=== PATIENT | female | born 1960 | race Caucasian/White ===

== ENCOUNTER 2018-11-02 05:32 | Outpatient (CLI) | payer MEDICAID ==
[~2018-11-02] VITALS: Ht 167.6 cm; Wt 92.5 kg
[~2018-11-02 05:32] MED LIST: ASPI81TA19 PO; CARV6.252 PO; GLIM2TAB PO; INSU100I29 SQ; LISI10TA2 PO; LOVA20TA2 PO; METF-380 PO; NITR0.4T SL; [UNRECOGNIZED DRUG - CODE] TP
[2018-11-02] MEDS ORDERED: NITR0.4T39 SL (14:50)
[2018-11-02] MEDS ORDERED: TOPI100T PO (14:50)
[2018-11-02] MEDS ORDERED: ISOS30TA3 PO (14:50)
[2018-11-02] MEDS ORDERED: ASPI-586 PO (14:50)
[2018-11-02] MEDS ORDERED: METF-399 PO (14:50)
[2018-11-02] MEDS ORDERED: ATOR40TA PO (14:50)
[2018-11-02] MEDS ORDERED: CALC-823 PO (14:50)
[2018-11-02] MEDS ORDERED: OMG1KC PO (14:50)
[2018-11-02] MEDS ORDERED: ACET325T38 PO (14:50)
[2018-11-02] MEDS ORDERED: CHOL100045 PO (14:50)
[2018-11-02] MEDS ORDERED: CARV3.12 PO (14:50)
[2018-11-02] MEDS ORDERED: CLOP75TA28 PO (14:50)
== END 2018-11-03 09:55 | disposition home or self-care (01) ==
LOC: PREOP 05:32
PROVIDERS: ATTEND Specialist
DX: Z01.818 Encounter for other preprocedural examination (principal)

== ENCOUNTER 2018-11-04 06:27 | Day surgery (SDC) | payer MEDICAID ==
[~2018-11-04] VITALS: Ht 167.6 cm; Wt 92.5 kg
[~2018-11-04 06:27] MED LIST changes: +ACET325T38 PO; +ASPI-586 PO; +ATOR40TA PO; +CALC-823 PO; +CARV3.12 PO; +CHOL100045 PO; +CLOP75TA28 PO; +ISOS30TA3 PO; +METF-399 PO; +NITR0.4T39 SL; +OMG1KC PO; +TOPI100T PO
[2018-11-04 07:10] VITALS: BP 138/81
[2018-11-04] MEDS ORDERED: MIDAZOLAM 2 MG/2 ML (VERSED) VIAL ONE (07:10)
[2018-11-04] MEDS ORDERED: MOXIFLOXACIN OPHTH SOLN 5 MG/ML 0.3 ML SYRINGE OP ONE (07:15)
[2018-11-04] MEDS ORDERED: TIMOLOL MALEATE 0.5% 5 ML (TIMOPTIC) BTL OU PRN (07:15)
[2018-11-04] MEDS ORDERED: LIDOCAINE PF 1% 2 ML AMP IR PRN (07:15)
[2018-11-04] MEDS ORDERED: POVIDONE (BETADINE) OPHTH SOLN 5% 30 ML OP ONE (07:15)
[2018-11-04] MEDS: TETRACAINE 0.5% OPHTH SOLN 4 ML BTL (SINGLE DOSE ONLY) OU PRN ×4 (07:23→07:52)
[2018-11-04] MEDS: PHENYLEPHRINE 10% OPHTH (NEO-SYN) 5 ML BTL OU SCH ×3 (07:39→07:52)
[2018-11-04] MEDS: CYCLOPENTOLATE 1% (CYCLOGYL) 2 ML DROPS OP SCH ×3 (07:39→07:52)
--- NOTE | 2018-11-04 08:12 | Ophthalmologist Pre-Op Note ---
Pre-Operative Progress Note H&P Reviewed The H&P was reviewed, patient examined and no changes noted. Date H&P Reviewed: November 04, 2018 Time H&P Reviewed: 08:12 Pre-Op Dx Cataract, Left Eye KATRINA DOBSON MD November 04, 2018 08:12
--- NOTE | 2018-11-04 08:39 | Ophthalmology Operative Report ---
Cataract removal/placement IOL PREOPERATIVE DIAGNOSIS: Cataract Left Eye POSTOPERATIVE DIAGNOSIS: Cataract Left Eye PROCEDURE: Cataract removal and placement of posterior chamber implant, left eye SURGEON: Gigi Dobson ANESTHESIA: Topical with sedation COMPLICATIONS: None ESTIMATED BLOOD LOSS: Minimal DESCRIPTION OF PROCEDURE: After proper informed consent was obtained, the patient, a 58 female, was taken to the Operating Room and the left eye was anesthetized with tetracaine. The left eye was then prepped and draped in the usual manner. A wire lid speculum was placed. A paracentesis was made at the left hand position. Preservative free lidocaine was injected into the anterior chamber followed by viscoelastic. A clear corneal incision was made in the temporal position. A capsulorrhexis was preformed and the central nuclear and cortical material were removed. The posterior capsule was polished and an Gio 25.5 AU00T0 was placed into the capsular bag. The residual viscoelastic was aspirated and balanced saline solution was injected into the anterior chamber. Moxifloxacin was injected into the anterior chamber. The wound was checked and found to be water tight. The patient tolerated the procedure well without complications. GIGI DOBSON MD November 04, 2018 08:39
[2018-11-04 08:45] VITALS: BP 138/74
[2018-11-04] MEDS ORDERED: acetaZOLAMIDE ER 500 MG CAP (DIAMOX SEQUELS) PO ONE (09:00)
--- NOTE | 2018-11-04 13:12 | Anesthesia-General Post-Op ---
MAC Patient Condition Mental Status/LOC: Same as Preop Cardiovascular: Satisfactory Nausea/Vomiting: Absent Respiratory: Satisfactory Pain: Controlled Complications: Absent Post Op Complications Complications None Follow Up Care/Instructions Patient Instructions None needed. Anesthesiology Discharge Order Discharge Order Patient was seen after the procedure and she was doing well, no complaints, stable vital signs, no apparent adverse anesthesia problems. JURGEN JACKSON DO November 04, 2018 13:12
== END 2018-11-04 08:45 | disposition home or self-care (01) ==
LOC: SDC 06:27
PROVIDERS: ATTEND Specialist
DX: H25.12 Age-related nuclear cataract, left eye (principal); E11.36 Type 2 diabetes mellitus with diabetic cataract; I25.10 Atherosclerotic heart disease of native coronary artery without angina pectoris; I10 Essential (primary) hypertension; E03.9 Hypothyroidism, unspecified; R56.9 Unspecified convulsions; F32.9 Major depressive disorder, single episode, unspecified; Z86.73 Personal history of transient ischemic attack (TIA), and cerebral infarction without residual deficits; Z79.82 Long term (current) use of aspirin; Z79.899 Other long term (current) drug therapy; Z79.84 Long term (current) use of oral hypoglycemic drugs

== ENCOUNTER → 2018-12-08 | Outpatient (CLI) | payer MEDICAID | END | disposition home or self-care (01) | LOC: PREOP 05:37 | PROVIDERS: ATTEND Specialist | DX: Z01.818 Encounter for other preprocedural examination (principal) ==

== ENCOUNTER 2019-04-20 09:12 | Outpatient (CLI) | payer MEDICAID ==
[~2019-04-20] VITALS: Ht 168 cm; Wt 74.5 kg
[2019-04-20] MEDS ORDERED: RANI300T4 PO (09:19)
== END 2019-04-20 09:24 | disposition home or self-care (01) ==
LOC: PREOP 09:12
PROVIDERS: ATTEND Specialist
DX: Z01.818 Encounter for other preprocedural examination (principal)

== ENCOUNTER 2019-05-24 05:52 | Outpatient (CLI) | payer MEDICAID ==
[~2019-05-24] VITALS: Ht 167 cm; Wt 74.5 kg
[~2019-05-24 05:52] MED LIST changes: +RANI300T4 PO
== END 2019-05-25 09:31 | disposition home or self-care (01) ==
LOC: PREOP 05:52
PROVIDERS: ATTEND Specialist
DX: Z01.818 Encounter for other preprocedural examination (principal)

== ENCOUNTER 2019-05-26 09:19 | Day surgery (SDC) | payer MEDICAID ==
[~2019-05-26] VITALS: Ht 167 cm; Wt 74.5 kg
[~2019-05-26 09:19] MED LIST changes: +acetaZOLAMIDE ER 500 MG CAP (DIAMOX SEQUELS) PO ONE
[2019-05-26] MEDS ORDERED: LIDOCAINE PF 1% 2 ML AMP IR PRN (09:30)
[2019-05-26] MEDS ORDERED: MOXIFLOXACIN OPHTH SOLN 5 MG/ML 0.3 ML SYRINGE OP ONE (09:30)
[2019-05-26] MEDS ORDERED: TIMOLOL MALEATE 0.5% 5 ML (TIMOPTIC) BTL OU PRN (09:30)
[2019-05-26] MEDS ORDERED: POVIDONE (BETADINE) OPHTH SOLN 5% 30 ML OP ONE (09:30)
[2019-05-26] MEDS: TETRACAINE 0.5% OPHTH SOLN 4 ML BTL (SINGLE DOSE ONLY) OU PRN ×4 (09:35→09:57)
[2019-05-26 09:41] VITALS: BP 135/84
[2019-05-26] MEDS: PHENYLEPHRINE 10% OPHTH (NEO-SYN) 5 ML BTL OU SCH ×3 (09:47→09:57)
[2019-05-26] MEDS: CYCLOPENTOLATE 1% (CYCLOGYL) 2 ML DROPS OP SCH ×3 (09:47→09:57)
--- NOTE | 2019-05-26 09:54 | Ophthalmologist Pre-Op Note ---
Pre-Operative Progress Note H&P Reviewed The H&P was reviewed, patient examined and no changes noted. Date H&P Reviewed: May 26, 2019 Time H&P Reviewed: 09:54 Pre-Op Dx Cataract, Right Eye KATRINA DOBSON MD May 26, 2019 09:54 POS
[2019-05-26] MEDS ORDERED: MIDAZOLAM 2 MG/2 ML (VERSED) VIAL ONE (10:18)
--- NOTE | 2019-05-26 10:36 | Ophthalmology Operative Report ---
Cataract removal/placement IOL PREOPERATIVE DIAGNOSIS: Cataract Right Eye POSTOPERATIVE DIAGNOSIS: Cataract Right Eye PROCEDURE: Cataract removal and placement of posterior chamber implant, right eye SURGEON: Gigi Dobson ANESTHESIA: Topical with sedation COMPLICATIONS: None ESTIMATED BLOOD LOSS: Minimal DESCRIPTION OF PROCEDURE: After proper informed consent was obtained, the patient, a 59 female, was taken to the Operating Room and the right eye was anesthetized with tetracaine. The right eye was then prepped and draped in the usual manner. A wire lid speculum was placed. A paracentesis was made at the left hand position. Preservative free lidocaine was injected into the anterior chamber followed by viscoelastic. A clear corneal incision was made in the temporal position. A capsulorrhexis was preformed and the central nuclear and cortical material were removed. The posterior capsule was polished and Gio 25.0 AU00T0 IOL was placed into the capsular bag. The residual viscoelastic was aspirated and balanced saline solution was injected into the anterior chamber. Moxifloxacin was injected into the anterior chamber. The wound was checked and found to be water tight. The patient tolerated the procedure well without complications. GIGI DOBSON MD May 26, 2019 10:36 POS
[2019-05-26 10:45] VITALS: BP 130/76
--- NOTE | 2019-05-26 11:58 | Anesthesia-General Post-Op ---
MAC Patient Condition Mental Status/LOC: Same as Preop Cardiovascular: Satisfactory Nausea/Vomiting: Absent Respiratory: Satisfactory Pain: Controlled Complications: Absent Post Op Complications Complications None Follow Up Care/Instructions Patient Instructions None needed. Anesthesiology Discharge Order Discharge Order Patient is doing well, no complaints, stable vital signs, no apparent adverse anesthesia problems. No complications reported per nursing. CRISTAL AL CRNA May 26, 2019 11:58 POS
--- OUTSIDE RECORDS SUMMARY | 2019-06-21 12:19 | XMS REPORT ---
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 Name Role Phone Migration, Doctor Unavailable Unavailable PROBLEMS Type Condition ICD9-CM Code KLR89-PV Code Onset Dates Condition S tatus SNOMED Code Problem Gallbladder polyp K82.4 Active 19 9397167 Problem Urge incontinence of urine N39.41 Act viji 55122162 Problem Mixed hyperlipidemia E78.2 Active 035728246 Problem Hypomagnesemia E83.42 Active 06084 5004 Problem Expressive aphasia R47.01 Active 2 23575362 Problem Type 2 diabetes mellitus without complications E11 .9 Active 44794193 Problem Encounter for Zostavax administration Z23 Active 384092454 Problem Anxiety F41.9 Active 35051261 Problem Seizure disorder G40.909 Active 128 312092 Problem Dental caries K02.9 Active 760680 01 Problem Cardiomyopathy I42.9 Active 39835 001 Problem Fatigue, unspecified type R53.83 Acti ve 00916146 Problem Thyroid mass E07.9 Active 5038863 03 Problem Acute bronchitis, unspecified organism J20.9 Active 76198346 Problem Encounter for gynecological examination without abnormal finding Z01.419 Active 671636551 Problem Other chronic pain G89.29 Active 8 2161387 Problem Cardiomegaly I51.7 Active 9647351 Problem Controlled type 2 diabetes m ellitus without complication, without long- term current use of insulin E11.9 Active 861318764 Problem Pain in left shoulder M25.512 Active 39380221 Problem Emotional lability R45.86 Active 1 8635104 Problem Dermatitis L30.9 Active 45352559 Problem Primary osteoarthritis of left shoulder M19.012 Active 34240088 Problem Gastric reflux K21.9 Active 20525 7003 Problem Visit for screening mammogram Z12.31 Active 553369421 Problem Age-related osteoporosis without current pathological fracture M81.0 Active 35221123 Problem Allergic rhinitis J30.9 Active 61 652570 Problem Early menopause E28.319 Active 1908 6009 Problem Colon cancer screening Z12.11 Active 025596245 Problem Breast cancer screening Z12.39 Active 970678692 Problem Hemorrhoids, external, thrombosed K64.5 Active 01310522 Problem Constipation K59.00 Active 5775824 8 Problem Type 2 diabetes mellitus wit h diabetic neuropathy, unspecified whether penitentiary insulin use E11.40 Active 451347 242792931 Problem Other hammer toe(s) (acquired), left foot M20.42 Active 60157787 Problem Other hammer toe(s) (acquired), right foot M20.41 Active 232937203 ALLERGIES No Information ENCOUNTERS Encounter Location Date Diagnosis [facility] [address] [id number][place] [id number] Mar, [facility] [address] [id number], [place] [id number] Nov, Controlled type 2 diabetes mellitus with out complication, without long-term current use of insulin E11.9 and Colon cancer screening Z12.11 [facility] [id number], [place] [id number] Nov, Type 2 diabetes mellitus without complic ations E11.9 and Gastric reflux K21.9 [facility] [address] [place] [address] AVE [id number], [place] [id number] Nov, Dental caries K02.9 [facility] [address] [facility] [id number] 100KS [place] [address] October, Other hammer toe(s) (acquire d), left foot M20.42 ; Other hammer toe(s) (acquired), right foot M20.41 and Type 2 diabetes mellitus with diabetic neuropathy, unspecified whether penitentiary insulin use E11.40 [facility] [address] [id number], [place] [id number] Sep, Allergic rhinitis J30.9 [facility] [address] [id number], [place] [id number] Sep, [facility] [address] [id number], [place] [address] Sep, Allergic rhinitis, unspecified seasonali ty, unspecified trigger J30.9 and Viral upper respiratory tract infection J06.9 [facility] [address] [id number], [place] [id number] Aug, [facility] [address] [facility] [id number] 100KS [place] [address] Jul, [facility] [address] [id number], [place] [id number] Jul, Type 2 diabetes mellitus without complic ations E11.9 and Left foot pain M79.672 [facility] A[address] [id number], [place] [id number] May, Gastric reflux K21.9 and Pruritic dermat itis L29.9 [facility]ERSERosi [address] [id number], [place] [address] Apr, [facility] [address] [id number], [place] [id number] Mar, Type 2 diabetes mellitus without complic ations E11.9 ; Bronchitis, acute J20.9 and Constipation K59.00 [facility] [address] [id number], [place] [id number] Mar, [facility] [address] [id number], [place] [id number] Mar, [facility] [address] [id number], [place] [id number] Mar, [facility] [address] [id number], [place] [id number] Mar, [facility] [address] [id number], [place] [id number] Mar, [facility] [address] [id number], [place] [id number] Feb, Encounter for immunization Z23 [facility] [address] [id number], [place] [id number] Feb, Gastric reflux K21.9 ; Visit for screeni ng mammogram Z12.31 and Age- related osteoporosis without current pathological fracture M81.0 [facility] [address] [id number] [place] [id number] Feb, [facility] [address] [id number] [place] [address] Feb, [facility] [address] [id number], [place] [id number] Aug, [facility] [address] [id number], [place] [id number] Jul, Contact dermatitis, unspecified contact dermatitis type, unspecified trigger L25.9 [facility] [address] [id number], [place] [id number] Mar, Type 2 diabetes mellitus without complic ations E11.9 ; Mammogram declined Z53.20 ; Cardiomegaly I51.7 and Encounter for immunization Z23 [facility] [address] [id number], [place] [address]3689[address] Mar, [facility] [address] [id number], [place] [id number] Jan, High risk medication use Z79.899 and Anx iety F41.9 [facility] [address] [id number], [place] [id number] Jan, [facility] [address] [id number], [place] [address]297780[address] Jan, Dental caries K02.9 [facility] [address] [id number], [place] [address] Jan, [facility] [address] [id number], [place] [address]659000[address] Nov, Dental caries K02.9 [facility] [address] [id number], [place] [id number] October, Dental caries K02.9 [facility] [address] [id number], [place] [address]366[address] Sep, [facility] [address] [id number] [place] [id number] Sep, Type 2 diabetes mellitus without complic ations E11.9 and Dental caries K02.[address] [facility] [address] [id number] [place] [id number] Aug, [facility] [address] [id number] [place] [id number] Jul, [facility] [address] [id number] [place] [address] Jul, [facility] [address] [id number] BE[facility]IOR[facility] [address] Jun, Dental examination Z01.[address] [facility] [address] [id number], [place] [id number] Jun, Emotional lability R45.[address] [facility] [address] [id number], [place] 096845[address] Jun, [facility] [address] [id number] BEHAVIORAL [facility] [id number] Jun, Controlled type 2 diabetes mellitus with out complication, without long-term current use of insulin E11.[address] [facility] [address] [id number], [place] [address]741617[address] May, [facility] [address] [id number] [place] [id number] May, Cardiomyopathy I42.9 ; Emotional labilit y R45.86 and Dental caries K02.[address] [facility] [address] [id number] [place] [address]54[address] Apr, [facility] [address] [id number] [place] [address]30[address] Mar, [facility] [address] [id number] [place] [id number] Feb, Type 2 diabetes mellitus without complic ations E11.9 [facility] [place] [address] [id number] [place] [id number] Jan, [facility] [address] [id number] [place] 07[address] Dec, Gallbladder polyp K82.[address] [facility] [address] [id number], [place] 199216775 Nov, [facility] [address] [id number], [place] 082955495 Nov, Primary osteoarthritis of left shoulder M19.012 [facility] [address] [id number] [place] [address] Nov, [facility] [address] [id number], [place] [id number] Nov, Controlled type 2 diabetes mellitus with out complication, without long-term current use of insulin E11.9 and Pain in left shoulder M25.[address] [facility] [address] [id number], [place] 535531651 Nov, Gallbladder polyp K82.4 [facility] [address] [id number], [place] 121776472 October, Pain in left shoulder M25.512 and Other chronic pain G89.29 [facility] [address] [id number], [place] [id number] October, [facility] [address] [id number], [place] [id number] October, [facility] [address] [id number], [place] [id number] October, [facility] [address] [id number], [place] [id number] Sep, [facility] [address] [id number] 100KS [place] [address] Sep, [facility] [address] [id number], [place] 736184982 Sep, Encounter for gynecological examination without abnormal finding Z01.419 ; Breast cancer screening Z12.39 ; Hemorrhoids, external, thrombosed K64.5 and Early menopause E28.[id number] [place] [address] [id number] Sep, Acute bronchitis, unspecified organism J 20.9 and Cardiomegaly I51.[address] [id number] [place] [address] [id number] Aug, Thyroid mass E07.[address] [id number] [place] [address] [id number] 15 Aug, 2015 Type 2 diabetes mellitus without complic ations E11.9 ; Thyroid mass E07.9 and Encounter for Zostavax administration Z23 [address] [id number] [place] [address] [id number] Aug, Seizure disorder G40.909 ; Hypomagnesemi a E83.42 and Expressive aphasia R47.01 [facility] [address] [facility] [id number] [address] [place] [address] 06 Jul, 2015 Urge incontinence of urine N 39.[address] [id number] [place] [address] [id number] 02 Jul, [address] [id number] [place] [address] [id number] Jul, Pharyngitis J02.9 ; Urge incontinence of urine N39.41 and Acute cystitis with hematuria N30.01 [facility] [address] [facility] [id number] [address] [place] [address] May, Mixed hyperlipidemia E78.[address] AV[address] [facility]'S [id number] [place] [address] [id number] May, Seizure disorder G40.909 ; Mixed hyperli pidemia E78.2 and Gallbladder polyp K82.[address] [id number] [place] [address] [id number] May, [facility] [address] [id number], [place] [id number] May, [facility] [address] [id number], [place] [id number] May, Diabetes type 2, controlled E11.9 and Fa tigue, unspecified type R53.83 [facility] [address] [id number], [place] [id number] Apr, Cardiomyopathy I42.9 ; Thyroid mass E07. 9 ; Seizure disorder G40.909 and Dermatitis L30.9 [facility] [address] [id number], [place] [id number] Mar, [facility] [id number], [place] [id number] Feb, [facility]ENTERSEZervantUS [address] [place] [address] AVE [id number], [place] [id number] Feb, [facility]ENTERSEZervantUS [address] [place] [address] AVE [id number], [place] [id number] Jan, [facility] [address] [place] [address] AVE [id number], [place] [id number] Jan, CAD (coronary artery disease) 414.00 ; H yperlipidemia associated with type 2 diabetes mellitus 250.80 and Diabetes type 2, controlled 250.00 [facility] [address] [facility] [address] [id number], [place] [address]3275302 Nov, CVA (cerebral infarction) 434.91 ; Expre ssive aphasia 784.3 ; Solitary nodule of right lobe of thyroid 241.0 ; CAD (coronary artery disease) 414.00 ; Diabetes type 2, controlled 250.00 and Hemorrhoids, external 455.3 [facility] [address] [id number], [place] [id number] October, Chest pain, atypical 786.59 ; Hemorrhoid s 455.6 ; Diabetes type 2, controlled 250.00 and Hyperlipidemia associated with type 2 diabetes mellitus 250.80 [facility] [address] [id number], [place] [id number] October, [facility] [address] [id number], [place] 947054472 October, Chest pain 786.50 ; Abnormal EKG 794.31 and Diabetes type 2, controlled 250.[address] [facility] [address] [id number], [place] 800365412 October, Chest pain varies with breathing 786.50 [facility] [address] [id number] [address] [place] [address] Sep, [facility] [address] [id number] [address] [place] [address] Sep, [facility] [address] [id number] [address] [place] [address] Aug, [facility] [address] [id number] [address] [place] [address] Aug, [facility] [address] [id number] [address] [place] [address] Aug, [facility] [address] [id number] [address] [place] [address] Aug, [facility] [address] [id number] [address] [place] [address] Aug, [facility] [address] [id number] [address] [place] [address] Aug, [facility] [address] [id number] [address] [place] [address] Aug, [facility] [address] [id number] [address] [place] [address] Aug, [facility] [address] [id number] [address] [place] [address] Jul, [facility] [address] [id number] [address] [place] [address] Jul, [facility] [address] [id number] [address] [place] [address], [place] [address] Jun, [facility] [address] [id number] [address] [place] [address], [place] [address] Jun, [facility] [address] [id number] [address] [place] [address], [place] [address] Jun, [facility] [address] [id number] [address] [place] [address], [place] [address] Jun, [facility] [address] [id number] [address] [place] [address], [place] [address] Jun, [facility] [address] [id number] [address] [place] [address], [place] [address] Jun, [facility] [address] [id number] [address] [place] [address], [place] [address] Jun, [facility] [address] [id number] [address] [place] [address], [place] [address] Jun, [facility] [address] [id number] [address] [place] [address], [place] [address] Jun, [facility] [place] [address] [id number] [place] [id number] Jun, [facility] [address] [id number] [address] [place] [address], [place] [address] Jun, [facility] [address] [id number] [address] [place] [address], [place] [address] May, [facility] [address] [id number] [address] [place] [address], [place] [address] May, [facility] [address] [id number] [address] [place] [address], [place] [address] May, [facility] [address] [id number] [address] [place] [address], [place] [address] May, [facility] [address] [id number] [address] [place] [address], [place] [address] Apr, [facility] [address] [id number] [address] [place] [address], [place] [address] Apr, 2013 [facility] [address] [id number] [address] [place] [address], [place] [address] Mar, 2013 [facility] [address] [id number] [address] [place] [address], [place] [address] Mar, 2013 [facility] [address] [id number] [address] [place] [address], [place] [address] Mar, 2013 [facility] [address] [id number] [address] [place] [address], [place] [address] Mar, 2013 [facility] [address] [id number] [address] [place] [address], [place] [address] Mar, 2013 [facility] [address] [id number] [address] [place] [address], [place] [address] Mar, 2013 [facility] [address] [id number] [address] [place] [address], [place] [address] Mar, 2013 [facility] [address] [id number] [address] [place] [address], [place] [address] Mar, [facility] [address] [id number] [address] [place] [address], [place] [address] 30 Feb, 2013 [facility] [address] [id number] [address] [place] [address], [place] [address] 30 Sep, 2013 [facility] [address] [id number] [address] [place] [address], [place] [address] 19 Sep, 2013 [facility] [address] [id number] [address] [place] [address], [place] [address] 08 Sep, 2013 [facility] [address] [id number] [address] [place] [address], [place] [address] 08 Sep, 2013 [facility] [address] [id number] [address] [place] [address], [place] [address] 08 Sep, 2013 [facility] [address] [id number] [address] [place] [address], [place] [address] Feb, [facility] [address] [id number] [address] [place] [address] Feb, [facility] [address] [id number] [address] [place] [address] Feb, [facility] [address] [id number] [address] [place] [address] Feb, [facility] [address] [id number] [address] [place] [address] Feb, [facility] [address] [id number] [address] [place] [address] Jan, [facility] [address] [id number] [address] [place] [address] Jan, [facility] [address] [facility] [id number] [address] [place] [address] October, [facility] [address] [id number] [address] [place] [address] October, IMMUNIZATIONS No Known Immunizations SOCIAL HISTORY Never Assessed REASON FOR VISIT PLAN OF CARE VITAL SIGNS MEDICATIONS Unknown Medications RESULTS No Results PROCEDURES No Known procedures INSTRUCTIONS MEDICATIONS ADMINISTERED No Known Medications MEDICAL (GENERAL) HISTORY Type Description Date Medical History Diabetes mellitus without me ntion of complication, type II or unspecified type, not stated as uncontrolled Medical History hyperlipidemia Medical History chronic constipation Medical History atrophic vaginitis Medical History left frontal cva 11-02-14 Medical History CAD Medical History right thyroid mass Medical History expressive aphasia Medical History ischemic cardiomyopathy with 3 vessel di sease and 30% EF Medical History EEG-positive results Medical History Fatty liver and an 8mm gallbladder polyp CT Medical History seizure disorder post CVA Medical History 04/09/15 PPV 23 Medical History DEXA osteoporosis Medical History 08-17-18 cataracts-surg recommended Medical History 10/21/18 DM podiatry visit Surgical History tubal ligation Surgical History exploratory laparoscopy Surgical History appendectomy Surgical History breast biopsy Surgical History incision and drainage abscess Surgical History tonsillectomy and adenoidectomy Surgical History heart cath 10/2014 Surgical History triple bypass 12/31/14 Hospitalization History past surgeries Hospitalization History left frontal CVA 10/2014 Hospitalization History heart surgery 12/31/14 Hospitalization History syncopal episode, repiratory failure, pneumonia, anemia, pulmonoary edema 04/07/15 Hospitalization History AMS, Seizure 06/04/2015 Hospitalization History chest pain-noncardiac 03/29/18 Hospitalization History [facility] Was given cousmallpox hospital medicine and was sent home. 09/24/2018
--- OUTSIDE RECORDS SUMMARY | 2019-06-21 12:19 | XMS REPORT ---
Author Author Cat CAVANAUGH [facility] Address [address] [place] [address] Care Team Providers Care Truck Dispatcher Name Role Phone INGE CAVANAUGH Unavailable PROBLEMS Type Condition ICD9-CM Code XIS80-LX Code Onset Dates Condition S tatus SNOMED Code Problem Gallbladder polyp K82.4 Active 19 8273088 Problem Urge incontinence of urine N39.41 Act viji 90753502 Problem Mixed hyperlipidemia E78.2 Active 365625750 Problem Hypomagnesemia E83.42 Active 18780 5004 Problem Expressive aphasia R47.01 Active 2 23719833 Problem Type 2 diabetes mellitus without complications E11 .9 Active 66234529 Problem Encounter for Zostavax administration Z23 Active 691710254 Problem Anxiety F41.9 Active 52908829 Problem Seizure disorder G40.909 Active 128 973914 Problem Dental caries K02.9 Active 189415 01 Problem Cardiomyopathy I42.9 Active 41625 001 Problem Fatigue, unspecified type R53.83 Acti ve 42994804 Problem Thyroid mass E07.9 Active 0325420 03 Problem Acute bronchitis, unspecified organism J20.9 Active 21106565 Problem Encounter for gynecological examination without abnormal finding Z01.419 Active 943014420 Problem Other chronic pain G89.29 Active 8 4752185 Problem Cardiomegaly I51.7 Active 0320519 Problem Controlled type 2 diabetes m ellitus without complication, without long- term current use of insulin E11.9 Active 339310435 Problem Pain in left shoulder M25.512 Active 60411445 Problem Emotional lability R45.86 Active 1 9320025 Problem Dermatitis L30.9 Active 50302934 Problem Primary osteoarthritis of left shoulder M19.012 Active 49216731 Problem Gastric reflux K21.9 Active 04054 7003 Problem Visit for screening mammogram Z12.31 Active 609276869 Problem Age-related osteoporosis without current pathological fracture M81.0 Active 35112755 Problem Allergic rhinitis J30.9 Active 61 671830 Problem Early menopause E28.319 Active 6584 6009 Problem Colon cancer screening Z12.11 Active 538709037 Problem Breast cancer screening Z12.39 Active 839870038 Problem Hemorrhoids, external, thrombosed K64.5 Active 39944382 Problem Constipation K59.00 Active 0328462 8 Problem Type 2 diabetes mellitus wit h diabetic neuropathy, unspecified whether halfway insulin use E11.40 Active 645277 980560485 Problem Other hammer toe(s) (acquired), left foot M20.42 Active 08262356 Problem Other hammer toe(s) (acquired), right foot M20.41 Active 746013420 ALLERGIES No Information ENCOUNTERS Encounter Location Date Diagnosis [email or web address] [id number] [id number] Mar, [employer] [address] [id number][place] [id number] Nov, Controlled type 2 diabetes mellitus with out complication, without long-term current use of insulin E11.9 and Colon cancer screening Z12.11 [facility] [address] [id number], [place] 900[address]013 Nov, Type 2 diabetes mellitus without complic ations E11.9 and Gastric reflux K21.9 [address] [id number], [place] [id number] Nov, Dental caries K02.9 [facility] [address] [facility] [id number] [place] [address] October, Other hammer toe(s) (acquire d), left foot M20.42 ; Other hammer toe(s) (acquired), right foot M20.41 and Type 2 diabetes mellitus with diabetic neuropathy, unspecified whether halfway insulin use E11.[address] [id number][place] [id number] Sep, Allergic rhinitis J30.9 [facility] [address] [id number], [place] [address] Sep, [facility] [id number], [place] [address] Sep, Allergic rhinitis, unspecified seasonali ty, unspecified trigger J30.9 and Viral upper respiratory tract infection J06.9 [facility] [address] [id number] [place] [address] Aug, [facility] [address] [facility] [id number] 100[place] [address] Jul, [facility] [address] [id number], [place] [address] Jul, Type 2 diabetes mellitus without complic ations E11.9 and Left foot pain M79.672 [facility] [address] [id number][place] [address] May, Gastric reflux K21.9 and Pruritic dermat itis L29.9 [facility] [address] [id number][place] [address] Apr, [facility] [address] [id number], [place] [address] Mar, Type 2 diabetes mellitus without complic ations E11.9 ; Bronchitis, acute J20.9 and Constipation K59.00 [facility] [address] [id number], [place] [address] Mar, [facility] [address] [id number][place] [id number] Mar, [facility] [address] [id number][place] [id number] Mar, [facility] [address] [id number], [place] [id number] Mar, [facility] [address] [id number], [place] [address] Mar, [facility] [address] [id number], [place] [address]61[address] Feb, Encounter for immunization Z23 [facility] [address] [id number], [place] [id number] Feb, Gastric reflux K21.9 ; Visit for screeni ng mammogram Z12.31 and Age- related osteoporosis without current pathological fracture M81.0 [facility] [address] [id number], [place] [address] Feb, [facility] [address] [id number], [place] 611[address]987 Feb, [facility] [address] [id number], [place] [id number] Aug, [facility] [address] [id number], [place] [id number] Jul, Contact dermatitis, unspecified contact dermatitis type, unspecified trigger L25.9 [place] [address] [place] [address] AVE [id number], [place] [id number] Mar, Type 2 diabetes mellitus without complic ations E11.9 ; Mammogram declined Z53.20 ; Cardiomegaly I51.7 and Encounter for immunization Z23 [facility] [address] [id number], [place] [id number] Mar, [place] [address] [place] [address] AVE [id number], [place] [address]1683[address] Jan, High risk medication use Z79.899 and Anx iety F41.9 [facility] [address] [id number], [place] [address]43[address] Jan, [facility] [address] [id number], [place] [address]88[address] Jan, Dental caries K02.9 [facility] [address] [id number], [place] [address] Jan, [facility] [address] [id number], [place] [address] Nov, Dental caries K02.9 [facility] [address] [id number], [place] 9601[address]185 October, Dental caries K02.[address] [facility] [address] [id number] [place] [address] Sep, [facility] [address] [id number] [place] [address] Sep, Type 2 diabetes mellitus without complic ations E11.9 and Dental caries K02.[address] [facility] [address] [id number] [place] [id number] Aug, [facility] [address] [id number] [place] [address] Jul, [facility] [address] [id number] [place] [address] Jul, [facility] [address] [id number] [place] [address] Jun, Dental examination Z01.[address] [facility] [address] [id number] [place] [address] Jun, Emotional lability R45.[address] [facility] [address] [id number], [place] 40945[address] Jun, [facility] [address] [id number] [facility]INGS [facility] [address] Jun, Controlled type 2 diabetes mellitus with out complication, without long-term current use of insulin E11.[address] [facility] [address] [id number] [place] [address] May, [facility] [address] [id number] [place] [address] May, Cardiomyopathy I42.9 ; Emotional labilit y R45.86 and Dental caries K02.[address] [facility] [address] [id number] [place] [id number] Apr, [facility] [address] [id number] [place] [address] Mar, [facility] [address] [id number] [place] [address] Feb, Type 2 diabetes mellitus without complic ations E11.9 [facility] [address] [id number] Rosi LOBO S [id number] Jan, [facility] [address] [id number] [place] [address] Dec, Gallbladder polyp K82.[address] [facility] [address] [id number] [place] [address]34[address] Nov, [facility] [address] [id number] [place] [address] Nov, Primary osteoarthritis of left shoulder M19.[address] [facility] [address] [id number] [place] [address] Nov, [facility] [address] [id number], [place] 834874412 Nov, Controlled type 2 diabetes mellitus with out complication, without long-term current use of insulin E11.9 and Pain in left shoulder M25.[address] [facility] [address] [id number] [place] [address]40[address] Nov, Gallbladder polyp K82.[address] [facility] [address] [id number], [place] [id number] October, Pain in left shoulder M25.512 and Other chronic pain G89.[address] [facility] [address] [id number] [place] [address]40[address] October, [facility] [address] [id number], [place] [id number] October, [facility] [address] [id number] [place] [address] October, [facility] [address] [id number], [place] 807664917 Sep, [facility] [address] [id number] 100[place] [address] Sep, [facility] [address] [id number], [place] 421217970 Sep, Encounter for gynecological examination without abnormal finding Z01.419 ; Breast cancer screening Z12.39 ; Hemorrhoids, external, thrombosed K64.5 and Early menopause E28.[address] [id number], [place] 194075164 Sep, Acute bronchitis, unspecified organism J 20.9 and Cardiomegaly I51.[address] [id number], [place] 796909365 Aug, Thyroid mass E07.[address] [id number] [place] [id number] Aug, Type 2 diabetes mellitus without complic ations E11.9 ; Thyroid mass E07.9 and Encounter for Zostavax administration Z23 [address] [id number] [place] [id number] Aug, Seizure disorder G40.909 ; Hypomagnesemi a E83.42 and Expressive aphasia R47.01 [facility] [address] [facility] [id number] [address] [place] [address] 06 Jul, 2015 Urge incontinence of urine N 39.[address] [id number], [place] 895955263 Jul, [address] [id number] [place] [id number] Jul, Pharyngitis J02.9 ; Urge incontinence of urine N39.41 and Acute cystitis with hematuria N30.01 [facility] [address] [facility] [id number] [address] [place] [address] May, Mixed hyperlipidemia E78.[address] [id number], [place] 356508479 May, Seizure disorder G40.909 ; Mixed hyperli pidemia E78.2 and Gallbladder polyp K82.[address] [id number], [place] [id number] May, [facility] [address] [id number], [place] 648050416 May, [facility] [address] [id number], [place] 486461716 May, Diabetes type 2, controlled E11.9 and Fa tigue, unspecified type R53.83 [facility] [address] [id number], [place] 498298066 Apr, Cardiomyopathy I42.9 ; Thyroid mass E07. 9 ; Seizure disorder G40.909 and Dermatitis L30.9 [facility] [address] [id number], [place] 888208722 Mar, [facility] [place] [address] [place] [address] AVE [id number], [place] [id number] Feb, [facility] [place] [address] AVE [id number], [place] 788011843 Feb, [facility] [address] [place] [address] AVE [id number], [place] 660533016 Jan, [facility] [place] [address] AVE [id number], [place] [id number] Jan, CAD (coronary artery disease) 414.00 ; H yperlipidemia associated with type 2 diabetes mellitus 250.80 and Diabetes type 2, controlled 250.00 [facility] [address] [id number], [place] 993105109 Nov, CVA (cerebral infarction) 434.91 ; Expre ssive aphasia 784.3 ; Solitary nodule of right lobe of thyroid 241.0 ; CAD (coronary artery disease) 414.00 ; Diabetes type 2, controlled 250.00 and Hemorrhoids, external 455.3 [facility] [address] [id number], [place] 8277679[address] October, Chest pain, atypical 786.59 ; Hemorrhoid s 455.6 ; Diabetes type 2, controlled 250.00 and Hyperlipidemia associated with type 2 diabetes mellitus 250.[address] [facility] [address] [id number], [place] [id number] October, [facility] [address] [id number], [place] 016041022 October, Chest pain 786.50 ; Abnormal EKG 794.31 and Diabetes type 2, controlled 250.[address] [facility] [address] [id number], [place] 547105468 October, Chest pain varies with breathing 786.50 [facility] [address] [id number] [address] [place] [address] Sep, [facility] [address] [id number] [address] [place] [address] Sep, [facility] [address] [id number] [address] [place] [address] Aug, [facility] [address] [id number] [address] [place] [address] Aug, [facility] [address] [id number] [address] [place] [address] Aug, [facility] [address] [id number] [address] [place] [address] Aug, [facility] [address] [id number] [address] [place] [address] Aug, [facility] [address] [id number] [address] [place] [address] Aug, [facility] [address] [id number] [address] [place] [address] Aug, [facility] [address] [id number] [address] [place] [address] Aug, [facility] [address] [id number] [address] [place] [address] Jul, [facility] [address] [id number] [address] [place] [address] Jul, [facility] [address] [id number] [address] [place] [address], [place] [address] Jun, [facility] [address] [id number] [address] [place] [address], [place] [address] Jun, [facility] [address] [id number] [address] [place] [address], [place] [address] Jun, [facility] [address] [id number] [address] [place] [address], [place] [address] Jun, [facility] [address] [id number] [address] [place] [address], [place] [address] Jun, [facility] [address] [id number] [address] [place] [address], [place] [address] Jun, [facility] [address] [id number] [address] [place] [address], [place] [address] Jun, [facility] [address] [id number] [address] [place] [address], [place] [address] Jun, [facility] [address] [id number] [address] [place] [address], [place] [address] Jun, [facility] [place] [address] [id number] [place] [id number] Jun, [facility] [address] [id number] [address] [place] [address], [place] [address] Jun, [facility] [address] [id number] [address] [place] [address], [place] [address] May, [facility] [address] [id number] [address] [place] [address], [place] [address] May, [facility] [address] [id number] [address] [place] [address], [place] [address] May, [facility] [address] [id number] [address] [place] [address], [place] [address] May, [facility] [address] [id number] [address] [place] [address], [place] [address] Apr, [facility] [address] [id number] [address] [place] [address], [place] [address] Apr, [facility] [address] [id number] [address] [place] [address], [place] [address] Mar, [facility] [address] [id number] [address] [place] [address], [place] [address] Mar, [facility] [address] [id number] [address] [place] [address], [place] [address] Mar, [facility] [address] [id number] [address] [place] [address], [place] [address] Mar, [facility] [address] [id number] [address] [place] [address], [place] [address] Mar, [facility] [address] [id number] [address] [place] [address], [place] [address] Mar, 2013 [facility] [address] [id number] [address] [place] [address], [place] [address] Mar, [facility] [address] [id number] [address] [place] [address], [place] [address] Mar, [facility] [address] [id number] [address] [place] [address], [place] [address] 30 Feb, 2013 [facility] [address] [id number] [address] [place] [address], [place] [address] 30 Sep, 2013 [facility] [address] [id number] [address] [place] [address], [place] [address] 19 Sep, 2013 [facility] [address] [id number] [address] [place] [address], [place] [address] 08 Sep, 2013 [facility] [address] [id number] [address] [place] [address], [place] [address] 08 Sep, 2013 [facility] [address] [id number] [address] [place] [address], [place] [address] Feb, [facility] [address] [id number] [address] [place] [address] Feb, [facility] [address] [id number] [address] [place] [address] Feb, [facility] [address] [id number] [address] [place] [address] Feb, [facility] [address] [id number] [address] [place] [address] Feb, [facility] [address] [id number] [address] [place] [address] Feb, [facility] [address] [id number] [address] [place] [address] Jan, [facility] [address] [id number] [address] [place] [address] Jan, [facility] [address] [id number] [address] [place] [address] October, [facility] [address] [id number] [address] [place] [address] October, IMMUNIZATIONS No Known Immunizations SOCIAL HISTORY [...] Hospitalization History chest pain-noncardiac 03/29/[address] [facility] Was given [facility] medicine and was sent home. 09/24/2018
--- OUTSIDE RECORDS SUMMARY | 2019-06-21 12:19 | XMS REPORT ---
Author Author Cat CAVANAUGH [facility] Address [address] [place] [address] Care Team Providers Care Research Instructor Name Role Phone INGE CAVANAUGH Unavailable PROBLEMS Type Condition ICD9-CM Code JQZ13-EE Code Onset Dates Condition S tatus SNOMED Code Problem Gallbladder polyp K82.4 Active 19 9509928 Problem Urge incontinence of urine N39.41 Act viji 16820619 Problem Mixed hyperlipidemia E78.2 Active 568625437 Problem Hypomagnesemia E83.42 Active 96729 5004 Problem Expressive aphasia R47.01 Active 2 65234183 Problem Type 2 diabetes mellitus without complications E11 .9 Active 59127811 Problem Encounter for Zostavax administration Z23 Active 442034962 Problem Anxiety F41.9 Active 06884745 Problem Seizure disorder G40.909 Active 128 920831 Problem Dental caries K02.9 Active 832230 01 Problem Cardiomyopathy I42.9 Active 17545 001 Problem Fatigue, unspecified type R53.83 Acti ve 28695424 Problem Thyroid mass E07.9 Active 7460400 03 Problem Acute bronchitis, unspecified organism J20.9 Active 03656396 Problem Encounter for gynecological examination without abnormal finding Z01.419 Active 533930980 Problem Other chronic pain G89.29 Active 8 3798236 Problem Cardiomegaly I51.7 Active 7828466 Problem Controlled type 2 diabetes m ellitus without complication, without long- term current use of insulin E11.9 Active 062225755 Problem Pain in left shoulder M25.512 Active 04651769 Problem Emotional lability R45.86 Active 1 3339584 Problem Dermatitis L30.9 Active 24258868 Problem Primary osteoarthritis of left shoulder M19.012 Active 20588339 Problem Gastric reflux K21.9 Active 84544 7003 Problem Visit for screening mammogram Z12.31 Active 111096438 Problem Age-related osteoporosis without current pathological fracture M81.0 Active 40621516 Problem Allergic rhinitis J30.9 Active 61 530338 Problem Early menopause E28.319 Active 6584 6009 Problem Colon cancer screening Z12.11 Active 058931251 Problem Breast cancer screening Z12.39 Active 308137576 Problem Hemorrhoids, external, thrombosed K64.5 Active 64806576 Problem Constipation K59.00 Active 4440985 8 Problem Type 2 diabetes mellitus wit h diabetic neuropathy, unspecified whether senior care insulin use E11.40 Active 170540 912499692 Problem Other hammer toe(s) (acquired), left foot M20.42 Active 60364182 Problem Other hammer toe(s) (acquired), right foot M20.41 Active 670362601 ALLERGIES No Information ENCOUNTERS Encounter Location Date Diagnosis [employer] [id number] [id number] Mar, [address] [id number][place] [address] Nov, Controlled type 2 diabetes mellitus with out complication, without long-term current use of insulin E11.9 and Colon cancer screening Z12.11 [facility] [address] [id number] [address] Nov, Type 2 diabetes mellitus without complic ations E11.9 and Gastric reflux K21.9 [address] [id number][place] [id number] Nov, Dental caries K02.9 [facility] [address] [facility] [id number] [place], [place] [address] October, Other hammer toe(s) (acquire d), left foot M20.42 ; Other hammer toe(s) (acquired), right foot M20.41 and Type 2 diabetes mellitus with diabetic neuropathy, unspecified whether senior care insulin use E11.[address] [id number], [place] [address] Sep, Allergic rhinitis J30.9 [facility] [address] [id number], [place] [address] Sep, [facility] [address] [id number][place] [address] Sep, Allergic rhinitis, unspecified seasonali ty, unspecified trigger J30.9 and Viral upper respiratory tract infection J06.9 [facility] [address] [id number] [place] [id number] Aug, [facility] [address] [facility] [id number] [place], [place] [address] Jul, [facility] [address] [id number][place] [address] Jul, Type 2 diabetes mellitus without complic ations E11.9 and Left foot pain M79.672 [facility] [address] [id number], [place] [id number] May, Gastric reflux K21.9 and Pruritic dermat itis L29.9 [facility] [address] [id number], [place] [address] Apr, [facility] [address] [id number], [place] [address] Mar, Type 2 diabetes mellitus without complic ations E11.9 ; Bronchitis, acute J20.9 and Constipation K59.00 [facility] [address] [id number][place] [address] Mar, [facility] [address] [id number][place] [address] Mar, [facility] [address] [id number], [place] [address] Mar, [facility] [address] [id number], [place] [id number] Mar, [facility] [address] [id number][place] [address] Mar, [facility] [address] [id number], [place] [address] Feb, Encounter for immunization Z23 [facility] [address] [id number], [place] [address]209[address] Feb, Gastric reflux K21.9 ; Visit for screeni ng mammogram Z12.31 and Age- related osteoporosis without current pathological fracture M81.0 [facility] [address] [id number], [place] [address] Feb, [facility] [address] [id number], [place] [address] Feb, [facility] [address] [id number], [place] 516[address] Aug, [facility] [address] [facility] [address] [id number], [place] [address] Jul, Contact dermatitis, unspecified contact dermatitis type, unspecified trigger L25.9 [place] [address] [place] [address] AVE [id number], [place] [address]206[address] Mar, Type 2 diabetes mellitus without complic ations E11.9 ; Mammogram declined Z53.20 ; Cardiomegaly I51.7 and Encounter for immunization Z23 [facility] [address] [facility] [address] [id number], [place] [address] Mar, [place] [address] [place] [address] AVE [id number], [place] [address]88[address]58[address] Jan, High risk medication use Z79.899 and Anx iety F41.9 [facility] [address] [facility] [address] [id number], [place] [address] Jan, [facility] [address] [id number], [place] [address] Jan, Dental caries K02.9 [facility] [address] [id number], [place] [address] Jan, [facility] [address] [id number], [place] 893435585 Nov, Dental caries K02.9 [facility] [address] [id number], [place] [address] October, Dental caries K02.[address] [facility] [address] [id number] [place] [address] Sep, [facility] [address] [id number] [place] [address] Sep, Type 2 diabetes mellitus without complic ations E11.9 and Dental caries K02.[address] [facility] [address] [id number] [place] [address] Aug, [facility] [address] [id number] [place] [address] Jul, [facility] [address] [id number] [place] [address] Jul, [facility] [address] [id number] [place] [address] Jun, Dental examination Z01.[address] [facility] [address] [id number] [place] [address] Jun, Emotional lability R45.[address] [facility] [address] [id number], [place] [address] Jun, [facility] [address] [id number] [facility] [place] [id number] Jun, Controlled type 2 diabetes mellitus with out complication, without long-term current use of insulin E11.[address] [facility] [address] [id number] [place] [address] May, [facility] [address] [id number] [place] [address] May, Cardiomyopathy I42.9 ; Emotional labilit y R45.86 and Dental caries K02.[address] [facility] [address] [id number] [place] [address] Apr, [facility] [address] [id number] [place] [address] Mar, [facility] [address] [id number] [place] [address] Feb, Type 2 diabetes mellitus without complic ations E11.9 [facility] [address] [id number] Rosi LOBO S [id number] Jan, [facility] [address] [id number] [place] [address] Dec, Gallbladder polyp K82.[address] [facility] [address] [id number] [place] [address] Nov, [facility] [address] [id number] [place] [address] Nov, Primary osteoarthritis of left shoulder M19.[address] [facility] [address] [id number] [place] [address] Nov, [facility] [address] [id number], [place] [address]90333929 Nov, Controlled type 2 diabetes mellitus with out complication, without long-term current use of insulin E11.9 and Pain in left shoulder M25.[address] [facility] [address] [id number] [place] [address] Nov, Gallbladder polyp K82.[address] [facility] [address] [id number], [place] 556913475 October, Pain in left shoulder M25.512 and Other chronic pain G89.[address] [facility] [address] [id number] [place] [address] October, [facility] [address] [id number], [place] 48554[address]40 October, [facility] [address] [id number] [place] [address] October, [facility] [address] [id number], [place] [id number] Sep, [facility] [address] [id number] 100[place] [address] Sep, [facility] [address] [id number], [place] 524[address] Sep, Encounter for gynecological examination without abnormal finding Z01.419 ; Breast cancer screening Z12.39 ; Hemorrhoids, external, thrombosed K64.5 and Early menopause E28.[address] [id number], [place] 299[address]07 Sep, Acute bronchitis, unspecified organism J 20.9 and Cardiomegaly I51.[address] [id number], [place] 591905474 Aug, Thyroid mass E07.[address] [id number] [place] [id number] Aug, Type 2 diabetes mellitus without complic ations E11.9 ; Thyroid mass E07.9 and Encounter for Zostavax administration Z23 [address] [id number] [place] [id number] Aug, Seizure disorder G40.909 ; Hypomagnesemi a E83.42 and Expressive aphasia R47.01 [facility] [address] [facility] [id number] [address] [place] [address] 06 Jul, 2015 Urge incontinence of urine N 39.[address] [id number], [place] [address] Jul, [address] [id number] [place] [id number] Jul, Pharyngitis J02.9 ; Urge incontinence of urine N39.41 and Acute cystitis with hematuria N30.01 [facility] [address] [facility] [id number] [address] [place] [address] May, Mixed hyperlipidemia E78.[address] [id number], [place] 116934698 May, Seizure disorder G40.909 ; Mixed hyperli pidemia E78.2 and Gallbladder polyp K82.[address] [id number], [place] 314560742 May, [facility] [address] [id number], [place] 774549220 May, [facility] [address] [id number], [place] 790876223 May, Diabetes type 2, controlled E11.9 and Fa tigue, unspecified type R53.83 [facility] [address] [id number], [place] 415[address] Apr, Cardiomyopathy I42.9 ; Thyroid mass E07. 9 ; Seizure disorder G40.909 and Dermatitis L30.9 [facility] [address] [id number], [place] 627652522 Mar, [facility] [address] [place] [address] AVE [id number], [place] [id number] Feb, [facility] [address] [place] [address] AVE [id number], [place] 027085524 Feb, [facility] [address] [place] [address] AVE [id number], [place] [id number] Jan, [facility] [address] [place] [address] AVE [id number], [place] 873785444 Jan, CAD (coronary artery disease) 414.00 ; H yperlipidemia associated with type 2 diabetes mellitus 250.80 and Diabetes type 2, controlled 250.00 [facility] [address] [id number], [place] 306018132 Nov, CVA (cerebral infarction) 434.91 ; Expre ssive aphasia 784.3 ; Solitary nodule of right lobe of thyroid 241.0 ; CAD (coronary artery disease) 414.00 ; Diabetes type 2, controlled 250.00 and Hemorrhoids, external 455.3 [facility] [address] [id number], [place] 998195467 October, Chest pain, atypical 786.59 ; Hemorrhoid s 455.6 ; Diabetes type 2, controlled 250.00 and Hyperlipidemia associated with type 2 diabetes mellitus 250.[address] [facility] [address] [id number], [place] 467988997 October, [facility] [address] [id number], [place] 553344947 October, Chest pain 786.50 ; Abnormal EKG 794.31 and Diabetes type 2, controlled 250.[address] [facility] [address] [id number], [place] 473336335 October, Chest pain varies with breathing 786.50 [facility] [address] [id number] [address] [place] [address] Sep, [facility] [address] [id number] [address] [place] [address] Sep, [facility] [address] [id number] [address] [place] [address] Aug, [facility] [address] [id number] [address] [place] [address] Aug, [facility] [address] [id number] [address] [place] [address] Aug, [facility] [address] [id number] [address] [place] [address] Aug, [facility] [address] [id number] [address] [place] [address] Aug, [facility] [address] [id number] [address] [place] [address] Aug, [facility] [address] [id number] [address] [place] [address] Aug, [facility] [address] [id number] [address] [place] [address] Aug, [facility] [address] [id number] [address] [place] [address] Jul, [facility] [address] [id number] [address] [place] [address] Jul, [facility] [address] [id number] [address] [place] [address], [place] [address] Jun, [facility] [address] [id number] [address] [place] [address], [place] [address] Jun, [facility] [address] [id number] [address] [place] [address], [place] [address] Jun, [facility] [address] [id number] [address] [place] [address], [place] [address] Jun, [facility] [address] [id number] [address] [place] [address], [place] [address] Jun, [facility] [address] [id number] [address] [place] [address], [place] [address] Jun, [facility] [address] [id number] [address] [place] [address], [place] [address] Jun, [facility] [address] [id number] [address] [place] [address], [place] [address] Jun, [facility] [address] [id number] [address] [place] [address], [place] [address] Jun, [facility] [address] [id number] [place] [id number] Jun, [facility] [address] [id number] [address] [place] [address], [place] [address] Jun, [facility] [address] [id number] [address] [place] [address], [place] [address] May, [facility] [address] [id number] [address] [place] [address], [place] [address] May, [facility] [address] [id number] [address] [place] [address], [place] [address] May, [facility] [address] [id number] [address] [place] [address], [place] [address] May, [facility] [address] [id number] [address] [place] [address], [place] [address] Apr, [facility] [address] [id number] [address] [place] [address], [place] [address] Apr, [facility] [address] [id number] [address] [place] [address], [place] [address] Mar, [facility] [address] [id number] [address] [place] [address], [place] [address] Mar, [facility] [address] [id number] [address] [place] [address], [place] [address] Mar, [facility] [address] [id number] [address] [place] [address], [place] [address] Mar, [facility] [address] [id number] [address] [place] [address], [place] [address] Mar, [facility] [address] [id number] [address] [place] [address], [place] [address] Mar, 2013 [facility] [address] [id number] [address] [place] [address], [place] [address] Mar, [facility] [address] [id number] [address] [place] [address], [place] [address] Mar, [facility] [address] [id number] [address] [place] [address], [place] [address] 30 Feb, 2013 [facility] [address] [id number] [address] [place] [address], [place] [address] 30 Sep, 2013 [facility] [address] [id number] [address] [place] [address], [place] [address] 19 Sep, 2013 [facility] [address] [id number] [address] [place] [address], [place] [address] 08 Sep, 2013 [facility] [address] [id number] [address] [place] [address], [place] [address] 08 Sep, 2013 [facility] [address] [id number] [address] [place] [address], [place] [address] Feb, [facility] [address] [id number] [address] [place] [address] Feb, [facility] [address] [id number] [address] [place] [address] Feb, [facility] [address] [id number] [address] [place] [address] Feb, [facility] [address] [id number] [address] [place] [address] Feb, [facility] [address] [id number] [address] [place] [address] Feb, [facility] [address] [id number] [address] [place] [address] Jan, [facility] [address] [id number] [address] [place] [address] Jan, [facility] [address] [id number] [address] [place] [address] October, [facility] [address] [id number] [address] [place] [address] October, IMMUNIZATIONS No Known Immunizations SOCIAL HISTORY [...] Hospitalization History chest pain-noncardiac 03/29/18 Hospitalization History [facility] Was given [facility] medicine and was sent home. 09/24/2018
--- OUTSIDE RECORDS SUMMARY | 2019-06-21 12:19 | XMS REPORT ---
Author Author Cat Lambert Organization [facility] Address [address] [place] [address] Care Team Providers Care Cord Splicer Name Role Phone CRISTINA Lambert Unavailable PROBLEMS Type Condition ICD9-CM Code TOS75-SS Code Onset Dates Condition S tatus SNOMED Code Problem Gallbladder polyp K82.4 Active 19 2023863 Problem Urge incontinence of urine N39.41 Act viji 61460837 Problem Mixed hyperlipidemia E78.2 Active 844084969 Problem Hypomagnesemia E83.42 Active 55010 5004 Problem Expressive aphasia R47.01 Active 2 01962970 Problem Type 2 diabetes mellitus without complications E11 .9 Active 72880142 Problem Encounter for Zostavax administration Z23 Active 685001688 Problem Anxiety F41.9 Active 13606820 Problem Seizure disorder G40.909 Active 128 941651 Problem Dental caries K02.9 Active 170919 01 Problem Cardiomyopathy I42.9 Active 58380 001 Problem Fatigue, unspecified type R53.83 Acti ve 15196992 Problem Thyroid mass E07.9 Active 2516595 03 Problem Acute bronchitis, unspecified organism J20.9 Active 15876850 Problem Encounter for gynecological examination without abnormal finding Z01.419 Active 197459571 Problem Other chronic pain G89.29 Active 8 4460049 Problem Cardiomegaly I51.7 Active 1572552 Problem Controlled type 2 diabetes m ellitus without complication, without long- term current use of insulin E11.9 Active 718146750 Problem Pain in left shoulder M25.512 Active 61997515 Problem Emotional lability R45.86 Active 1 9154670 Problem Dermatitis L30.9 Active 35136254 Problem Primary osteoarthritis of left shoulder M19.012 Active 35052932 Problem Gastric reflux K21.9 Active 43229 9223 Problem Visit for screening mammogram Z12.31 Active 166258893 Problem Age-related osteoporosis without current pathological fracture M81.0 Active 63233276 Problem Allergic rhinitis J30.9 Active 61 849802 Problem Early menopause E28.319 Active 6584 6009 Problem Colon cancer screening Z12.11 Active 827849932 Problem Breast cancer screening Z12.39 Active 022701095 Problem Hemorrhoids, external, thrombosed K64.5 Active 51161971 Problem Constipation K59.00 Active 2302455 8 Problem Type 2 diabetes mellitus wit h diabetic neuropathy, 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 E11.40 Active 029053 350131495 Problem Other hammer toe(s) (acquired), left foot M20.42 Active 34211785 Problem Other hammer toe(s) (acquired), right foot M20.41 Active 042614422 ALLERGIES No Information ENCOUNTERS Encounter Location Date Diagnosis [address] [id number][place] [id number] Mar, [address] [id number][place] [id number] Feb, Type 2 diabetes mellitus without complic ations E11.9 ; Impetigo L01.00 and Dental caries K02.[address] [id number], [place] [id number] Nov, Controlled type 2 diabetes mellitus with out complication, without long-term current use of insulin E11.9 and Colon cancer screening Z12.[address] [id number], [place] [id number] Nov, Type 2 diabetes mellitus without complic ations E11.9 and Gastric reflux K21.[address] [id number], [place] [id number] Nov, Dental caries K02.9 [facility] [address] [facility] [id number] [address] [place] [address] October, Other hammer toe(s) (acquire d), left foot M20.42 ; Other hammer toe(s) (acquired), right foot M20.41 and Type 2 diabetes mellitus with diabetic neuropathy, unspecified whether nursing home insulin use E11.[address] [id number], [place] [id number] Sep, Allergic rhinitis J30.[address] [id number][place] [id number] Sep, [facility] [address] [id number], [place] [id number] Sep, Allergic rhinitis, unspecified seasonali ty, unspecified trigger J30.9 and Viral upper respiratory tract infection J06.[address] [id number][place] [id number] Aug, [facility] [address] [facility] [id number] [address] [place] [address] Jul, [facility] [address] [id number], [place] [id number] Jul, Type 2 diabetes mellitus without complic ations E11.9 and Left foot pain M79.[address] [id number], [place] [id number] May, Gastric reflux K21.9 and Pruritic dermat itis L29.[address] [facility] [address] [id number][place] [id number] Apr, [facility] [address] [id number], [place] [id number] Mar, Type 2 diabetes mellitus without complic ations E11.9 ; Bronchitis, acute J20.9 and Constipation K59.[address] [facility] [address] [id number], [place] [id number] Mar, [facility] [address] [id number], [place] [id number] Mar, [facility] [address] [id number], [place] [id number] Mar, [facility] [address] [id number], [place] [id number] Mar, [facility] [address] [id number], [place] [id number] Mar, [facility] [address] [id number], [place] [id number] Feb, Gastric reflux K21.9 ; Visit for screeni ng mammogram Z12.31 and Age- related osteoporosis without current pathological fracture M81.[address] [facility] [address] [id number], [place] [id number] Feb, Encounter for immunization Z23 [facility] [address] [id number], [place] [address] Feb, [facility] [address] [id number], [place] [id number] Feb, [facility] [address] [id number], [place] [id number] Aug, [facility] [address] [id number], [place] [id number] Jul, Contact dermatitis, unspecified contact dermatitis type, unspecified trigger L25.[address] [facility] [address] [id number], [place] [id number] Mar, Type 2 diabetes mellitus without complic ations E11.9 ; Mammogram declined Z53.20 ; Cardiomegaly I51.7 and Encounter for immunization Z23 [facility] [address] [id number], [place] [id number] Mar, [facility] [address] [id number], [place] [address] Jan, High risk medication use Z79.899 and Anx iety F41.[address] [facility] [facility] [address] [id number], [place] [id number] Jan, [facility] [address] [id number], [place] [address] Jan, Dental caries K02.[address] [facility] [address] [id number], [place] [id number] Jan, [facility] [address] [id number] [place] [id number] Nov, Dental caries K02.[address] [facility] [address] [id number] [place] [address] October, Dental caries K02.[address] [facility] [address] [id number] [place] [address]45[address] Sep, [facility] [address] [id number], [place] [id number] Sep, Type 2 diabetes mellitus without complic ations E11.9 and Dental caries K02.[address] [facility] [address] [id number], [place] [id number] Aug, [facility] [address] [id number], [place] [id number] Jul, [facility] [address] [id number], [place] [id number] Jul, [facility] [address] [id number], [place] [id number] Jun, Dental examination Z01.[address] [facility] [address] [id number], [place] [address]687[address] Jun, Emotional lability R45.[address] [address] [id number], [place] [id number] Jun, [facility] [address] [id number], [place] [id number] Jun, Controlled type 2 diabetes mellitus with out complication, without long-term current use of insulin E11.[address] [facility] [address] [id number] [place] [id number] May, [facility] [address] [id number], [place] 628[address] May, Cardiomyopathy I42.9 ; Emotional labilit y R45.86 and Dental caries K02.[address] [facility] [address] [id number] [place] [id number] Apr, [facility] [address] [id number] [place] [id number] Mar, [facility] [address] [id number] [place] [id number] Feb, Type 2 diabetes mellitus without complic ations E11.9 [facility] [address] [id number] [place] [id number] Jan, [facility] [address] [id number] [place] [id number] Dec, Gallbladder polyp K82.[address] [facility] [address] [id number], [place] [id number] Nov, [facility] [address] [id number], [place] [id number] Nov, Primary osteoarthritis of left shoulder M19.012 [facility] [place] [address] [id number] [place] [address] Nov, [facility] [address] [id number], [place] 176292611 Nov, Controlled type 2 diabetes mellitus with out complication, without long-term current use of insulin E11.9 and Pain in left shoulder M25.[address] [facility] [address] [id number], [place] 694524394 Nov, Gallbladder polyp K82.[address] [facility] [address] [id number], [place] 807[address]01[address] October, Pain in left shoulder M25.512 and Other chronic pain G89.[address] [facility] [address] [id number] [place] [id number] October, [facility] [address] [id number], [place] [id number] October, [facility] [address] [id number], [place] 534208276 October, [facility] [address] [id number], [place] [id number] Sep, [facility] [address] [place] [address] Sep, [id number] [place] [address] [id number] Sep, Encounter for gynecological examination without abnormal finding Z01.419 ; Breast cancer screening Z12.39 ; Hemorrhoids, external, thrombosed K64.5 and Early menopause E28.[address] [id number] [place] [address] [id number] Sep, Acute bronchitis, unspecified organism J 20.9 and Cardiomegaly I51.[id number] [place] [address] [id number] Aug, Thyroid mass E07.[address] [id number] [place] [address] [id number] Aug, Type 2 diabetes mellitus without complic ations E11.9 ; Thyroid mass E07.9 and Encounter for Zostavax administration Z23 [address] [id number] [place] [id number] Aug, Seizure disorder G40.909 ; Hypomagnesemi a E83.42 and Expressive aphasia R47.01 [facility] [address] [facility] [id number] [address] [place] [address] Jul, Urge incontinence of urine N 39.[id number] [place] [id number] Jul, [address] [id number] [place] [address] [id number] Jul, Pharyngitis J02.9 ; Urge incontinence of urine N39.41 and Acute cystitis with hematuria N30.01 [facility] [address] [facility] [id number] [address] [place] [address] May, Mixed hyperlipidemia E78.[address] [facility] [address] [id number], [place] [id number] May, Seizure disorder G40.909 ; Mixed hyperli pidemia E78.2 and Gallbladder polyp K82.[address] [address] [id number], [place] [id number] May, [facility] [address] [id number], [place] [id number] May, [facility] [address] [id number], [place] [id number] May, Diabetes type 2, controlled E11.9 and Fa tigue, unspecified type R53.83 [place] [address] [place] [address] AVE [id number], [place] 665473896 Apr, Cardiomyopathy I42.9 ; Thyroid mass E07. 9 ; Seizure disorder G40.909 and Dermatitis L30.9 [facility] [address] [place] [address] AVE [id number], [place] [id number] Mar, [facility] [address] [place] [address] AVE [id number], [place] [id number] Feb, [facility] [address] [place] [address] AVE [id number], [place] [id number] Feb, [facility] [address] [place] [address] AVE [id number], [place] [id number] Jan, [place] [address] [place] [address] AVE [id number], [place] [id number] Jan, CAD (coronary artery disease) 414.00 ; H yperlipidemia associated with type 2 diabetes mellitus 250.80 and Diabetes type 2, controlled 250.[address] [facility] [id number] [place] [address] [id number] Nov, CVA (cerebral infarction) 434.91 ; Expre ssive aphasia 784.3 ; Solitary nodule of right lobe of thyroid 241.0 ; CAD (coronary artery disease) 414.00 ; Diabetes type 2, controlled 250.00 and Hemorrhoids, external 455.[address] [facility] [facility] [address] [id number], [place] [id number] October, Chest pain, atypical 786.59 ; Hemorrhoid s 455.6 ; Diabetes type 2, controlled 250.00 and Hyperlipidemia associated with type 2 diabetes mellitus 250.[address] [facility] [address] [id number], [place] [id number] October, [facility] [address] [id number], [place] [id number] October, Chest pain 786.50 ; Abnormal EKG 794.31 and Diabetes type 2, controlled 250.[address] [address] [id number], [place] [id number] October, Chest pain varies with breathing 786.50 [facility] [address] [id number] [address] [place] [address] Sep, [facility] [address] [id number] [address] [place] [address] Sep, [facility] [address] [id number] [address] [place] [address] Aug, [facility] [address] [id number] [address] [place] [address] Aug, [facility] [address] [id number] [address] [place] [address] Aug, [facility] [address] [id number] [address] [place] [address] Aug, [facility] [address] [id number] [address] [place] [phone] Aug, [facility] [address] [id number] [address] [place] [address] Aug, [facility] [address] [id number] [address] [place] [address] Aug, [facility] [address] [id number] [address] [place] [address] Aug, [facility] [address] [id number] [address] [place] [address], [place] [address] Jul, [facility] [address] [id number] [address] [place] [address], [place] [address] Jul, [facility] [address] [id number] [address] [place] [address], [place] [address] Jun, [facility] [address] [id number] [address] [place] [address], [place] [address] Jun, [facility] [address] [id number] [address] [place] [address], [place] [address] Jun, [facility] [address] [id number] [address] [place] [address], [place] [address] Jun, [facility] [address] [id number] [address] [place] [address], [place] [address] Jun, [facility] [address] [id number] [address] [place] [address], [place] [address] Jun, [facility] [address] [id number] [address] [place] [address], [place] [address] Jun, [facility] [address] [id number] [address] [place] [address], [place] [address] Jun, [facility] [address] [id number] [address] [place] [address] Jun, [facility] [address] [id number] [place] [address] S [id number] Jun, [facility] [address] [id number] [address] [place] [address], [place] [address] Jun, [facility] [address] [id number] [address] [place] [address], [place] [address] May, [facility] [address] [id number] [address] [place] [address], [place] [address] May, [facility] [address] [id number] [address] [place] [address], [place] [address] May, [facility] [address] [id number] [address] [place] [address], [place] [address] May, [facility] [address] [id number] [address] [place] [address], [place] [address] Apr, [facility] [address] [id number] [address] [place] [address], [place] [address] Apr, [facility] [address] [id number] [address] [place] [address], [place] [address] Mar, [facility] [address] [id number] [address] [place] [address], [place] [address] Mar, [facility] [address] [id number] [address] [place] [address], [place] [address] Mar, [facility] [address] [id number] [address] [place] [address], [place] [address] Mar, [facility] [address] [id number] [address] [place] [address], [place] [address] Mar, [facility] [address] [id number] [address] [place] [address], [place] [address] Mar, [facility] [address] [id number] [address] [place] [address], [place] [address] Mar, [facility] [address] [id number] [address] [place] [address], [place] [address] Mar, [facility] [address] [id number] [address] [place] [address] 30 Feb, 2013 [facility] [address] [id number] [address] [place] [address], [place] [address] 30 Feb, 2013 [facility] [address] [id number] [address] [place] [address], [place] [address] 19 Feb, 2013 [facility] [address] [id number] [address] [place] [address], [place] [address] 08 Feb, 2014 [facility] [address] [id number] [address] [place] [address] Feb, [facility] [address] [id number] [address] [place] [address] Feb, [facility] [address] [id number] [address] [place] [address] Feb, [facility] [address] [id number] [address] [place] [address] Feb, [facility] [address] [id number] [address] [place] [address] Feb, [facility] [address] [id number] [address] [place] [address] Feb, [facility] [address] [id number] [address] [place] [address] Feb, [facility] [address] [id number] [address] [place] [phone] Jan, [facility] [address] [id number] [address] [place] [address] Jan, [facility] [address] [id number] [address] [place] [address] October, [facility] [address] [id number] [address] [place] [address] October, IMMUNIZATIONS No Known Immunizations SOCIAL HISTORY Never Assessed REASON FOR VISIT PLAN OF CARE VITAL SIGNS Height 66.5 in 2014-07-11 Weight 193.44 lbs 2014-07-11 Temperature 97.9 degrees Fahrenheit 2014-07-11 Heart Rate 80 bpm 2014-07-11 Respiratory Rate 18 2014-07-11 Blood pressure systolic 122 mmHg 2014-07-11 Blood pressure diastolic 60 mmHg 2014-07-11 MEDICATIONS Unknown Medications RESULTS No Results PROCEDURES Procedure Date Ordered Result Body Site MAMMOGRAM, SCREENING Jul 11, 2014 SCR PAP SMER;NEW PT OBTAIN PREP&CONVY-LAB Jul 11, 2014 CYTOPATH C/V AUTO FLUID REDO Jul 11, 2014 TEST FOR BLOOD, FECES Jul 11, 2014 INSTRUCTIONS MEDICATIONS ADMINISTERED No Known Medications MEDICAL [...] cath 10/2014 Surgical History triple bypass 12/31/14 Surgical History cataract removal left eye Hospitalization History past surgeries Hospitalization History left frontal CVA 10/2014 Hospitalization History heart surgery 12/31/14 Hospitalization History syncopal episode, repiratory failure, pneumonia, anemia, pulmonoary edema 04/07/15 Hospitalization History AMS, Seizure 06/04/2015 Hospitalization History chest pain-noncardiac 03/29/18 Hospitalization History [facility] Was given coug h medicine and was sent home. 09/24/2018
--- OUTSIDE RECORDS SUMMARY | 2019-06-21 12:19 | XMS REPORT ---
Author Author Cat KELLOGG Organization [facility] Address [address] [place] [address] Care Team Providers Care Specimen Collector Name Role Phone DARIELA GREYKEVYN Unavailable PROBLEMS Type Condition ICD9-CM Code WKI56-SR Code Onset Dates Condition S tatus SNOMED Code Problem Gallbladder polyp K82.4 Active 19 4322447 Problem Urge incontinence of urine N39.41 Act viji 59355888 Problem Mixed hyperlipidemia E78.2 Active 750282431 Problem Hypomagnesemia E83.42 Active 53209 5004 Problem Expressive aphasia R47.01 Active 2 02215459 Problem Type 2 diabetes mellitus without complications E11 .9 Active 99392552 Problem Encounter for Zostavax administration Z23 Active 507056269 Problem Anxiety F41.9 Active 90470738 Problem Seizure disorder G40.909 Active 128 309168 Problem Dental caries K02.9 Active 824720 01 Problem Cardiomyopathy I42.9 Active 82152 001 Problem Fatigue, unspecified type R53.83 Acti ve 65686415 Problem Thyroid mass E07.9 Active 0214583 03 Problem Acute bronchitis, unspecified organism J20.9 Active 64858505 Problem Encounter for gynecological examination without abnormal finding Z01.419 Active 928461292 Problem Other chronic pain G89.29 Active 8 8701041 Problem Cardiomegaly I51.7 Active 7415717 Problem Controlled type 2 diabetes m ellitus without complication, without long- term current use of insulin E11.9 Active 345723550 Problem Pain in left shoulder M25.512 Active 77206027 Problem Emotional lability R45.86 Active 1 5227783 Problem Dermatitis L30.9 Active 67200495 Problem Primary osteoarthritis of left shoulder M19.012 Active 01841311 Problem Gastric reflux K21.9 Active 07265 6043 Problem Visit for screening mammogram Z12.31 Active 125820132 Problem Age-related osteoporosis without current pathological fracture M81.0 Active 07182210 Problem Allergic rhinitis J30.9 Active 61 257179 Problem Early menopause E28.319 Active 9054 6009 Problem Colon cancer screening Z12.11 Active 196878935 Problem Breast cancer screening Z12.39 Active 651245930 Problem Hemorrhoids, external, thrombosed K64.5 Active 65404831 Problem Constipation K59.00 Active 8791686 8 Problem Type 2 diabetes mellitus wit h diabetic neuropathy, unspecified whether continuous churn buttermaker insulin use E11.40 Active 147358 465561544 Problem Other hammer toe(s) (acquired), left foot M20.42 Active 96689254 Problem Other hammer toe(s) (acquired), right foot M20.41 Active 383710633 ALLERGIES No Information ENCOUNTERS Encounter Location Date Diagnosis [address] [id number], [place] [id number] Mar, [facility] [id number], [place] [id number] Nov, Controlled type 2 diabetes mellitus with out complication, without long-term current use of insulin E11.9 and Colon cancer screening Z12.11 [facility] [address] [id number], [place] [id number] Nov, Type 2 diabetes mellitus without complic ations E11.9 and Gastric reflux K21.9 [facility] [address] [id number], [place] [id number] Nov, Dental caries K02.9 [facility] [address] [facility] [id number] [address] [place] [address] October, Other hammer toe(s) (acquire d), left foot M20.42 ; Other hammer toe(s) (acquired), right foot M20.41 and Type 2 diabetes mellitus with diabetic neuropathy, unspecified whether prison insulin use E11.[address] [id number], [place] [id number] Sep, Allergic rhinitis J30.[address] [facility] [address] [id number], [place] [address] Sep, [facility] [id number], [place] [id number] Sep, Allergic rhinitis, unspecified seasonali ty, unspecified trigger J30.9 and Viral upper respiratory tract infection J06.9 [facility] [address] [id number], [place] [id number] Aug, [facility] [address] [facility] [id number] [place] [address] Jul, [facility] [address] [id number], [place] [address] Jul, Type 2 diabetes mellitus without complic ations E11.9 and Left foot pain M79.672 [facility] [address] [id number], [place] [address] May, Gastric reflux K21.9 and Pruritic dermat itis L29.9 [facility] [address] [id number], [place] [id number] Apr, [facility] [address] [id number], [place] [id number] Mar, Type 2 diabetes mellitus without complic ations E11.9 ; Bronchitis, acute J20.9 and Constipation K59.00 [facility] [address] [id number], [place] [id number] Mar, [facility] [address] [id number], [place] [address] Mar, [facility] [address] [id number], [place] [id number] Mar, [facility] [address] [id number], [place] [id number] Mar, [facility] [address] [id number], [place] [id number] Mar, [facility] A[address] [id number], [place] [address] Feb, Encounter for immunization Z23 [facility] [address] [id number] [place] [id number] 29 Feb, 2018 Gastric reflux K21.9 ; Visit for screeni ng mammogram Z12.31 and Age- related osteoporosis without current pathological fracture M81.[address] [facility] [address] [id number] [place] [id number] Feb, [facility] [address] [id number], [place] [id number] Feb, [facility] [address] [id number] [place] [address] Aug, [facility] [address] [id number], [place] [address] Jul, Contact dermatitis, unspecified contact dermatitis type, unspecified trigger L25.9 [facility] [address] [id number], [place] [address] Mar, Type 2 diabetes mellitus without complic ations E11.9 ; Mammogram declined Z53.20 ; Cardiomegaly I51.7 and Encounter for immunization Z23 [facility] [address] [id number], [place] [address] Mar, [facility] [address] [id number], [place] [address] Jan, High risk medication use Z79.899 and Anx iety F41.9 [facility] [address] [id number], [place] [id number] Jan, [facility] [address] [id number], [place] [address] Jan, Dental caries K02.9 [facility] [address] [id number], [place] [address] Jan, [facility] [address] [id number], [place] [address] Nov, Dental caries K02.9 [facility] [address] [id number], [place] [address] October, Dental caries K02.[address] [facility] [address] [id number] [place] [id number] Sep, [facility] [address] [id number], [place] [address]777[address] Sep, Type 2 diabetes mellitus without complic ations E11.9 and Dental caries K02.[address] [facility] [address] [id number], [place] [address]794539[address] Aug, [facility] [address] [id number], [place] [address] Jul, [facility] [address] [id number], [place] [id number] Jul, [facility] [address] [id number], [place] [address] Jun, Dental examination Z01.[address] [facility] [address] [id number], [place] [address] Jun, Emotional lability R45.86 [facility] [address] [id number], [place] [address] Jun, [facility] [address] [id number], [place] [address] Jun, Controlled type 2 diabetes mellitus with out complication, without long-term current use of insulin E11.[address] [facility] [address] [id number], [place] [address] May, [facility] [address] [id number], [place] [address] May, Cardiomyopathy I42.9 ; Emotional labilit y R45.86 and Dental caries K02.[address] [facility] [address] [id number], [place] [address] Apr, [facility] [address] [id number], [place] 6[address] Mar, [facility] [address] [id number] [place] [address] Feb, Type 2 diabetes mellitus without complic ations E11.9 [facility] [place] [address] [id number] Rosi LOBO S [id number] Jan, [facility] [address] [id number] [place] [address] Dec, Gallbladder polyp K82.[address] [facility] [address] [id number] [place] [address] Nov, [facility] [address] [id number], [place] 447[address] Nov, Primary osteoarthritis of left shoulder M19.012 [facility] [address] [id number] [place] [address] Nov, [facility] [address] [id number], [place] [address]779[address] Nov, Controlled type 2 diabetes mellitus with out complication, without long-term current use of insulin E11.9 and Pain in left shoulder M25.[address] [facility] [address] [id number], [place] 46[address]16265 Nov, Gallbladder polyp K82.[address] [facility] [address] [id number], [place] 566765842 October, Pain in left shoulder M25.512 and Other chronic pain G89.[address] [facility] [address] [id number] [place] [address] October, [facility] [address] [id number], [place] [address]87872978 October, [facility] [address] [id number], [place] 703160347 October, [facility] [address] [id number], [place] [address]58150[address] Sep, [facility] [address] [id number] [place], [place] [address] Sep, [address] [id number], [place] [address] Sep, Encounter for gynecological examination without abnormal finding Z01.419 ; Breast cancer screening Z12.39 ; Hemorrhoids, external, thrombosed K64.5 and Early menopause E28.[address] [id number], [place] 39[address] Sep, Acute bronchitis, unspecified organism J 20.9 and Cardiomegaly I51.[address] [id number], [place] 481363744 Aug, Thyroid mass E07.[address] [id number] [place] [id number] Aug, Type 2 diabetes mellitus without complic ations E11.9 ; Thyroid mass E07.9 and Encounter for Zostavax administration Z23 [id number] [place] [id number] Aug, Seizure disorder G40.909 ; Hypomagnesemi a E83.42 and Expressive aphasia R47.01 [place] [id number] [place] [address] Jul, Urge incontinence of urine N 39.[address] [id number], [place] 57[address] Jul, [address] [id number] [place] [id number] Jul, Pharyngitis J02.9 ; Urge incontinence of urine N39.41 and Acute cystitis with hematuria N30.01 [facility] [address] [place] [id number] [address] [place] [address] May, Mixed hyperlipidemia E78.[address] [id number] [place] [address] [id number] May, Seizure disorder G40.909 ; Mixed hyperli pidemia E78.2 [address].4 [facility] [address] [place] [address] AVE [id number], [place] [id number] May, [facility] [place] [address] [place] [address] AVE [id number], [place] [id number] May, [facility] US [address] [place] [address] AVE [id number], [place] [id number] May, Diabetes type 2, controlled E11.9 and Fa tigue, unspecified type R53.83 [facility] US [address] [place] [address] AVE [id number], [place] 267958635 Apr, Cardiomyopathy I42.9 ; Thyroid mass E07. 9 ; Seizure disorder G40.909 and Dermatitis L30.9 [facility] [address] [id number], [place] [id number] Mar, [facility] [address] [place] [address] AVE [id number], [place] [id number] Feb, [facility] [address] [place] [address] AVE [id number], [place] [id number] Feb, [facility] US [address] [place] [address] AVE [id number], [place] [id number] Jan, [facility] [address] [id number], [place] [id number] Jan, CAD (coronary artery disease) 414.00 ; H yperlipidemia associated with type 2 diabetes mellitus 250.80 and Diabetes type 2, controlled 250.00 [facility] [address] [place] [address] AVE [id number], [place] [id number] Nov, CVA (cerebral infarction) 434.91 ; Expre ssive aphasia 784.3 ; Solitary nodule of right lobe of thyroid 241.0 ; CAD (coronary artery disease) 414.00 ; Diabetes type 2, controlled 250.00 and Hemorrhoids, external 455.3 [facility] [address] [place] [address] AVE [id number], [place] [id number] October, Chest pain, atypical 786.59 ; Hemorrhoid s 455.6 ; Diabetes type 2, controlled 250.00 and Hyperlipidemia associated with type 2 diabetes mellitus 250.[address] [facility] [address] [id number], [place] 846885326 October, [facility] [address] [id number], [place] [id number] October, Chest pain 786.50 ; Abnormal EKG 794.31 and Diabetes type 2, controlled 250.[address] [facility] [address] [id number], [place] 288635317 October, Chest pain varies with breathing 786.50 [facility] [address] [id number] [address] [place] [address] Sep, [facility] [address] [id number] [address] [place] [address] Sep, [facility] [address] [id number] [address] [place] [phone] Aug, [facility] [address] [id number] [address] [place] [phone] Aug, [facility] [address] [id number] [address] [place] [phone] Aug, [facility] [address] [id number] [address] [place] [address] Aug, [facility] [address] [id number] [address] [place] [address] Aug, [facility] [address] [id number] [address] [place] [phone] Aug, [facility] [address] [id number] [address] [place] [phone] Aug, [facility] [address] [id number] [address] [place] [address] Aug, [facility] [address] [id number] [address] [place] [id number] Jul, [facility] [address] [id number] [address] [place] [address], [place] [address] Jul, [facility] [address] [id number] [address] [place] [address], [place] [address] Jun, [facility] [address] [id number] [address] [place] [address], [place] [address] Jun, [facility] [address] [id number] [address] [place] [address], [place] [address] Jun, [facility] [address] [id number] [address] [place] [address], [place] [address] Jun, [facility] [address] [id number] [address] [place] [address], [place] [address] Jun, [facility] [address] [id number] [address] [place] [address], [place] [address] Jun, [facility] [address] [id number] [address] [place] [address], [place] [address] Jun, [facility] [address] [id number] [address] [place] [address], [place] [address] Jun, [facility] [address] [id number] [address] [place] [address], [place] [address] Jun, [facility] [address] [id number] [place] [id number] Jun, [facility] [address] [id number] [address] [place] [address], [place] [address] Jun, [facility] [address] [id number] [address] [place] [address], [place] [address] May, [facility] [address] [id number] [address] [place] [address], [place] [address] May, [facility] [address] [id number] [address] [place] [address], [place] [address] May, [facility] [address] [id number] [address] [place] [address], [place] [address] May, [facility] [address] [id number] [address] [place] [address], [place] [address] Apr, [facility] [address] [id number] [address] [place] [address], [place] [address] Apr, [facility] [address] [id number] [address] [place] [address], [place] [address] Mar, [facility] [address] [id number] [address] [place] [address], [place] [address] Mar, [facility] [address] [id number] [address] [place] [address], [place] [address] Mar, [facility] [address] [id number] [address] [place] [address], [place] [address] Mar, [facility] [address] [id number] [address] [place] [address], [place] [address] Mar, [facility] [address] [id number] [address] [place] [address], [place] [address] Mar, [facility] [address] [id number] [address] [place] [address], [place] [address] Mar, [facility] [address] [id number] [address] [place] [address], [place] [address] Mar, [facility] [address] [id number] [address] [place] [address], [place] [address] 30 Feb, 2013 [facility] [address] [id number] [address] [place] [address], [place] [address] 30 Feb, 2013 [facility] [address] [id number] [address] [place] [address], [place] [address] 19 Feb, 2013 [facility] [address] [id number] [address] [place] [address], [place] [address] 08 Feb, 2013 [facility] [address] [id number] [address] [place] [address], [place] [address] 08 Feb, 2013 [facility] [address] [id number] [address] [place] [address] Feb, [facility] [address] [id number] [address] [place] [phone] Feb, [facility] [address] [id number] [address] [place] [address] Feb, [facility] [address] [id number] [address] [place] [address] Feb, [facility] [address] [id number] [address] [place] [address] Feb, [facility] [address] [id number] [address] [place] [address] Feb, [facility] [address] [id number] [address] [place] [phone] Jan, [facility] [address] [id number] [address] [place] [address] Jan, [facility] [address] [id number] [address] [place] [address] October, [facility] [address] [id number] [address] [place] [address] October, IMMUNIZATIONS No Known Immunizations SOCIAL HISTORY Never Assessed REASON FOR VISIT PLAN OF CARE VITAL SIGNS Height 66.5 in 2014-01-29 Weight 176.9 lbs 2014-01-29 Temperature 98 degrees Fahrenheit 2014-01-29 Heart Rate 75 bpm 2014-01-29 Respiratory Rate 18 2014-01-29 Blood pressure systolic 115 mmHg 2014-01-29 Blood pressure diastolic 70 mmHg 2014-01-29 MEDICATIONS Unknown Medications RESULTS No Results PROCEDURES [...] Hospitalization History chest pain-noncardiac 03/29/18 Hospitalization History [facility] Was given coug h medicine and was sent home. 09/24/2018
--- OUTSIDE RECORDS SUMMARY | 2019-06-21 12:20 | XMS REPORT ---
Author Author Cat Hernandez Doctor Organization [facility] Address Unknown Phone Unavailable Care Team Providers Care Pack Press Operator Name Role Phone Migration, Doctor Unavailable Unavailable PROBLEMS Type Condition ICD9-CM Code HQU28-IT Code Onset Dates Condition S tatus SNOMED Code Problem Gallbladder polyp K82.4 Active 19 2502055 Problem Urge incontinence of urine N39.41 Act viji 80412785 Problem Mixed hyperlipidemia E78.2 Active 642513688 Problem Hypomagnesemia E83.42 Active 99550 5004 Problem Expressive aphasia R47.01 Active 2 54781331 Problem Type 2 diabetes mellitus without complications E11 .9 Active 04966389 Problem Encounter for Zostavax administration Z23 Active 506939739 Problem Anxiety F41.9 Active 67386585 Problem Seizure disorder G40.909 Active 128 199413 Problem Dental caries K02.9 Active 393221 01 Problem Cardiomyopathy I42.9 Active 85281 001 Problem Fatigue, unspecified type R53.83 Acti ve 87027846 Problem Thyroid mass E07.9 Active 7507792 03 Problem Acute bronchitis, unspecified organism J20.9 Active 27636392 Problem Encounter for gynecological examination without abnormal finding Z01.419 Active 683516370 Problem Other chronic pain G89.29 Active 8 4243566 Problem Cardiomegaly I51.7 Active 2508643 Problem Controlled type 2 diabetes m ellitus without complication, without long- term current use of insulin E11.9 Active 628061517 Problem Pain in left shoulder M25.512 Active 32475369 Problem Emotional lability R45.86 Active 1 9962929 Problem Dermatitis L30.9 Active 66135816 Problem Primary osteoarthritis of left shoulder M19.012 Active 54873460 Problem Gastric reflux K21.9 Active 79648 7003 Problem Visit for screening mammogram Z12.31 Active 194707935 Problem Age-related osteoporosis without current pathological fracture M81.0 Active 16162946 Problem Allergic rhinitis J30.9 Active 61 333047 Problem Early menopause E28.319 Active 6664 6009 Problem Colon cancer screening Z12.11 Active 988319556 Problem Breast cancer screening Z12.39 Active 106983841 Problem Hemorrhoids, external, thrombosed K64.5 Active 03494404 Problem Constipation K59.00 Active 7109098 8 Problem Type 2 diabetes mellitus wit h diabetic neuropathy, unspecified whether jail insulin use E11.40 Active 413555 411097744 Problem Other hammer toe(s) (acquired), left foot M20.42 Active 10594791 Problem Other hammer toe(s) (acquired), right foot M20.41 Active 062245175 ALLERGIES No Information ENCOUNTERS Encounter Location Date [facility] [id number] [place] [id number] Nov, 2019 Controlled type 2 diabetes mellitus with out complication, without long-term current use of insulin E11.9 and Colon cancer screening Z12.[address] [address] [id number] [place] [id number] Nov, Type 2 diabetes mellitus without complic ations E11.9 and Gastric reflux K21.9 [facility] [address] [id number] [place] [address] Nov, Dental caries K02.9 [facility] [address] [facility] [id number] [place] [address] October, Other hammer toe(s) (acquire d), left foot M20.42 ; Other hammer toe(s) (acquired), right foot M20.41 and Type 2 diabetes mellitus with diabetic neuropathy, unspecified whether jail insulin use E11.[address] [id number] [place] [id number] Sep, Allergic rhinitis J30.[address] [id number] [place] [address] Sep, [facility] [id number] [place] [address] Sep, Allergic rhinitis, unspecified seasonali ty, unspecified trigger J30.9 and Viral upper respiratory tract infection J06.[address] [id number] [place] [address] Aug, [facility] [address] [facility] [id number] 100[place] [address] Jul, [facility] [address] [id number] [place] [id number] Jul, Type 2 diabetes mellitus without complic ations E11.9 and Left foot pain M79.[address] [facility] [address] [id number] [place] [address] May, Gastric reflux K21.9 and Pruritic dermat itis L29.[address] [facility] [address] [id number] [place] [address] Apr, [facility] [address] [id number] [place] [address] Mar, Type 2 diabetes mellitus without complic ations E11.9 ; Bronchitis, acute J20.9 and Constipation K59.[address] [facility] [address] [id number] [place] [address] Mar, [facility] [address] [id number] [place] [address] Mar, [facility] [address] [id number] [place] [address] Mar, [facility] [address] [id number] [place] [address] Mar, [facility] [address] [id number] [place] [id number] Mar, [facility] [address] [id number] [place] [address] Feb, Encounter for immunization Z23 [facility] [address] [id number] [place] [id number] Feb, Gastric reflux K21.9 ; Visit for screeni ng mammogram Z12.31 and Age- related osteoporosis without current pathological fracture M81.[address] [facility] [address] [id number] [place] [address] Feb, [facility] [address] [id number] [place] [address] Feb, [facility] [address] [id number] [place] [address] Aug, [facility] [address] [id number] [place] [address] Jul, Contact dermatitis, unspecified contact dermatitis type, unspecified trigger L25.[address] [facility] [address] [id number] [place] [address] Mar, Type 2 diabetes mellitus without complic ations E11.9 ; Mammogram declined Z53.20 ; Cardiomegaly I51.7 and Encounter for immunization Z23 [facility] [address] [id number] [place] [address] Mar, [facility] [address] [id number] [place] [address] Jan, High risk medication use Z79.899 and Anx iety F41.[address] [facility] [address] [id number] [place] [address] Jan, [facility] [address] [id number] [place] [address] Jan, Dental caries K02.[address] [facility] [address] [id number] [place] [address] Jan, [facility] [address] [id number] [place] [address] Nov, Dental caries K02.[address] [facility] [address] [id number] [place] [address] October, Dental caries K02.[address] [facility] [address] [id number] [place] [address] Sep, [facility] [address] [id number] [place] [address] Sep, Type 2 diabetes mellitus without complic ations E11.9 and Dental caries K02.[address] [facility] [address] [id number] [place] 160[address] Aug, [facility] [address] [id number] [place] [address] Jul, [facility] [address] [id number] [place] [address] Jul, [facility] [address] [id number] [address] Jun, Dental examination Z01.[address] [facility] [address] [id number] [place] [address] Jun, Emotional lability R45.86 [facility] [address] [id number] [place] [address] Jun, [facility] [address] [id number] [place] [address] Jun, Controlled type 2 diabetes mellitus with out complication, without long-term current use of insulin E11.[address] [facility] [address] [id number] [place] [address] May, [facility] [address] [id number] [place] [address] May, Cardiomyopathy I42.9 ; Emotional labilit y R45.86 and Dental caries K02.[address] [facility] [address] [id number] [place] [address] Apr, [facility] [address] [id number] [place] [address] Mar, [facility] [address] [id number] [place] [address] Feb, Type 2 diabetes mellitus without complic ations E11.9 [facility] [place] [address] [id number] [place] [address] Jan, [facility] [address] [id number] [place] 10438[address] Dec, Gallbladder polyp K82.4 [facility] [address] [id number] [place] [address] Nov, [facility] [address] [id number] [place] [address] Nov, Primary osteoarthritis of left shoulder M19.012 [facility] [address] [id number] [place] [address] Nov, [facility] [address] [id number] [place] [address] Nov, Controlled type 2 diabetes mellitus with out complication, without long-term current use of insulin E11.9 and Pain in left shoulder M25.512 [facility] [address] [id number] [place] [address] Nov, Gallbladder polyp K82.4 [facility] [address] [id number] [place] [address] October, Pain in left shoulder M25.512 and Other chronic pain G89.29 [facility] [address] [id number] [place] [address] October, [facility] [address] [id number] [address] October, [facility] [address] [id number] [place] [address] October, [facility] [address] [id number] [place] [address] Sep, [facility] [address] [facility] [id number] [place] [address] Sep, [facility] [address] [id number] [place] [address] Sep, Encounter for gynecological examination without abnormal finding Z01.419 ; Breast cancer screening Z12.39 ; Hemorrhoids, external, thrombosed K64.5 and Early menopause E28.[address] [facility] [address] [id number] [place] 85[address] Sep, Acute bronchitis, unspecified organism J 20.9 and Cardiomegaly I51.7 [facility] [address] [id number] [place] [address] Aug, Thyroid mass E07.[address] [id number] [place] [id number] Aug, Type 2 diabetes mellitus without complic ations E11.9 ; Thyroid mass E07.9 and Encounter for Zostavax administration Z23 [address] [facility] [id number] [place] [id number] Aug, Seizure disorder G40.909 ; Hypomagnesemi a E83.42 and Expressive aphasia R47.01 [place] [address] [place] [address] Jul, Urge incontinence of urine N 39.[address] [id number] [place] [id number] Jul, [facility] [address] [id number] [place] [id number] Jul, Pharyngitis J02.9 ; Urge incontinence of urine N39.41 and Acute cystitis with hematuria N30.01 [facility] [address] [place] [address] May, Mixed hyperlipidemia E78.[id number] [place] [address] [id number] May, Seizure disorder G40.909 ; Mixed hyperli pidemia E78.2 and Gallbladder polyp K82.4 [facility] [address] [facility] [address] [id number] [place] [id number] May, [facility] [address] [id number] [place] [id number] May, [facility] [address] [id number] [place] 9[address] May, Diabetes type 2, controlled E11.9 and Fa tigue, unspecified type R53.83 [facility] [address] [id number] [place] 429[address] Apr, Cardiomyopathy I42.9 ; Thyroid mass E07. 9 ; Seizure disorder G40.909 and Dermatitis L30.9 [facility] [address] [id number] [place] 35[address] Mar, [facility] [address] [id number] [place] 129[address]27[address] Feb, [facility] [address] [id number] [place] [id number] Feb, [facility] [address] [place] [address] AVE [id number] [place] 612906182 Jan, [facility] [address] [id number] [place] 902326[address] Jan, CAD (coronary artery disease) 414.00 ; H yperlipidemia associated with type 2 diabetes mellitus 250.80 and Diabetes type 2, controlled 250.00 [facility] [address] [place] [address] AVE [id number] [place] [id number] Nov, CVA (cerebral infarction) 434.91 ; Expre ssive aphasia 784.3 ; Solitary nodule of right lobe of thyroid 241.0 ; CAD (coronary artery disease) 414.00 ; Diabetes type 2, controlled 250.00 and Hemorrhoids, external 455.3 [facility] [address] [id number] [place] 162[address]496 October, Chest pain, atypical 786.59 ; Hemorrhoid s 455.6 ; Diabetes type 2, controlled 250.00 and Hyperlipidemia associated with type 2 diabetes mellitus 250.80 [facility] [address] [id number] [place] 435[address]79 October, [facility] [address] [id number] [place] 017631706 October, Chest pain 786.50 ; Abnormal EKG 794.31 and Diabetes type 2, controlled 250.00 [facility] Robert[address] [place] [address] AVE [id number] [place] [address] [id number] October, Chest pain varies with breathing 786.50 [facility] [address] [id number] [address] [place] [address] Sep, [facility] [address] [id number] [address] [place] [address] Sep, [facility] [address] [id number] [address] [place] [address] Aug, [facility] [address] [id number] [address] [place] [address] Aug, [facility] [address] [id number] [address] [place] [address] Aug, [facility] [address] [id number] [address] [place] [address] Aug, [facility] [address] [id number] [address] [place] [address] Aug, [facility] [address] [id number] [address] [place] [address] Aug, [facility] [address] [id number] [address] [place] [address] Aug, [facility] [address] [id number] [address] [place] [address] Aug, [facility] [address] [id number] [address] [place] [address] Jul, [facility] [address] [id number] [address] [place] [address] Jul, [facility] [address] [id number] [address] [place] [address] Jun, [facility] [address] [id number] [address] [place] [address], [place] [address] Jun, [facility] [address] [id number] [address] [place] [address], [place] [address] Jun, [facility] [address] [id number] [address] [place] [address], [place] [address] Jun, [facility] [address] [id number] [address] [place] [address], [place] [address] Jun, [facility] [address] [id number] [address] [place] [address], [place] [address] Jun, [facility] [address] [id number] [address] [place] [address], [place] [address] Jun, [facility] [address] [id number] [address] [place] [address], [place] [address] Jun, [facility] [address] [id number] [address] [place] [address], [place] [address] Jun, [facility] [address] [id number] [place] [id number] Jun, [facility] [address] [id number] [address] [place] [address], [place] [address] Jun, [facility] [address] [id number] [address] [place] [address], [place] [address] May, [facility] [address] [id number] [address] [place] [address], [place] [address] May, [facility] [address] [id number] [address] [place] [address], [place] [address] May, [facility] [address] [id number] [address] [place] [address], [place] [address] May, [facility] [address] [id number] [address] [place] [address], [place] [address] Apr, [facility] [address] [id number] [address] [place] [address], [place] [address] Apr, [facility] [address] [id number] [address] [place] [address], [place] [address] Mar, 2013 [facility] [address] [id number] [address] [place] [address], [place] [address] Mar, 2013 [facility] [address] [id number] [address] [place] [address], [place] [address] Mar, 2013 [facility] [address] [id number] [address] [place] [address], [place] [address] Mar, 2013 [facility] [address] [id number] [address] [place] [address], [place] [address] Mar, 2013 [facility] [address] [id number] [address] [place] [address], [place] [address] Mar, 2013 [facility] [address] [id number] [address] [place] [address], [place] [address] Mar, 2013 [facility] [address] [id number] [address] [place] [address], [place] [address] Mar, 2013 [facility] [address] [id number] [address] [place] [address], [place] [address] 30 Sep, 2013 [facility] [address] [id number] [address] [place] [address], [place] [address] 30 Sep, 2013 [facility] [address] [id number] [address] [place] [address], [place] [address] 19 Sep, 2013 [facility] [address] [id number] [address] [place] [address], [place] [address] 08 Sep, 2013 [facility] [address] [id number] [address] [place] [address], [place] [address] 08 Sep, 2013 [facility] [address] [id number] [address] [place] [address], [place] [address] 08 Sep, 2013 [facility] [address] [id number] [address] [place] [address], [place] [address] 08 Sep, 2013 [facility] [address] [id number] [address] [place] [address] [address] Feb, [facility] [address] [id number] [address] [place] [address] Feb, [facility] [address] [id number] [address] [place] [address] Feb, [facility] [address] [id number] [address] [place] [address] Feb, [facility] [address] [id number] [address] [place] [address] Jan, [facility] [address] [id number] [address] [place] [address] Jan, [facility] [address] [facility] [id number] [address] [place] [address] October, [facility] [address] [facility] [id number] [address] [place] [address] October, IMMUNIZATIONS No Known Immunizations SOCIAL HISTORY Never Assessed REASON FOR VISIT PLAN OF CARE VITAL SIGNS MEDICATIONS No Known Medications RESULTS No Results PROCEDURES No Known [...] Hospitalization History chest pain-noncardiac 03/29/18 Hospitalization History [facility] Was given [facility] medicine and was sent home. 09/24/2018
--- OUTSIDE RECORDS SUMMARY | 2019-06-21 12:20 | XMS REPORT ---
Author Author Cat CAVANAUGH Organization [facility] Address [address] [place] [address] Care Team Providers Care Regulatory Technician Name Role Phone INGE CAVANAUGH Unavailable PROBLEMS Type Condition ICD9-CM Code ZXT80-WE Code Onset Dates Condition S tatus SNOMED Code Problem Gallbladder polyp K82.4 Active 19 0648636 Problem Urge incontinence of urine N39.41 Act viji 17914854 Problem Mixed hyperlipidemia E78.2 Active 228884066 Problem Hypomagnesemia E83.42 Active 76433 5004 Problem Expressive aphasia R47.01 Active 2 30361795 Problem Type 2 diabetes mellitus without complications E11 .9 Active 27045555 Problem Encounter for Zostavax administration Z23 Active 071176105 Problem Anxiety F41.9 Active 85529099 Problem Seizure disorder G40.909 Active 128 072532 Problem Dental caries K02.9 Active 784928 01 Problem Cardiomyopathy I42.9 Active 10616 001 Problem Fatigue, unspecified type R53.83 Acti ve 06361219 Problem Thyroid mass E07.9 Active 4558548 03 Problem Acute bronchitis, unspecified organism J20.9 Active 46215848 Problem Encounter for gynecological examination without abnormal finding Z01.419 Active 886307501 Problem Other chronic pain G89.29 Active 8 5776954 Problem Cardiomegaly I51.7 Active 1387595 Problem Controlled type 2 diabetes m ellitus without complication, without long- term current use of insulin E11.9 Active 868770745 Problem Pain in left shoulder M25.512 Active 07625001 Problem Emotional lability R45.86 Active 1 2026504 Problem Dermatitis L30.9 Active 18172815 Problem Primary osteoarthritis of left shoulder M19.012 Active 96632211 Problem Gastric reflux K21.9 Active 36710 7003 Problem Visit for screening mammogram Z12.31 Active 351253967 Problem Age-related osteoporosis without current pathological fracture M81.0 Active 10678998 Problem Allergic rhinitis J30.9 Active 61 754158 Problem Early menopause E28.319 Active 6584 6009 Problem Colon cancer screening Z12.11 Active 205455381 Problem Breast cancer screening Z12.39 Active 099806597 Problem Hemorrhoids, external, thrombosed K64.5 Active 08491063 Problem Constipation K59.00 Active 2712493 8 Problem Type 2 diabetes mellitus wit h diabetic neuropathy, unspecified whether prison insulin use E11.40 Active 187235 042759735 Problem Other hammer toe(s) (acquired), left foot M20.42 Active 37679780 Problem Other hammer toe(s) (acquired), right foot M20.41 Active 303770461 ALLERGIES No Information ENCOUNTERS Encounter Location Date Diagnosis [facility] [id number] [id number] Nov, Controlled type 2 diabetes mellitus with out complication, without long-term current use of insulin E11.9 and Colon cancer screening Z12.[address] [id number] [place] [id number] Nov, Type 2 diabetes mellitus without complic ations E11.9 and Gastric reflux K21.9 [facility] [address] [id number] [place] [id number] Nov, Dental caries K02.9 [facility] [address] [facility] [id number] [address] [place] [address] October, Other hammer toe(s) (acquire d), left foot M20.42 ; Other hammer toe(s) (acquired), right foot M20.41 and Type 2 diabetes mellitus with diabetic neuropathy, unspecified whether emt intermediate insulin use E11.[address] [facility] [facility] [address] [id number] [place] [id number] Sep, Allergic rhinitis J30.[address] [id number] [place] [address] Sep, [facility] [id number] [place] [id number] Sep, Allergic rhinitis, unspecified seasonali ty, unspecified trigger J30.9 and Viral upper respiratory tract infection J06.9 [facility] [address] [id number] [place] [id number] Aug, [facility] [address] [facility] [id number] [address] [place] [address] Jul, [facility] [address] [id number] [place] [id number] Jul, Type 2 diabetes mellitus without complic ations E11.9 and Left foot pain M79.672 [facility] [address] [id number] [place] [address] May, Gastric reflux K21.9 and Pruritic dermat itis L29.9 [facility] [address] [id number] [place] [id number] Apr, [facility] [address] [place] [address] AVE [id number] [place] [id number] Mar, Type 2 diabetes mellitus without complic ations E11.9 ; Bronchitis, acute J20.9 and Constipation K59.00 [facility] [address] [id number] [place] [id number] Mar, [facility] [address] [id number] [place] [id number] Mar, [facility] [address] [place] [address] AVE [id number] [place] [id number] Mar, [facility] [id number] [place] [id number] Mar, [facility] [id number] [place] [id number] Mar, [facility] [id number] [place] [id number] Feb, Encounter for immunization Z23 [facility] [address] [id number] [place] [id number] Feb, Gastric reflux K21.9 ; Visit for screeni ng mammogram Z12.31 and Age- related osteoporosis without current pathological fracture M81.0 [facility] [address] [id number] [place] [id number] Feb, [facility] [address] [id number] [place] [id number] Feb, [facility] [address] [id number] [place] [address] Aug, [facility] [address] [id number] [place] [id number] Jul, Contact dermatitis, unspecified contact dermatitis type, unspecified trigger L25.9 [facility] [address] [id number] [place] [id number] Mar, Type 2 diabetes mellitus without complic ations E11.9 ; Mammogram declined Z53.20 ; Cardiomegaly I51.7 and Encounter for immunization Z23 [facility] [address] [id number] [place] [address] Mar, [facility] [address] [id number] [place] [id number] Jan, High risk medication use Z79.899 and Anx iety F41.9 [facility] [address] [id number] [place] [address] Jan, [facility] [address] [id number] [place] [id number] Jan, Dental caries K02.9 [facility] [address] [id number] [place] [id number] Jan, [facility] [address] [id number] [place] [id number] Nov, Dental caries K02.[address] [facility] [address] [id number] [place] [address] October, Dental caries K02.9 [facility] [address] [id number] [place] [id number] Sep, [facility] [address] [id number] [place] [id number] Sep, Type 2 diabetes mellitus without complic ations E11.9 and Dental caries K02.[address] [facility] [address] [id number] [place] [id number] Aug, [facility] [address] [id number] [place] [address] Jul, [facility] [address] [id number] [place] [address] Jul, [facility] [address] [id number] [place] [id number] Jun, Dental examination Z01.[address] [facility] [address] [id number] [place] [address] Jun, Emotional lability R45.[address] [facility] [address] [id number] [place] [id number] Jun, [facility] [address] [id number] [place] [address] Jun, Controlled type 2 diabetes mellitus with out complication, without long-term current use of insulin E11.[address] [facility] [address] [id number] [place] [address] May, [facility] [address] [id number] [place] [address] May, Cardiomyopathy I42.9 ; Emotional labilit y R45.86 and Dental caries K02.[address] [facility] [address] [id number] [place] [address] Apr, [facility] [address] [id number] [place] [address] Mar, [facility] [address] [id number] [place] [id number] Feb, Type 2 diabetes mellitus without complic ations E11.9 [facility] [place] [address] [id number] [place] [id number] Jan, [facility] [address] [id number] [place] [address] Dec, Gallbladder polyp K82.[address] [facility] [address] [id number] [place], [place] [address] Nov, [facility] [address] [id number] [place] 313[address] Nov, Primary osteoarthritis of left shoulder M19.012 [facility] [address] [id number] [place] [address] Nov, [facility] [address] [id number] [place] [address]88 Nov, Controlled type 2 diabetes mellitus with out complication, without long-term current use of insulin E11.9 and Pain in left shoulder M25.[address] [facility] [address] [id number] [place] 172204579 Nov, Gallbladder polyp K82.4 [facility] [address] [id number] [place] 4[address]60469 October, Pain in left shoulder M25.512 and Other chronic pain G89.[address] [facility] [address] [id number] [place] 11364217[address] October, [facility] [address] [id number] [place] [id number] October, [facility] [address] [id number] [place] [address]26956121 October, [facility] [address] [id number] [place] [id number] Sep, [facility] [address] [id number] [address] [place] [address] Sep, [facility] [address] [id number] [place] [id number] 19 Apr, 2016 Encounter for gynecological examination without abnormal finding Z01.419 ; Breast cancer screening Z12.39 ; Hemorrhoids, external, thrombosed K64.5 and Early menopause E28.[id number] [place] [address] [id number] 06 Sep, 2015 Acute bronchitis, unspecified organism J 20.9 and Cardiomegaly I51.[address] [id number] [place] [address] [id number] 16 Aug, 2015 Thyroid mass E07.[address] [id number] [place] [address] [id number] 15 Aug, 2015 Type 2 diabetes mellitus without complic ations E11.9 ; Thyroid mass E07.9 and Encounter for Zostavax administration Z23 [address] [id number] [place] [address] [id number] Aug, Seizure disorder G40.909 ; Hypomagnesemi a E83.42 and Expressive aphasia R47.01 [facility] [address] [place] [address] Jul, Urge incontinence of urine N 39.[address] [id number] [place] [id number] Jul, [address] [id number] [place] [id number] Jul, Pharyngitis J02.9 ; Urge incontinence of urine N39.41 and Acute cystitis with hematuria N30.01 [facility] [address] [facility] [id number] [address] [place] [address] May, Mixed hyperlipidemia E78.[address] [id number] [place] [address] [id number] May, Seizure disorder G40.909 ; Mixed hyperli pidemia E78.2 and Gallbladder polyp K82.[address] [id number] [place] [address] [id number] May, [facility] [address] [id number] [place] 555[address]36 May, [facility] [address] [id number] [place] [address]881770[address] May, Diabetes type 2, controlled E11.9 and Fa tigue, unspecified type R53.83 [facility] [address] [id number] [place] [id number] Apr, Cardiomyopathy I42.9 ; Thyroid mass E07. 9 ; Seizure disorder G40.909 and Dermatitis L30.9 [facility] [employer] [address] [id number] [place] [id number] Mar, [facility] [address] [employer] [id number] [place] [id number] Feb, [facility] [employer] [place] [address] AVE [id number] [place], [place] [id number] Feb, [facility] [employer] [place] [address] AVE [id number] [place] [id number] Jan, [facility] [employer] [place] [address] AVE [id number] [place], [place] 445498640 Jan, CAD (coronary artery disease) 414.00 ; H yperlipidemia associated with type 2 diabetes mellitus 250.80 and Diabetes type 2, controlled 250.00 [facility] [employer] [facility] [address] [id number] [place] [address]78[address] Nov, CVA (cerebral infarction) 434.91 ; Expre ssive aphasia 784.3 ; Solitary nodule of right lobe of thyroid 241.0 ; CAD (coronary artery disease) 414.00 ; Diabetes type 2, controlled 250.00 and Hemorrhoids, external 455.3 [facility] [address] [employer] [address] [id number] [place] [id number] October, Chest pain, atypical 786.59 ; Hemorrhoid s 455.6 ; Diabetes type 2, controlled 250.00 and Hyperlipidemia associated with type 2 diabetes mellitus 250.80 [facility] [address] [employer] [address] [id number] [place] [id number] October, [facility] [address] [id number] [place] 432738996 October, Chest pain 786.50 ; Abnormal EKG 794.31 and Diabetes type 2, controlled 250.[address] [facility] [address] [id number] [place] [id number] October, Chest pain varies with breathing 786.50 [facility] [address] [id number] [address] [place] [address] Sep, [facility] [address] [id number] [address] [place] [address] Sep, [facility] [address] [id number] [address] [place] [address] Aug, [facility] [address] [id number] [address] [place] [address] Aug, [facility] [address] [id number] [address] [place] [address] Aug, [facility] [address] [id number] [address] [place] [address] Aug, [facility] [address] [id number] [address] [place] [address] Aug, [facility] [address] [id number] [address] [place] [address] Aug, [facility] [address] [id number] [address] [place] [address] Aug, [facility] [address] [id number] [address] [place] [address] Aug, [facility] [address] [id number] [address] [place] [address] Jul, [facility] [address] [id number] [address] [place] [address] Jul, [facility] [address] [id number] [address] [place] [address] Jun, [facility] [address] [id number] [address] [place] [address], [place] [address] Jun, [facility] [address] [id number] [address] [place] [address], [place] [address] Jun, [facility] [address] [id number] [address] [place] [address], [place] [address] Jun, [facility] [address] [id number] [address] [place] [address], [place] [address] Jun, [facility] [address] [id number] [address] [place] [address], [place] [address] Jun, [facility] [address] [id number] [address] [place] [address], [place] [address] Jun, [facility] [address] [id number] [address] [place] [address], [place] [address] Jun, [facility] [address] [id number] [address] [place] [address], [place] [address] Jun, [facility] [address] [id number] [place] [id number] Jun, [facility] [address] [id number] [address] [place] [address], [place] [address] Jun, [facility] [address] [id number] [address] [place] [address], [place] [address] May, [facility] [address] [id number] [address] [place] [address], [place] [address] May, [facility] [address] [id number] [address] [place] [address], [place] [address] May, [facility] [address] [id number] [address] [place] [address], [place] [address] May, [facility] [address] [id number] [address] [place] [address], [place] [address] Apr, [facility] [address] [id number] [address] [place] [address], [place] [address] Apr, 2013 [facility] [address] [id number] [address] [place] [address], [place] [address] Mar, 2013 [facility] [place] [facility] [address] [id number] [address] [place] [address], [place] [address] Mar, 2013 [facility] [address] [id number] [address] [place] [address], [place] [address] Mar, 2013 [facility] [place] [facility] [address] [id number] [address] [place] [address], [place] [address] Mar, 2013 [facility] [address] [id number] [address] [place] [address], [place] [address] Mar, 2013 [facility] [address] [id number] [address] [place] [address], [place] [address] Mar, 2013 [facility] [address] [id number] [address] [place] [address], [place] [address] Mar, 2013 [facility] [address] [id number] [address] [place] [address], [place] [address] Mar, [facility] [place] [facility] [address] [id number] [address] [place] [address], [place] [address] 30 Feb, 2013 [facility] [address] [id number] [address] [place] [address], [place] [address] 30 Sep, 2013 [facility] [place] [facility] [address] [id number] [address] [place] [address], [place] [address] 19 Sep, 2013 [facility] [address] [id number] [address] [place] [address], [place] [address] 08 Sep, 2013 [facility] [place] [facility] [address] [id number] [address] [place] [address], [place] [address] 08 Sep, 2013 [facility] [place] [facility] [address] [id number] [address] [place] [address], [place] [address] 08 Sep, 2013 [facility] [place] [facility] [address] [id number] [address] [place] [address], [place] [address] Feb, [facility] [address] [id number] [address] [place] [address] Feb, [facility] [address] [id number] [address] [place] [address] Feb, [facility] [address] [id number] [address] [place] [address] Feb, [facility] [address] [id number] [address] [place] [address] Feb, [facility] [address] [id number] [address] [place] [address] Jan, [facility] [address] [id number] [address] [place] [address] Jan, [facility] [address] [id number] [address] [place] [address] October, [facility] [address] [id number] [address] [place] [address] October, IMMUNIZATIONS No Known Immunizations SOCIAL HISTORY Never Assessed REASON FOR VISIT PLAN OF CARE VITAL SIGNS Height 66.5 in 2014-02-22 Weight 176 lbs 2014-02-22 Temperature 97.7 degrees Fahrenheit 2014-02-22 Heart Rate 78 bpm 2014-02-22 Respiratory Rate 18 2014-02-22 Blood pressure systolic 120 mmHg 2014-02-22 Blood pressure diastolic 70 mmHg 2014-02-22 MEDICATIONS No Known Medications RESULTS No Results PROCEDURES Procedure Date Ordered Result Body Site GLYCATED HEMOGLOBIN TEST Feb 22, 2014 MICROALBUMIN, SEMIQUANT Feb 22, 2014 LIPID PANEL Feb 22, 2014 COMPREHEN METABOLIC PANEL Feb 22, 2014 VENIPUNCT, ROUTINE* Feb 22, 2014 INSTRUCTIONS MEDICATIONS ADMINISTERED No Known Medications [...] Hospitalization History chest pain-noncardiac 03/29/18 Hospitalization History [facility] Was given coug h medicine and was sent home. 09/24/2018
--- OUTSIDE RECORDS SUMMARY | 2019-06-21 12:20 | XMS REPORT ---
Author Author Cat CAVANAUGH [facility] Address [address] [place] [address] Care Team Providers Care Firer Retort Name Role Phone INGE CAVANAUGH Unavailable PROBLEMS Type Condition ICD9-CM Code [id number] Code Onset Dates Condition S tatus SNOMED Code Problem Gallbladder polyp K82.4 Active 19 7774892 Problem Urge incontinence of urine N39.41 Act viji 83360781 Problem Mixed hyperlipidemia E78.2 Active 556827757 Problem Hypomagnesemia E83.42 Active 37960 5004 Problem Expressive aphasia R47.01 Active 2 90960408 Problem Type 2 diabetes mellitus without complications E11 .9 Active 36503850 Problem Encounter for Zostavax administration Z23 Active 424643250 Problem Anxiety F41.9 Active 06720564 Problem Seizure disorder G40.909 Active 128 519630 Problem Dental caries K02.9 Active 387612 01 Problem Cardiomyopathy I42.9 Active 46635 001 Problem Fatigue, unspecified type R53.83 Acti ve 17376559 Problem Thyroid mass E07.9 Active 3825777 03 Problem Acute bronchitis, unspecified organism J20.9 Active 55392902 Problem Encounter for gynecological examination without abnormal finding Z01.419 Active 767128910 Problem Other chronic pain G89.29 Active 8 8915840 Problem Cardiomegaly I51.7 Active 0556148 Problem Controlled type 2 diabetes m ellitus without complication, without long- term current use of insulin E11.9 Active 069222383 Problem Pain in left shoulder M25.512 Active 00467238 Problem Emotional lability R45.86 Active 1 6208444 Problem Dermatitis L30.9 Active 63372610 Problem Primary osteoarthritis of left shoulder M19.012 Active 18612026 Problem Gastric reflux K21.9 Active 93992 7003 Problem Visit for screening mammogram Z12.31 Active 993683092 Problem Age-related osteoporosis without current pathological fracture M81.0 Active 79135621 Problem Allergic rhinitis J30.9 Active 61 913488 Problem Early menopause E28.319 Active 6584 6009 Problem Colon cancer screening Z12.11 Active 491418072 Problem Breast cancer screening Z12.39 Active 621060549 Problem Hemorrhoids, external, thrombosed K64.5 Active 32683367 Problem Constipation K59.00 Active 4494576 8 Problem Type 2 diabetes mellitus wit h diabetic neuropathy, unspecified whether longterm insulin use E11.40 Active 927252 257958849 Problem Other hammer toe(s) (acquired), left foot M20.42 Active 41173138 Problem Other hammer toe(s) (acquired), right foot M20.41 Active 149182338 ALLERGIES No Information ENCOUNTERS Encounter Location Date Diagnosis [facility] [id number][place] [id number] Nov, Controlled type 2 diabetes mellitus with out complication, without long-term current use of insulin E11.9 and Colon cancer screening Z12.11 [facility] [id number], [place] [id number] Nov, Type 2 diabetes mellitus without complic ations E11.9 and Gastric reflux K21.9 [facility] [address] [id number], [place] [id number] Nov, Dental caries K02.9 [facility] [address] [facility] [id number] [address] [place] [address] October, Other hammer toe(s) (acquire d), left foot M20.42 ; Other hammer toe(s) (acquired), right foot M20.41 and Type 2 diabetes mellitus with diabetic neuropathy, unspecified whether long term care social worker insulin use E11.[address] [id number], [place] [address] Sep, Allergic rhinitis J30.9 [facility] [id number], [place] [id number] Sep, [facility] [id number], [place] [id number] Sep, Allergic rhinitis, unspecified seasonali ty, unspecified trigger J30.9 and Viral upper respiratory tract infection J06.9 [facility] [address] [id number], [place] [address] Aug, [facility] [address] [facility] [id number] [address] [place] [address] Jul, [facility] [address] [id number], [place] [id number] Jul, Type 2 diabetes mellitus without complic ations E11.9 and Left foot pain M79.672 [facility] [address] [id number], [place] [id number] May, Gastric reflux K21.9 and Pruritic dermat itis L29.9 [facility] [address] [id number], [place] [id number] Apr, [facility] US [address] [place] [address] AVE [id number], [place] [id number] Mar, Type 2 diabetes mellitus without complic ations E11.9 ; Bronchitis, acute J20.9 and Constipation K59.00 [facility] [address] [id number], [place] [id number] Mar, [facility] [address] [id number], [place] [id number] Mar, [facility] [address] [place] [address] AVE [id number], [place] [id number] Mar, [facility] A[address] [id number], [place] [id number] Mar, [facility] [address] [id number], [place] [id number] Mar, [facility] [address] [id number], [place] [id number] Feb, Encounter for immunization Z23 [facility] [address] [id number], [place] [id number] Feb, Gastric reflux K21.9 ; Visit for screeni ng mammogram Z12.31 and Age- related osteoporosis without current pathological fracture M81.0 [facility] [address] [id number] [place] [id number] Feb, [facility] [address] [id number], [place] [id number] Feb, [facility] [address] [id number], [place] [address] Aug, [facility] [address] [id number], [place] [address] Jul, Contact dermatitis, unspecified contact dermatitis type, unspecified trigger L25.9 [facility] [address] [id number], [place] [address]35[address] Mar, Type 2 diabetes mellitus without complic ations E11.9 ; Mammogram declined Z53.20 ; Cardiomegaly I51.7 and Encounter for immunization Z23 [facility] [address] [id number], [place] [id number] Mar, [facility] [address] [id number], [place] [id number] Jan, High risk medication use Z79.899 and Anx iety F41.9 [facility] [address] [id number], [place] [address] Jan, [facility] [address] [id number], [place] [id number] Jan, Dental caries K02.9 [facility] [address] [id number], [place] [id number] Jan, [facility] [address] [id number], [place] 182749362 Nov, Dental caries K02.[address] [facility] [address] [id number], [place] 505[address]82 October, Dental caries K02.9 [facility] [address] [id number], [place] [id number] Sep, [facility] [address] [id number] [place] [address] Sep, Type 2 diabetes mellitus without complic ations E11.9 and Dental caries K02.[address] [facility] [address] [id number] [place] [id number] Aug, [facility] [address] [id number] [place] [id number] Jul, [facility] [address] [id number] [place] [address] Jul, [facility] [address] [id number] [place] [address] Jun, Dental examination Z01.[address] [facility] [address] [id number], [place] [address]6047243 Jun, Emotional lability R45.[address] [facility] [address] [id number], [place] [id number] Jun, [facility] [address] [id number] [place] [id number] Jun, Controlled type 2 diabetes mellitus with out complication, without long-term current use of insulin E11.[address] [facility] [address] [id number], [place] [address]84[address] May, [facility] [address] [id number] [place] [address] May, Cardiomyopathy I42.9 ; Emotional labilit y R45.86 and Dental caries K02.[address] [facility] [address] [id number] [place] [id number] Apr, [facility] [address] [id number] [place] [id number] Mar, [facility] [address] [id number] [place] [id number] Feb, Type 2 diabetes mellitus without complic ations E11.9 [facility] [place] [address] [id number] Rosi LOBO S [id number] Jan, [facility] [address] [id number], [place] [address]12[address] Dec, Gallbladder polyp K82.[address] [facility] [address] [id number], [place] [address] Nov, [facility] [address] [id number], [place] 877161097 Nov, Primary osteoarthritis of left shoulder M19.012 [facility] [place] [address] [id number] [place] [address] Nov, [facility] [address] [id number], [place] [address]24637 Nov, Controlled type 2 diabetes mellitus with out complication, without long-term current use of insulin E11.9 and Pain in left shoulder M25.[address] [facility] [address] [id number], [place] 448264348 Nov, Gallbladder polyp K82.4 [facility] [address] [id number], [place] 732197599 October, Pain in left shoulder M25.512 and Other chronic pain G89.[address] [facility] [address] [id number], [place] 790422835 October, [facility] [address] [id number], [place] 924861682 October, [facility] [address] [id number], [place] [id number] October, [facility] [address] [id number], [place] 308459721 Sep, [facility] [address] [id number] [address] [place] [address] Sep, [facility] [address] [id number], [place] [id number] 19 Apr, 2016 Encounter for gynecological examination without abnormal finding Z01.419 ; Breast cancer screening Z12.39 ; Hemorrhoids, external, thrombosed K64.5 and Early menopause E28.[address] [id number] [place] [address] [id number] 06 Sep, 2015 Acute bronchitis, unspecified organism J 20.9 and Cardiomegaly I51.[address] [id number] [place] [address] [id number] 16 Aug, 2015 Thyroid mass E07.[address] [id number] [place] [address] [id number] 15 Aug, 2015 Type 2 diabetes mellitus without complic ations E11.9 ; Thyroid mass E07.9 and Encounter for Zostavax administration Z23 [address] [id number] [place] [address] [id number] Aug, Seizure disorder G40.909 ; Hypomagnesemi a E83.42 and Expressive aphasia R47.01 [facility] [address] [place] [address] Jul, Urge incontinence of urine N 39.[address] [id number] [place] [id number] Jul, [address] [id number] [place] [address] [id number] Jul, Pharyngitis J02.9 ; Urge incontinence of urine N39.41 and Acute cystitis with hematuria N30.01 [facility] [address] [facility] [id number] [address] [place] [address] May, Mixed hyperlipidemia E78.[address] [id number] [place] [address] [id number] May, Seizure disorder G40.909 ; Mixed hyperli pidemia E78.2 and Gallbladder polyp K82.[address] [id number] [place] [address] [id number] May, [facility] [address] [id number], [place] 8448170[address] May, [facility] [address] [id number], [place] [id number] May, Diabetes type 2, controlled E11.9 and Fa tigue, unspecified type R53.83 [facility] [address] [employer] [id number], [place] [address]2776 Apr, Cardiomyopathy I42.9 ; Thyroid mass E07. 9 ; Seizure disorder G40.909 and Dermatitis L30.9 [facility] [address] [id number], [place] [id number] Mar, [facility] [address] [id number], [place] [id number] Feb, [facility] [address] [place] [address] AVE [id number], [place] [id number] Feb, [facility] [address] [place] [address] AVE [id number], [place] [id number] Jan, [facility] [address] [place] [address] AVE [id number], [place] 578104334 Jan, CAD (coronary artery disease) 414.00 ; H yperlipidemia associated with type 2 diabetes mellitus 250.80 and Diabetes type 2, controlled 250.00 [facility] [address] [facility] [address] [id number], [place] 669692387 Nov, CVA (cerebral infarction) 434.91 ; Expre ssive aphasia 784.3 ; Solitary nodule of right lobe of thyroid 241.0 ; CAD (coronary artery disease) 414.00 ; Diabetes type 2, controlled 250.00 and Hemorrhoids, external 455.3 [facility] [address] [id number], [place] 453352306 October, Chest pain, atypical 786.59 ; Hemorrhoid s 455.6 ; Diabetes type 2, controlled 250.00 and Hyperlipidemia associated with type 2 diabetes mellitus 250.80 [facility] [address] [id number], [place] 405727359 October, [facility] [address] [id number], [place] 097375016 October, Chest pain 786.50 ; Abnormal EKG 794.31 and Diabetes type 2, controlled 250.[address] [facility] [address] [id number], [place] [id number] October, Chest pain varies with breathing 786.50 [facility] [address] [id number] [address] [place] [address] Sep, [facility] [address] [id number] [address] [place] [phone] Sep, [facility] [address] [id number] [address] [place] [address] Aug, [facility] [address] [id number] [address] [place] [phone] Aug, [facility] [address] [id number] [address] [place] [address] Aug, [facility] [address] [id number] [address] [place] [address] Aug, [facility] [address] [id number] [address] [place] [address] Aug, [facility] [address] [id number] [address] [place] [phone] Aug, [facility] [address] [id number] [address] [place] [address] Aug, [facility] [address] [id number] [address] [place] [address] Aug, [facility] [address] [id number] [address] [place] [phone] Jul, [facility] [address] [id number] [address] [place] [phone] Jul, [facility] [address] [id number] [address] [place] [phone] Jun, [facility] [address] [id number] [address] [place] [address], [place] [address] Jun, [facility] [address] [id number] [address] [place] [address], [place] [address] Jun, [facility] [address] [id number] [address] [place] [address], [place] [address] Jun, [facility] [address] [id number] [address] [place] [address], [place] [address] Jun, [facility] [address] [id number] [address] [place] [address], [place] [address] Jun, [facility] [address] [id number] [address] [place] [address], [place] [address] Jun, [facility] [address] [id number] [address] [place] [address], [place] [address] Jun, [facility] [address] [id number] [address] [place] [address], [place] [address] Jun, [facility] [place] [address] [id number] [place] [id number] Jun, [facility] [address] [id number] [address] [place] [address], [place] [address] Jun, [facility] [address] [id number] [address] [place] [address], [place] [address] May, [facility] [address] [id number] [address] [place] [address], [place] [address] May, [facility] [address] [id number] [address] [place] [address], [place] [address] May, [facility] [address] [id number] [address] [place] [address], [place] [address] May, [facility] [address] [id number] [address] [place] [address], [place] [address] Apr, [facility] [address] [id number] [address] [place] [address], [place] [address] Apr, 2013 [facility] [address] [id number] [address] [place] [address], [place] [address] Mar, 2013 [facility] [address] [id number] [address] [place] [address], [place] [address] Mar, 2013 [facility] [address] [id number] [address] [place] [address], [place] [address] Mar, 2013 [facility] [address] [id number] [address] [place] [address], [place] [address] Mar, 2013 [facility] [address] [id number] [address] [place] [address], [place] [address] Mar, 2013 [facility] [address] [id number] [address] [place] [address], [place] [address] Mar, 2013 [facility] [address] [id number] [address] [place] [address], [place] [address] Mar, 2013 [facility] [address] [id number] [address] [place] [address], [place] [address] Mar, [facility] [address] [id number] [address] [place] [address], [place] [address] 30 Feb, 2013 [facility] [address] [id number] [address] [place] [address], [place] [address] 30 Sep, 2013 [facility] [address] [id number] [address] [place] [address], [place] [address] 19 Sep, 2013 [facility] [address] [id number] [address] [place] [address], [place] [address] 08 Sep, 2013 [facility] [address] [id number] [address] [place] [address], [place] [address] 08 Sep, 2013 [facility] [address] [id number] [address] [place] [address], [place] [address] 08 Sep, 2013 [facility] [address] [id number] [address] [place] [address], [place] [address] Feb, [facility] [address] [id number] [address] [place] [address] Feb, [facility] [address] [id number] [address] [place] [phone] Feb, [facility] [address] [id number] [address] [place] [address] Feb, [facility] [address] [id number] [address] [place] [address] Feb, [facility] [address] [id number] [address] [place] [address] Jan, [facility] [address] [id number] [address] [place] [address] Jan, [facility] [address] [facility] [id number] [address] [place] [phone] October, [facility] [address] [id number] [address] [place] [address] October, IMMUNIZATIONS No Known Immunizations SOCIAL HISTORY [...] Hospitalization History chest pain-noncardiac 03/29/18 Hospitalization History [facility] Was given cousmallpox hospital medicine and was sent home. 09/24/2018
--- OUTSIDE RECORDS SUMMARY | 2019-06-21 12:20 | XMS REPORT ---
Author Author Cat Hernandez Doctor Organization [facility] Address Unknown Phone Unavailable Care Team Providers Care Nitroglycerin Supervisor Name Role Phone Migration, Doctor Unavailable Unavailable PROBLEMS Type Condition ICD9-CM Code SPO25-HM Code Onset Dates Condition S tatus SNOMED Code Problem Gallbladder polyp K82.4 Active 19 7686361 Problem Urge incontinence of urine N39.41 Act viji 63156723 Problem Mixed hyperlipidemia E78.2 Active 264185940 Problem Hypomagnesemia E83.42 Active 02293 5004 Problem Expressive aphasia R47.01 Active 2 56874718 Problem Type 2 diabetes mellitus without complications E11 .9 Active 05577318 Problem Encounter for Zostavax administration Z23 Active 512395454 Problem Anxiety F41.9 Active 19878988 Problem Seizure disorder G40.909 Active 128 036638 Problem Dental caries K02.9 Active 969810 01 Problem Cardiomyopathy I42.9 Active 22127 001 Problem Fatigue, unspecified type R53.83 Acti ve 32607115 Problem Thyroid mass E07.9 Active 6087504 03 Problem Acute bronchitis, unspecified organism J20.9 Active 23463610 Problem Encounter for gynecological examination without abnormal finding Z01.419 Active 020362769 Problem Other chronic pain G89.29 Active 8 9983096 Problem Cardiomegaly I51.7 Active 9814246 Problem Controlled type 2 diabetes m ellitus without complication, without long- term current use of insulin E11.9 Active 884505155 Problem Pain in left shoulder M25.512 Active 08676686 Problem Emotional lability R45.86 Active 1 7612625 Problem Dermatitis L30.9 Active 48375061 Problem Primary osteoarthritis of left shoulder M19.012 Active 62399673 Problem Gastric reflux K21.9 Active 18140 7003 Problem Visit for screening mammogram Z12.31 Active 738620998 Problem Age-related osteoporosis without current pathological fracture M81.0 Active 97431697 Problem Allergic rhinitis J30.9 Active 61 199195 Problem Early menopause E28.319 Active 3958 6009 Problem Colon cancer screening Z12.11 Active 498502762 Problem Breast cancer screening Z12.39 Active 768695574 Problem Hemorrhoids, external, thrombosed K64.5 Active 19021010 Problem Constipation K59.00 Active 5135477 8 Problem Type 2 diabetes mellitus wit h diabetic neuropathy, unspecified whether nursing home insulin use E11.40 Active 536292 112151234 Problem Other hammer toe(s) (acquired), left foot M20.42 Active 85145724 Problem Other hammer toe(s) (acquired), right foot M20.41 Active 806011467 ALLERGIES No Information ENCOUNTERS Encounter Location Date Diagnosis [facility] [id number], [place] [id number] Nov, 2019 Controlled type 2 diabetes mellitus with out complication, without long-term current use of insulin E11.9 and Colon cancer screening Z12.11 [facility] [id number], [place] [id number] Nov, Type 2 diabetes mellitus without complic ations E11.9 and Gastric reflux K21.9 [facility] [address] [id number], [place] [id number] Nov, Dental caries K02.9 [facility] [address] [facility] [id number] [place] [address] October, Other hammer toe(s) (acquire d), left foot M20.42 ; Other hammer toe(s) (acquired), right foot M20.41 and Type 2 diabetes mellitus with diabetic neuropathy, unspecified whether nursing home insulin use E11.40 [facility] [id number], [place] [id number] Sep, Allergic rhinitis J30.9 [facility] [id number], [place] [address]59638483 Sep, [facility] [id number], [place] [address]81123457 Sep, Allergic rhinitis, unspecified seasonali ty, unspecified trigger J30.9 and Viral upper respiratory tract infection J06.9 [facility] [id number], [place] [address] Aug, [facility] [place] [address] [facility] [id number] 100[place] [address] Jul, [facility] [address] [id number], [place] [address]24044[address] Jul, Type 2 diabetes mellitus without complic ations E11.9 and Left foot pain M79.[address] [facility] [address] [id number], [place] 737454698 May, Gastric reflux K21.9 and Pruritic dermat itis L29.[address] [facility] [address] [id number], [place] [address] Apr, [facility] [address] [id number], [place] [id number] Mar, Type 2 diabetes mellitus without complic ations E11.9 ; Bronchitis, acute J20.9 and Constipation K59.[address] [facility] [address] [id number], [place] [address]657575[address] Mar, [facility] [address] [id number], [place] [id number] Mar, [facility] [address] [id number], [place] 630801081 Mar, [facility] [address] [id number], [place] 306680[address] Mar, [facility] [address] [id number], [place] [id number] Mar, [facility] [address] [id number], [place] 230956224 Feb, Encounter for immunization Z23 [facility] [address] [id number], [place] [id number] Feb, Gastric reflux K21.9 ; Visit for screeni ng mammogram Z12.31 and Age- related osteoporosis without current pathological fracture M81.[address] [facility] [address] [id number] [place] [id number] Feb, [facility] [address] [id number] [place] [id number] Feb, [facility] [address] [id number] [place] [address]37345703 Aug, [facility] [address] [id number] [place] 8[address] Jul, Contact dermatitis, unspecified contact dermatitis type, unspecified trigger L25.[address] [facility] [address] [id number] [place] [id number] Mar, Type 2 diabetes mellitus without complic ations E11.9 ; Mammogram declined Z53.20 ; Cardiomegaly I51.7 and Encounter for immunization Z23 [facility] [address] [id number], [place] 807631587 Mar, [facility] [address] [id number], [place] 215935625 Jan, High risk medication use Z79.899 and Anx iety F41.[address] [facility] [address] [id number], [place] 512003140 Jan, [facility] [address] [id number], [place] 429063036 Jan, Dental caries K02.[address] [facility] [address] [id number], [place] [id number] Jan, [facility] [address] [id number], [place] 938714840 Nov, Dental caries K02.[address] [facility] [address] [id number], [place] 180757902 October, Dental caries K02.[address] [facility] [address] [id number], [place] 731717054 Sep, [facility] [address] [id number], [place] 139873327 Sep, Type 2 diabetes mellitus without complic ations E11.9 and Dental caries K02.[address] [facility] [address] [id number], [place] 445465556 Aug, [facility] [address] [id number], [place] 575228373 Jul, [facility] [address] [id number], [place] 223086657 Jul, [facility] [address] [id number], [place] 339290606 Jun, Dental examination Z01.[address] [facility] [address] [id number], [place] 756253066 Jun, Emotional lability R45.86 [facility] [address] [id number], [place] 182041401 Jun, [facility] [address] [id number], [place] 610147367 Jun, Controlled type 2 diabetes mellitus with out complication, without long-term current use of insulin E11.[address] [facility] [address] [id number], [place] [id number] May, [facility] [address] [id number], [place] 639572295 May, Cardiomyopathy I42.9 ; Emotional labilit y R45.86 and Dental caries K02.[address] [facility] [address] [id number], [place] 604743206 Apr, [facility] [address] [id number], [place] [id number] Mar, [facility] [address] [id number], [place] 730516588 Feb, Type 2 diabetes mellitus without complic ations E11.9 [facility] [place] [address] [id number] [place] [address] Jan, [facility] [address] [id number], [place] 156377477 Dec, Gallbladder polyp K82.4 [facility] [address] [id number], [place] 232581885 Nov, [facility] [address] [id number], [place] 299876877 Nov, Primary osteoarthritis of left shoulder M19.012 [facility] [address] [id number] [place] [address] Nov, [facility] [address] [id number], [place] 797587392 Nov, Controlled type 2 diabetes mellitus with out complication, without long-term current use of insulin E11.9 and Pain in left shoulder M25.512 [facility] [address] [id number], [place] 184418769 Nov, Gallbladder polyp K82.4 [facility] [address] [id number], [place] 285168967 October, Pain in left shoulder M25.512 and Other chronic pain G89.29 [facility] [address] [id number], [place] 637092832 October, [facility] [address] [id number], [place] 629764673 October, [facility] [address] [id number], [place] 715631399 October, [facility] [address] [id number], [place] 176834462 Sep, [facility] [place] [address] [facility] [id number] 100[place], [place] [address] Sep, [facility] [address] [id number], [place] [id number] Sep, Encounter for gynecological examination without abnormal finding Z01.419 ; Breast cancer screening Z12.39 ; Hemorrhoids, external, thrombosed K64.5 and Early menopause E28.319 [facility] [address] [id number], [place] 281477169 Sep, Acute bronchitis, unspecified organism J 20.9 and Cardiomegaly I51.7 [facility] [address] [id number], [place] 774182676 Aug, Thyroid mass E07.[id number] [place] [address] [id number] Aug, Type 2 diabetes mellitus without complic ations E11.9 ; Thyroid mass E07.9 and Encounter for Zostavax administration Z23 [address] [id number] [place] [address] [id number] Aug, Seizure disorder G40.909 ; Hypomagnesemi a E83.42 and Expressive aphasia R47.01 [place] [id number] [place] [address] Jul, Urge incontinence of urine N 39.[address] [id number] [place] [address] [id number] Jul, [facility] [address] [id number] [place] [address] [id number] Jul, Pharyngitis J02.9 ; Urge incontinence of urine N39.41 and Acute cystitis with hematuria N30.01 [facility] [address] [place] [address] May, Mixed hyperlipidemia E78.[id number] [place] [address] [id number] May, Seizure disorder G40.909 ; Mixed hyperli pidemia E78.2 and Gallbladder polyp K82.4 [facility] [address] [facility] [id number] [place] [address] [id number] May, [facility] [address] [id number] [place] [address] [id number] May, [facility] [address] [id number], [place] [id number] May, Diabetes type 2, controlled E11.9 and Fa tigue, unspecified type R53.83 [facility] [address] [id number], [place] 760484774 Apr, Cardiomyopathy I42.9 ; Thyroid mass E07. 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[employer] [place] [address] AVE [id number], [place] 435307437 Jan, [facility] [address] [id number], [place] 190918050 Jan, CAD (coronary artery disease) 414.00 ; H yperlipidemia associated with type 2 diabetes mellitus 250.80 and Diabetes type 2, controlled 250.00 [facility] [employer] [place] [address] AVE [id number], [place] [id number] Nov, CVA (cerebral infarction) 434.91 ; Expre ssive aphasia 784.3 ; Solitary nodule of right lobe of thyroid 241.0 ; CAD (coronary artery disease) 414.00 ; Diabetes type 2, controlled 250.00 and Hemorrhoids, external 455.3 [facility] [address] [id number], [place] [id number] October, Chest pain, atypical 786.59 ; Hemorrhoid s 455.6 ; Diabetes type 2, controlled 250.00 and Hyperlipidemia associated with type 2 diabetes mellitus 250.80 [facility] [address] [address] [id number], [place] 899756261 October, [facility] [address] [id number], [place] 417020248 October, Chest pain 786.50 ; Abnormal EKG 794.31 and Diabetes type 2, controlled 250.00 [facility] Robert[address] [place] [address] A[id number] [place] [address] [id number] October, Chest pain varies with breathing 786.50 [facility] [address] [id number] [address] [place] [id number] Sep, [facility] [address] [id number] [address] [place] [address] Sep, [facility] [address] [id number] [address] [place] [address] Aug, [facility] [address] [id number] [address] [place] [address] Aug, [facility] [address] [id number] [address] [place] [id number] Aug, [facility] [address] [id number] [address] [place] [address] Aug, [facility] [address] [id number] [address] [place] [id number] Aug, [facility] [address] [id number] [address] [phone] Aug, [facility] [address] [id number] [address] [place] [address] Aug, [facility] [address] [id number] [address] [address] Aug, [facility] [address] [id number] [address] [place] [phone] Jul, [facility] [address] [id number] [address] [place] [phone] Jul, [facility] [address] [id number] [address] [place] [phone] Jun, [facility] [address] [id number] [address] [place] [address], [place] [address] Jun, [facility] [address] [id number] [address] [place] [address], [place] [address] Jun, [facility] [address] [id number] [address] [place] [address], [place] [address] Jun, [facility] [address] [id number] [address] [place] [address], [place] [address] Jun, [facility] [address] [id number] [address] [place] [address], [place] [address] Jun, [facility] [address] [id number] [address] [place] [address], [place] [address] Jun, [facility] [address] [id number] [address] [place] [address], [place] [address] Jun, [facility] [address] [id number] [address] [place] [address], [place] [address] Jun, [facility] [address] [id number] [place] [id number] Jun, [facility] [address] [id number] [address] [place] [address], [place] [address] Jun, [facility] [address] [id number] [address] [place] [address], [place] [address] May, [facility] [address] [id number] [address] [place] [address], [place] [address] May, [facility] [address] [id number] [address] [place] [address], [place] [address] May, [facility] [address] [id number] [address] [place] [address], [place] [address] May, [facility] [address] [id number] [address] [place] [address], [place] [address] Apr, [facility] [address] [id number] [address] [place] [address], [place] [address] Apr, [facility] [address] [id number] [address] [place] [address], [place] [address] Mar, 2013 [facility] [address] [id number] [address] [place] [address], [place] [address] Mar, 2013 [facility] [address] [id number] [address] [place] [address], [place] [address] Mar, 2013 [facility] [address] [id number] [address] [place] [address], [place] [address] Mar, 2013 [facility] [address] [id number] [address] [place] [address], [place] [address] Mar, 2013 [facility] [address] [id number] [address] [place] [address], [place] [address] Mar, 2013 [facility] [address] [id number] [address] [place] [address], [place] [address] Mar, 2013 [facility] [address] [id number] [address] [place] [address], [place] [address] Mar, 2013 [facility] [address] [id number] [address] [place] [address], [place] [address] 30 Sep, 2013 [facility] [address] [id number] [address] [place] [address], [place] [address] 30 Sep, 2013 [facility] [address] [id number] [address] [place] [address], [place] [address] 19 Sep, 2013 [facility] [address] [id number] [address] [place] [address], [place] [address] 08 Sep, 2013 [facility] [address] [id number] [address] [place] [address], [place] [address] 08 Sep, 2013 [facility] [address] [id number] [address] [place] [address], [place] [address] 08 Sep, 2013 [facility] [address] [id number] [address] [place] [address], [place] [address] 08 Sep, 2013 [facility] [address] [id number] [address] [place] [address] [address] Feb, [facility] [address] [id number] [address] [place] [phone] Feb, [facility] [address] [id number] [address] [place] [id number] Feb, [facility] [address] [id number] [address] [phone] Feb, [facility] [address] [id number] [address] [place] [phone] Jan, [facility] [address] [id number] [address] [place] [phone] Jan, [facility] [address] [facility] [id number] [address] [place] [address] October, [facility] [address] [facility] [id number] [address] [place] [id number] October, IMMUNIZATIONS No Known Immunizations SOCIAL HISTORY [...] Hospitalization History chest pain-noncardiac 03/29/18 Hospitalization History [facility] Was given [facility] and was sent home. 09/24/2018
--- OUTSIDE RECORDS SUMMARY | 2019-06-21 12:20 | XMS REPORT ---
Author Author Cat Hernandez Doctor Organization [facility] Address Unknown Phone Unavailable Care Team Providers Care Insurance Commissioner Name Role Phone Migration, Doctor Unavailable Unavailable PROBLEMS Type Condition ICD9-CM Code USV69-AO Code Onset Dates Condition S tatus SNOMED Code Problem Gallbladder polyp K82.4 Active 19 9334776 Problem Urge incontinence of urine N39.41 Act viji 22867875 Problem Mixed hyperlipidemia E78.2 Active 308132316 Problem Hypomagnesemia E83.42 Active 71761 5004 Problem Expressive aphasia R47.01 Active 2 36204683 Problem Type 2 diabetes mellitus without complications E11 .9 Active 07272520 Problem Encounter for Zostavax administration Z23 Active 018845961 Problem Anxiety F41.9 Active 07072983 Problem Seizure disorder G40.909 Active 128 645590 Problem Dental caries K02.9 Active 713254 01 Problem Cardiomyopathy I42.9 Active 66484 001 Problem Fatigue, unspecified type R53.83 Acti ve 61878140 Problem Thyroid mass E07.9 Active 8703800 03 Problem Acute bronchitis, unspecified organism J20.9 Active 91849085 Problem Encounter for gynecological examination without abnormal finding Z01.419 Active 742217056 Problem Other chronic pain G89.29 Active 8 8665237 Problem Cardiomegaly I51.7 Active 4901292 Problem Controlled type 2 diabetes m ellitus without complication, without long- term current use of insulin E11.9 Active 510328755 Problem Pain in left shoulder M25.512 Active 58574365 Problem Emotional lability R45.86 Active 1 7066980 Problem Dermatitis L30.9 Active 04140907 Problem Primary osteoarthritis of left shoulder M19.012 Active 76025110 Problem Gastric reflux K21.9 Active 27540 7003 Problem Visit for screening mammogram Z12.31 Active 238854930 Problem Age-related osteoporosis without current pathological fracture M81.0 Active 74893280 Problem Allergic rhinitis J30.9 Active 61 167050 Problem Early menopause E28.319 Active 8767 6009 Problem Colon cancer screening Z12.11 Active 016893889 Problem Breast cancer screening Z12.39 Active 821137453 Problem Hemorrhoids, external, thrombosed K64.5 Active 56044125 Problem Constipation K59.00 Active 8814803 8 Problem Type 2 diabetes mellitus wit h diabetic neuropathy, unspecified whether custodial insulin use E11.40 Active 548093 525852938 Problem Other hammer toe(s) (acquired), left foot M20.42 Active 58951852 Problem Other hammer toe(s) (acquired), right foot M20.41 Active 295486644 ALLERGIES No Information ENCOUNTERS Encounter Location Date [facility] [id number], [place] [id number] Nov, 2019 Controlled type 2 diabetes mellitus with out complication, without long-term current use of insulin E11.9 and Colon cancer screening Z12.11 [facility] [id number], [place] [address] Nov, Type 2 diabetes mellitus without complic ations E11.9 and Gastric reflux K21.9 [email or web address] [id number], [place] [id number] Nov, Dental caries K02.9 [facility] [address] [facility] [id number] [address] [address] October, Other hammer toe(s) (acquire d), left foot M20.42 ; Other hammer toe(s) (acquired), right foot M20.41 and Type 2 diabetes mellitus with diabetic neuropathy, unspecified whether custodial insulin use E11.40 [facility] [id number], [place] 118745266 Sep, Allergic rhinitis J30.9 [facility] [id number], [place] 372983010 Sep, [facility] [id number], [place] [address]6550575 Sep, Allergic rhinitis, unspecified seasonali ty, unspecified trigger J30.9 and Viral upper respiratory tract infection J06.9 [facility] [id number], [place] [address]59360667 Aug, [facility] [address] [facility] [id number] 100[place] [address] Jul, [facility] [address] [id number], [place] [address]07869478 Jul, Type 2 diabetes mellitus without complic ations E11.9 and Left foot pain M79.[address] [facility] [address] [id number], [place] 145619149 May, Gastric reflux K21.9 and Pruritic dermat itis L29.[address] [facility] [address] [id number], [place] [address]8627[address] Apr, [facility] [address] [id number], [place] [id number] Mar, Type 2 diabetes mellitus without complic ations E11.9 ; Bronchitis, acute J20.9 and Constipation K59.[address] [facility] [address] [id number], [place] [id number] Mar, [facility] [address] [id number], [place] [id number] Mar, [facility] [address] [id number], [place] 660637365 Mar, [facility] [address] [id number], [place] [address]79158444 Mar, [facility] [address] [id number], [place] 545709197 Mar, [facility] [address] [id number], [place] 839950000 Feb, Encounter for immunization Z23 [facility] [address] [id number], [place] 544115325 Feb, Gastric reflux K21.9 ; Visit for screeni ng mammogram Z12.31 and Age- related osteoporosis without current pathological fracture M81.[address] [facility] [address] [id number] [place] [address] Feb, [facility] [address] [id number] [place] 5643233[address] Feb, [facility] [address] [id number] [place] [address]180[address] Aug, [facility] [address] [id number] [place] 954324[address] Jul, Contact dermatitis, unspecified contact dermatitis type, unspecified trigger L25.[address] [facility] [address] [id number] [place] [address]78[address]50[address] Mar, Type 2 diabetes mellitus without complic ations E11.9 ; Mammogram declined Z53.20 ; Cardiomegaly I51.7 and Encounter for immunization Z23 [facility] [address] [id number], [place] 295118217 Mar, [facility] [address] [id number], [place] 286629082 Jan, High risk medication use Z79.899 and Anx iety F41.[address] [facility] [address] [id number], [place] 278882827 Jan, [facility] [address] [id number], [place] 977143097 Jan, Dental caries K02.[address] [facility] [address] [id number], [place] 959457101 Jan, [facility] [address] [id number], [place] 085691953 Nov, Dental caries K02.[address] [facility] [address] [id number], [place] 074493405 October, Dental caries K02.[address] [facility] [address] [id number], [place] 362242587 Sep, [facility] [address] [id number], [place] 253455130 Sep, Type 2 diabetes mellitus without complic ations E11.9 and Dental caries K02.[address] [facility] [address] [id number], [place] 343164954 Aug, [facility] [address] [id number], [place] 220605756 Jul, [facility] [address] [id number], [place] 397430885 Jul, [facility] [address] [id number], [place] 257275756 Jun, Dental examination Z01.[address] [facility] [address] [id number], [place] 596609521 Jun, Emotional lability R45.86 [facility] [address] [id number], [place] 498046000 Jun, [facility] [address] [id number], [place] 692948997 Jun, Controlled type 2 diabetes mellitus with out complication, without long-term current use of insulin E11.[address] [facility] [address] [id number], [place] 457505787 May, [facility] [address] [id number], [place] 358666238 May, Cardiomyopathy I42.9 ; Emotional labilit y R45.86 and Dental caries K02.[address] [facility] [address] [id number], [place] 235453857 Apr, [facility] [address] [id number], [place] 075416193 Mar, [facility] [address] [id number], [place] 396184879 Feb, Type 2 diabetes mellitus without complic ations E11.9 [facility] [place] [address] [id number] [place] [address] Jan, [facility] [address] [id number], [place] [id number] Dec, Gallbladder polyp K82.4 [facility] [address] [id number], [place] 770522372 Nov, [facility] [address] [id number], [place] 468049344 Nov, Primary osteoarthritis of left shoulder M19.012 [facility] [address] [id number] [place] [address] Nov, [facility] [address] [id number], [place] 872644705 Nov, Controlled type 2 diabetes mellitus with out complication, without long-term current use of insulin E11.9 and Pain in left shoulder M25.512 [facility] [address] [id number], [place] 205287625 Nov, Gallbladder polyp K82.4 [facility] [address] [id number], [place] 360411190 October, Pain in left shoulder M25.512 and Other chronic pain G89.29 [facility] [address] [id number], [place] 020658619 October, [facility] [address] [id number], [place] 098764009 October, [facility] [address] [id number], [place] 145311350 October, [facility] [address] [id number], [place] 919619172 Sep, [facility] [address] [facility] [id number] [address] [address] Sep, [facility] [address] [id number], [place] 728429527 Sep, Encounter for gynecological examination without abnormal finding Z01.419 ; Breast cancer screening Z12.39 ; Hemorrhoids, external, thrombosed K64.5 and Early menopause E28.319 [facility] [address] [id number], [place] 302347001 Sep, Acute bronchitis, unspecified organism J 20.9 and Cardiomegaly I51.7 [facility]] [address] [id number], [place] 439119717 Aug, Thyroid mass E07.[id number] [place] [address] [id number] Aug, Type 2 diabetes mellitus without complic ations E11.9 ; Thyroid mass E07.9 and Encounter for Zostavax administration Z23 [address] [id number] [place] [address] [id number] Aug, Seizure disorder G40.909 ; Hypomagnesemi a E83.42 and Expressive aphasia R47.01 [place] [address] [place] [address] Jul, Urge incontinence of urine N 39.[address] [id number] [place] [address] [id number] Jul, [facility] [address] [id number] [place] [address] [id number] Jul, Pharyngitis J02.9 ; Urge incontinence of urine N39.41 and Acute cystitis with hematuria N30.01 [facility] [address] [place] [address] May, Mixed hyperlipidemia E78.[address] [id number] [place] [address] [id number] May, Seizure disorder G40.909 ; Mixed hyperli pidemia E78.2 and Gallbladder polyp K82.4 [facility][1] [address] [facility] [id number] [place] [address] [id number] May, [facility] [address] [id number] [place] [address] [id number] May, [facility] [address] [id number], [place] [id number] May, Diabetes type 2, controlled E11.9 and Fa tigue, unspecified type R53.83 [email or web address] [address] [id number], [place] [id number] Apr, Cardiomyopathy I42.9 ; Thyroid mass E07. 9 ; Seizure disorder G40.909 and Dermatitis L30.9 [facility] [address] [id number], [place] [id number] Mar, [email or web address] [id number], [place] [id number] Feb, [email or web address] [address] [id number], [place] [id number] Feb, [facility] [address] [place] [address] AVE [id number], [place] [id number] Jan, [facility] [address] [id number], [place] 889654682 Jan, CAD (coronary artery disease) 414.00 ; H yperlipidemia associated with type 2 diabetes mellitus 250.80 and Diabetes type 2, controlled 250.00 [email or web address] [address] [place] [address] AVE [id number], [place] 826593290 Nov, CVA (cerebral infarction) 434.91 ; Expre ssive aphasia 784.3 ; Solitary nodule of right lobe of thyroid 241.0 ; CAD (coronary artery disease) 414.00 ; Diabetes type 2, controlled 250.00 and Hemorrhoids, external 455.3 [facility] [address] [id number], [place] 155301732 October, Chest pain, atypical 786.59 ; Hemorrhoid s 455.6 ; Diabetes type 2, controlled 250.00 and Hyperlipidemia associated with type 2 diabetes mellitus 250.80 [email or web address] [address] [id number], [place] [id number] October, [email or web address] [address] [id number], [place] [id number] October, Chest pain 786.50 ; Abnormal EKG 794.31 and Diabetes type 2, controlled 250.00 [facility]ITAL[facility] [address] [place] [address] AVE [id number] [place] [address] [id number] October, Chest pain varies with breathing 786.50 [facility] [address] [id number] [address] [place] [address] Sep, [facility] [address] [id number] [address] [place] [address] Sep, [facility] [address] [id number] [address] [place] [address] Aug, [facility] [address] [id number] [address] [place] [address] Aug, [facility] [address] [id number] [address] [place] [address] Aug, [facility] [address] [id number] [address] [place] [address] Aug, [facility] [address] [id number] [address] [place] [address] Aug, [facility] [address] [id number] [address] [place] [address] Aug, [facility] [address] [id number] [address] [place] [address] Aug, [facility] [address] [id number] [address] [place] [address] Aug, [facility] [address] [id number] [address] [place] [address] Jul, [facility] [address] [id number] [address] [place] [address] Jul, [facility] [address] [id number] [address] [place] [address] Jun, [facility] [address] [id number] [address] [place] [address], [place] [address] Jun, [facility] [address] [id number] [address] [place] [address], [place] [address] Jun, [facility] [address] [id number] [address] [place] [address], [place] [address] Jun, [facility] [address] [id number] [address] [place] [address], [place] [address] Jun, [facility] [address] [id number] [address] [place] [address], [place] [address] Jun, [facility] [address] [id number] [address] [place] [address], [place] [address] Jun, [facility] [address] [id number] [address] [place] [address], [place] [address] Jun, [facility] [address] [id number] [address] [place] [address], [place] [address] Jun, [facility] [address] [id number] [place] [id number] Jun, [facility] [address] [id number] [address] [place] [address], [place] [address] Jun, [facility] [address] [id number] [address] [place] [address], [place] [address] May, [facility] [address] [id number] [address] [place] [address], [place] [address] May, [facility] [address] [id number] [address] [place] [address], [place] [address] May, [facility] [address] [id number] [address] [place] [address], [place] [address] May, [facility] [address] [id number] [address] [place] [address], [place] [address] Apr, [facility] [address] [id number] [address] [place] [address], [place] [address] Apr, [facility] [address] [id number] [address] [place] [address], [place] [address] Mar, 2013 [facility] [address] [id number] [address] [place] [address], [place] [address] Mar, 2013 [facility] [address] [id number] [address] [place] [address], [place] [address] Mar, 2013 [facility] [address] [id number] [address] [place] [address], [place] [address] Mar, 2013 [facility] [address] [id number] [address] [place] [address], [place] [address] Mar, 2013 [facility] [address] [id number] [address] [place] [address], [place] [address] Mar, 2013 [facility] [address] [id number] [address] [place] [address], [place] [address] Mar, 2013 [facility] [address] [id number] [address] [place] [address], [place] [address] Mar, 2013 [facility] [address] [id number] [address] [place] [address], [place] [address] 30 Sep, 2013 [facility] [address] [id number] [address] [place] [address], [place] [address] 30 Sep, 2013 [facility] [address] [id number] [address] [place] [address], [place] [address] 19 Sep, 2013 [facility] [address] [id number] [address] [place] [address], [place] [address] 08 Sep, 2013 [facility] [address] [id number] [address] [place] [address], [place] [address] 08 Sep, 2013 [facility] [address] [id number] [address] [place] [address], [place] [address] 08 Sep, 2013 [facility] [address] [id number] [address] [place] [address], [place] [address] 08 Sep, 2013 [facility] [address] [id number] [address] [place] [address] [address] Feb, [facility] [address] [id number] [address] [place] [address] Feb, [facility] [address] [id number] [address] [place] [address] Feb, [facility] [address] [id number] [address] [place] [address] Feb, [facility] [address] [id number] [address] [place] [address] Jan, [facility] [address] [id number] [address] [place] [address] Jan, [facility] [address] [facility] [id number] [address] [place] [address] October, [facility] [address] [facility] [id number] [address] [place] [address] October, IMMUNIZATIONS No Known Immunizations SOCIAL HISTORY [...] Hospitalization History chest pain-noncardiac 03/29/18 Hospitalization History [facility] Was given [facility] medicine and was sent home. 09/24/2018
--- OUTSIDE RECORDS SUMMARY | 2019-06-21 12:20 | XMS REPORT ---
Author Author Cat CAVANAUGH [facility] Address [address] [place] [address] Care Team Providers Care Mammal Control Agent Name Role Phone INGE CAVANAUGH Unavailable PROBLEMS Type Condition ICD9-CM Code WWD30-CJ Code Onset Dates Condition S tatus SNOMED Code Problem Gallbladder polyp K82.4 Active 19 4256109 Problem Urge incontinence of urine N39.41 Act viji 74051756 Problem Mixed hyperlipidemia E78.2 Active 910520726 Problem Hypomagnesemia E83.42 Active 10093 5004 Problem Expressive aphasia R47.01 Active 2 31185752 Problem Type 2 diabetes mellitus without complications E11 .9 Active 10155488 Problem Encounter for Zostavax administration Z23 Active 811497667 Problem Anxiety F41.9 Active 29748400 Problem Seizure disorder G40.909 Active 128 134854 Problem Dental caries K02.9 Active 415987 01 Problem Cardiomyopathy I42.9 Active 71575 001 Problem Fatigue, unspecified type R53.83 Acti ve 28491231 Problem Thyroid mass E07.9 Active 9406542 03 Problem Acute bronchitis, unspecified organism J20.9 Active 23128563 Problem Encounter for gynecological examination without abnormal finding Z01.419 Active 864055581 Problem Other chronic pain G89.29 Active 8 6120847 Problem Cardiomegaly I51.7 Active 9846017 Problem Controlled type 2 diabetes m ellitus without complication, without long- term current use of insulin E11.9 Active 528203209 Problem Pain in left shoulder M25.512 Active 50608108 Problem Emotional lability R45.86 Active 1 9112404 Problem Dermatitis L30.9 Active 56770776 Problem Primary osteoarthritis of left shoulder M19.012 Active 37618498 Problem Gastric reflux K21.9 Active 77965 7003 Problem Visit for screening mammogram Z12.31 Active 268433568 Problem Age-related osteoporosis without current pathological fracture M81.0 Active 60980960 Problem Allergic rhinitis J30.9 Active 61 157121 Problem Early menopause E28.319 Active 6584 6009 Problem Colon cancer screening Z12.11 Active 085038935 Problem Breast cancer screening Z12.39 Active 993475999 Problem Hemorrhoids, external, thrombosed K64.5 Active 63338577 Problem Constipation K59.00 Active 5371308 8 Problem Type 2 diabetes mellitus wit h diabetic neuropathy, unspecified whether intermediate insulin use E11.40 Active 481548 595998706 Problem Other hammer toe(s) (acquired), left foot M20.42 Active 75225699 Problem Other hammer toe(s) (acquired), right foot M20.41 Active 113816765 ALLERGIES No Information ENCOUNTERS Encounter Location Date Diagnosis [facility] [id number][place] [id number] Nov, Controlled type 2 diabetes mellitus with out complication, without long-term current use of insulin E11.9 and Colon cancer screening Z12.11 [facility] [id number], [place] [id number] Nov, Type 2 diabetes mellitus without complic ations E11.9 and Gastric reflux K21.9 [facility] [address] [id number], [place] [id number] Nov, Dental caries K02.9 [facility] [address] [facility] [id number] 100KS [place] [address] October, Other hammer toe(s) (acquire d), left foot M20.42 ; Other hammer toe(s) (acquired), right foot M20.41 and Type 2 diabetes mellitus with diabetic neuropathy, 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.40 [facility] [address] [id number], [place] [address] Sep, Allergic rhinitis J30.9 [facility] [id number], [place] [id number] Sep, [facility] [id number], [place] [id number] Sep, Allergic rhinitis, unspecified seasonali ty, unspecified trigger J30.9 and Viral upper respiratory tract infection J06.9 [facility] [address] [id number], [place] [address] Aug, [facility] [address] [facility] [id number] 100[address] [place] [address] Jul, [facility] [address] [id number], [place] [id number] Jul, Type 2 diabetes mellitus without complic ations E11.9 and Left foot pain M79.672 [facility] [address] [id number], [place] [id number] May, Gastric reflux K21.9 and Pruritic dermat itis L29.9 [facility] [address] [id number], [place] [id number] Apr, [facility] US [address] [place] [address] AVE [id number], [place] [id number] Mar, Type 2 diabetes mellitus without complic ations E11.9 ; Bronchitis, acute J20.9 and Constipation K59.00 [facility] SM[facility] [address] [id number], [place] [id number] Mar, [facility] SM[facility] [facility] [address] [id number], [place] [id number] Mar, [facility] SMY[facility] [place] [address] AVE [id number], [place] [id number] Mar, [facility] SM[facility]TER [facility] AVE [id number], [place] [id number] Mar, [facility] [facility] A[address] [id number], [place] [id number] Mar, [facility] A[address] [id number], [place] [id number] Feb, Encounter for immunization Z23 [facility] [address] [id number], [place] [id number] Feb, Gastric reflux K21.9 ; Visit for screeni ng mammogram Z12.31 and Age- related osteoporosis without current pathological fracture M81.0 [facility] [address] [id number] [place] [id number] Feb, [facility] [address] [id number], [place] [id number] Feb, [facility] [address] [id number], [place] [id number] Aug, [facility] [address] [id number], [place] [address] Jul, Contact dermatitis, unspecified contact dermatitis type, unspecified trigger L25.9 [facility] [address] [id number], [place] [id number] Mar, Type 2 diabetes mellitus without complic ations E11.9 ; Mammogram declined Z53.20 ; Cardiomegaly I51.7 and Encounter for immunization Z23 [facility] [address] [id number], [place] [id number] Mar, [facility] [address] [id number], [place] [address] Jan, High risk medication use Z79.899 and Anx iety F41.9 [facility] [address] [id number], [place] [id number] Jan, [facility] [address] [id number], [place] 6942232[address] Jan, Dental caries K02.9 [facility] [address] [id number], [place] [address] Jan, [facility] [address] [id number], [place] [address] Nov, Dental caries K02.[address] [facility] [address] [id number], [place] 809507695 October, Dental caries K02.9 [facility] [address] [id number], [place] [address]1986[address] Sep, [facility] [address] [id number] [place] [address] Sep, Type 2 diabetes mellitus without complic ations E11.9 and Dental caries K02.[address] [facility] [address] [id number] [place] [id number] Aug, [facility] [address] [id number] [place] [id number] Jul, [facility] [address] [id number] [place] [id number] Jul, [facility] [address] [id number] [place] [address] Jun, Dental examination Z01.[address] [facility] [address] [id number], [place] [address] Jun, Emotional lability R45.[address] [facility] [address] [id number], [place] [id number] Jun, [facility] [address] [id number] [place] [address] Jun, Controlled type 2 diabetes mellitus with out complication, without long-term current use of insulin E11.[address] [facility] [address] [id number], [place] [address]63[address] May, [facility] [address] [id number] [place] [id number] May, Cardiomyopathy I42.9 ; Emotional labilit y R45.86 and Dental caries K02.[address] [facility] [address] [id number] [place] [address] Apr, [facility] [address] [id number] [place] [id number] Mar, [facility] [address] [id number] [place] [id number] Feb, Type 2 diabetes mellitus without complic ations E11.9 [facility] [place] [address] [id number] Rosi LOBO S [id number] Jan, [facility] [address] [id number], [place] [address] Dec, Gallbladder polyp K82.[address] [facility] [address] [id number], [place] [id number] Nov, [facility] [address] [id number], [place] 488808669 Nov, Primary osteoarthritis of left shoulder M19.012 [facility] [address] [id number] [place] [address] Nov, [facility] [address] [id number], [place] 493450233 Nov, Controlled type 2 diabetes mellitus with out complication, without long-term current use of insulin E11.9 and Pain in left shoulder M25.[address] [facility] [address] [id number], [place] 624[address]3450 Nov, Gallbladder polyp K82.4 [facility] [address] [id number], [place] [address]3682221 October, Pain in left shoulder M25.512 and Other chronic pain G89.[address] [facility] [address] [id number], [place] [address]791470[address] October, [facility] [address] [id number], [place] 849891605 October, [facility] [address] [id number], [place] [id number] October, [facility] [address] [id number], [place] [address]84209593 Sep, [facility] [address] [id number] 100KS [place] [address] Sep, [facility] [address] [id number], [place] [id number] 19 Apr, 2016 Encounter for gynecological examination without abnormal finding Z01.419 ; Breast cancer screening Z12.39 ; Hemorrhoids, external, thrombosed K64.5 and Early menopause E28.[id number] [place] [address] [id number] 06 Sep, 2015 Acute bronchitis, unspecified organism J 20.9 and Cardiomegaly I51.[id number] [place] [address] [id number] 16 Aug, 2015 Thyroid mass E07.[id number] [place] [address] [id number] 15 Aug, 2015 Type 2 diabetes mellitus without complic ations E11.9 ; Thyroid mass E07.9 and Encounter for Zostavax administration Z23 [id number] [place] [address] [id number] Aug, Seizure disorder G40.909 ; Hypomagnesemi a E83.42 and Expressive aphasia R47.01 [facility] [id number] [place] [address] Jul, Urge incontinence of urine N 39.[address] [id number] [place] [id number] Jul, [address] [id number] [place] [address] [id number] Jul, Pharyngitis J02.9 ; Urge incontinence of urine N39.41 and Acute cystitis with hematuria N30.01 [facility] [address] [facility] [id number] [address] [place] [address] May, Mixed hyperlipidemia E78.[address] [id number] [place] [address] [id number] May, Seizure disorder G40.909 ; Mixed hyperli pidemia E78.2 and Gallbladder polyp K82.[id number] [place] [address] [id number] May, [facility] [address] [id number], [place] [id number] May, [facility] [address] [id number], [place] 102905102 May, Diabetes type 2, controlled E11.9 and Fa tigue, unspecified type R53.83 [facility] [address] [id number], [place] 701656772 Apr, Cardiomyopathy I42.9 ; Thyroid mass E07. 9 ; Seizure disorder G40.909 and Dermatitis L30.9 [facility] [address] [id number], [place] [id number] Mar, [facility] [address] [id number], [place] [id number] Feb, [facility] [address] [place] [address] AVE [id number], [place] 733821453 Feb, [facility] [address] [place] [address] AVE [id number], [place] [id number] Jan, [facility] [address] [place] [address] AVE [id number], [place] [id number] Jan, CAD (coronary artery disease) 414.00 ; H yperlipidemia associated with type 2 diabetes mellitus 250.80 and Diabetes type 2, controlled 250.00 [facility] [address] [facility] [address] [id number], [place] [id number] Nov, CVA (cerebral infarction) 434.91 ; Expre ssive aphasia 784.3 ; Solitary nodule of right lobe of thyroid 241.0 ; CAD (coronary artery disease) 414.00 ; Diabetes type 2, controlled 250.00 and Hemorrhoids, external 455.3 [facility] [address] [id number], [place] [id number] October, Chest pain, atypical 786.59 ; Hemorrhoid s 455.6 ; Diabetes type 2, controlled 250.00 and Hyperlipidemia associated with type 2 diabetes mellitus 250.80 [facility] [address] [id number], [place] [id number] October, [facility] [address] [id number], [place] [id number] October, Chest pain 786.50 ; Abnormal EKG 794.31 and Diabetes type 2, controlled 250.[address] [facility] [address] [id number], [place] [id number] October, Chest pain varies with breathing 786.50 [facility] [address] [id number] [address] [place] [address] Sep, [facility] [address] [id number] [address] [place] [address] Sep, [facility] [address] [id number] [address] [place] [address] Aug, [facility] [address] [id number] [address] [place] [address] Aug, [facility] [address] [id number] [address] [place] [address] Aug, [facility] [address] [id number] [address] [place] [address] Aug, [facility] [address] [id number] [address] [place] [address] Aug, [facility] [address] [id number] [address] [place] [address] Aug, [facility] [address] [id number] [address] [place] [address] Aug, [facility] [address] [id number] [address] [place] [address] Aug, [facility] [address] [id number] [address] [place] [address] Jul, [facility] [address] [id number] [address] [place] [address] Jul, [facility] [address] [id number] [address] [place] [phone] Jun, [facility] [address] [id number] [address] [place] [address], [place] [address] Jun, [facility] [address] [id number] [address] [place] [address], [place] [address] Jun, [facility] [address] [id number] [address] [place] [address], [place] [address] Jun, [facility] [address] [id number] [address] [place] [address], [place] [address] Jun, [facility] [address] [id number] [address] [place] [address], [place] [address] Jun, [facility] [address] [id number] [address] [place] [address], [place] [address] Jun, [facility] [address] [id number] [address] [place] [address], [place] [address] Jun, [facility] [address] [id number] [address] [place] [address], [place] [address] Jun, [facility] [place] [address] [id number] [place] [id number] Jun, [facility] [address] [id number] [address] [place] [address], [place] [address] Jun, [facility] [address] [id number] [address] [place] [address], [place] [address] May, [facility] [address] [id number] [address] [place] [address], [place] [address] May, [facility] [address] [id number] [address] [place] [address], [place] [address] May, [facility] [address] [id number] [address] [place] [address], [place] [address] May, [facility] [address] [id number] [address] [place] [address], [place] [address] Apr, [facility] [address] [id number] [address] [place] [address], [place] [address] Apr, 2013 [facility] [address] [id number] [address] [place] [address], [place] [address] Mar, 2013 [facility] [address] [id number] [address] [place] [address], [place] [address] Mar, 2013 [facility] [address] [id number] [address] [place] [address], [place] [address] Mar, 2013 [facility] [address] [id number] [address] [place] [address], [place] [address] Mar, 2013 [facility] [address] [id number] [address] [place] [address], [place] [address] Mar, 2013 [facility] [address] [id number] [address] [place] [address], [place] [address] Mar, 2013 [facility] [address] [id number] [address] [place] [address], [place] [address] Mar, 2013 [facility] [address] [id number] [address] [place] [address], [place] [address] Mar, [facility] [address] [id number] [address] [place] [address], [place] [address] 30 Feb, 2013 [facility] [address] [id number] [address] [place] [address], [place] [address] 30 Sep, 2013 [facility] [address] [id number] [address] [place] [address], [place] [address] 19 Sep, 2013 [facility] [address] [id number] [address] [place] [address], [place] [address] 08 Sep, 2013 [facility] [address] [id number] [address] [place] [address], [place] [address] 08 Sep, 2013 [facility] [address] [id number] [address] [place] [address], [place] [address] 08 Sep, 2013 [facility] [address] [id number] [address] [place] [address], [place] [address] Feb, [facility] [address] [id number] [address] [place] [address] Feb, [facility] [address] [id number] [address] [place] [address] Feb, [facility] [address] [id number] [address] [place] [address] Feb, [facility] [address] [id number] [address] [place] [address] Feb, [facility] [address] [id number] [address] [place] [address] Jan, [facility] [address] [id number] [address] [place] [address] Jan, [facility] [address] [id number] [address] [place] [address] October, [facility] [address] [id number] [address] [place] [address] October, IMMUNIZATIONS No Known Immunizations SOCIAL HISTORY Never Assessed REASON FOR VISIT PLAN OF CARE VITAL SIGNS Height 66.5 in 2014-03-20 Weight 179.3 lbs 2014-03-20 Temperature 98 degrees Fahrenheit 2014-03-20 Heart Rate 75 bpm 2014-03-20 Respiratory Rate 18 2014-03-20 Blood pressure systolic 130 mmHg 2014-03-20 Blood pressure diastolic 80 mmHg 2014-03-20 MEDICATIONS No Known Medications RESULTS No Results [...] Hospitalization History chest pain-noncardiac 03/29/18 Hospitalization History [facility] ER Was given coug h medicine and was sent home. 09/24/2018
--- OUTSIDE RECORDS SUMMARY | 2019-06-21 12:21 | XMS REPORT ---
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 Name Role Phone CRISTINA Lambert Unavailable PROBLEMS Type Condition ICD9-CM Code TPU41-HV Code Onset Dates Condition S tatus SNOMED Code Problem Gallbladder polyp K82.4 Active 19 2473333 Problem Urge incontinence of urine N39.41 Act viji 32281545 Problem Mixed hyperlipidemia E78.2 Active 506663680 Problem Hypomagnesemia E83.42 Active 18781 5004 Problem Expressive aphasia R47.01 Active 2 91997730 Problem Type 2 diabetes mellitus without complications E11 .9 Active 08668251 Problem Encounter for Zostavax administration Z23 Active 646661063 Problem Anxiety F41.9 Active 24413157 Problem Seizure disorder G40.909 Active 128 094993 Problem Dental caries K02.9 Active 054315 01 Problem Cardiomyopathy I42.9 Active 41330 001 Problem Fatigue, unspecified type R53.83 Acti ve 59870965 Problem Thyroid mass E07.9 Active 3100973 03 Problem Acute bronchitis, unspecified organism J20.9 Active 64462856 Problem Encounter for gynecological examination without abnormal finding Z01.419 Active 277379687 Problem Other chronic pain G89.29 Active 8 3212528 Problem Cardiomegaly I51.7 Active 7732314 Problem Controlled type 2 diabetes m ellitus without complication, without long- term current use of insulin E11.9 Active 255371885 Problem Pain in left shoulder M25.512 Active 89422563 Problem Emotional lability R45.86 Active 1 8864633 Problem Dermatitis L30.9 Active 56200664 Problem Primary osteoarthritis of left shoulder M19.012 Active 64143349 Problem Gastric reflux K21.9 Active 78801 3063 Problem Visit for screening mammogram Z12.31 Active 515604371 Problem Age-related osteoporosis without current pathological fracture M81.0 Active 72132892 Problem Allergic rhinitis J30.9 Active 61 178686 Problem Early menopause E28.319 Active 6584 6009 Problem Colon cancer screening Z12.11 Active 956211346 Problem Breast cancer screening Z12.39 Active 402718465 Problem Hemorrhoids, external, thrombosed K64.5 Active 27229799 Problem Constipation K59.00 Active 4447019 8 Problem Type 2 diabetes mellitus wit h diabetic neuropathy, unspecified whether supervisor intermediates insulin use E11.40 Active 899429 204937728 Problem Other hammer toe(s) (acquired), left foot M20.42 Active 63611378 Problem Other hammer toe(s) (acquired), right foot M20.41 Active 419384131 ALLERGIES No Information ENCOUNTERS Encounter Location Date Diagnosis [facility] [address] [id number] [id number] Nov, Controlled type 2 diabetes mellitus with out complication, without long-term current use of insulin E11.9 and Colon cancer screening Z12.11 [facility] [address] [id number][place] [id number] Nov, Type 2 diabetes mellitus without complic ations E11.9 and Gastric reflux K21.9 [facility] [email or web address] [id number], [place] [id number] Nov, Dental caries K02.9 [facility] [address] [facility] [id number] 100[place] [address] October, Other hammer toe(s) (acquire d), left foot M20.42 ; Other hammer toe(s) (acquired), right foot M20.41 and Type 2 diabetes mellitus with diabetic neuropathy, unspecified whether usp insulin use E11.40 [facility] [address] [id number], [place] [id number] Sep, Allergic rhinitis J30.9 [facility] [address] [id number], [place] [id number] Sep, [facility] [address] [id number], [place] [address] Sep, Allergic rhinitis, unspecified seasonali ty, unspecified trigger J30.9 and Viral upper respiratory tract infection J06.9 [facility] [address] [id number], [place] [id number] Aug, [facility] [place] [address] [facility] [id number] 100[place] [address] Jul, [facility] [place] [address] [id number], [place] [id number] Jul, Type 2 diabetes mellitus without complic ations E11.9 and Left foot pain M79.672 [facility] [address] [id number], [place] [address] May, Gastric reflux K21.9 and Pruritic dermat itis L29.9 [facility] [address] [id number], [place] [id number] Apr, [facility] [address] [id number], [place] [id number] Mar, Type 2 diabetes mellitus without complic ations E11.9 ; Bronchitis, acute J20.9 and Constipation K59.00 [facility] [address] [id number], [place] [id number] Mar, [facility] [address] [id number], [place] [id number] Mar, [facility] [address] [id number], [place] [id number] Mar, [facility] [id number], [place] [id number] Mar, [facility] [address] [id number], [place] [id number] Mar, [facility] [address] [id number], [place] [id number] Feb, Encounter for immunization Z23 [facility] [address] [id number], [place] [id number] Feb, Gastric reflux K21.9 ; Visit for screeni ng mammogram Z12.31 and Age- related osteoporosis without current pathological fracture M81.0 [facility] [address] [id number] [place] [id number] Feb, [facility] [address] [id number] [place] [address] Feb, [facility] [address] [id number], [place] [id number] Aug, [facility] [address] [id number] [place] [id number] Jul, Contact dermatitis, unspecified contact dermatitis type, unspecified trigger L25.9 [facility] [address] [id number], [place] [id number] Mar, Type 2 diabetes mellitus without complic ations E11.9 ; Mammogram declined Z53.20 ; Cardiomegaly I51.7 and Encounter for immunization Z23 [facility] [address] [id number], [place] [id number] Mar, [facility] [address] [id number], [place] [id number] Jan, High risk medication use Z79.899 and Anx iety F41.9 [facility] [address] [id number], [place] [address]16688[address] Jan, [facility] [address] [id number], [place] 240900499 Jan, Dental caries K02.9 [facility] [address] [id number], [place] [id number] Jan, [facility] [address] [id number], [place] [id number] Nov, Dental caries K02.[address] [facility] [address] [id number], [place] 697177[address] October, Dental caries K02.9 [facility] [address] [id number], [place] [id number] Sep, [facility] [address] [id number] [place] [id number] Sep, Type 2 diabetes mellitus without complic ations E11.9 and Dental caries K02.[address] [facility] [address] [id number] [place] [id number] Aug, [facility] [address] [id number] [place] [id number] Jul, [facility] [address] [id number] [place] [id number] Jul, [facility] [address] [id number] [facility] [place] [place] [id number] Jun, Dental examination Z01.[address] [facility] [address] [id number] [place] [id number] Jun, Emotional lability R45.[address] [facility] [address] [id number], [place] [id number] Jun, [facility] [address] [id number] [facility] [place] [id number] Jun, Controlled type 2 diabetes mellitus with out complication, without long-term current use of insulin E11.[address] [facility] [address] [id number] [place] [id number] May, [facility] [address] [id number] [place] [address] May, Cardiomyopathy I42.9 ; Emotional labilit y R45.86 and Dental caries K02.[address] [facility] [address] [id number] [place] [id number] Apr, [facility] [address] [id number] [place] [id number] Mar, [facility] [address] [id number] [place] [id number] Feb, Type 2 diabetes mellitus without complic ations E11.9 [facility] [place] [address] [id number] [place] [id number] Jan, [facility] [address] [id number] [place] [address] Dec, Gallbladder polyp K82.[address] [facility] [address] [id number], [place] [id number] Nov, [facility] [address] [id number], [place] [address]48121086 Nov, Primary osteoarthritis of left shoulder M19.012 [facility] [place] [address] [id number] [place] [address] Nov, [facility] [address] [id number], [place] [id number] Nov, Controlled type 2 diabetes mellitus with out complication, without long-term current use of insulin E11.9 and Pain in left shoulder M25.[address] [facility] [address] [id number], [place] [id number] Nov, Gallbladder polyp K82.4 [facility] [address] [id number], [place] [id number] October, Pain in left shoulder M25.512 and Other chronic pain G89.29 [facility] [address] [id number], [place] [id number] October, [facility] [address] [id number], [place] [id number] October, [facility] [address] [id number], [place] [id number] October, [facility] [address] [id number], [place] [id number] Sep, [facility] [place] [address] [id number] 100[place] [address] Sep, [facility] [address] [id number], [place] [id number] Sep, Encounter for gynecological examination without abnormal finding Z01.419 ; Breast cancer screening Z12.39 ; Hemorrhoids, external, thrombosed K64.5 and Early menopause E28.[id number] [place] [address] [id number] 06 Sep, 2015 Acute bronchitis, unspecified organism J 20.9 and Cardiomegaly I51.[address] [id number] [place] [address] [id number] 16 Aug, 2015 Thyroid mass E07.[address] [id number] [place] [address] [id number] 15 Aug, 2015 Type 2 diabetes mellitus without complic ations E11.9 ; Thyroid mass E07.9 and Encounter for Zostavax administration Z23 [address] [id number] [place] [id number] Aug, Seizure disorder G40.909 ; Hypomagnesemi a E83.42 and Expressive aphasia R47.01 [facility] [address] [facility] [id number] [address] [place] [address] 06 Jul, 2015 Urge incontinence of urine N 39.[address] [id number] [place] [address] [id number] 02 Jul, [address] [id number] [place] [address] [id number] Jul, Pharyngitis J02.9 ; Urge incontinence of urine N39.41 and Acute cystitis with hematuria N30.01 [facility] [address] [facility] [id number] [address] [place] [address] May, Mixed hyperlipidemia E78.[address] [id number] [place] [address] [id number] May, Seizure disorder G40.909 ; Mixed hyperli pidemia E78.2 and Gallbladder polyp K82.[address] [id number] [place] [id number] May, [address] [id number], [place] [id number] May, [facility] [address] [id number], [place] [id number] May, Diabetes type 2, controlled E11.9 and Fa tigue, unspecified type R53.83 [facility] [address] [id number], [place] [id number] Apr, Cardiomyopathy I42.9 ; Thyroid mass E07. 9 ; Seizure disorder G40.909 and Dermatitis L30.9 [facility] [address] [id number], [place] 995494563 Mar, [facility] [place] [address] [id number], [place] [id number] Feb, [facility] [place] [employer] [place] [address] AVE [id number], [place] [id number] Feb, [facility] [place] [employer] [place] [address] AVE [id number], [place] [id number] Jan, [facility] US [address] [place] [address] AVE [id number], [place] [id number] Jan, CAD (coronary artery disease) 414.00 ; H yperlipidemia associated with type 2 diabetes mellitus 250.80 and Diabetes type 2, controlled 250.00 [facility] [employer] [facility] [address] [id number], [place] 779381910 Nov, CVA (cerebral infarction) 434.91 ; Expre ssive aphasia 784.3 ; Solitary nodule of right lobe of thyroid 241.0 ; CAD (coronary artery disease) 414.00 ; Diabetes type 2, controlled 250.00 and Hemorrhoids, external 455.3 [facility] [email or web address] [id number], [place] [id number] October, Chest pain, atypical 786.59 ; Hemorrhoid s 455.6 ; Diabetes type 2, controlled 250.00 and Hyperlipidemia associated with type 2 diabetes mellitus 250.80 [facility] [address] [id number], [place] [id number] October, [facility] [address] [id number], [place] [id number] October, Chest pain 786.50 ; Abnormal EKG 794.31 and Diabetes type 2, controlled 250.[address] [facility] [address] [id number], [place] [id number] October, Chest pain varies with breathing 786.50 [facility] [address] [id number] [address] [place] [address] Sep, [facility] [address] [id number] [address] [place] [address] Sep, [facility] [address] [id number] [address] [place] [address] Aug, [facility] [address] [id number] [address] [place] [address] Aug, [facility] [address] [id number] [address] [place] [address] Aug, [facility] [address] [id number] [address] [place] [address] Aug, [facility] [address] [id number] [address] [place] [address] Aug, [facility] [address] [id number] [address] [place] [address] Aug, [facility] [address] [id number] [address] [place] [address] Aug, [facility] [address] [id number] [address] [place] [address] Aug, [facility] [address] [id number] [address] [place] [address] Jul, [facility] [address] [id number] [address] [place] [address] Jul, [facility] [address] [id number] [address] [place] [address], [place] [address] Jun, [facility] [address] [id number] [address] [place] [address], [place] [address] Jun, [facility] [address] [id number] [address] [place] [address], [place] [address] Jun, [facility] [address] [id number] [address] [place] [address], [place] [address] Jun, [facility] [address] [id number] [address] [place] [address], [place] [address] Jun, [facility] [address] [id number] [address] [place] [address], [place] [address] Jun, [facility] [address] [id number] [address] [place] [address], [place] [address] Jun, [facility] [address] [id number] [address] [place] [address], [place] [address] Jun, [facility] [address] [id number] [address] [place] [address], [place] [address] Jun, [facility] [place] [address] [id number] [place] [id number] Jun, [facility] [address] [id number] [address] [place] [address], [place] [address] Jun, [facility] [address] [id number] [address] [place] [address], [place] [address] May, [facility] [address] [id number] [address] [place] [address], [place] [address] May, [facility] [address] [id number] [address] [place] [address], [place] [address] May, [facility] [address] [id number] [address] [place] [address], [place] [address] May, [facility] [address] [id number] [address] [place] [address], [place] [address] Apr, [facility] [address] [id number] [address] [place] [address], [place] [address] Apr, [facility] [address] [id number] [address] [place] [address], [place] [address] Mar, 2013 [facility] [address] [id number] [address] [place] [address], [place] [address] Mar, 2013 [facility] [address] [id number] [address] [place] [address], [place] [address] Mar, 2013 [facility] [address] [id number] [address] [place] [address], [place] [address] Mar, 2013 [facility] [address] [id number] [address] [place] [address], [place] [address] Mar, 2013 [facility] [address] [id number] [address] [place] [address], [place] [address] Mar, 2013 [facility] [address] [id number] [address] [place] [address], [place] [address] Mar, 2013 [facility] [address] [id number] [address] [place] [address], [place] [address] Mar, [facility] [address] [id number] [address] [place] [address], [place] [address] 30 Feb, 2013 [facility] [address] [id number] [address] [place] [address], [place] [address] 30 Sep, 2013 [facility] [address] [id number] [address] [place] [address], [place] [address] 19 Sep, 2013 [facility] [address] [id number] [address] [place] [address], [place] [address] 08 Sep, 2013 [facility] [address] [id number] [address] [place] [address], [place] [address] 08 Sep, 2013 [facility] [address] [id number] [address] [place] [address], [place] [address] 08 Sep, 2013 [facility] [address] [id number] [address] [place] [address], [place] [address] Feb, [facility] [address] [id number] [address] [place] [address] Feb, [facility] [address] [id number] [address] [place] [address] Feb, [facility] [address] [id number] [address] [place] [address] Feb, [facility] [address] [id number] [address] [place] [address] Feb, [facility] [address] [id number] [address] [place] [address] Jan, [facility] [address] [id number] [address] [place] [address] Jan, [facility] [address] [facility] [id number] [address] [place] [address] October, [facility] [address] [facility] [id number] [address] [place] [phone] October, IMMUNIZATIONS No Known Immunizations SOCIAL HISTORY [...] Hospitalization History chest pain-noncardiac 03/29/18 Hospitalization History [facility] sent [facility]. 09/24/2018
--- OUTSIDE RECORDS SUMMARY | 2019-06-21 12:21 | XMS REPORT ---
Author Author Cat CAVANAUGH [facility] [place] Address [address] [place] [address] Care Team Providers Care Tube Fitter Name Role Phone INGE CAVANAUGH Unavailable PROBLEMS Type Condition ICD9-CM Code WGG26-FQ Code Onset Dates Condition S tatus SNOMED Code Problem Gallbladder polyp K82.4 Active 19 9239081 Problem Urge incontinence of urine N39.41 Act viji 81277229 Problem Mixed hyperlipidemia E78.2 Active 248760527 Problem Hypomagnesemia E83.42 Active 44646 5004 Problem Expressive aphasia R47.01 Active 2 30040009 Problem Type 2 diabetes mellitus without complications E11 .9 Active 29606465 Problem Encounter for Zostavax administration Z23 Active 239939851 Problem Anxiety F41.9 Active 64423010 Problem Seizure disorder G40.909 Active 128 236744 Problem Dental caries K02.9 Active 795751 01 Problem Cardiomyopathy I42.9 Active 20631 001 Problem Fatigue, unspecified type R53.83 Acti ve 73926511 Problem Thyroid mass E07.9 Active 9800952 03 Problem Acute bronchitis, unspecified organism J20.9 Active 67084801 Problem Encounter for gynecological examination without abnormal finding Z01.419 Active 512851338 Problem Other chronic pain G89.29 Active 8 6589374 Problem Cardiomegaly I51.7 Active 6322879 Problem Controlled type 2 diabetes m ellitus without complication, without long- term current use of insulin E11.9 Active 928422271 Problem Pain in left shoulder M25.512 Active 98388189 Problem Emotional lability R45.86 Active 1 7363389 Problem Dermatitis L30.9 Active 87948478 Problem Primary osteoarthritis of left shoulder M19.012 Active 01997263 Problem Gastric reflux K21.9 Active 39673 7003 Problem Visit for screening mammogram Z12.31 Active 755783459 Problem Age-related osteoporosis without current pathological fracture M81.0 Active 25143765 Problem Allergic rhinitis J30.9 Active 61 224645 Problem Early menopause E28.319 Active 6584 6009 Problem Colon cancer screening Z12.11 Active 893154396 Problem Breast cancer screening Z12.39 Active 888249202 Problem Hemorrhoids, external, thrombosed K64.5 Active 87410700 Problem Constipation K59.00 Active 8531829 8 Problem Type 2 diabetes mellitus wit h diabetic neuropathy, unspecified whether jail insulin use E11.40 Active 588499 058778506 Problem Other hammer toe(s) (acquired), left foot M20.42 Active 52316212 Problem Other hammer toe(s) (acquired), right foot M20.41 Active 441604267 ALLERGIES No Information ENCOUNTERS Encounter Location Date Diagnosis [facility] [id number] [id number] Nov, Controlled type 2 diabetes mellitus with out complication, without long-term current use of insulin E11.9 and Colon cancer screening Z12.11 [facility] [address] [id number], [place] [id number] Nov, Type 2 diabetes mellitus without complic ations E11.9 and Gastric reflux K21.9 [facility] [address] [id number], [place] [id number] Nov, Dental caries K02.9 [facility] [address] [facility] [id number] [address] [place] [address] October, Other hammer toe(s) (acquire d), left foot M20.42 ; Other hammer toe(s) (acquired), right foot M20.41 and Type 2 diabetes mellitus with diabetic neuropathy, unspecified whether meterman insulin use E11.[address] [id number], [place] [id number] Sep, Allergic rhinitis J30.9 [facility] [address] [id number], [place] [id number] Sep, [facility] [address] [id number], [place] [address] Sep, Allergic rhinitis, unspecified seasonali ty, unspecified trigger J30.9 and Viral upper respiratory tract infection J06.9 [facility] [address] [id number], [place] [id number] Aug, [facility] [address] [facility] [id number] [address] [place] [address] Jul, [facility] [address] [id number], [place] [id number] Jul, Type 2 diabetes mellitus without complic ations E11.9 and Left foot pain M79.672 [facility] [id number], [place] [address] May, Gastric reflux K21.9 and Pruritic dermat itis L29.9 [facility] [address] [id number], [place] [id number] Apr, [facility] [address] [place] [address] AVE [id number], [place] [id number] Mar, Type 2 diabetes mellitus without complic ations E11.9 ; Bronchitis, acute J20.9 and Constipation K59.00 [facility] [address] [id number], [place] [id number] Mar, [facility] A[address] [id number], [place] [id number] Mar, [facility] [address] [place] [address] AVE [id number], [place] [id number] Mar, [facility] [address] [id number], [place] [id number] Mar, [facility] [address] [id number], [place] [id number] Mar, [facility] [address] [id number], [place] [id number] Feb, Encounter for immunization Z23 [facility] [address] [id number], [place] [id number] Feb, Gastric reflux K21.9 ; Visit for screeni ng mammogram Z12.31 and Age- related osteoporosis without current pathological fracture M81.0 [facility] [address] [id number] [place] [id number] Feb, [facility] [address] [id number], [place] [address]48[address]25[address] Feb, [facility] [address] [id number], [place] [id number] Aug, [facility] [address] [id number], [place] [id number] Jul, Contact dermatitis, unspecified contact dermatitis type, unspecified trigger L25.9 [facility] [address] [id number], [place] [address] Mar, Type 2 diabetes mellitus without complic ations E11.9 ; Mammogram declined Z53.20 ; Cardiomegaly I51.7 and Encounter for immunization Z23 [facility] [address] [id number], [place] [id number] Mar, [facility] [address] [id number], [place] [address] Jan, High risk medication use Z79.899 and Anx iety F41.9 [facility] [address] [id number], [place] [address]255[address] Jan, [facility] [address] [id number], [place] 596245457 Jan, Dental caries K02.9 [facility] [address] [id number], [place] [address] Jan, [facility] [address] [id number], [place] 846185542 Nov, Dental caries K02.[address] [facility] [address] [id number], [place] 847608815 October, Dental caries K02.9 [facility] [address] [id number], [place] [address]252 Sep, [facility] [address] [id number] [place] [address] Sep, Type 2 diabetes mellitus without complic ations E11.9 and Dental caries K02.[address] [facility] [address] [id number] [place] [id number] Aug, [facility] [address] [id number] [place] [address]2957[address] Jul, [facility] [address] [id number] [place] [id number] Jul, [facility] [address] [id number] [place] [id number] Jun, Dental examination Z01.[address] [facility] [address] [id number], [place] [address]874[address]384 Jun, Emotional lability R45.[address] [facility] [address] [id number], [place] [address]493440[address] Jun, [facility] [address] [id number] [place] [address] Jun, Controlled type 2 diabetes mellitus with out complication, without long-term current use of insulin E11.[address] [facility] [address] [id number], [place] [address]404[address]76 May, [facility] [address] [id number] [place] [id number] May, Cardiomyopathy I42.9 ; Emotional labilit y R45.86 and Dental caries K02.[address] [facility] [address] [id number] [place] [id number] Apr, [facility] [address] [id number] [place] [address] Mar, [facility] [address] [id number] [place] [address]94[address] Feb, Type 2 diabetes mellitus without complic ations E11.9 [facility] [place] [address] [id number] Rosi LOBO S [id number] Jan, [facility] [address] [id number], [place] [address] Dec, Gallbladder polyp K82.[address] [facility] [address] [id number], [place] [id number] Nov, [facility] [address] [id number], [place] 60558[address]10 Nov, Primary osteoarthritis of left shoulder M19.012 [facility] [address] [id number] [place] [address] Nov, [facility] [address] [id number], [place] 094976672 Nov, Controlled type 2 diabetes mellitus with out complication, without long-term current use of insulin E11.9 and Pain in left shoulder M25.[address] [facility] [address] [id number], [place] 452550452 Nov, Gallbladder polyp K82.4 [facility] [address] [id number], [place] 472531328 October, Pain in left shoulder M25.512 and Other chronic pain G89.[address] [facility] [address] [id number], [place] [address]4611[address] October, [facility] [address] [id number], [place] 3474[address]486 October, [facility] [address] [id number], [place] [id number] October, [facility] [address] [id number], [place] [id number] Sep, [facility] [address] [id number] [address] [place] [address] Sep, [facility] [address] [id number], [place] [id number] 19 Apr, 2016 Encounter for gynecological examination without abnormal finding Z01.419 ; Breast cancer screening Z12.39 ; Hemorrhoids, external, thrombosed K64.5 and Early menopause E28.[id number] [place] [id number] 06 Sep, 2015 Acute bronchitis, unspecified organism J 20.9 and Cardiomegaly I51.[address] [id number] [place] [address] [id number] 16 Aug, 2015 Thyroid mass E07.[id number] [place] [address] [id number] 15 Aug, 2015 Type 2 diabetes mellitus without complic ations E11.9 ; Thyroid mass E07.9 and Encounter for Zostavax administration Z23 [address] [id number] [place] [id number] Aug, Seizure disorder G40.909 ; Hypomagnesemi a E83.42 and Expressive aphasia R47.01 [facility] [address] [place] [address] Jul, Urge incontinence of urine N 39.[address] [id number] [place] [id number] Jul, [address] [id number] [place] [address] [id number] Jul, Pharyngitis J02.9 ; Urge incontinence of urine N39.41 and Acute cystitis with hematuria N30.01 [facility] [address] [facility] [id number] [address] [place] [address] May, Mixed hyperlipidemia E78.[address] [id number] [place] [address] [id number] May, Seizure disorder G40.909 ; Mixed hyperli pidemia E78.2 and Gallbladder polyp K82.[address] [id number] [place] [address] [id number] May, [facility] [address] [id number], [place] [id number] May, [facility] [address] [id number], [place] [id number] May, Diabetes type 2, controlled E11.9 and Fa tigue, unspecified type R53.83 [facility] [address] [id number], [place] 9085[address]84 Apr, Cardiomyopathy I42.9 ; Thyroid mass E07. 9 ; Seizure disorder G40.909 and Dermatitis L30.9 [facility] [address] [id number], [place] [address]64861294 Mar, [facility] [address] [employer] [id number], [place] [id number] Feb, [facility] [address] [employer] [place] [address] AVE [id number], [place] [id number] Feb, [facility] [address] [employer] [place] [address] AVE [id number], [place] [id number] Jan, [facility] [address] [employer] [place] [address] AVE [id number], [place] [id number] Jan, CAD (coronary artery disease) 414.00 ; H yperlipidemia associated with type 2 diabetes mellitus 250.80 and Diabetes type 2, controlled 250.00 [facility] [address] [facility] [address] [id number], [place] [id number] Nov, CVA (cerebral infarction) 434.91 ; Expre ssive aphasia 784.3 ; Solitary nodule of right lobe of thyroid 241.0 ; CAD (coronary artery disease) 414.00 ; Diabetes type 2, controlled 250.00 and Hemorrhoids, external 455.3 [facility] [address] [id number], [place] 174505394 October, Chest pain, atypical 786.59 ; Hemorrhoid s 455.6 ; Diabetes type 2, controlled 250.00 and Hyperlipidemia associated with type 2 diabetes mellitus 250.80 [facility] [address] [id number], [place] 730925505 October, [facility] [address] [id number], [place] 824885579 October, Chest pain 786.50 ; Abnormal EKG 794.31 and Diabetes type 2, controlled 250.[address] [facility] [address] [id number], [place] [id number] October, Chest pain varies with breathing 786.50 [facility] [address] [id number] [address] [place] [address] Sep, [facility] [address] [id number] [address] [place] [address] Sep, [facility] [address] [id number] [address] [place] [address] Aug, [facility] [address] [id number] [address] [place] [address] Aug, [facility] [address] [id number] [address] [place] [address] Aug, [facility] [address] [id number] [address] [place] [address] Aug, [facility] [address] [id number] [address] [place] [address] Aug, [facility] [address] [id number] [address] [place] [address] Aug, [facility] [address] [id number] [address] [place] [address] Aug, [facility] [address] [id number] [address] [place] [address] Aug, [facility] [address] [id number] [address] [place] [address] Jul, [facility] [address] [id number] [address] [place] [address] Jul, [facility] [address] [id number] [address] [place] [address] Jun, [facility] [address] [id number] [address] [place] [address], [place] [address] Jun, [facility] [address] [id number] [address] [place] [address], [place] [address] Jun, [facility] [address] [id number] [address] [place] [address], [place] [address] Jun, [facility] [address] [id number] [address] [place] [address], [place] [address] Jun, [facility] [address] [id number] [address] [place] [address], [place] [address] Jun, [facility] [address] [id number] [address] [place] [address], [place] [address] Jun, [facility] [address] [id number] [address] [place] [address], [place] [address] Jun, [facility] [address] [id number] [address] [place] [address], [place] [address] Jun, [facility] [place] [address] [id number] [place] [id number] Jun, [facility] [address] [id number] [address] [place] [address], [place] [address] Jun, [facility] [address] [id number] [address] [place] [address], [place] [address] May, [facility] [address] [id number] [address] [place] [address], [place] [address] May, [facility] [address] [id number] [address] [place] [address], [place] [address] May, [facility] [address] [id number] [address] [place] [address], [place] [address] May, [facility] [address] [id number] [address] [place] [address], [place] [address] Apr, [facility] [address] [id number] [address] [place] [address], [place] [address] Apr, 2013 [facility] [address] [id number] [address] [place] [address], [place] [address] Mar, 2013 [facility] [address] [id number] [address] [place] [address], [place] [address] Mar, 2013 [facility] [address] [id number] [address] [place] [address], [place] [address] Mar, 2013 [facility] [address] [id number] [address] [place] [address], [place] [address] Mar, 2013 [facility] [address] [id number] [address] [place] [address], [place] [address] Mar, 2013 [facility] [address] [id number] [address] [place] [address], [place] [address] Mar, 2013 [facility] [address] [id number] [address] [place] [address], [place] [address] Mar, 2013 [facility] [address] [id number] [address] [place] [address], [place] [address] Mar, [facility] [address] [id number] [address] [place] [address], [place] [address] 30 Feb, 2013 [facility] [address] [id number] [address] [place] [address], [place] [address] 30 Sep, 2013 [facility] [address] [id number] [address] [place] [address], [place] [address] 19 Sep, 2013 [facility] [address] [id number] [address] [place] [address], [place] [address] 08 Sep, 2013 [facility] [address] [id number] [address] [place] [address], [place] [address] 08 Sep, 2013 [facility] [address] [id number] [address] [place] [address], [place] [address] 08 Sep, 2013 [facility] [address] [id number] [address] [place] [address], [place] [address] Feb, [facility] [address] [id number] [address] [place] [address] Feb, [facility] [address] [id number] [address] [place] [address] Feb, [facility] [address] [id number] [address] [place] [address] Feb, [facility] [address] [id number] [address] [place] [address] Feb, [facility] [address] [id number] [address] [place] [address] Jan, [facility] [address] [id number] [address] [place] [address] Jan, [facility] [address] [facility] [id number] [address] [place] [address] October, [facility] [address] [id number] [address] [place] [address] October, IMMUNIZATIONS No Known Immunizations SOCIAL HISTORY [...] Hospitalization History chest pain-noncardiac 03/29/18 Hospitalization History [facility]. 09/24/2018
--- OUTSIDE RECORDS SUMMARY | 2019-06-21 12:21 | XMS REPORT ---
Author Author Cat CAVANAUGH [facility] Address [address] [place] [address] Care Team Providers Care Adjuster Arbitrator Name Role Phone INGE CAVANAUGH Unavailable PROBLEMS Type Condition ICD9-CM Code [id number] Code Onset Dates Condition S tatus SNOMED Code Problem Gallbladder polyp K82.4 Active 19 8597947 Problem Urge incontinence of urine N39.41 Act viji 97544661 Problem Mixed hyperlipidemia E78.2 Active 286635337 Problem Hypomagnesemia E83.42 Active 97288 5004 Problem Expressive aphasia R47.01 Active 2 96013527 Problem Type 2 diabetes mellitus without complications E11 .9 Active 97717234 Problem Encounter for Zostavax administration Z23 Active 179036179 Problem Anxiety F41.9 Active 17095820 Problem Seizure disorder G40.909 Active 128 254790 Problem Dental caries K02.9 Active 170281 01 Problem Cardiomyopathy I42.9 Active 60038 001 Problem Fatigue, unspecified type R53.83 Acti ve 06047680 Problem Thyroid mass E07.9 Active 5637185 03 Problem Acute bronchitis, unspecified organism J20.9 Active 90939458 Problem Encounter for gynecological examination without abnormal finding Z01.419 Active 527335515 Problem Other chronic pain G89.29 Active 8 6867486 Problem Cardiomegaly I51.7 Active 0409960 Problem Controlled type 2 diabetes m ellitus without complication, without long- term current use of insulin E11.9 Active 057106849 Problem Pain in left shoulder M25.512 Active 97229127 Problem Emotional lability R45.86 Active 1 4918328 Problem Dermatitis L30.9 Active 23850507 Problem Primary osteoarthritis of left shoulder M19.012 Active 05282291 Problem Gastric reflux K21.9 Active 83858 7003 Problem Visit for screening mammogram Z12.31 Active 637554378 Problem Age-related osteoporosis without current pathological fracture M81.0 Active 40078427 Problem Allergic rhinitis J30.9 Active 61 451842 Problem Early menopause E28.319 Active 6584 6009 Problem Colon cancer screening Z12.11 Active 029101893 Problem Breast cancer screening Z12.39 Active 927171844 Problem Hemorrhoids, external, thrombosed K64.5 Active 89461332 Problem Constipation K59.00 Active 5616582 8 Problem Type 2 diabetes mellitus wit h diabetic neuropathy, unspecified whether detention insulin use E11.40 Active 771140 482812524 Problem Other hammer toe(s) (acquired), left foot M20.42 Active 15560229 Problem Other hammer toe(s) (acquired), right foot M20.41 Active 554522908 ALLERGIES No Information ENCOUNTERS Encounter Location Date [facility] [id number] [id number] Nov, Controlled type 2 diabetes mellitus with out complication, without long-term current use of insulin E11.9 and Colon cancer screening Z12.[address] 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 [id number], [place] [id number] Sep, [facility] [id number][place] [id number] Sep, Allergic rhinitis, unspecified seasonali ty, unspecified trigger J30.9 and Viral upper respiratory tract infection J06.9 [facility] [address] [id number], [place] [id number] Aug, [facility] [place] [address] [facility] [id number] [address] [place] [address] Jul, [facility] [address] [id number], [place] [id number] Jul, Type 2 diabetes mellitus without complic ations E11.9 and Left foot pain M79.672 [facility] [address] [id number], [place] [id number] May, Gastric reflux K21.9 and Pruritic dermat itis L29.9 [facility] [address] [id number], [place] [id number] Apr, [facility] [id number], [place] [id number] Mar, Type 2 diabetes mellitus without complic ations E11.9 ; Bronchitis, acute J20.9 and Constipation K59.00 [facility] [address] [id number], [place] [id number] Mar, [facility] [address] [id number], [place] [id number] Mar, [facility] [address] [id number], [place] [id number] Mar, [facility] [address] [id number], [place] [id number] Mar, [facility] [address] [facility] [id number], [place] [id number] Mar, [facility] [address] [id number], [place] [id number] Feb, Gastric reflux K21.9 ; Visit for screeni ng mammogram Z12.31 and Age- related osteoporosis without current pathological fracture M81.0 [facility] [address] [id number], [place] [id number] Feb, Encounter for immunization Z23 [facility] [address] [id number] [place] [id number] Feb, [facility] [address] [id number], [place] [id number] Feb, [facility] [address] [id number], [place] [address] Aug, [facility] [address] [id number], [place] [id number] Jul, Contact dermatitis, unspecified contact dermatitis type, unspecified trigger L25.[address] [facility] [address] [id number], [place] [id number] Mar, Type 2 diabetes mellitus without complic ations E11.9 ; Mammogram declined Z53.20 ; Cardiomegaly I51.7 and Encounter for immunization Z23 [facility] [address] [id number], [place] [address] Mar, [facility] [address] [id number], [place] [id number] Jan, High risk medication use Z79.899 and Anx iety F41.[address] [facility] [address] [id number], [place] [id number] Jan, [facility] [address] [id number], [place] [address] Jan, Dental caries K02.[address] [facility] [address] [id number], [place] [id number] Jan, [facility] [address] [id number], [place] [address] Nov, Dental caries K02.[address] [facility] [address] [id number], [place] [id number] October, Dental caries K02.[address] [facility] [address] [id number], [place] [id number] Sep, [facility] [address] [id number] [place] [id number] Sep, Type 2 diabetes mellitus without complic ations E11.9 and Dental caries K02.[address] [facility] [address] [id number] [place] [id number] Aug, [facility] [address] [id number] [place] [address] Jul, [facility] [address] [id number] [place] [id number] Jul, [facility] [address] [id number] [place] [id number] Jun, Dental examination Z01.[address] [facility] [address] [id number], [place] [id number] Jun, Emotional lability R45.[address] [facility] [address] [id number], [place] [address] Jun, [facility] [address] [id number] [place] [address] Jun, Controlled type 2 diabetes mellitus with out complication, without long-term current use of insulin E11.[address] [facility] [address] [id number], [place] [id number] May, [facility] [address] [id number] [place] [id number] May, Cardiomyopathy I42.9 ; Emotional labilit y R45.86 and Dental caries K02.[address] [facility] [address] [id number] [place] [id number] Apr, [facility] [address] [id number] [place] [id number] Mar, [facility] [address] [id number] [place] [address] Feb, Type 2 diabetes mellitus without complic ations E11.9 [facility] [place] [address] [id number] Rsoi LOBO S [id number] Jan, [facility] [address] [id number], [place] [id number] Dec, Gallbladder polyp K82.[address] [facility] [address] [id number], [place] 509841243 Nov, [facility] [address] [id number], [place] [id number] Nov, Primary osteoarthritis of left shoulder M19.012 [facility] [address] [id number] [place] [address] Nov, [facility] [address] [id number], [place] [id number] Nov, Controlled type 2 diabetes mellitus with out complication, without long-term current use of insulin E11.9 and Pain in left shoulder M25.[address] [facility] [address] [id number], [place] [id number] Nov, Gallbladder polyp K82.4 [facility] [address] [id number], [place] [address]57 October, Pain in left shoulder M25.512 and Other chronic pain G89.29 [facility] [address] [id number], [place] [id number] October, [facility] [address] [id number], [place] [id number] October, [facility] [address] [id number], [place] [id number] October, [facility] [address] [id number], [place] [id number] Sep, [facility] [place] [address] [id number] [address] [place] [address] Sep, [facility] [address] [id number], [place] [id number] 19 Apr, 2016 Encounter for gynecological examination without abnormal finding Z01.419 ; Breast cancer screening Z12.39 ; Hemorrhoids, external, thrombosed K64.5 and Early menopause E28.[id number] [place] [address] [id number] 06 Sep, 2015 Acute bronchitis, unspecified organism J 20.9 and Cardiomegaly I51.[address] [id number] [place] [address] [id number] 16 Aug, 2015 Thyroid mass E07.[address] [id number] [place] [address] [id number] 15 Aug, 2015 Type 2 diabetes mellitus without complic ations E11.9 ; Thyroid mass E07.9 and Encounter for Zostavax administration Z23 [address] [id number] [place] [address] [id number] Aug, Seizure disorder G40.909 ; Hypomagnesemi a E83.42 and Expressive aphasia R47.01 [facility] [id number] [place] [address] Jul, Urge incontinence of urine N 39.[address] [id number] [place] [id number] Jul, [address] [id number] [place] [address] [id number] Jul, Pharyngitis J02.9 ; Urge incontinence of urine N39.41 and Acute cystitis with hematuria N30.01 [facility] [address] [facility] [id number] [address] [place] [address] May, Mixed hyperlipidemia E78.[address] [id number] [place] [id number] May, Seizure disorder G40.909 ; Mixed hyperli pidemia E78.2 and Gallbladder polyp K82.[address] [id number] [place] [address] [id number] May, [facility] [address] [id number], [place] [id number] May, [facility] [address] [id number], [place] [id number] May, Diabetes type 2, controlled E11.9 and Fa tigue, unspecified type R53.83 [facility] [address] [id number], [place] [id number] Apr, Cardiomyopathy I42.9 ; Thyroid mass E07. 9 ; Seizure disorder G40.909 and Dermatitis L30.9 [facility] [address] [id number], [place] [id number] Mar, [facility] [address] [id number], [place] [id number] Feb, [facility] [address] [employer] [address] [place] [address] AVE [id number], [place] [id number] Feb, [facility] [address] [employer] [place] [address] AVE [id number], [place] [id number] Jan, [facility] [address] [employer] [place] [address] AVE [id number], [place] [id number] Jan, CAD (coronary artery disease) 414.00 ; H yperlipidemia associated with type 2 diabetes mellitus 250.80 and Diabetes type 2, controlled 250.00 [facility] [address] [employer] [address] [facility] [address] [id number], [place] 194547371 Nov, CVA (cerebral infarction) 434.91 ; Expre ssive aphasia 784.3 ; Solitary nodule of right lobe of thyroid 241.0 ; CAD (coronary artery disease) 414.00 ; Diabetes type 2, controlled 250.00 and Hemorrhoids, external 455.3 [facility] [address] [id number], [place] [id number] October, Chest pain, atypical 786.59 ; Hemorrhoid s 455.6 ; Diabetes type 2, controlled 250.00 and Hyperlipidemia associated with type 2 diabetes mellitus 250.80 [facility] [address] [id number], [place] [id number] October, [facility] [address] [id number], [place] [id number] October, Chest pain 786.50 ; Abnormal EKG 794.31 and Diabetes type 2, controlled 250.[address] [facility] [address] [id number], [place] [id number] October, Chest pain varies with breathing 786.50 [facility] [address] [id number] [address] [place] [address] Sep, [facility] [address] [id number] [address] [place] [address] Sep, [facility] [address] [id number] [address] [place] [address] Aug, [facility] [address] [id number] [address] [place] [address] Aug, [facility] [address] [id number] [address] [place] [address] Aug, [facility] [address] [id number] [address] [place] [address] Aug, [facility] [address] [id number] [address] [place] [id number] Aug, [facility] [address] [id number] [address] [place] [address] Aug, [facility] [address] [id number] [address] [place] [id number] Aug, [facility] [address] [id number] [address] [place] [address] Aug, [facility] [address] [id number] [address] [place] [id number] Jul, [facility] [address] [id number] [address] [place] [address] Jul, [facility] [address] [id number] [address] [place] [address] Jun, [facility] [address] [id number] [address] [place] [address], [place] [address] Jun, [facility] [address] [id number] [address] [place] [address], [place] [address] Jun, [facility] [address] [id number] [address] [place] [address], [place] [address] Jun, [facility] [address] [id number] [address] [place] [address], [place] [address] Jun, [facility] [address] [id number] [address] [place] [address], [place] [address] Jun, [facility] [address] [id number] [address] [place] [address], [place] [address] Jun, [facility] [address] [id number] [address] [place] [address], [place] [address] Jun, [facility] [address] [id number] [address] [place] [address], [place] [address] Jun, [facility] [address] [id number] [place] [id number] Jun, [facility] [address] [id number] [address] [place] [address], [place] [address] Jun, [facility] [address] [id number] [address] [place] [address], [place] [address] May, [facility] [address] [id number] [address] [place] [address], [place] [address] May, [facility] [address] [id number] [address] [place] [address], [place] [address] May, [facility] [address] [id number] [address] [place] [address], [place] [address] May, [facility] [address] [id number] [address] [place] [address], [place] [address] Apr, [facility] [address] [id number] [address] [place] [address], [place] [address] Apr, 2013 [facility] [address] [id number] [address] [place] [address], [place] [address] Mar, 2013 [facility] [address] [id number] [address] [place] [address], [place] [address] Mar, 2013 [facility] [address] [id number] [address] [place] [address], [place] [address] Mar, 2013 [facility] [address] [id number] [address] [place] [address], [place] [address] Mar, 2013 [facility] [address] [id number] [address] [place] [address], [place] [address] Mar, 2013 [facility] [address] [id number] [address] [place] [address], [place] [address] Mar, 2013 [facility] [address] [id number] [address] [place] [address], [place] [address] Mar, 2013 [facility] [address] [id number] [address] [place] [address], [place] [address] Mar, [facility] [address] [id number] [address] [place] [address], [place] [address] 30 Feb, 2013 [facility] [address] [id number] [address] [place] [address], [place] [address] 30 Sep, 2013 [facility] [address] [id number] [address] [place] [address], [place] [address] 19 Sep, 2013 [facility] [address] [id number] [address] [place] [address], [place] [address] 08 Sep, 2013 [facility] [address] [id number] [address] [place] [address], [place] [address] 08 Sep, 2013 [facility] [address] [id number] [address] [place] [address], [place] [address] 08 Sep, 2013 [facility] [address] [id number] [address] [place] [address], [place] [address] Feb, [facility] [address] [id number] [address] [place] [address] Feb, [facility] [address] [id number] [address] [place] [address] Feb, [facility] [address] [id number] [address] [place] [address] Feb, [facility] [address] [id number] [address] [place] [address] Feb, [facility] [address] [id number] [address] [place] [address] Jan, [facility] [address] [id number] [address] [place] [address] Jan, [facility] [address] [id number] [address] [place] [address] October, [facility] [address] [id number] [address] [place] [address] October, IMMUNIZATIONS No Known Immunizations SOCIAL HISTORY Never Assessed REASON FOR VISIT PLAN OF CARE VITAL SIGNS Height 66.5 in 2014-08-02 Weight 198 lbs 2014-08-02 Temperature 99 degrees Fahrenheit 2014-08-02 Heart Rate 82 bpm 2014-08-02 Respiratory Rate 18 2014-08-02 Blood pressure systolic 122 mmHg 2014-08-02 Blood pressure diastolic 70 mmHg 2014-08-02 MEDICATIONS No Known Medications RESULTS No Results [...]
--- OUTSIDE RECORDS SUMMARY | 2019-06-21 12:21 | XMS REPORT ---
Author Author Cat CAVANAUGH [facility] Address [address] [place] [address] Care Team Providers Care Straw Boss Name Role Phone INGE CAVANAUGH Unavailable PROBLEMS Type Condition ICD9-CM Code IHJ03-IS Code Onset Dates Condition S tatus SNOMED Code Problem Gallbladder polyp K82.4 Active 19 0550648 Problem Urge incontinence of urine N39.41 Act viji 46590298 Problem Mixed hyperlipidemia E78.2 Active 159589258 Problem Hypomagnesemia E83.42 Active 31312 5004 Problem Expressive aphasia R47.01 Active 2 20129459 Problem Type 2 diabetes mellitus without complications E11 .9 Active 03581671 Problem Encounter for Zostavax administration Z23 Active 474229216 Problem Anxiety F41.9 Active 73230047 Problem Seizure disorder G40.909 Active 128 782103 Problem Dental caries K02.9 Active 180831 01 Problem Cardiomyopathy I42.9 Active 11241 001 Problem Fatigue, unspecified type R53.83 Acti ve 72952151 Problem Thyroid mass E07.9 Active 3699711 03 Problem Acute bronchitis, unspecified organism J20.9 Active 47253160 Problem Encounter for gynecological examination without abnormal finding Z01.419 Active 584772180 Problem Other chronic pain G89.29 Active 8 8050467 Problem Cardiomegaly I51.7 Active 4229279 Problem Controlled type 2 diabetes m ellitus without complication, without long- term current use of insulin E11.9 Active 845164251 Problem Pain in left shoulder M25.512 Active 73602181 Problem Emotional lability R45.86 Active 1 5227651 Problem Dermatitis L30.9 Active 63719465 Problem Primary osteoarthritis of left shoulder M19.012 Active 51371710 Problem Gastric reflux K21.9 Active 77847 7003 Problem Visit for screening mammogram Z12.31 Active 839800379 Problem Age-related osteoporosis without current pathological fracture M81.0 Active 09905764 Problem Allergic rhinitis J30.9 Active 61 776668 Problem Early menopause E28.319 Active 6584 6009 Problem Colon cancer screening Z12.11 Active 826806057 Problem Breast cancer screening Z12.39 Active 892765321 Problem Hemorrhoids, external, thrombosed K64.5 Active 42961380 Problem Constipation K59.00 Active 7379939 8 Problem Type 2 diabetes mellitus wit h diabetic neuropathy, unspecified whether senior living insulin use E11.40 Active 655320 062775381 Problem Other hammer toe(s) (acquired), left foot M20.42 Active 67436412 Problem Other hammer toe(s) (acquired), right foot M20.41 Active 917552385 ALLERGIES No Information ENCOUNTERS Encounter Location Date Diagnosis [email or web address] [id number] [id number] Nov, Controlled type 2 diabetes mellitus with out complication, without long-term current use of insulin E11.9 and Colon cancer screening Z12.[address] [email or web address] [id number], [place] [id number] Nov, Type 2 diabetes mellitus without complic ations E11.9 [address] K21.9 [facility] [address] [id number], [place] [address] Nov, Dental caries K02.9 [facility] [address] [facility] [id number] [address] [place] [address] October, Other hammer toe(s) (acquire d), left foot M20.42 ; Other hammer toe(s) (acquired), right foot M20.41 and Type 2 diabetes mellitus with diabetic neuropathy, unspecified whether superintendent container terminal insulin use E11.40 [facility] [id number], [place] [id number] Sep, Allergic rhinitis J30.9 [email or web address] [id number], [place] [id number] Sep, [email or web address] [id number], [place] [id number] Sep, Allergic rhinitis, unspecified seasonali ty, unspecified trigger J30.9 and Viral upper respiratory tract infection J06.9 [facility] [address] [id number], [place] [id number] Aug, [facility] [address] [facility] [id number] [address] [place] [address] Jul, [facility] [address] [id number], [place] [id number] Jul, Type 2 diabetes mellitus without complic ations E11.9 and Left foot pain M79.672 [facility] [address] [id number], [place] [address] May, Gastric reflux K21.9 and Pruritic dermat itis L29.9 [facility] [address] [id number], [place] [id number] Apr, [facility] US [address] [place] [address] AVE [id number], [place] [id number] Mar, Type 2 diabetes mellitus without complic ations E11.9 ; Bronchitis, acute J20.9 and Constipation K59.00 [facility] A[address] [id number], [place] [id number] Mar, [facility] [address] [id number], [place] [id number] Mar, [facility] [address] [place] [address] AVE [id number], [place] [id number] Mar, [facility] A[address] [id number], [place] [id number] Mar, [facility] A[address] [id number], [place] [id number] Mar, [facility] [address] [id number], [place] [address]147855[address] Feb, Encounter for immunization Z23 [facility] [address] [id number], [place] [address]69[address] Feb, Gastric reflux K21.9 ; Visit for screeni ng mammogram Z12.31 and Age- related osteoporosis without current pathological fracture M81.0 [facility] [address] [id number] [place] [address] Feb, [facility] [address] [id number], [place] [id number] Feb, [facility] [address] [id number], [place] [address]48[address] Aug, [facility] [address] [id number], [place] [address]96 Jul, Contact dermatitis, unspecified contact dermatitis type, unspecified trigger L25.9 [facility] [address] [id number], [place] [id number] Mar, Type 2 diabetes mellitus without complic ations E11.9 ; Mammogram declined Z53.20 ; Cardiomegaly I51.7 and Encounter for immunization Z23 [facility] [address] [id number], [place] [id number] Mar, [facility] [address] [id number], [place] [address]98[address] Jan, High risk medication use Z79.899 and Anx iety F41.9 [facility] [address] [id number], [place] [address]36[address] Jan, [facility] [address] [id number], [place] [address]78367065 Jan, Dental caries K02.9 [facility] [address] [id number], [place] [address]7790[address] Jan, [facility] [address] [id number], [place] [id number] Nov, Dental caries K02.[address] [facility] [address] [id number], [place] 415[address]4542 October, Dental caries K02.9 [facility] [address] [id number], [place] 9680[address] Sep, [facility] [address] [id number] [place] [id number] Sep, Type 2 diabetes mellitus without complic ations E11.9 and Dental caries K02.[address] [facility] [address] [id number] [place] [id number] Aug, [facility] [address] [id number] [place] [id number] Jul, [facility] [address] [id number] [place] [id number] Jul, [facility] [address] [id number] [place] [id number] Jun, Dental examination Z01.[address] [facility] [address] [id number], [place] 763812596 Jun, Emotional lability R45.[address] [facility] [address] [id number], [place] 129739[address] Jun, [facility] [address] [id number] [place] [address] Jun, Controlled type 2 diabetes mellitus with out complication, without long-term current use of insulin E11.[address] [facility] [address] [id number], [place] 4639[address]122 May, [facility] [address] [id number] [place] [id number] May, Cardiomyopathy I42.9 ; Emotional labilit y R45.86 and Dental caries K02.[address] [facility] [address] [id number] [place] 14325[address] Apr, [facility] [address] [id number] [place] 1699[address] Mar, [facility] [address] [id number] [place] [id number] Feb, Type 2 diabetes mellitus without complic ations E11.9 [facility] [address] [id number] Rosi [place]OB[place] S [id number] Jan, [facility] [address] [id number], [place] 975897211 Dec, Gallbladder polyp K82.[address] [facility] [address] [id number], [place] [id number] Nov, [facility] [address] [id number], [place] 269140494 Nov, Primary osteoarthritis of left shoulder M19.012 [facility] [address] [id number] [place] [address] Nov, [facility] [address] [id number], [place] [id number] Nov, Controlled type 2 diabetes mellitus with out complication, without long-term current use of insulin E11.9 and Pain in left shoulder M25.[address] [facility] [address] [id number], [place] [id number] Nov, Gallbladder polyp K82.4 [facility] [address] [id number], [place] [id number] October, Pain in left shoulder M25.512 and Other chronic pain G89.[address] [facility] [address] [id number], [place] 236084293 October, [facility] [address] [id number], [place] [id number] October, [facility] [address] [id number], [place] 995473040 October, [facility] [address] [id number], [place] [id number] Sep, [facility] [address] [id number] [address] [place] [address] Sep, [facility] [address] [id number], [place] [id number] 19 Apr, 2016 Encounter for gynecological examination without abnormal finding Z01.419 ; Breast cancer screening Z12.39 ; Hemorrhoids, external, thrombosed K64.5 and Early menopause E28.[address] [id number] [place] [address] [id number] 06 Sep, 2015 Acute bronchitis, unspecified organism J 20.9 and Cardiomegaly I51.[address] [id number] [address] [place] [address] [id number] 16 Aug, 2015 Thyroid mass E07.[address] [id number] [place] [address] [id number] 15 Aug, 2015 Type 2 diabetes mellitus without complic ations E11.9 ; Thyroid mass E07.9 and Encounter for Zostavax administration Z23 [address] [id number] [address] [place] [id number] Aug, Seizure disorder G40.909 ; Hypomagnesemi a E83.42 and Expressive aphasia R47.01 [facility] [address] [place] [address] Jul, Urge incontinence of urine N 39.[address] [id number] [address] [place] [address] [id number] Jul, [address] [id number] [address] [place] [address] [id number] Jul, Pharyngitis J02.9 ; Urge incontinence of urine N39.41 and Acute cystitis with hematuria N30.01 [facility] [address] [facility] [id number] [address] [place] [address] May, Mixed hyperlipidemia E78.[address] [id number] [address] [place] [address] [id number] May, Seizure disorder G40.909 ; Mixed hyperli pidemia E78.2 and Gallbladder polyp K82.[address] [id number] [address] [place] [address] [id number] May, [facility] [address] [id number], [place] [id number] May, [facility] [address] [id number], [place] 569797526 May, Diabetes type 2, controlled E11.9 and Fa tigue, unspecified type R53.83 [facility] [address] [id number], [place] 709322002 Apr, Cardiomyopathy I42.9 ; Thyroid mass E07. 9 ; Seizure disorder G40.909 and Dermatitis L30.9 [facility] [address] [id number], [place] [id number] Mar, [facility] [address] [id number], [place] [id number] Feb, [facility] [address] [place] [address] AVE [id number], [place] [id number] Feb, [facility] [address] [place] [address] AVE [id number], [place] [id number] Jan, [facility] [address] [place] [address] AVE [id number], [place] [id number] Jan, CAD (coronary artery disease) 414.00 ; H yperlipidemia associated with type 2 diabetes mellitus 250.80 and Diabetes type 2, controlled 250.00 [facility] [address] [facility] [address] [id number], [place] 438337634 Nov, CVA (cerebral infarction) 434.91 ; Expre ssive aphasia 784.3 ; Solitary nodule of right lobe of thyroid 241.0 ; CAD (coronary artery disease) 414.00 ; Diabetes type 2, controlled 250.00 and Hemorrhoids, external 455.3 [facility] [address] [id number], [place] [id number] October, Chest pain, atypical 786.59 ; Hemorrhoid s 455.6 ; Diabetes type 2, controlled 250.00 and Hyperlipidemia associated with type 2 diabetes mellitus 250.80 [facility] [address] [id number], [place] 718924238 October, [facility] [address] [id number], [place] [id number] October, Chest pain 786.50 ; Abnormal EKG 794.31 and Diabetes type 2, controlled 250.[address] [facility] [address] [id number], [place] [id number] October, Chest pain varies with breathing 786.50 [facility] [address] [id number] [address] [place] [phone] Sep, [facility] [address] [id number] [address] [place] [id number] Sep, [facility] [address] [id number] [address] [place] [id number] Aug, [facility] [address] [id number] [address] [place] [id number] Aug, [facility] [address] [id number] [address] [place] [id number] Aug, [facility] [address] [id number] [address] [place] [phone] Aug, [facility] [address] [id number] [address] [place] [phone] Aug, [facility] [address] [id number] [address] [place] [phone] Aug, [facility] [address] [id number] [address] [place] [phone] Aug, [facility] [address] [id number] [address] [place] [id number] Aug, [facility] [address] [id number] [address] [place] [phone] Jul, [facility] [address] [id number] [address] [place] [address] Jul, [facility] [address] [id number] [address] [place] [phone] Jun, [facility] [address] [id number] [address] [place] [address], [place] [id number] Jun, [facility] [address] [id number] [address] [place] [address], [place] [id number] Jun, [facility] [address] [id number] [address] [place] [address], [place] [id number] Jun, [facility] [address] [id number] [address] [place] [address], [place] [id number] Jun, [facility] [address] [id number] [address] [place] [address], [place] [id number] Jun, [facility] [address] [id number] [address] [place] [address], [place] [id number] Jun, [facility] [address] [id number] [address] [place] [address], [place] [id number] Jun, [facility] [address] [id number] [address] [place] [address], [place] [id number] Jun, [facility] [address] [id number] [place] [id number] Jun, [facility] [address] [id number] [address] [place] [address], [place] [id number] Jun, [facility] [address] [id number] [address] [place] [address], [place] [id number] May, [facility] [address] [id number] [address] [place] [address], [place] [id number] May, [facility] [address] [id number] [address] [place] [address], [place] [id number] May, [facility] [address] [id number] [address] [place] [address], [place] [id number] May, [facility] [address] [id number] [address] [place] [address], [place] [id number] Apr, [facility] [address] [id number] [address] [place] [address], [place] [id number] Apr, 2013 [facility] [address] [id number] [address] [place] [address], [place] [id number] Mar, 2013 [facility] [address] [id number] [address] [place] [address], [place] [id number] Mar, 2013 [facility] [address] [id number] [address] [place] [address], [place] [id number] Mar, 2013 [facility] [address] [id number] [address] [place] [address], [place] [id number] Mar, 2013 [facility] [address] [id number] [address] [place] [address], [place] [id number] Mar, 2013 [facility] [address] [id number] [address] [place] [address], [place] [id number] Mar, 2013 [facility] [address] [id number] [address] [place] [address], [place] [id number] Mar, 2013 [facility] [address] [id number] [address] [place] [address], [place] [id number] Mar, [facility] [address] [id number] [address] [place] [address], [place] [id number] 30 Feb, 2013 [facility] [address] [id number] [address] [place] [address], [place] [id number] 30 Sep, 2013 [facility] [address] [id number] [address] [place] [address], [place] [id number] 19 Sep, 2013 [facility] [address] [id number] [address] [place] [address], [place] [id number] 08 Sep, 2013 [facility] [address] [id number] [address] [place] [address], [place] [id number] 08 Sep, 2013 [facility] [address] [id number] [address] [place] [address], [place] [id number] 08 Sep, 2013 [facility] [address] [id number] [address] [place] [address], [place] [id number] Feb, [facility] [address] [id number] [address] [place] [id number] Feb, [facility] [address] [id number] [address] [place] [id number] Feb, [facility] [address] [id number] [address] [place] [phone] Feb, [facility] [address] [id number] [address] [place] [phone] Feb, [facility] [address] [id number] [address] [place] [id number] Jan, [facility] [address] [id number] [address] [place] [id number] Jan, [facility] [address] [id number] [address] [place] [id number] October, [facility] [address] [id number] [address] [place] [phone] October, IMMUNIZATIONS No Known Immunizations SOCIAL HISTORY Never Assessed REASON FOR VISIT PLAN OF CARE VITAL SIGNS Height 66.5 in 2014-09-06 Weight 199.2 lbs 2014-09-06 Temperature 98.7 degrees Fahrenheit 2014-09-06 Heart Rate 80 bpm 2014-09-06 Respiratory Rate 16 2014-09-06 Blood pressure systolic 126 mmHg 2014-09-06 Blood pressure diastolic 68 mmHg 2014-09-06 MEDICATIONS No Known Medications RESULTS No Results PROCEDURES Procedure Date Ordered Result Body Site GLYCATED HEMOGLOBIN TEST September 06, 2014 MICROALBUMIN, SEMIQUANT September 06, 2014 LIPID PANEL September 06, 2014 COMPREHEN METABOLIC PANEL September 06, 2014 VENIPUNCT, ROUTINE* September 06, 2014 INSTRUCTIONS MEDICATIONS ADMINISTERED No Known Medications [...] Hospitalization History chest pain-noncardiac 03/29/18 Hospitalization History [facility] Was given coug h medicine and was sent home. 09/24/2018
--- OUTSIDE RECORDS SUMMARY | 2019-06-21 12:21 | XMS REPORT ---
Author Author Cat CAVANAUGH Organization [facility] Address [address] [place] [address] Care Team Providers Care Tile Burner Name Role Phone INGE CAVANAUGH Unavailable PROBLEMS Type Condition ICD9-CM Code PWD68-FP Code Onset Dates Condition S tatus SNOMED Code Problem Gallbladder polyp K82.4 Active 19 2453013 Problem Urge incontinence of urine N39.41 Act viji 61232931 Problem Mixed hyperlipidemia E78.2 Active 967087751 Problem Hypomagnesemia E83.42 Active 69997 5004 Problem Expressive aphasia R47.01 Active 2 72473926 Problem Type 2 diabetes mellitus without complications E11 .9 Active 94237574 Problem Encounter for Zostavax administration Z23 Active 979572254 Problem Anxiety F41.9 Active 34289845 Problem Seizure disorder G40.909 Active 128 449772 Problem Dental caries K02.9 Active 409190 01 Problem Cardiomyopathy I42.9 Active 25765 001 Problem Fatigue, unspecified type R53.83 Acti ve 38864823 Problem Thyroid mass E07.9 Active 8583056 03 Problem Acute bronchitis, unspecified organism J20.9 Active 01557602 Problem Encounter for gynecological examination without abnormal finding Z01.419 Active 703302135 Problem Other chronic pain G89.29 Active 8 8838531 Problem Cardiomegaly I51.7 Active 4689396 Problem Controlled type 2 diabetes m ellitus without complication, without long- term current use of insulin E11.9 Active 148868493 Problem Pain in left shoulder M25.512 Active 84950660 Problem Emotional lability R45.86 Active 1 3602932 Problem Dermatitis L30.9 Active 43974762 Problem Primary osteoarthritis of left shoulder M19.012 Active 97054618 Problem Gastric reflux K21.9 Active 09716 7003 Problem Visit for screening mammogram Z12.31 Active 170505080 Problem Age-related osteoporosis without current pathological fracture M81.0 Active 24998857 Problem Allergic rhinitis J30.9 Active 61 683560 Problem Early menopause E28.319 Active 6584 6009 Problem Colon cancer screening Z12.11 Active 667846830 Problem Breast cancer screening Z12.39 Active 104432843 Problem Hemorrhoids, external, thrombosed K64.5 Active 32418675 Problem Constipation K59.00 Active 5996116 8 Problem Type 2 diabetes mellitus wit h diabetic neuropathy, unspecified whether retirement insulin use E11.40 Active 645531 722538634 Problem Other hammer toe(s) (acquired), left foot M20.42 Active 97609381 Problem Other hammer toe(s) (acquired), right foot M20.41 Active 205158147 ALLERGIES No Information ENCOUNTERS Encounter Location Date Diagnosis [facility] [id number][place] [id number] Nov, Controlled type 2 diabetes mellitus with out complication, without long-term current use of insulin E11.9 and Colon cancer screening Z12.11 [facility] [address] [id number], [place] [id number] Nov, Type 2 diabetes mellitus without complic ations E11.9 and Gastric reflux K21.9 [facility] [address] [id number], [place] [address] Nov, Dental caries K02.9 [facility] [address] [facility] [id number] [address] [place] [address] October, Other hammer toe(s) (acquire d), left foot M20.42 ; Other hammer toe(s) (acquired), right foot M20.41 and Type 2 diabetes mellitus with diabetic neuropathy, 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 E11.40 [facility] [address] [id number], [place] [id number] Sep, Allergic rhinitis J30.9 [facility] [id number], [place] [id number] Sep, [facility] [id number][place] [id number] Sep, Allergic rhinitis, unspecified seasonali ty, unspecified trigger J30.9 and Viral upper respiratory tract infection J06.9 [facility] [address] [id number][place] [id number] Aug, [facility] [address] [facility] [id number] [address] [place] [address] Jul, [facility] [address] [id number], [place] [address] Jul, Type 2 diabetes mellitus without complic ations E11.9 and Left foot pain M79.672 [facility] [address] [id number], [place] [id number] May, Gastric reflux K21.9 and Pruritic dermat itis L29.9 [facility] [address] [id number], [place] [address] Apr, [facility] [address] [id number], [place] [id number] Mar, Type 2 diabetes mellitus without complic ations E11.9 ; Bronchitis, acute J20.9 and Constipation K59.00 [facility] [address] [id number], [place] [id number] Mar, [facility] [address] [id number], [place] [id number] Mar, [facility] [address] [id number], [place] [id number] Mar, [facility] [address] [id number], [place] [id number] Mar, [facility] [address] [id number], [place] [id number] Mar, [facility] [address] [id number], [place] [id number] Feb, Gastric reflux K21.9 ; Visit for screeni ng mammogram Z12.31 and Age- related osteoporosis without current pathological fracture M81.0 [facility] [address] [id number], [place] [id number] Feb, Encounter for immunization Z23 [facility] [address] [id number] [place] [address] Feb, [facility] [address] [id number], [place] [id number] Feb, [facility] [address] [id number], [place] [id number] Aug, [facility] [address] [id number], [place] [id number] Jul, Contact dermatitis, unspecified contact dermatitis type, unspecified trigger L25.[address] [facility] [address] [id number], [place] [address] Mar, Type 2 diabetes mellitus without complic ations E11.9 ; Mammogram declined Z53.20 ; Cardiomegaly I51.7 and Encounter for immunization Z23 [facility] [address] [id number], [place] [id number] Mar, [facility] [address] [id number], [place] [address] Jan, High risk medication use Z79.899 and Anx iety F41.[address] [facility] [address] [id number], [place] [address] Jan, [facility] [address] [id number], [place] [address] Jan, Dental caries K02.[address] [facility] [address] [id number], [place] [id number] Jan, [facility] [address] [id number], [place] [id number] Nov, Dental caries K02.[address] [facility] [address] [id number], [place] 829425557 October, Dental caries K02.[address] [facility] [address] [id number], [place] [address]48[address] Sep, [facility] [address] [id number] [place] [address] Sep, Type 2 diabetes mellitus without complic ations E11.9 and Dental caries K02.[address] [facility] [address] [id number] [place] [id number] Aug, [facility] [address] [id number] [place] [id number] Jul, [facility] [address] [id number] [place] [id number] Jul, [facility] [address] [id number] [place] [address] Jun, Dental examination Z01.[address] [facility] [address] [id number], [place] [address] Jun, Emotional lability R45.[address] [facility] [address] [id number], [place] [id number] Jun, [facility] [address] [id number] [place] [address] Jun, Controlled type 2 diabetes mellitus with out complication, without long-term current use of insulin E11.[address] [facility] [address] [id number], [place] [id number] May, [facility] [address] [id number] [place] [id number] May, Cardiomyopathy I42.9 ; Emotional labilit y R45.86 and Dental caries K02.[address] [facility] [address] [id number] [place] [address] Apr, [facility] [address] [id number] [place] [id number] Mar, [facility] [address] [id number] [place] [id number] Feb, Type 2 diabetes mellitus without complic ations E11.9 [facility] [place] [address] [id number] [place]i [place] S [id number] Jan, [facility] [address] [id number], [place] [address] Dec, Gallbladder polyp K82.[address] [facility] [address] [id number], [place] [address]85 Nov, [facility] [address] [id number], [place] 167459282 Nov, Primary osteoarthritis of left shoulder M19.012 [facility] [place] [address] [id number] [place] [address] Nov, [facility] [address] [id number], [place] [address]39175546 Nov, Controlled type 2 diabetes mellitus with out complication, without long-term current use of insulin E11.9 and Pain in left shoulder M25.[address] [facility] [address] [id number], [place] 1202816[address] Nov, Gallbladder polyp K82.4 [facility] [address] [id number], [place] [id number] October, Pain in left shoulder M25.512 and Other chronic pain G89.[address] [facility] [address] [id number], [place] [address]96129553 October, [facility] [address] [id number], [place] 99[address] October, [facility] [address] [id number], [place] [address]87429155 October, [facility] [address] [id number], [place] 95[address]236[address] Sep, [facility] [address] [id number] [address] [place] [address] Sep, [facility] [address] [id number], [place] [id number] 19 Apr, 2016 Encounter for gynecological examination without abnormal finding Z01.419 ; Breast cancer screening Z12.39 ; Hemorrhoids, external, thrombosed K64.5 and Early menopause E28.[id number] [place] [address] [id number] 06 Sep, 2015 Acute bronchitis, unspecified organism J 20.9 and Cardiomegaly I51.[address] [id number] [place] [address] [id number] 16 Aug, 2015 Thyroid mass E07.[id number] [place] [address] [id number] 15 Aug, 2015 Type 2 diabetes mellitus without complic ations E11.9 ; Thyroid mass E07.9 and Encounter for Zostavax administration Z23 [address] [id number] [place] [address] [id number] Aug, Seizure disorder G40.909 ; Hypomagnesemi a E83.42 and Expressive aphasia R47.01 [facility] [id number] [place] [address] Jul, Urge incontinence of urine N 39.[address] [id number] [place] [address] [id number] Jul, [address] [id number] [place] [address] [id number] Jul, Pharyngitis J02.9 ; Urge incontinence of urine N39.41 and Acute cystitis with hematuria N30.01 [facility] [address] [facility] [id number] [address] [place] [address] May, Mixed hyperlipidemia E78.[id number] [place] [address] [id number] May, Seizure disorder G40.909 ; Mixed hyperli pidemia E78.2 and Gallbladder polyp K82.[address] [id number] [place] [address] [id number] May, [facility] [address] [id number], [place] [id number] May, [facility] [address] [id number], [place] 150[address]38 May, Diabetes type 2, controlled E11.9 and Fa tigue, unspecified type R53.83 [facility] [address] [id number], [place] 729275677 Apr, Cardiomyopathy I42.9 ; Thyroid mass E07. 9 ; Seizure disorder G40.909 and Dermatitis L30.9 [facility] [address] [id number], [place] [id number] Mar, [facility] [address] [id number], [place] [id number] Feb, [facility] [address] [place] [address] AVE [id number], [place] [id number] Feb, [facility] [address] [place] [address] AVE [id number], [place] [id number] Jan, [facility] [address] [place] [address] AVE [id number], [place] 734555950 Jan, CAD (coronary artery disease) 414.00 ; H yperlipidemia associated with type 2 diabetes mellitus 250.80 and Diabetes type 2, controlled 250.00 [facility] [employer] [address] [facility] [id number], [place] [id number] Nov, CVA (cerebral infarction) 434.91 ; Expre ssive aphasia 784.3 ; Solitary nodule of right lobe of thyroid 241.0 ; CAD (coronary artery disease) 414.00 ; Diabetes type 2, controlled 250.00 and Hemorrhoids, external 455.3 [facility] [address] [id number], [place] [id number] October, Chest pain, atypical 786.59 ; Hemorrhoid s 455.6 ; Diabetes type 2, controlled 250.00 and Hyperlipidemia associated with type 2 diabetes mellitus 250.80 [facility] [address] [id number], [place] [id number] October, [facility] [address] [id number], [place] [id number] October, Chest pain 786.50 ; Abnormal EKG 794.31 and Diabetes type 2, controlled 250.[address] [facility] [address] [id number], [place] [id number] October, Chest pain varies with breathing 786.50 [facility] [address] [id number] [address] [place] [address] Sep, [facility] [address] [id number] [address] [place] [address] Sep, [facility] [address] [id number] [address] [place] [address] Aug, [facility] [address] [id number] [address] [place] [address] Aug, [facility] [address] [id number] [address] [place] [address] Aug, [facility] [address] [id number] [address] [place] [address] Aug, [facility] [address] [id number] [address] [place] [address] Aug, [facility] [address] [id number] [address] [place] [address] Aug, [facility] [address] [id number] [address] [place] [address] Aug, [facility] [address] [id number] [address] [place] [address] Aug, [facility] [address] [id number] [address] [place] [address] Jul, [facility] [address] [id number] [address] [place] [address] Jul, [facility] [address] [id number] [address] [place] [address] Jun, [facility] [address] [id number] [address] [place] [address], [place] [address] Jun, [facility] [address] [id number] [address] [place] [address], [place] [address] Jun, [facility] [address] [id number] [address] [place] [address], [place] [address] Jun, [facility] [address] [id number] [address] [place] [address], [place] [address] Jun, [facility] [address] [id number] [address] [place] [address], [place] [address] Jun, [facility] [address] [id number] [address] [place] [address], [place] [address] Jun, [facility] [address] [id number] [address] [place] [address], [place] [address] Jun, [facility] [address] [id number] [address] [place] [address], [place] [address] Jun, [facility] [address] [id number] [place] [id number] Jun, [facility] [address] [id number] [address] [place] [address], [place] [address] Jun, [facility] [address] [id number] [address] [place] [address], [place] [address] May, [facility] [address] [id number] [address] [place] [address], [place] [address] May, [facility] [address] [id number] [address] [place] [address], [place] [address] May, [facility] [address] [id number] [address] [place] [address], [place] [address] May, [facility] [address] [id number] [address] [place] [address], [place] [address] Apr, [facility] [address] [id number] [address] [place] [address], [place] [address] Apr, 2013 [facility] [address] [id number] [address] [place] [address], [place] [address] Mar, 2013 [facility] [address] [id number] [address] [place] [address], [place] [address] Mar, 2013 [facility] [address] [id number] [address] [place] [address], [place] [address] Mar, 2013 [facility] [address] [id number] [address] [place] [address], [place] [address] Mar, 2013 [facility] [address] [id number] [address] [place] [address], [place] [address] Mar, 2013 [facility] [address] [id number] [address] [place] [address], [place] [address] Mar, 2013 [facility] [address] [id number] [address] [place] [address], [place] [address] Mar, 2013 [facility] [address] [id number] [address] [place] [address], [place] [address] Mar, [facility] [address] [id number] [address] [place] [address], [place] [address] 30 Feb, 2013 [facility] [address] [id number] [address] [place] [address], [place] [address] 30 Sep, 2013 [facility] [address] [id number] [address] [place] [address], [place] [address] 19 Sep, 2013 [facility] [address] [id number] [address] [place] [address], [place] [address] 08 Sep, 2013 [facility] [address] [id number] [address] [place] [address], [place] [address] 08 Sep, 2013 [facility] [address] [id number] [address] [place] [address], [place] [address] 08 Sep, 2013 [facility] [address] [id number] [address] [place] [address], [place] [address] Feb, [facility] [address] [id number] [address] [place] [address] Feb, [facility] [address] [id number] [address] [place] [address] Feb, [facility] [address] [id number] [address] [place] [address] Feb, [facility] [address] [id number] [address] [place] [address] Feb, [facility] [address] [id number] [address] [place] [address] Jan, [facility] [address] [id number] [address] [place] [address] Jan, [facility] [address] [facility] [id number] [address] [place] [address] October, [facility] [address] [id number] [address] [place] [address] October, IMMUNIZATIONS No Known Immunizations SOCIAL HISTORY [...] Hospitalization History chest pain-noncardiac 03/29/18 Hospitalization History [facility] Was given [facility] medicine and was sent home. 09/24/2018
--- OUTSIDE RECORDS SUMMARY | 2019-06-21 12:21 | XMS REPORT ---
Author Author Cat CAVANAUGH [facility] [place] Address [address] [place] [address] Care Team Providers Care Chief Lifestyle Officer Name Role Phone INGE CAVANAUGH Unavailable PROBLEMS Type Condition ICD9-CM Code CMV27-FQ Code Onset Dates Condition S tatus SNOMED Code Problem Gallbladder polyp K82.4 Active 19 2071708 Problem Urge incontinence of urine N39.41 Act viji 04780179 Problem Mixed hyperlipidemia E78.2 Active 416367327 Problem Hypomagnesemia E83.42 Active 42985 5004 Problem Expressive aphasia R47.01 Active 2 62613161 Problem Type 2 diabetes mellitus without complications E11 .9 Active 75953739 Problem Encounter for Zostavax administration Z23 Active 958340108 Problem Anxiety F41.9 Active 36120096 Problem Seizure disorder G40.909 Active 128 843788 Problem Dental caries K02.9 Active 586653 01 Problem Cardiomyopathy I42.9 Active 23446 001 Problem Fatigue, unspecified type R53.83 Acti ve 67874650 Problem Thyroid mass E07.9 Active 4681867 03 Problem Acute bronchitis, unspecified organism J20.9 Active 46544274 Problem Encounter for gynecological examination without abnormal finding Z01.419 Active 816864069 Problem Other chronic pain G89.29 Active 8 3953661 Problem Cardiomegaly I51.7 Active 3113582 Problem Controlled type 2 diabetes m ellitus without complication, without long- term current use of insulin E11.9 Active 204811487 Problem Pain in left shoulder M25.512 Active 26932311 Problem Emotional lability R45.86 Active 1 3445525 Problem Dermatitis L30.9 Active 67929048 Problem Primary osteoarthritis of left shoulder M19.012 Active 95986403 Problem Gastric reflux K21.9 Active 27186 7003 Problem Visit for screening mammogram Z12.31 Active 744188336 Problem Age-related osteoporosis without current pathological fracture M81.0 Active 81931786 Problem Allergic rhinitis J30.9 Active 61 682245 Problem Early menopause E28.319 Active 6584 6009 Problem Colon cancer screening Z12.11 Active 871130172 Problem Breast cancer screening Z12.39 Active 150353091 Problem Hemorrhoids, external, thrombosed K64.5 Active 16227409 Problem Constipation K59.00 Active 3900230 8 Problem Type 2 diabetes mellitus wit h diabetic neuropathy, unspecified whether group home insulin use E11.40 Active 548857 780218160 Problem Other hammer toe(s) (acquired), left foot M20.42 Active 39198125 Problem Other hammer toe(s) (acquired), right foot M20.41 Active 985827542 ALLERGIES No Information ENCOUNTERS Encounter Location Date [facility] [address] [id number], [place] [id number] Nov, Controlled type 2 diabetes mellitus with out complication, without long-term current use of insulin E11.9 and Colon cancer screening Z12.11 [facility] [address] [id number], [place] [id number] Nov, Type 2 diabetes mellitus without complic ations E11.9 and Gastric reflux K21.9 [facility] [address] [id number], [place] [id number] Nov, Dental caries K02.9 [facility] [place] [address] [facility] [id number] 100[address] [place] [address] October, Other hammer toe(s) (acquire d), left foot M20.42 ; Other hammer toe(s) (acquired), right foot M20.41 and Type 2 diabetes mellitus with diabetic neuropathy, unspecified whether scheduling analyst insulin use E11.40 [facility] [address] [id number], [place] [address] Sep, Allergic rhinitis J30.9 [facility] [address] [id number], [place] [id number] Sep, [facility] [address] [id number], [place] [id number] Sep, Allergic rhinitis, unspecified seasonali ty, unspecified trigger J30.9 and Viral upper respiratory tract infection J06.9 [facility] [address] [id number], [place] [address]37[address] Aug, [facility] [address] [facility] [id number] 100[address] [place] [address] Jul, [facility] [address] [id number], [place] [id number] Jul, Type 2 diabetes mellitus without complic ations E11.9 and Left foot pain M79.672 [facility] [id number], [place] [address] May, Gastric reflux K21.9 and Pruritic dermat itis L29.9 [facility] [address] [id number], [place] [id number] Apr, [facility] US [address] [place] [address] AVE [id number], [place] [id number] Mar, Type 2 diabetes mellitus without complic ations E11.9 ; Bronchitis, acute J20.9 and Constipation K59.00 [facility] [facility] [address] [id number], [place] [id number] Mar, [facility] [address] [facility] [id number], [place] [id number] Mar, [facility] SM[facility]TER [address] [place] [address] AVE [id number], [place] [id number] Mar, [facility]note [facility] A[address] [id number], [place] [id number] Mar, [facility] A[address] [id number], [place] [id number] Mar, [facility] [address] [id number], [place] [id number] Feb, Encounter for immunization Z23 [facility] [address] [id number], [place] 179876847 Feb, Gastric reflux K21.9 ; Visit for screeni ng mammogram Z12.31 and Age- related osteoporosis without current pathological fracture M81.0 [facility] [address] [id number] [place] [id number] Feb, [facility] [address] [id number], [place] [address]979577[address] Feb, [facility] [address] [id number], [place] [id number] Aug, [facility] [address] [id number], [place] [id number] Jul, Contact dermatitis, unspecified contact dermatitis type, unspecified trigger L25.9 [facility] [address] [id number], [place] [id number] Mar, Type 2 diabetes mellitus without complic ations E11.9 ; Mammogram declined Z53.20 ; Cardiomegaly I51.7 and Encounter for immunization Z23 [facility] [address] [id number], [place] [id number] Mar, [facility] [address] [id number], [place] 934566750 Jan, High risk medication use Z79.899 and Anx iety F41.9 [facility] [address] [id number], [place] 600174982 Jan, [facility] [address] [id number], [place] 431563913 Jan, Dental caries K02.9 [facility] [address] [id number], [place] 704321410 Jan, [facility] [address] [id number], [place] 633493959 Nov, Dental caries K02.[address] [facility] [address] [id number], [place] 700504322 October, Dental caries K02.9 [facility] [address] [id number], [place] 326349185 Sep, [facility] [address] [id number] [place] [id number] Sep, Type 2 diabetes mellitus without complic ations E11.9 and Dental caries K02.[address] [facility] [address] [id number] [place] [address] Aug, [facility] [address] [id number] [place] [address] Jul, [facility] [address] [id number] [place] [address] Jul, [facility] [address] [id number] [place] [address] Jun, Dental examination Z01.[address] [facility] [address] [id number], [place] 568129955 Jun, Emotional lability R45.[address] [facility] [address] [id number], [place] 083937351 Jun, [facility] [address] [id number] [place] [address]67[address] Jun, Controlled type 2 diabetes mellitus with out complication, without long-term current use of insulin E11.[address] [facility] [address] [id number], [place] 276654643 May, [facility] [address] [id number] [place] 417[address]190 May, Cardiomyopathy I42.9 ; Emotional labilit y R45.86 and Dental caries K02.[address] [facility] [address] [id number] [place] 377126635 Apr, [facility] [address] [id number] [place] 511[address]687 Mar, [facility] [address] [id number] [place] [id number] Feb, Type 2 diabetes mellitus without complic ations E11.9 [facility] [place] [address] [id number] Rosi LOBO S [id number] Jan, [facility] [address] [id number], [place] 647833827 Dec, Gallbladder polyp K82.[address] [facility] [address] [id number], [place] 222654763 Nov, [facility] [address] [id number], [place] 975388410 Nov, Primary osteoarthritis of left shoulder M19.012 [facility] [place] [address] [id number] [place] [address] Nov, [facility] [address] [id number], [place] 193307201 Nov, Controlled type 2 diabetes mellitus with out complication, without long-term current use of insulin E11.9 and Pain in left shoulder M25.[address] [facility] [address] [id number], [place] 356668927 Nov, Gallbladder polyp K82.4 [facility] [address] [id number], [place] 212921650 October, Pain in left shoulder M25.512 and Other chronic pain G89.[address] [facility] [address] [id number], [place] 752581780 October, [facility] [address] [id number], [place] 677787027 October, [facility] [address] [id number], [place] 674704331 October, [facility] [address] [id number], [place] [id number] Sep, [facility] [address] [id number] 100[address] [place] [address] Sep, [facility] [address] [id number], [place] [id number] 19 Apr, 2016 Encounter for gynecological examination without abnormal finding Z01.419 ; Breast cancer screening Z12.39 ; Hemorrhoids, external, thrombosed K64.5 and Early menopause E28.[id number] [place] [address] [id number] 06 Sep, 2015 Acute bronchitis, unspecified organism J 20.9 and Cardiomegaly I51.[address] [id number] [place] [address] [id number] 16 Aug, 2015 Thyroid mass E07.[address] [id number] [place] [address] [id number] 15 Aug, 2015 Type 2 diabetes mellitus without complic ations E11.9 ; Thyroid mass E07.9 and Encounter for Zostavax administration Z23 [address] [id number] [place] [address] [id number] Aug, Seizure disorder G40.909 ; Hypomagnesemi a E83.42 and Expressive aphasia R47.01 [facility] [place] [address] [place] [address] Jul, Urge incontinence of urine N 39.[address] [id number] [place] [id number] Jul, [id number] [place] [address] [id number] Jul, Pharyngitis J02.9 ; Urge incontinence of urine N39.41 and Acute cystitis with hematuria N30.01 [facility] [place] [address] [facility] [id number] [address] [place] [address] May, Mixed hyperlipidemia E78.[address] [id number] [place] [address] [id number] May, Seizure disorder G40.909 ; Mixed hyperli pidemia E78.2 and Gallbladder polyp K82.[address] [id number] [place] [address] [id number] May, [facility] [address] [id number], [place] 230724231 May, [facility] [address] [id number], [place] 709616343 May, Diabetes type 2, controlled E11.9 and Fa tigue, unspecified type R53.83 [facility] [address] [id number], [place] 386063702 Apr, Cardiomyopathy I42.9 ; Thyroid mass E07. 9 ; Seizure disorder G40.909 and Dermatitis L30.9 [facility] [address] [id number], [place] [id number] Mar, [facility] [address] [id number], [place] [id number] Feb, [facility] [address] [place] [address] AVE [id number], [place] [id number] Feb, [facility] [address] [place] [address] AVE [id number], [place] [id number] Jan, [facility] [address] [place] [address] AVE [id number], [place] [id number] Jan, CAD (coronary artery disease) 414.00 ; H yperlipidemia associated with type 2 diabetes mellitus 250.80 and Diabetes type 2, controlled 250.00 [facility] US [employer] [facility] [address] [id number], [place] [id number] Nov, CVA (cerebral infarction) 434.91 ; Expre ssive aphasia 784.3 ; Solitary nodule of right lobe of thyroid 241.0 ; CAD (coronary artery disease) 414.00 ; Diabetes type 2, controlled 250.00 and Hemorrhoids, external 455.3 [facility] [address] [id number], [place] 734878142 October, Chest pain, atypical 786.59 ; Hemorrhoid s 455.6 ; Diabetes type 2, controlled 250.00 and Hyperlipidemia associated with type 2 diabetes mellitus 250.80 [facility] [address] [id number], [place] [id number] October, [facility] [address] [id number], [place] 806104764 October, Chest pain 786.50 ; Abnormal EKG 794.31 and Diabetes type 2, controlled 250.[address] [facility] [address] [id number], [place] 200739223 October, Chest pain varies with breathing 786.50 [facility] [address] [id number] [address] [place] [address] Sep, [facility] [address] [id number] [address] [place] [address] Sep, [facility] [address] [id number] [address] [place] [address] Aug, [facility] [address] [id number] [address] [place] [address] Aug, [facility] [address] [id number] [address] [place] [address] Aug, [facility] [address] [id number] [address] [place] [address] Aug, [facility] [address] [id number] [address] [place] [address] Aug, [facility] [address] [id number] [address] [place] [address] Aug, [facility] [address] [id number] [address] [place] [address] Aug, [facility] [address] [id number] [address] [place] [address] Aug, [facility] [address] [id number] [address] [place] [address] Jul, [facility] [address] [id number] [address] [place] [address] Jul, [facility] [address] [id number] [address] [place] [address] Jun, [facility] [address] [id number] [address] [place] [address], [place] [address] Jun, [facility] [address] [id number] [address] [place] [address], [place] [address] Jun, [facility] [address] [id number] [address] [place] [address], [place] [address] Jun, [facility] [address] [id number] [address] [place] [address], [place] [address] Jun, [facility] [address] [id number] [address] [place] [address], [place] [address] Jun, [facility] [address] [id number] [address] [place] [address], [place] [address] Jun, [facility] [address] [id number] [address] [place] [address], [place] [address] Jun, [facility] [address] [id number] [address] [place] [address], [place] [address] Jun, [facility] [address] [id number] [place] [id number] Jun, [facility] [address] [id number] [address] [place] [address], [place] [address] Jun, [facility] [address] [id number] [address] [place] [address], [place] [address] May, [facility] [address] [id number] [address] [place] [address], [place] [address] May, [facility] [address] [id number] [address] [place] [address], [place] [address] May, [facility] [address] [id number] [address] [place] [address], [place] [address] May, [facility] [address] [id number] [address] [place] [address], [place] [address] Apr, [facility] [address] [id number] [address] [place] [address], [place] [address] Apr, 2013 [facility] [address] [id number] [address] [place] [address], [place] [address] Mar, 2013 [facility] [address] [id number] [address] [place] [address], [place] [address] Mar, 2013 [facility] [address] [id number] [address] [place] [address], [place] [address] Mar, 2013 [facility] [address] [id number] [address] [place] [address], [place] [address] Mar, 2013 [facility] [address] [id number] [address] [place] [address], [place] [address] Mar, 2013 [facility] [address] [id number] [address] [place] [address], [place] [address] Mar, 2013 [facility] [address] [id number] [address] [place] [address], [place] [address] Mar, 2013 [facility] [address] [id number] [address] [place] [address], [place] [address] Mar, [facility] [address] [id number] [address] [place] [address], [place] [address] 30 Feb, 2013 [facility] [address] [id number] [address] [place] [address], [place] [address] 30 Sep, 2013 [facility] [address] [id number] [address] [place] [address], [place] [address] 19 Sep, 2013 [facility] [address] [id number] [address] [place] [address], [place] [address] 08 Sep, 2013 [facility] [address] [id number] [address] [place] [address], [place] [address] 08 Sep, 2013 [facility] [address] [id number] [address] [place] [address], [place] [address] 08 Sep, 2013 [facility] [address] [id number] [address] [place] [address], [place] [address] Feb, [facility] [place] [address] [id number] [address] [place] [address] Feb, [facility] [place] [address] [id number] [address] [place] [address] Feb, [facility] [place] [address] [id number] [address] [place] [address] Feb, [facility] [place] [address] [id number] [address] [place] [address] Feb, [facility] [place] [address] [id number] [address] [place] [address] Jan, [facility] [place] [address] [id number] [address] [place] [address] Jan, [facility] [place] [address] [facility] [id number] [address] [place] [address] October, [facility] [place] [address] [id number] [address] [place] [address] October, IMMUNIZATIONS No Known Immunizations SOCIAL HISTORY [...] Hospitalization History chest pain-noncardiac 03/29/18 Hospitalization History [facility] sent home. 09/24/2018
--- OUTSIDE RECORDS SUMMARY | 2019-06-21 12:22 | XMS REPORT ---
Author Author Cat Hernandez Doctor Organization [facility] Address Unknown Phone Unavailable Care Team Providers Care Wrapper Off Name Role Phone Migration, Doctor Unavailable Unavailable PROBLEMS Type Condition ICD9-CM Code GUF59-GT Code Onset Dates Condition S tatus SNOMED Code Problem Fatigue, unspecified type R53.83 Acti ve 79520718 Problem Mixed hyperlipidemia E78.2 Active 527185243 Problem Gallbladder polyp K82.4 Active 19 3244936 Problem Hypomagnesemia E83.42 Active 27877 5004 Problem Urge incontinence of urine N39.41 Act viji 05502103 Problem Type 2 diabetes mellitus without complications E11 .9 Active 76383168 Problem Expressive aphasia R47.01 Active 2 79945915 Problem Dental caries K02.9 Active 041327 01 Problem Dermatitis L30.9 Active 13516144 Problem Emotional lability R45.86 Active 1 4743186 Problem Thyroid mass E07.9 Active 8864482 03 Problem Seizure disorder G40.909 Active 128 096112 Problem Cardiomyopathy I42.9 Active 16692 001 Problem Encounter for gynecological examination without abnormal finding Z01.419 Active 482366078 Problem Hemorrhoids, external, thrombosed K64.5 Active 82647304 Problem Cardiomegaly I51.7 Active 2750267 Problem Acute bronchitis, unspecified organism J20.9 Active 00959010 Problem Pain in left shoulder M25.512 Active 06895935 Problem Other chronic pain G89.29 Active 8 5226339 Problem Primary osteoarthritis of left shoulder M19.012 Active 14561667 Problem Controlled type 2 diabetes m ellitus without complication, without long- term current use of insulin E11.9 Active 858952981 Problem Anxiety F41.9 Active 19309593 Problem Gastric reflux K21.9 Active 98940 7003 Problem Visit for screening mammogram Z12.31 Active 971800818 Problem Other hammer toe(s) (acquired), right foot M20.41 Active 508775148 Problem Breast cancer screening Z12.39 Active 866419162 Problem Allergic rhinitis J30.9 Active 61 696910 Problem Encounter for Zostavax administration Z23 Active 567210349 Problem Early menopause E28.319 Active 2546 6009 Problem Age-related osteoporosis without current pathological fracture M81.0 Active 22373176 Problem Constipation K59.00 Active 3853861 8 Problem Type 2 diabetes mellitus wit h diabetic neuropathy, unspecified whether mcc insulin use E11.40 Active 794494 618675701 Problem Other hammer toe(s) (acquired), left foot M20.42 Active 59586172 ALLERGIES No Information ENCOUNTERS Encounter Location Date Diagnosis [facility] [address] [id number][place] [id number] Nov, [facility] [address] [facility] [id number] [address] [place] [address] October, Other hammer toe(s) (acquire d), left foot M20.42 ; Other hammer toe(s) (acquired), right foot M20.41 and Type 2 diabetes mellitus with diabetic neuropathy, unspecified whether mcc insulin use E11.[address] [id number], [place] [id number] Sep, Allergic rhinitis J30.9 [facility] [address] [id number], [place] [id number] Sep, [facility] [id number], [place] [id number] Sep, Allergic rhinitis, unspecified seasonali ty, unspecified trigger J30.9 and Viral upper respiratory tract infection J06.9 [facility] EndoscopyUS [address] [id number], [place] [id number] Aug, [facility] [address] [facility] [id number] [address] [place] [address] Jul, [facility] [address] [id number], [place] [id number] Jul, Type 2 diabetes mellitus without complic ations E11.9 and Left foot pain M79.672 [facility] [id number] [place] [id number] May, Gastric reflux K21.9 and Pruritic dermat itis L29.[address] [facility] [address] [id number], [place] [id number] Apr, [facility] [address] [id number], [place] [id number] Mar, Type 2 diabetes mellitus without complic ations E11.9 ; Bronchitis, acute J20.9 and Constipation K59.[address] [facility] [address] [id number], [place] [id number] Mar, [facility] [address] [id number], [place] [id number] Mar, [facility] [address] [id number], [place] [id number] Mar, [facility] [address] [id number], [place] [id number] Mar, [facility] [address] [id number], [place] [id number] Mar, [facility] [address] [id number], [place] [id number] Feb, Encounter for immunization Z23 [facility] [address] [id number], [place] [id number] Feb, Gastric reflux K21.9 ; Visit for screeni ng mammogram Z12.31 and Age- related osteoporosis without current pathological fracture M81.[address] [facility] [address] [id number], [place] [id number] Feb, [facility] [address] [id number], [place] [id number] Feb, [facility] [address] [id number], [place] [id number] Aug, [facility] [address] [id number], [place] [id number] Jul, Contact dermatitis, unspecified contact dermatitis type, unspecified trigger L25.[address] [facility] [address] [id number] [place] [id number] Mar, Type 2 diabetes mellitus without complic ations E11.9 ; Mammogram declined Z53.20 ; Cardiomegaly I51.7 and Encounter for immunization Z23 [facility] [address] [id number] [place] [id number] Mar, [facility] [address] [id number] [place] [id number] Jan, High risk medication use Z79.899 and Anx iety F41.[address] [facility] [address] [id number] [place] [id number] Jan, [facility] [address] [id number], [place] [id number] Jan, Dental caries K02.[address] [facility] [address] [id number], [place] [id number] Jan, [facility] [address] [id number] [place] [id number] Nov, Dental caries K02.[address] [facility] [address] [id number], [place] [id number] October, Dental caries K02.[address] [facility] [address] [id number], [place] [id number] Sep, [facility] [address] [id number], [place] [id number] Sep, Type 2 diabetes mellitus without complic ations E11.9 and Dental caries K02.[address] [facility] [address] [id number] [place] [id number] Aug, [facility] [address] [id number] [place] [id number] Jul, [facility] [address] [id number] [place] [id number] Jul, [facility] [address] [id number], [place] [id number] Jun, Dental examination Z01.[address] [facility] [address] [id number] [place] [id number] Jun, Emotional lability R45.[address] [facility] [address] [id number], [place] [id number] Jun, [facility] [address] [id number], [place] [id number] Jun, Controlled type 2 diabetes mellitus with out complication, without long-term current use of insulin E11.[address] [facility] [address] [id number], [place] [id number] May, [facility] [address] [id number], [place] [id number] May, Cardiomyopathy I42.9 ; Emotional labilit y R45.86 and Dental caries K02.[address] [facility] [address] [id number], [place] [id number] Apr, [facility] [address] [id number], [place] [address] Mar, [facility] [address] [id number], [place] [id number] Feb, Type 2 diabetes mellitus without complic ations E11.9 [facility] [place] [address] [id number] [place] [id number] Jan, [facility] [address] [id number], [place] [id number] Dec, Gallbladder polyp K82.[address] [facility] [address] [id number], [place] [id number] Nov, [facility] [address] [id number], [place] 6684637[address] Nov, Primary osteoarthritis of left shoulder M19.[address] [facility] [address] [id number] [place] [address] Nov, [facility] [address] [id number], [place] [id number] Nov, Controlled type 2 diabetes mellitus with out complication, without long-term current use of insulin E11.9 and Pain in left shoulder M25.512 [facility] [address] [id number], [place] 160230979 Nov, Gallbladder polyp K82.4 [facility] [address] [id number], [place] [id number] October, Pain in left shoulder M25.512 and Other chronic pain G89.29 [facility] [address] [id number], [place] [id number] October, [facility] [address] [id number], [place] [id number] October, [facility] [address] [id number], [place] [id number] October, [facility] [address] [id number], [place] [id number] Sep, [facility] [address] [facility] [id number] 100[place] [address] Sep, [facility] [address] [id number], [place] [id number] Sep, Encounter for gynecological examination without abnormal finding Z01.419 ; Breast cancer screening Z12.39 ; Hemorrhoids, external, thrombosed K64.5 and Early menopause E28.319 [facility] [address] [id number], [place] [id number] Sep, Acute bronchitis, unspecified organism J 20.9 and Cardiomegaly I51.7 [facility] [address] [id number], [place] [id number] Aug, Thyroid mass E07.9 [facility] [address] [id number], [place] [id number] Aug, Type 2 diabetes mellitus without complic ations E11.9 ; Thyroid mass E07.9 and Encounter for Zostavax administration Z23 [facility] [id number] [place] [id number] Aug, Seizure disorder G40.909 ; Hypomagnesemi a E83.42 and Expressive aphasia R47.01 [facility] [address] [facility] [id number] [address] [place] [address] Jul, Urge incontinence of urine N 39.41 [facility] [id number] [place] [id number] Jul, [facility] [id number] [place] [id number] Jul, Pharyngitis J02.9 ; Urge incontinence of urine N39.41 and Acute cystitis with hematuria N30.01 [facility] [address] [facility] [id number] [address] [place] [address] May, Mixed hyperlipidemia E78.2 [facility] [address] [id number] [place] [id number] May, Seizure disorder G40.909 ; Mixed hyperli pidemia E78.2 and Gallbladder polyp K82.4 [facility] [address] [id number], [place] [id number] May, [facility] [address] [id number], [place] [id number] May, [facility] [address] [id number], [place] [id number] May, Diabetes type 2, controlled E11.9 and Fa tigue, unspecified type R53.83 [facility] [address] [id number], [place] [id number] Apr, Cardiomyopathy I42.9 ; Thyroid mass E07. 9 ; Seizure disorder G40.909 and Dermatitis L30.9 [facility] [id number] [place] [address] [id number] Mar, [facility] [address] [id number], [place] [id number] Feb, [facility] [address] [id number], [place] [id number] Feb, [facility] [address] [id number], [place] [id number] Jan, [facility] [address] [id number], [place] [id number] Jan, CAD (coronary artery disease) 414.00 ; H yperlipidemia associated with type 2 diabetes mellitus 250.80 and Diabetes type 2, controlled 250.00 [facility] [address] [id number], [place] [id number] Nov, CVA (cerebral infarction) 434.91 ; Expre ssive aphasia 784.3 ; Solitary nodule of right lobe of thyroid 241.0 ; CAD (coronary artery disease) 414.00 ; Diabetes type 2, controlled 250.00 and Hemorrhoids, external 455.3 [facility] [address] [id number], [place] [id number] October, Chest pain, atypical 786.59 ; Hemorrhoid s 455.6 ; Diabetes type 2, controlled 250.00 and Hyperlipidemia associated with type 2 diabetes mellitus 250.80 [facility] [address] [id number], [place] [id number] October, [facility] [address] [id number], [place] [id number] October, Chest pain 786.50 ; Abnormal EKG 794.31 and Diabetes type 2, controlled 250.00 [facility] [address] [id number], [place] [id number] October, Chest pain varies with breathing 786.50 [facility] [address] [facility] [id number] [address] [place] [address] Sep, [facility] [address] [facility] [id number] [address] [place] [address] Sep, [facility] [address] [id number] 100[facility] [place] [address] Aug, [facility] [address] [id number] [address] [place] [address], [place] [address] Aug, [facility] [address] [id number] [address] [place] [address], [place] [address] Aug, [facility] [address] [id number] [address] [place] [address], [place] [address] Aug, [facility] [address] [id number] [address] [place] [address], [place] [address] Aug, [facility] [address] [id number] [address] [place] [address], [place] [address] Aug, [facility] [address] [id number] [address] [place] [address], [place] [address] Aug, [facility] [address] [id number] [address] [place] [address], [place] [address] Aug, [facility] [address] [id number] [address] [place] [address], [place] [address] Jul, [facility] [address] [id number] [address] [place] [address], [place] [address] Jul, [facility] [address] [id number] [address] [place] [address], [place] [address] Jun, [facility] [address] [id number] [address] [place] [address], [place] [address] Jun, [facility] [address] [id number] [address] [place] [address], [place] [address] Jun, [facility] [address] [id number] [address] [place] [address], [place] [address] Jun, [facility] [address] [id number] [address] [place] [address], [place] [address] Jun, [facility] [address] [id number] [address] [place] [address] Jun, [facility] [address] [id number] [address] [place] [address], [place] [address] Jun, [facility] [address] [id number] [address] [place] [address], [place] [address] Jun, [facility] [address] [id number] [address] [place] [address] Jun, [facility] [place] [address] [address] [id number] [place] [id number] Jun, [facility] [address] [id number] [address] [place] [address], [place] [address] Jun, [facility] [address] [id number] [address] [place] [address], [place] [address] May, [facility] [address] [id number] [address] [place] [address] May, [facility] [address] [id number] [address] [place] [address], [place] [address] May, [facility] [address] [id number] [address] [place] [address], [place] [address] May, [facility] [address] [id number] [address] [place] [address], [place] [address] Apr, [facility] [address] [id number] [address] [place] [address], [place] [address] Apr, [facility] [address] [id number] [address] [place] [address] Mar, [facility] [address] [id number] [address] [place] [address] Mar, [facility] [address] [id number] [address] [place] [address] Mar, [facility] [address] [id number] [address] [place] [address] Mar, [facility] [address] [id number] [address] [place] [address], [place] [address] 07 Mar, 2013 [facility] [address] [id number] [address] [place] [address], [place] [address] 07 Mar, 2013 [facility] [address] [id number] [address] [place] [address], [place] [address] Mar, 2013 [facility] [address] [id number] [address] [place] [address], [place] [address] Mar, 2013 [facility] [address] [id number] [address] [place] [address], [place] [address] 30 Sep, 2013 [facility] [address] [id number] [address] [place] [address], [place] [address] 30 Sep, 2013 [facility] [address] [id number] [address] [place] [address], [place] [address] 19 Sep, 2013 [facility] [address] [id number] [address] [place] [address], [place] [address] 08 Sep, 2013 [facility] [address] [id number] [address] [place] [address], [place] [address] 08 Sep, 2013 [facility] [address] [id number] [address] [place] [address], [place] [address] 08 Sep, 2013 [facility] [address] [id number] [address] [place] [address], [place] [address] 08 Sep, 2013 [facility] [address] [id number] [address] [place] [address], [place] [address] 04 Sep, 2013 [facility] [address] [id number] [address] [place] [address], [place] [address] 04 Sep, 2013 [facility] [address] [id number] [address] [place] [address], [place] [address] 04 Sep, 2013 [facility] [address] [id number] [address] [place] [address], [place] [address] 04 Sep, 2013 [facility] [address] [id number] [address] [place], [place] [address] [address] Jan, [facility] [address] [facility] [id number] [address] [place] [address] Jan, [facility] [address] [facility] [id number] [address] [place] [address] October, [facility] [address] [facility] [id number] [address] [place] [address] October, IMMUNIZATIONS No Known Immunizations SOCIAL HISTORY Never Assessed REASON FOR VISIT [place] [place] VITAL SIGNS MEDICATIONS Unknown [...] DEXA osteoporosis Medical History 08-17-18 cataracts-surg recommended Surgical History tubal ligation Surgical History exploratory [...] Hospitalization History chest pain-noncardiac 03/29/18 Hospitalization History [facility] Was given coug h medicine and was sent home. 09/24/2018
--- OUTSIDE RECORDS SUMMARY | 2019-06-21 12:22 | XMS REPORT ---
Author Author Cat CAVANAUGH [facility] Address [address] [place] [address] Care Team Providers Care Lead Mason Tender Name Role Phone INGE CAVANAUGH Unavailable PROBLEMS Type Condition ICD9-CM Code BFC64-TG Code Onset Dates Condition S tatus SNOMED Code Problem Thyroid mass E07.9 Active 8560495 03 Problem Dermatitis L30.9 Active 87222464 Problem Cardiomyopathy I42.9 Active 45346 001 Problem Seizure disorder G40.909 Active 128 835693 Problem Fatigue, unspecified type R53.83 Acti ve 05796139 Problem Other chronic pain G89.29 Active 8 6462163 Problem Gallbladder polyp K82.4 Active 19 8817953 Problem Pain in left shoulder M25.512 Active 78444117 Problem Mixed hyperlipidemia E78.2 Active 516572936 Problem Controlled type 2 diabetes m ellitus without complication, without long- term current use of insulin E11.9 Active 279360471 Problem Emotional lability R45.86 Active 1 3782836 Problem Primary osteoarthritis of left shoulder M19.012 Active 23370116 Problem Constipation K59.00 Active 9870985 8 Problem Age-related osteoporosis without current pathological fracture M81.0 Active 44799143 Problem Hypomagnesemia E83.42 Active 58376 5004 Problem Expressive aphasia R47.01 Active 2 58586791 Problem Urge incontinence of urine N39.41 Act viji 01118790 Problem Anxiety F41.9 Active 74019732 Problem Dental caries K02.9 Active 733335 01 Problem Gastric reflux K21.9 Active 01683 5413 Problem Visit for screening mammogram Z12.31 Active 765593749 Problem Breast cancer screening Z12.39 Active 318387134 Problem Early menopause E28.319 Active 4717 6009 Problem Type 2 diabetes mellitus without complications E11 .9 Active 60757697 Problem Encounter for Zostavax administration Z23 Active 840251789 Problem Acute bronchitis, unspecified organism J20.9 Active 84750022 Problem Cardiomegaly I51.7 Active 1505811 Problem Hemorrhoids, external, thrombosed K64.5 Active 64253872 Problem Encounter for gynecological examination without abnormal finding Z01.419 Active 983785067 ALLERGIES No Information ENCOUNTERS Encounter Location Date Diagnosis [facility] [address] [id number] [place] [id number] May, [facility] [address] [id number][place] [id number] Apr, [facility] [address] [id number] [place] [id number] Mar, Type 2 diabetes mellitus without complic ations E11.9 ; Bronchitis, acute J20.9 and Constipation K59.[address] [facility] [address] [id number][place] [id number] Mar, [facility] [address] [id number][place] [id number] Mar, [facility] [address] [id number], [place] [id number] Mar, [facility] [address] [id number], [place] [id number] Mar, [facility] [address] [id number][place] [address] Mar, [facility] [address] [id number][place] [id number] Feb, Gastric reflux K21.9 ; Visit for screeni ng mammogram Z12.31 and Age- related osteoporosis without current pathological fracture M81.0 [facility] [address] [id number], [place] [id number] Feb, Encounter for immunization Z23 [facility] [address] [id number][place] [id number] 24 Feb, 2018 [facility] [address] [id number], [place] [id number] Feb, [facility] [address] [id number] [place] [id number] Aug, [facility] [address] [id number] [place] [id number] Jul, Contact dermatitis, unspecified contact dermatitis type, unspecified trigger L25.[address] [facility] [address] [id number] [place] [id number] Mar, Type 2 diabetes mellitus without complic ations E11.9 ; Mammogram declined Z53.20 ; Cardiomegaly I51.7 and Encounter for immunization Z23 [facility] [address] [id number] [place] [id number] Mar, [facility] [address] [id number][place] [id number] Jan, High risk medication use Z79.899 and Anx iety F41.[address] [facility] [address] [id number][place] [address] Jan, [facility] [address] [id number], [place] [id number] Jan, Dental caries K02.[address] [facility] [address] [id number][place] [id number] Jan, [facility] [address] [id number], [place] [id number] Nov, Dental caries K02.[address] [facility] [address] [id number], [place] [id number] October, Dental caries K02.[address] [facility] [address] [id number] [place] [id number] Sep, [facility] [address] [id number], [place] [id number] Sep, Type 2 diabetes mellitus without complic ations E11.9 and Dental caries K02.[address] [facility] [address] [id number], [place] [address] Aug, [facility] [address] [id number] [place] [address] Jul, [facility] [address] [id number] [place] [id number] Jul, [facility] [address] [id number] [place] [id number] Jun, Dental examination Z01.[address] [facility] [address] [id number] [place] [id number] Jun, Emotional lability R45.[address] [facility] [address] [id number] [place] [id number] Jun, [facility] [address] [id number], [place] [id number] Jun, Controlled type 2 diabetes mellitus with out complication, without long-term current use of insulin E11.[address] [facility] [address] [id number], [place] [id number] May, [facility] [address] [id number], [place] [id number] May, Cardiomyopathy I42.9 ; Emotional labilit y R45.86 and Dental caries K02.[address] [facility] [address] [id number], [place] [id number] Apr, [facility] [address] [id number] [place] [id number] Mar, [facility] [address] [id number] [place] [id number] Feb, Type 2 diabetes mellitus without complic ations E11.9 [facility] [place] [address] [id number] [place] [id number] Jan, [facility] [address] [id number] [place] [id number] Dec, Gallbladder polyp K82.[address] [facility] [address] [id number] [place] [id number] Nov, [facility] [address] [id number], [place] [id number] Nov, Primary osteoarthritis of left shoulder M19.012 [facility] RICARDO Butch ARAUJOE [id number] [place] [address] Nov, [facility] [address] [id number], [place] [address]69459809 Nov, Controlled type 2 diabetes mellitus with out complication, without long-term current use of insulin E11.9 and Pain in left shoulder M25.[address] [facility] [address] [id number], [place] [address]15301133 Nov, Gallbladder polyp K82.[address] [facility] [address] [id number], [place] 6378835[address] October, Pain in left shoulder M25.512 and Other chronic pain G89.29 [facility] [address] [id number], [place] 875582346 October, [facility] [address] [id number], [place] [address] October, [facility] [address] [id number], [place] [id number] October, [facility] [address] [id number], [place] [id number] Sep, [facility] [address] [facility] [id number] [place] [address] Sep, [facility] [address] [id number], [place] [id number] Sep, Encounter for gynecological examination without abnormal finding Z01.419 ; Breast cancer screening Z12.39 ; Hemorrhoids, external, thrombosed K64.5 and Early menopause E28.[address] [facility] [address] [id number], [place] 850254153 Sep, Acute bronchitis, unspecified organism J 20.9 and Cardiomegaly I51.[address] [facility] [address] [id number], [place] 536642356 Aug, Thyroid mass E07.9 [facility] [address] [id number], [place] [address]26[address] Aug, Type 2 diabetes mellitus without complic ations E11.9 ; Thyroid mass E07.9 and Encounter for Zostavax administration Z23 [id number] [place] [id number] Aug, Seizure disorder G40.909 ; Hypomagnesemi a E83.42 [address] R47.01 [facility] [address] [id number] [address] [place] [address] Jul, Urge incontinence of urine N 39.[address] [id number][place] [address]118[address] Jul, [id number] [place] [address] [id number] Jul, Pharyngitis J02.9 ; Urge incontinence of urine N39.41 and Acute cystitis with hematuria N30.01 [facility] [address] [id number] [address] [place] [address] May, Mixed hyperlipidemia E78.[address] [id number], [place] [id number] May, Seizure disorder G40.909 ; Mixed hyperli pidemia E78.2 and Gallbladder polyp K82.4 [facility] [address] [facility] [address] [id number], [place] [id number] May, [facility] [address] [id number], [place] [id number] May, [facility] [address] [id number], [place] [id number] May, Diabetes type 2, controlled E11.9 and Fa tigue, unspecified type R53.83 [facility] [address] [id number], [place] [address]47709247 Apr, Cardiomyopathy I42.9 ; Thyroid mass E07. 9 ; Seizure disorder G40.909 and Dermatitis L30.9 [facility] [address] [id number], [place] [id number] Mar, [facility] [address] [id number], [place] [id number] Feb, [facility] [address] [id number], [place] 659347932 Feb, [facility] [address] [id number], [place] [id number] Jan, [facility] [address] [id number], [place] [id number] Jan, CAD (coronary artery disease) 414.00 ; H yperlipidemia associated with type 2 diabetes mellitus 250.80 and Diabetes type 2, controlled 250.00 [facility] [address] [id number], [place] [id number] Nov, CVA (cerebral infarction) 434.91 ; Expre ssive aphasia 784.3 ; Solitary nodule of right lobe of thyroid 241.0 ; CAD (coronary artery disease) 414.00 ; Diabetes type 2, controlled 250.00 and Hemorrhoids, external 455.[address] [id number], [place] 393124312 October, Chest pain, atypical 786.59 ; Hemorrhoid s 455.6 ; Diabetes type 2, controlled 250.00 and Hyperlipidemia associated with type 2 diabetes mellitus 250.80 [facility] [address] [id number], [place] 392172624 October, [facility] [id number], [place] 863632791 October, Chest pain 786.50 ; Abnormal EKG 794.31 and Diabetes type 2, controlled 250.00 [facility] [address] [id number], [place] [id number] October, Chest pain varies with breathing 786.50 [facility] [address] [id number] [address] [place] [address], [place] [address] 14 Sep, 2014 [facility] [address] [id number] [address] [place] [address] Sep, [facility] [address] [id number] [address] [place] [address], [place] [address] Aug, [facility] [address] [id number] [address] [place] [address] Aug, [facility] [address] [id number] [address] [place] [address], [place] [address] Aug, [facility] [address] [id number] [address] [place] [address] Aug, [facility] [address] [id number] [address] [place] [address] Aug, [facility] [address] [id number] [address] [place] [address] Aug, [facility] [address] [id number] [address] [place] [address], [place] [address] Aug, [facility] [address] [id number] [address] [place] [address] Aug, [facility] [address] [id number] [address] [place] [address] Jul, [facility] [address] [id number] [address] [place] [address] Jul, [facility] [address] [id number] [address] [place] [address], [place] [address] Jun, [facility] [address] [id number] [address] [place] [address] Jun, [facility] [address] [id number] [address] [place] [address] Jun, [facility] [address] [id number] [address] [place] [address], [place] [address] Jun, [facility] [address] [id number] [address] [place] [address], [place] [address] Jun, [facility] [address] [id number] [address] [place] [address], [place] [address] Jun, [facility] [address] [id number] [address] [place] [address], [place] [address] Jun, [facility] [address] [id number] [address] [place] [address], [place] [address] Jun, [facility] [address] [id number] [address] [place] [address], [place] [address] Jun, [facility] [address] [id number] [place] [id number] Jun, [facility] [address] [id number] [address] [place] [address], [place] [address] Jun, [facility] [address] [id number] [address] [place] [address], [place] [address] May, [facility] [address] [id number] [address] [place] [address], [place] [address] May, [facility] [address] [id number] [address] [place] [address], [place] [address] May, [facility] [address] [id number] [address] [place] [address], [place] [address] May, [facility] [address] [id number] [address] [place] [address], [place] [address] Apr, [facility] [address] [id number] [address] [place] [address], [place] [address] Apr, [facility] [address] [id number] [address] [place] [address], [place] [address] Mar, [facility] [address] [id number] [address] [place] [address], [place] [address] Mar, [facility] [address] [id number] [address] [place] [address], [place] [address] Mar, 2013 [facility] [address] [id number] [address] [place] [address], [place] [address] Mar, 2013 [facility] [address] [id number] [address] [place] [address], [place] [address] Mar, 2013 [facility] [address] [id number] [address] [place] [address], [place] [address] Mar, [facility] [address] [id number] [address] [place] [address], [place] [address] Mar, [facility] [address] [id number] [address] [place] [address], [place] [address] Mar, [facility] [address] [id number] [address] [place] [address], [place] [address] 30 Feb, 2013 [facility] [address] [id number] [address] [place] [address], [place] [address] 30 Sep, 2013 [facility] [address] [id number] [address] [place] [address], [place] [address] 19 Sep, 2013 [facility] [address] [id number] [address] [place] [address], [place] [address] 08 Sep, 2013 [facility] [address] [id number] [address] [place] [address], [place] [address] 08 Sep, 2013 [facility] [address] [id number] [address] [place] [address], [place] [address] 08 Sep, 2013 [facility] [address] [id number] [address] [place] [address], [place] [address] 08 Sep, 2013 [facility] [address] [id number] [address] [place] [address], [place] [address] 04 Sep, 2013 [facility] [address] [id number] [address] [place] [address], [place] [address] 04 Sep, 2013 [facility] [address] [id number] [place] [address] Feb, [facility] [address] [facility] [id number] [address] [place] [address] Feb, [facility] [address] [facility] [id number] [address] [place] [address] Jan, [facility] [address] [facility] [id number] [address] [place] [address] Jan, [facility] [address] [facility] [id number] [address] [place] [address] October, [facility] [address] [facility] [id number] [address] [place] [address] October, IMMUNIZATIONS No Known Immunizations SOCIAL HISTORY Never Assessed REASON FOR VISIT Lab results PLAN OF CARE VITAL SIGNS MEDICATIONS Unknown [...] 04/09/15 PPV 23 Medical History DEXA osteoporosis Surgical History tubal ligation Surgical History exploratory [...]
--- OUTSIDE RECORDS SUMMARY | 2019-06-21 12:22 | XMS REPORT ---
Author Author Cat Hernandez Doctor Organization [facility] Address Unknown Phone Unavailable Care Team Providers Care Coat Padder Name Role Phone Migration, Doctor Unavailable Unavailable PROBLEMS Type Condition ICD9-CM Code [id number] Code Onset Dates Condition S tatus SNOMED Code Problem Gallbladder polyp K82.4 Active 19 0847987 Problem Urge incontinence of urine N39.41 Act viji 16139611 Problem Mixed hyperlipidemia E78.2 Active 117957895 Problem Hypomagnesemia E83.42 Active 41239 5004 Problem Expressive aphasia R47.01 Active 2 36672169 Problem Type 2 diabetes mellitus without complications E11 .9 Active 57348642 Problem Encounter for Zostavax administration Z23 Active 233518527 Problem Anxiety F41.9 Active 94605677 Problem Seizure disorder G40.909 Active 128 530509 Problem Dental caries K02.9 Active 107940 01 Problem Cardiomyopathy I42.9 Active 23349 001 Problem Fatigue, unspecified type R53.83 Acti ve 41789695 Problem Thyroid mass E07.9 Active 5718928 03 Problem Acute bronchitis, unspecified organism J20.9 Active 78574469 Problem Encounter for gynecological examination without abnormal finding Z01.419 Active 236365694 Problem Other chronic pain G89.29 Active 8 3128329 Problem Cardiomegaly I51.7 Active 0460866 Problem Controlled type 2 diabetes m ellitus without complication, without long- term current use of insulin E11.9 Active 662585137 Problem Pain in left shoulder M25.512 Active 40961575 Problem Emotional lability R45.86 Active 1 5978240 Problem Dermatitis L30.9 Active 07122176 Problem Primary osteoarthritis of left shoulder M19.012 Active 63514335 Problem Gastric reflux K21.9 Active 40690 7003 Problem Visit for screening mammogram Z12.31 Active 342290051 Problem Age-related osteoporosis without current pathological fracture M81.0 Active 13038523 Problem Allergic rhinitis J30.9 Active 61 118715 Problem Early menopause E28.319 Active 6740 6009 Problem Colon cancer screening Z12.11 Active 820852584 Problem Breast cancer screening Z12.39 Active 472087385 Problem Hemorrhoids, external, thrombosed K64.5 Active 18378766 Problem Constipation K59.00 Active 0144708 8 Problem Type 2 diabetes mellitus wit h diabetic neuropathy, unspecified whether assisted insulin use E11.40 Active 143298 609115760 Problem Other hammer toe(s) (acquired), left foot M20.42 Active 95321294 Problem Other hammer toe(s) (acquired), right foot M20.41 Active 086368361 ALLERGIES Substance Reaction Event Type Date Status Erythromycin Base Unknown Drug Allergy Sep, Active ENCOUNTERS Encounter Location Date Diagnosis [facility] [address] [id number] [place] [id number] Nov, Controlled type 2 diabetes mellitus with out complication, without long-term current use of insulin E11.9 and Colon cancer screening Z12.11 [facility] [address] [id number] [place] [id number] Nov, Type 2 diabetes mellitus without complic ations E11.9 and Gastric reflux K21.9 [facility] [address] [id number] [place] [address] Nov, Dental caries K02.9 [facility] [address] [facility] [id number] 100[address] [place] [address] October, Other hammer toe(s) (acquire d), left foot M20.42 ; Other hammer toe(s) (acquired), right foot M20.41 and Type 2 diabetes mellitus with diabetic neuropathy, unspecified whether assisted insulin use E11.[address] [facility] [id number] [place] [address] Sep, Allergic rhinitis J30.9 [facility] [id number] [place] [address] Sep, [facility] [id number] [place] [address] Sep, Allergic rhinitis, unspecified seasonali ty, unspecified trigger J30.9 and Viral upper respiratory tract infection J06.9 [facility] [address] [id number] [place] [id number] Aug, [facility] [address] [facility] [id number] 100[place] [address] Jul, [facility] [address] [id number] [place] [id number] Jul, Type 2 diabetes mellitus without complic ations E11.9 and Left foot pain M79.[address] [facility] [address] [id number] [place] [address] May, Gastric reflux K21.9 and Pruritic dermat itis L29.[address] [facility] [address] [id number] [place] [id number] Apr, [facility] [address] [id number] [place] [address] Mar, Type 2 diabetes mellitus without complic ations E11.9 ; Bronchitis, acute J20.9 and Constipation K59.[address] [facility] [address] [id number] [place] [address] Mar, [facility] [address] [id number] [place] [id number] Mar, [facility] [address] [id number] [place] [address] Mar, [facility] [address] [id number] [place] [id number] Mar, [facility] [address] [id number] [place] [address] Mar, [facility] [address] [id number] [place] [address] Feb, Encounter for immunization Z23 [facility] [address] [id number] [place] [address] Feb, Gastric reflux K21.9 ; Visit for screeni ng mammogram Z12.31 and Age- related osteoporosis without current pathological fracture M81.[address] [facility] [address] [id number] [place] [address] Feb, [facility] [address] [id number] [place] [address] Feb, [facility] [address] [id number] [place] [address] Aug, [facility] [address] [id number] [place] [id number] Jul, Contact dermatitis, unspecified contact dermatitis type, unspecified trigger L25.[address] [facility] [address] [id number] [place] [address] Mar, Type 2 diabetes mellitus without complic ations E11.9 ; Mammogram declined Z53.20 ; Cardiomegaly I51.7 and Encounter for immunization Z23 [facility] [address] [id number] [place] [address]160[address] Mar, [facility] [address] [id number] [place] [address] Jan, High risk medication use Z79.899 and Anx iety F41.[address] [facility] [address] [id number] [place] [address] Jan, [facility] [address] [id number] [place] [address] Jan, Dental caries K02.[address] [facility] [address] [id number] [place] [address] Jan, [facility] [address] [id number] [place] [address]99[address] Nov, Dental caries K02.[address] [facility] [address] [id number] [place] [address] October, Dental caries K02.[address] [facility] [address] [id number] [place] [address] Sep, [facility] [address] [id number] [place] [address] Sep, Type 2 diabetes mellitus without complic ations E11.9 and Dental caries K02.[address] [facility] [address] [id number] [place] [address] Aug, [facility] [address] [id number] [place] [address] Jul, [facility] [address] [id number] [place] [address] Jul, [facility] [address] [id number] [place] [address] Jun, Dental examination Z01.[address] [facility] [address] [id number] [place] [address] Jun, Emotional lability R45.[address] [facility] [address] [id number] [place] [address] Jun, [facility] [address] [id number] [place] [address] Jun, Controlled type 2 diabetes mellitus with out complication, without long-term current use of insulin E11.[address] [facility] [address] [id number] [place] [address] May, [facility] [address] [id number] [place] [address] May, Cardiomyopathy I42.9 ; Emotional labilit y R45.86 and Dental caries K02.[address] [facility] [address] [id number] [place] [address] Apr, [facility] [address] [id number] [place] [address]59[address] Mar, [facility] [address] [id number] [place] [address] Feb, Type 2 diabetes mellitus without complic ations E11.9 [facility] [place] [address] [id number] Rosi LOBO S [id number] Jan, [facility] [address] [id number] [place] [address] Dec, Gallbladder polyp K82.[address] [facility] [address] [id number] [place] [address] Nov, [facility] [address] [id number] [place] [address] Nov, Primary osteoarthritis of left shoulder M19.012 [facility] [address] [id number] [place] [address] Nov, [facility] [address] [id number] [place] [address] Nov, Controlled type 2 diabetes mellitus with out complication, without long-term current use of insulin E11.9 and Pain in left shoulder M25.[address] [facility] [address] [id number] [place] 252355697 Nov, Gallbladder polyp K82.4 [facility] [address] [id number] [place] 36845[address] October, Pain in left shoulder M25.512 and Other chronic pain G89.[address] [facility] [address] [id number] [place] 375749[address] October, [facility] [address] [id number] [place] 63776[address] October, [facility] [address] [id number] [place] 852[address] October, [facility] [address] [id number] [place] [id number] Sep, [facility] [address] [facility] [id number] 100[place] [address] Sep, [facility] [address] [id number] [place] [address] Sep, Encounter for gynecological examination without abnormal finding Z01.419 ; Breast cancer screening Z12.39 ; Hemorrhoids, external, thrombosed K64.5 and Early menopause E28.[address] [id number] [place] [id number] Sep, Acute bronchitis, unspecified organism J 20.9 and Cardiomegaly I51.[address] [id number] [place] [id number] Aug, Thyroid mass E07.[address] [id number] [place] [address] [id number] Aug, Type 2 diabetes mellitus without complic ations E11.9 ; Thyroid mass E07.9 and Encounter for Zostavax administration Z23 [address] [place] [address] [id number] Aug, Seizure disorder G40.909 ; Hypomagnesemi a E83.42 and Expressive aphasia R47.01 [facility] [address] [place] [address] Jul, Urge incontinence of urine N 39.[address] [id number] [place] [id number] Jul, [address] [id number] [place] [id number] Jul, Pharyngitis J02.9 ; Urge incontinence of urine N39.41 and Acute cystitis with hematuria N30.01 [facility] [address] [place] [address] May, Mixed hyperlipidemia E78.[address] [id number] [place] [address] [id number] May, Seizure disorder G40.909 ; Mixed hyperli pidemia E78.2 and Gallbladder polyp K82.[address] [id number] [place] [id number] May, [address] [id number] [place] [id number] May, [facility] [address] [id number] [place] [id number] May, Diabetes type 2, controlled E11.9 and Fa tigue, unspecified type R53.83 [facility] [address] [id number] [place] 257626784 Apr, Cardiomyopathy I42.9 ; Thyroid mass E07. 9 ; Seizure disorder G40.909 and Dermatitis L30.9 [facility] [address] [id number] [place] 8[address] Mar, [facility] [address] [id number] [place] 5183947[address] Feb, [facility] [address] [id number] [place] [id number] Feb, [facility] [address] [id number] [place] 4894523[address] Jan, [facility] [address] [id number] [place] [id number] Jan, CAD (coronary artery disease) 414.00 ; H yperlipidemia associated with type 2 diabetes mellitus 250.80 and Diabetes type 2, controlled 250.00 [facility] [address] [id number] [place] [id number] Nov, CVA (cerebral infarction) 434.91 ; Expre ssive aphasia 784.3 ; Solitary nodule of right lobe of thyroid 241.0 ; CAD (coronary artery disease) 414.00 ; Diabetes type 2, controlled 250.00 and Hemorrhoids, external 455.3 [facility] [address] [id number] [place] [id number] October, Chest pain, atypical 786.59 ; Hemorrhoid s 455.6 ; Diabetes type 2, controlled 250.00 and Hyperlipidemia associated with type 2 diabetes mellitus 250.80 [facility] [address] [id number] [place] [id number] October, [facility] [address] [id number] [place] [id number] October, Chest pain 786.50 ; Abnormal EKG 794.31 and Diabetes type 2, controlled 250.[address] [facility] [address] [id number] [place] 059151838 October, Chest pain varies with breathing 786.50 [facility] [address] [id number] [address] [place] [address] Sep, [facility] [address] [id number] [address] [place] [address] Sep, [facility] [address] [id number] [address] [place] [address] Aug, [facility] [address] [id number] [address] [place] [address] Aug, [facility] [address] [id number] [address] [place] [address] Aug, [facility] [address] [id number] [address] [place] [address] Aug, [facility] [address] [id number] [address] [place] [address] Aug, [facility] [address] [id number] [address] [place] [address] Aug, [facility] [address] [id number] [address] [place] [address] Aug, [facility] [address] [id number] [address] [place] [address] Aug, [facility] [address] [id number] [address] [place] [address] Jul, [facility] [address] [id number] [address] [place] [address] Jul, [facility] [address] [id number] [address] [place] [address] Jun, [facility] [address] [id number] [address] [place] [address], [place] [address] Jun, [facility] [address] [id number] [address] [place] [address], [place] [address] Jun, [facility] [address] [id number] [address] [place] [address], [place] [address] Jun, [facility] [address] [id number] [address] [place] [address], [place] [address] Jun, [facility] [address] [id number] [address] [place] [address], [place] [address] Jun, [facility] [address] [id number] [address] [place] [address], [place] [address] Jun, [facility] [address] [id number] [address] [place] [address], [place] [address] Jun, [facility] [address] [id number] [address] [place] [address], [place] [address] Jun, [facility] [place] [address] [id number] [place] [id number] Jun, [facility] [address] [id number] [address] [place] [address], [place] [address] Jun, [facility] [address] [id number] [address] [place] [address], [place] [address] May, [facility] [address] [id number] [address] [place] [address], [place] [address] May, [facility] [address] [id number] [address] [place] [address], [place] [address] May, [facility] [address] [id number] [address] [place] [address], [place] [address] May, [facility] [address] [id number] [address] [place] [address], [place] [address] Apr, [facility] [address] [id number] [address] [place] [address], [place] [address] Apr, [facility] [address] [id number] [address] [place] [address], [place] [address] Mar, 2013 [facility] [address] [id number] [address] [place] [address], [place] [address] Mar, [facility] [address] [id number] [address] [place] [address], [place] [address] Mar, 2013 [facility] [address] [id number] [address] [place] [address], [place] [address] Mar, 2013 [facility] [address] [id number] [address] [place] [address], [place] [address] Mar, [facility] [address] [id number] [address] [place] [address], [place] [address] Mar, 2013 [facility] [address] [id number] [address] [place] [address], [place] [address] Mar, [facility] [address] [id number] [address] [place] [address], [place] [address] Mar, [facility] [address] [id number] [address] [place] [address], [place] [address] 30 Feb, 2013 [facility] [address] [id number] [address] [place] [address], [place] [address] 30 Sep, 2013 [facility] [address] [id number] [address] [place] [address] 19 Sep, 2013 [facility] [address] [id number] [address] [place] [address] 08 Sep, 2013 [facility] [address] [id number] [address] [place] [address], [place] [address] 08 Sep, 2013 [facility] [address] [id number] [address] [place] [address], [place] [address] 08 Sep, 2013 [facility] [address] [id number] [address] [place] [address] 08 Sep, 2013 [facility] [address] [id number] [address] [place] [address] Feb, [facility] [address] [id number] [address] [place] [address] Feb, [facility] [address] [id number] [address] [place] [address] Feb, [facility] [address] [id number] [address] [place] [address] Feb, [facility] [address] [id number] [address] [place] [address] Jan, [facility] [address] [id number] [address] [place] [address] Jan, [facility] [address] [id number] [address] [place] [address] October, [facility] [address] [facility] [id number] [address] [place] [address] October, IMMUNIZATIONS No Known Immunizations SOCIAL HISTORY Never Assessed REASON FOR VISIT [facility] [place] VITAL SIGNS MEDICATIONS Medication Instructions Dosage Frequency Start Date End Date Duration S tatus Colace 100 mg 1 capsule by Oral route 2 times per day constipation Aug, Active conjugated estrogens 0.625 mg/gram inser t 0.5 gram by vaginal route twice weekly Jun, Active Glimepiride 2 mg take 1 tablet by Oral route 1 time pe day with breakfast Aug, Active Levemir FlexTouch 100 unit/mL (3 mL) inj ect 30 Unit by Subcutaneous route as per insulin sliding scale protocol 1 time per day Aug, Active Aspirin 81 mg chew 1 tablet (81 mg) by oral route once daily Feb, Active Keflex 500 mg take 1 capsule by Oral route every 8 kellen rs for 10 days Jul, Active Lovastatin 20 mg take 1 tablet (20 mg ) by oral route once daily with the evening meal Aug, Active metformin 1,000 mg take 1 tablet by Ora l route with morning and evening meals 2 times per day with food Aug, Ac tive RESULTS No Results PROCEDURES No Known procedures [...] Hospitalization History chest pain-noncardiac 03/29/18 Hospitalization History [facility] ER Was given coug h medicine and was sent home. 09/24/2018
--- OUTSIDE RECORDS SUMMARY | 2019-06-21 12:22 | XMS REPORT ---
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 Name Role Phone CRISTINA Lambert Unavailable PROBLEMS Type Condition ICD9-CM Code MFV33-QN Code Onset Dates Condition S tatus SNOMED Code Problem Gallbladder polyp K82.4 Active 19 8073692 Problem Urge incontinence of urine N39.41 Act viji 09814057 Problem Mixed hyperlipidemia E78.2 Active 720903920 Problem Hypomagnesemia E83.42 Active 75917 5004 Problem Expressive aphasia R47.01 Active 2 66425479 Problem Type 2 diabetes mellitus without complications E11 .9 Active 57054324 Problem Encounter for Zostavax administration Z23 Active 609434768 Problem Anxiety F41.9 Active 29742330 Problem Seizure disorder G40.909 Active 128 572319 Problem Dental caries K02.9 Active 099787 01 Problem Cardiomyopathy I42.9 Active 47979 001 Problem Fatigue, unspecified type R53.83 Acti ve 72506783 Problem Thyroid mass E07.9 Active 6297700 03 Problem Acute bronchitis, unspecified organism J20.9 Active 91343527 Problem Encounter for gynecological examination without abnormal finding Z01.419 Active 850840033 Problem Other chronic pain G89.29 Active 8 5621146 Problem Cardiomegaly I51.7 Active 0209629 Problem Controlled type 2 diabetes m ellitus without complication, without long- term current use of insulin E11.9 Active 213690736 Problem Pain in left shoulder M25.512 Active 44465043 Problem Emotional lability R45.86 Active 1 9447786 Problem Dermatitis L30.9 Active 00211411 Problem Primary osteoarthritis of left shoulder M19.012 Active 90582746 Problem Gastric reflux K21.9 Active 38648 9233 Problem Visit for screening mammogram Z12.31 Active 661996757 Problem Age-related osteoporosis without current pathological fracture M81.0 Active 57761872 Problem Allergic rhinitis J30.9 Active 61 796556 Problem Early menopause E28.319 Active 6584 6009 Problem Colon cancer screening Z12.11 Active 243916698 Problem Breast cancer screening Z12.39 Active 941879997 Problem Hemorrhoids, external, thrombosed K64.5 Active 71598238 Problem Constipation K59.00 Active 5437656 8 Problem Type 2 diabetes mellitus wit h diabetic neuropathy, unspecified whether lobsterman insulin use E11.40 Active 528820 088058858 Problem Other hammer toe(s) (acquired), left foot M20.42 Active 72036240 Problem Other hammer toe(s) (acquired), right foot M20.41 Active 817687469 ALLERGIES No Information ENCOUNTERS Encounter Location Date Diagnosis [facility] [id number], [place] [id number] Nov, Controlled type 2 diabetes mellitus with out complication, without long-term current use of insulin E11.9 and Colon cancer screening Z12.[address] [facility] [address] [id number][place] [address] Nov, Type 2 diabetes mellitus without complic ations E11.9 and Gastric reflux K21.9 [facility] [address] [id number], [place] [id number] Nov, Dental caries K02.9 [facility] [address] [facility] [id number] [address] [place] [address] October, Other hammer toe(s) (acquire d), left foot M20.42 ; Other hammer toe(s) (acquired), right foot M20.41 and Type 2 diabetes mellitus with diabetic neuropathy, unspecified whether retirement insulin use E11.[address] [id number], [place] [address] Sep, Allergic rhinitis J30.[address] [facility] [address] [id number], [place] [id number] Sep, [facility] [address] [id number][place] [address] Sep, Allergic rhinitis, unspecified seasonali ty, unspecified trigger J30.9 and Viral upper respiratory tract infection J06.9 [facility] [address] [id number], [place] [id number] Aug, [facility] [address] [facility] [id number] [address] [place] [address] Jul, [facility] [address] [id number], [place] [id number] Jul, Type 2 diabetes mellitus without complic ations E11.9 and Left foot pain M79.672 [facility] [address] [id number], [place] [address] May, Gastric reflux K21.9 and Pruritic dermat itis L29.9 [facility] [address] [id number], [place] [id number] Apr, [facility] [address] [id number], [place] [address] Mar, Type 2 diabetes mellitus without complic ations E11.9 ; Bronchitis, acute J20.9 and Constipation K59.00 [facility] SM[facility]US [facility], [facility] [address] [id number], [place] [id number] Mar, [facility] SMY[facility]TER [facility], [facility] [address] [id number], [place] [id number] Mar, [facility] A[address] [id number], [place] [id number] Mar, [facility] SMYTHTER [facility] A[address] [id number], [place] [id number] Mar, [facility] [address] [id number], [place] [id number] Mar, [facility] [address] [id number], [place] [id number] Feb, Encounter for immunization Z23 [facility] [address] [id number], [place] [address] Feb, Gastric reflux K21.9 ; Visit for screeni ng mammogram Z12.31 and Age- related osteoporosis without current pathological fracture M81.0 [facility] [address] [id number] [place] [id number] Feb, [facility] [address] [id number] [place] [id number] Feb, [facility] [address] [id number], [place] [id number] Aug, [facility] [address] [id number] [place] [id number] Jul, Contact dermatitis, unspecified contact dermatitis type, unspecified trigger L25.9 [facility] [address] [id number], [place] [id number] Mar, Type 2 diabetes mellitus without complic ations E11.9 ; Mammogram declined Z53.20 ; Cardiomegaly I51.7 and Encounter for immunization Z23 [facility] [address] [id number], [place] [address] Mar, [facility] [address] [id number], [place] [address] Jan, High risk medication use Z79.899 and Anx iety F41.9 [facility] [address] [id number], [place] [address] Jan, [facility] [address] [id number], [place] [address]806[address] Jan, Dental caries K02.9 [facility] [address] [id number], [place] [id number] Jan, [facility] [address] [id number], [place] 85[address]487 Nov, Dental caries K02.[address] [facility] [address] [id number], [place] 17624[address] October, Dental caries K02.9 [facility] [address] [id number], [place] [id number] Sep, [facility] [address] [id number] [place] [id number] Sep, Type 2 diabetes mellitus without complic ations E11.9 and Dental caries K02.[address] [facility] [address] [id number] [place] [id number] Aug, [facility] [address] [id number] [place] [id number] Jul, [facility] [address] [id number] [place] [address] Jul, [facility] [address] [id number] [facility] [place] [id number] Jun, Dental examination Z01.[address] [facility] [address] [id number] [place] [id number] Jun, Emotional lability R45.[address] [facility] [address] [id number], [place] [address]7865[address] Jun, [facility] [address] [id number] [facility] [place] [id number] Jun, Controlled type 2 diabetes mellitus with out complication, without long-term current use of insulin E11.[address] [facility] [address] [id number] [place] [id number] May, [facility] [address] [id number] [place] [id number] May, Cardiomyopathy I42.9 ; Emotional labilit y R45.86 and Dental caries K02.[address] [facility] [address] [id number] [place] [id number] Apr, [facility] [address] [id number] [place] [address] Mar, [facility] [address] [id number] [place] [id number] Feb, Type 2 diabetes mellitus without complic ations E11.9 [facility] [place] [address] [id number] [place] [id number] Jan, [facility] [address] [id number] [place] [address] Dec, Gallbladder polyp K82.[address] [facility] [address] [id number], [place] [address]35985076 Nov, [facility] [address] [id number], [place] [address]85197265 Nov, Primary osteoarthritis of left shoulder M19.012 [facility] [place] [address] [id number] [place] [address] Nov, [facility] [address] [id number], [place] 378[address]184 Nov, Controlled type 2 diabetes mellitus with out complication, without long-term current use of insulin E11.9 and Pain in left shoulder M25.[address] [facility] [address] [id number], [place] 454677344 Nov, Gallbladder polyp K82.4 [facility] [address] [id number], [place] 839528644 October, Pain in left shoulder M25.512 and Other chronic pain G89.29 [facility] [address] [id number], [place] [id number] October, [facility] [address] [id number], [place] 677939944 October, [facility] [address] [id number], [place] [address]23977497 October, [facility] [address] [id number], [place] [id number] Sep, [facility] [address] [id number] [address] [place] [address] Sep, [facility] [address] [id number], [place] [id number] Sep, Encounter for gynecological examination without abnormal finding Z01.419 ; Breast cancer screening Z12.39 ; Hemorrhoids, external, thrombosed K64.5 and Early menopause E28.[id number] [place] [address] [id number] 06 Sep, 2015 Acute bronchitis, unspecified organism J 20.9 and Cardiomegaly I51.[address] [id number] [place] [address] [id number] 16 Aug, 2015 Thyroid mass E07.[address] [id number] [place] [address] [id number] 15 Aug, 2015 Type 2 diabetes mellitus without complic ations E11.9 ; Thyroid mass E07.9 and Encounter for Zostavax administration Z23 [id number] [place] [address] [id number] Aug, Seizure disorder G40.909 ; Hypomagnesemi a E83.42 and Expressive aphasia R47.01 [facility] [address] [facility] [id number] [address] [place] [address] 06 Jul, 2015 Urge incontinence of urine N 39.[address] [id number] [place] [address] [id number] 02 Jul, [address] [id number] [place] [address] [id number] Jul, Pharyngitis J02.9 ; Urge incontinence of urine N39.41 and Acute cystitis with hematuria N30.01 [facility] [address] [facility] [id number] [address] [place] [address] May, Mixed hyperlipidemia E78.[address] [id number] [place] [address] [id number] May, Seizure disorder G40.909 ; Mixed hyperli pidemia E78.2 and Gallbladder polyp K82.[address] [id number] [place] [id number] May, [address] [id number], [place] [id number] May, [facility] [address] [id number], [place] 850034962 May, Diabetes type 2, controlled E11.9 and Fa tigue, unspecified type R53.83 [facility] [address] [id number], [place] 772979228 Apr, Cardiomyopathy I42.9 ; Thyroid mass E07. 9 ; Seizure disorder G40.909 and Dermatitis L30.9 [facility] [employer] [address] [id number], [place] [id number] Mar, [facility] [address] [id number], [place] [id number] Feb, [facility] [address] [place] [address] AVE [id number], [place] [id number] Feb, [facility] [address] [place] [address] AVE [id number], [place] [id number] Jan, [facility] [place] [address] [place] [address] AVE [id number], [place] [id number] Jan, CAD (coronary artery disease) 414.00 ; H yperlipidemia associated with type 2 diabetes mellitus 250.80 and Diabetes type 2, controlled 250.00 [facility] [employer] [facility] [address] [id number], [place] [id number] Nov, CVA (cerebral infarction) 434.91 ; Expre ssive aphasia 784.3 ; Solitary nodule of right lobe of thyroid 241.0 ; CAD (coronary artery disease) 414.00 ; Diabetes type 2, controlled 250.00 and Hemorrhoids, external 455.3 [facility] [address] [employer] [address] [id number], [place] [id number] October, Chest pain, atypical 786.59 ; Hemorrhoid s 455.6 ; Diabetes type 2, controlled 250.00 and Hyperlipidemia associated with type 2 diabetes mellitus 250.80 [facility] [address] [employer] [address] [id number], [place] [id number] October, [facility] [address] [id number], [place] [id number] October, Chest pain 786.50 ; Abnormal EKG 794.31 and Diabetes type 2, controlled 250.[address] [facility] [address] [id number], [place] [id number] October, Chest pain varies with breathing 786.50 [facility] [address] [id number] [address] [place] [address] Sep, [facility] [address] [id number] [address] [place] [address] Sep, [facility] [address] [id number] [address] [place] [address] Aug, [facility] [address] [id number] [address] [place] [address] Aug, [facility] [address] [id number] [address] [place] [address] Aug, [facility] [address] [id number] [address] [place] [address] Aug, [facility] [address] [id number] [address] [place] [address] Aug, [facility] [address] [id number] [address] [place] [address] Aug, [facility] [address] [id number] [address] [place] [address] Aug, [facility] [address] [id number] [address] [place] [address] Aug, [facility] [address] [id number] [address] [place] [address] Jul, [facility] [address] [id number] [address] [place] [address] Jul, [facility] [address] [id number] [address] [place] [address], [place] [address] Jun, [facility] [address] [id number] [address] [place] [address], [place] [address] Jun, [facility] [address] [id number] [address] [place] [address], [place] [address] Jun, [facility] [address] [id number] [address] [place] [address], [place] [address] Jun, [facility] [address] [id number] [address] [place] [address], [place] [address] Jun, [facility] [address] [id number] [address] [place] [address], [place] [address] Jun, [facility] [address] [id number] [address] [place] [address], [place] [address] Jun, [facility] [address] [id number] [address] [place] [address], [place] [address] Jun, [facility] [address] [id number] [address] [place] [address], [place] [address] Jun, [facility] [place] [address] [id number] [place] [id number] Jun, [facility] [address] [id number] [address] [place] [address], [place] [address] Jun, [facility] [address] [id number] [address] [place] [address], [place] [address] May, [facility] [address] [id number] [address] [place] [address], [place] [address] May, [facility] [address] [id number] [address] [place] [address], [place] [address] May, [facility] [address] [id number] [address] [place] [address], [place] [address] May, [facility] [address] [id number] [address] [place] [address], [place] [address] Apr, [facility] [address] [id number] [address] [place] [address], [place] [address] Apr, [facility] [address] [id number] [address] [place] [address], [place] [address] Mar, 2013 [facility] [address] [id number] [address] [place] [address], [place] [address] Mar, 2013 [facility] [address] [id number] [address] [place] [address], [place] [address] Mar, 2013 [facility] [address] [id number] [address] [place] [address], [place] [address] Mar, 2013 [facility] [address] [id number] [address] [place] [address], [place] [address] Mar, 2013 [facility] [address] [id number] [address] [place] [address], [place] [address] Mar, 2013 [facility] [address] [id number] [address] [place] [address], [place] [address] Mar, 2013 [facility] [address] [id number] [address] [place] [address], [place] [address] Mar, [facility] [address] [id number] [address] [place] [address], [place] [address] 30 Feb, 2013 [facility] [address] [id number] [address] [place] [address], [place] [address] 30 Sep, 2013 [facility] [address] [id number] [address] [place] [address], [place] [address] 19 Sep, 2013 [facility] [address] [id number] [address] [place] [address], [place] [address] 08 Sep, 2013 [facility] [address] [id number] [address] [place] [address], [place] [address] 08 Sep, 2013 [facility] [address] [id number] [address] [place] [address], [place] [address] 08 Sep, 2013 [facility] [address] [id number] [address] [place] [address], [place] [address] Feb, [facility] [address] [id number] [address] [place] [address] Feb, [facility] [address] [id number] [address] [place] [address] Feb, [facility] [address] [id number] [address] [place] [address] Feb, [facility] [address] [id number] [address] [place] [address] Feb, [facility] [address] [id number] [address] [place] [address] Jan, [facility] [address] [id number] [address] [place] [address] Jan, [facility] [address] [id number] [address] [place] [address] October, [facility] [address] [id number] [address] [place] [address] October, IMMUNIZATIONS No Known Immunizations SOCIAL HISTORY Never Assessed REASON FOR VISIT PLAN OF CARE VITAL SIGNS MEDICATIONS No Known Medications RESULTS No Results PROCEDURES Procedure Date Ordered Result Body Site COMPUTER DX MAMMOGRAM ADD-ON September 05, 2014 INSTRUCTIONS MEDICATIONS ADMINISTERED No Known Medications [...] Hospitalization History chest pain-noncardiac 03/29/18 Hospitalization History [facility]. 09/24/2018
--- OUTSIDE RECORDS SUMMARY | 2019-06-21 12:22 | XMS REPORT ---
Author Author Cat CAVANAUGH Organization [facility] Address [address] [place] [address] Care Team Providers Care Piping Supervisor Name Role Phone INGE CAVANAUGH Unavailable PROBLEMS Type Condition ICD9-CM Code JLA84-SD Code Onset Dates Condition S tatus SNOMED Code Problem Gallbladder polyp K82.4 Active 19 0668908 Problem Urge incontinence of urine N39.41 Act viji 08228960 Problem Mixed hyperlipidemia E78.2 Active 747606477 Problem Hypomagnesemia E83.42 Active 89760 5004 Problem Expressive aphasia R47.01 Active 2 52615100 Problem Type 2 diabetes mellitus without complications E11 .9 Active 38150395 Problem Encounter for Zostavax administration Z23 Active 362298291 Problem Anxiety F41.9 Active 43016494 Problem Seizure disorder G40.909 Active 128 961052 Problem Dental caries K02.9 Active 817670 01 Problem Cardiomyopathy I42.9 Active 11414 001 Problem Fatigue, unspecified type R53.83 Acti ve 76314167 Problem Thyroid mass E07.9 Active 8735541 03 Problem Acute bronchitis, unspecified organism J20.9 Active 56368468 Problem Encounter for gynecological examination without abnormal finding Z01.419 Active 881275869 Problem Other chronic pain G89.29 Active 8 0786676 Problem Cardiomegaly I51.7 Active 0744622 Problem Controlled type 2 diabetes m ellitus without complication, without long- term current use of insulin E11.9 Active 368546444 Problem Pain in left shoulder M25.512 Active 96194585 Problem Emotional lability R45.86 Active 1 3671165 Problem Dermatitis L30.9 Active 18907602 Problem Primary osteoarthritis of left shoulder M19.012 Active 55629856 Problem Gastric reflux K21.9 Active 92710 7003 Problem Visit for screening mammogram Z12.31 Active 824977498 Problem Age-related osteoporosis without current pathological fracture M81.0 Active 50089429 Problem Allergic rhinitis J30.9 Active 61 201734 Problem Early menopause E28.319 Active 6584 6009 Problem Colon cancer screening Z12.11 Active 097742874 Problem Breast cancer screening Z12.39 Active 643437917 Problem Hemorrhoids, external, thrombosed K64.5 Active 24382955 Problem Constipation K59.00 Active 5840958 8 Problem Type 2 diabetes mellitus wit h diabetic neuropathy, unspecified whether prison insulin use E11.40 Active 697299 831995979 Problem Other hammer toe(s) (acquired), left foot M20.42 Active 96251465 Problem Other hammer toe(s) (acquired), right foot M20.41 Active 032583866 ALLERGIES No Information ENCOUNTERS Encounter Location Date Diagnosis [facility] [id number][place] [id number] Nov, Controlled type 2 diabetes mellitus with out complication, without long-term current use of insulin E11.9 and Colon cancer screening Z12.11 [facility] [address] [id number], [place] [id number] Nov, Type 2 diabetes mellitus without complic ations E11.9 and Gastric reflux K21.9 [facility] [address] [id number], [place] [address] Nov, Dental caries K02.9 [facility] [address] 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 termite inspector insulin use E11.[address] [facility] [id number], [place] [id number] Sep, Allergic rhinitis J30.9 [facility] [id number], [place] [id number] Sep, [facility] [id number], [place] [address]29439[address] Sep, Allergic rhinitis, unspecified seasonali ty, unspecified trigger J30.9 and Viral upper respiratory tract infection J06.9 [facility] [address] [id number], [place] [address] Aug, [facility] [address] [facility] [id number] 100[address] [place] [address] Jul, [facility] [address] [id number], [place] [address] Jul, Type 2 diabetes mellitus without complic ations E11.9 and Left foot pain M79.672 [facility] [address] [id number], [place] [address] May, Gastric reflux K21.9 and Pruritic dermat itis L29.9 [facility] [address] [id number], [place] [address] Apr, [facility] [address] [place] [address] AVE [id number][place] [address] Mar, Type 2 diabetes mellitus without complic ations E11.9 ; Bronchitis, acute J20.9 and Constipation K59.00 [facility] [address] [id number], [place] [id number] Mar, [facility] [address] [id number], [place] [id number] Mar, [facility] [address] [place] [address] AVE [id number], [place] [id number] Mar, [facility] A[address] [id number], [place] [id number] Mar, [facility] A[address] [id number], [place] [id number] Mar, [facility] A[address] [id number], [place] [id number] Feb, Encounter for immunization Z23 [facility] [address] [id number], [place] [id number] Feb, Gastric reflux K21.9 ; Visit for screeni ng mammogram Z12.31 and Age- related osteoporosis without current pathological fracture M81.0 [facility] [address] [id number] [place] [address] Feb, [facility] [address] [id number], [place] [id number] Feb, [facility] [address] [id number], [place] [address] Aug, [facility] [address] [id number], [place] [address]335 Jul, Contact dermatitis, unspecified contact dermatitis type, unspecified trigger L25.9 [facility] [address] [id number], [place] [address] Mar, Type 2 diabetes mellitus without complic ations E11.9 ; Mammogram declined Z53.20 ; Cardiomegaly I51.7 and Encounter for immunization Z23 [facility] [address] [id number], [place] [address] Mar, [facility] [address] [id number], [place] [address] Jan, High risk medication use Z79.899 and Anx iety F41.9 [facility] [address] [id number], [place] [address] Jan, [facility] [address] [id number], [place] [address] Jan, Dental caries K02.9 [facility] [address] [id number], [place] [address] Jan, [facility] [address] [id number], [place] [address]658[address] Nov, Dental caries K02.[address] [facility] [address] [id number], [place] [address]89[address] October, Dental caries K02.9 [facility] [address] [id number], [place] [address] Sep, [facility] [address] [id number] [place] [address] Sep, Type 2 diabetes mellitus without complic ations E11.9 and Dental caries K02.[address] [facility] [address] [id number] [place] [address] Aug, [facility] [address] [id number] [place] [id number] Jul, [facility] [address] [id number] [place] [id number] Jul, [facility] [address] [id number] [place] [address] Jun, Dental examination Z01.[address] [facility] [address] [id number], [place] [address]87211 Jun, Emotional lability R45.[address] [facility] [address] [id number], [place] [address] Jun, [facility] [address] [id number] [place] [address] Jun, Controlled type 2 diabetes mellitus with out complication, without long-term current use of insulin E11.[address] [facility] [address] [id number], [place] [address] May, [facility] [address] [id number] [place] [address] May, Cardiomyopathy I42.9 ; Emotional labilit y R45.86 and Dental caries K02.[address] [facility] [address] [id number] [place] [address] Apr, [facility] [address] [id number] [place] [id number] Mar, [facility] [address] [id number] [place] [address] Feb, Type 2 diabetes mellitus without complic ations E11.9 [facility] [place] [address] [id number] Rosi LOBO S [id number] Jan, [facility] [address] [id number], [place] [address] Dec, Gallbladder polyp K82.[address] [facility] [address] [id number], [place] 68657[address] Nov, [facility] [address] [id number], [place] [address] Nov, Primary osteoarthritis of left shoulder M19.012 [facility] [address] [id number] [place] [address] Nov, [facility] [address] [id number], [place] 0817[address]777 Nov, Controlled type 2 diabetes mellitus with out complication, without long-term current use of insulin E11.9 and Pain in left shoulder M25.[address] [facility] [address] [id number], [place] 167843871 Nov, Gallbladder polyp K82.4 [facility] [address] [id number], [place] 266369581 October, Pain in left shoulder M25.512 and Other chronic pain G89.[address] [facility] [address] [id number], [place] [address]6795514 October, [facility] [address] [id number], [place] 128230879 October, [facility] [address] [id number], [place] [address]55251646 October, [facility] [address] [id number], [place] 364422659 Sep, [facility] [address] [id number] 100[address] [place] [address] Sep, [facility] [address] [id number], [place] [id number] 19 Apr, 2016 Encounter for gynecological examination without abnormal finding Z01.419 ; Breast cancer screening Z12.39 ; Hemorrhoids, external, thrombosed K64.5 and Early menopause E28.[id number] [place] [address] [id number] 06 Sep, 2015 Acute bronchitis, unspecified organism J 20.9 and Cardiomegaly I51.[id number] [place] [address] [id number] 16 Aug, 2015 Thyroid mass E07.[address] [id number] [place] [address] [id number] 15 Aug, 2015 Type 2 diabetes mellitus without complic ations E11.9 ; Thyroid mass E07.9 and Encounter for Zostavax administration Z23 [address] [id number] [place] [address] [id number] Aug, Seizure disorder G40.909 ; Hypomagnesemi a E83.42 and Expressive aphasia R47.01 [facility] [address] [place] [address] Jul, Urge incontinence of urine N 39.[address] [id number] [place] [id number] Jul, [address] [id number] [place] [address] [id number] Jul, Pharyngitis J02.9 ; Urge incontinence of urine N39.41 and Acute cystitis with hematuria N30.01 [facility] [address] [facility] [id number] [address] [place] [address] May, Mixed hyperlipidemia E78.[address] [id number] [place] [address] [id number] May, Seizure disorder G40.909 ; Mixed hyperli pidemia E78.2 and Gallbladder polyp K82.[address] [id number] [place] [id number] May, [facility] [address] [id number], [place] 178705015 May, [facility] [address] [id number], [place] 712720123 May, Diabetes type 2, controlled E11.9 and Fa tigue, unspecified type R53.83 [facility] [address] [id number], [place] 568398355 Apr, Cardiomyopathy I42.9 ; Thyroid mass E07. 9 ; Seizure disorder G40.909 and Dermatitis L30.9 [facility] [address] [id number], [place] [address] Mar, [facility] [address] [id number], [place] [id number] Feb, [facility] [address] [place] [address] AVE [id number], [place] 187093177 Feb, [facility] [address] [place] [address] AVE [id number], [place] 314611077 Jan, [facility] [address] [place] [address] AVE [id number], [place] [id number] Jan, CAD (coronary artery disease) 414.00 ; H yperlipidemia associated with type 2 diabetes mellitus 250.80 and Diabetes type 2, controlled 250.00 [facility] [address] [facility] [address] [id number], [place] [address]67472567 Nov, CVA (cerebral infarction) 434.91 ; Expre ssive aphasia 784.3 ; Solitary nodule of right lobe of thyroid 241.0 ; CAD (coronary artery disease) 414.00 ; Diabetes type 2, controlled 250.00 and Hemorrhoids, external 455.3 [facility] [address] [id number], [place] 568487862 October, Chest pain, atypical 786.59 ; Hemorrhoid s 455.6 ; Diabetes type 2, controlled 250.00 and Hyperlipidemia associated with type 2 diabetes mellitus 250.80 [facility] [address] [id number], [place] 023564713 October, [facility] [address] [id number], [place] 360823548 October, Chest pain 786.50 ; Abnormal EKG 794.31 and Diabetes type 2, controlled 250.[address] [facility] [address] [id number], [place] [id number] October, Chest pain varies with breathing 786.50 [facility] [address] [id number] [address] [place] [address] Sep, [facility] [address] [id number] [address] [place] [address] Sep, [facility] [address] [id number] [address] [place] [address] Aug, [facility] [address] [id number] [address] [place] [address] Aug, [facility] [address] [id number] [address] [place] [address] Aug, [facility] [address] [id number] [address] [place] [phone] Aug, [facility] [address] [id number] [address] [place] [address] Aug, [facility] [address] [id number] [address] [place] [id number] Aug, [facility] [address] [id number] [address] [place] [address] Aug, [facility] [address] [id number] [address] [place] [phone] Aug, [facility] [address] [id number] [address] [place] [phone] Jul, [facility] [address] [id number] [address] [place] [phone] Jul, [facility] [address] [id number] [address] [place] [address] Jun, [facility] [address] [id number] [address] [place] [address], [place] [address] Jun, [facility] [address] [id number] [address] [place] [address], [place] [address] Jun, [facility] [address] [id number] [address] [place] [address], [place] [address] Jun, [facility] [address] [id number] [address] [place] [address], [place] [address] Jun, [facility] [address] [id number] [address] [place] [address], [place] [address] Jun, [facility] [address] [id number] [address] [place] [address], [place] [address] Jun, [facility] [address] [id number] [address] [place] [address], [place] [address] Jun, [facility] [address] [id number] [address] [place] [address], [place] [address] Jun, [facility] [place] [address] [id number] [place] [id number] Jun, [facility] [address] [id number] [address] [place] [address], [place] [address] Jun, [facility] [address] [id number] [address] [place] [address], [place] [address] May, [facility] [address] [id number] [address] [place] [address], [place] [address] May, [facility] [address] [id number] [address] [place] [address], [place] [address] May, [facility] [address] [id number] [address] [place] [address], [place] [address] May, [facility] [address] [id number] [address] [place] [address], [place] [address] Apr, [facility] [address] [id number] [address] [place] [address], [place] [address] Apr, 2013 [facility] [address] [id number] [address] [place] [address], [place] [address] Mar, 2013 [facility] [address] [id number] [address] [place] [address], [place] [address] Mar, 2013 [facility] [address] [id number] [address] [place] [address], [place] [address] Mar, 2013 [facility] [address] [id number] [address] [place] [address], [place] [address] Mar, 2013 [facility] [address] [id number] [address] [place] [address], [place] [address] Mar, 2013 [facility] [address] [id number] [address] [place] [address], [place] [address] Mar, 2013 [facility] [address] [id number] [address] [place] [address], [place] [address] Mar, 2013 [facility] [address] [id number] [address] [place] [address], [place] [address] Mar, [facility] [address] [id number] [address] [place] [address], [place] [address] 30 Feb, 2013 [facility] [address] [id number] [address] [place] [address], [place] [address] 30 Sep, 2013 [facility] [address] [id number] [address] [place] [address], [place] [address] 19 Sep, 2013 [facility] [address] [id number] [address] [place] [address], [place] [address] 08 Sep, 2013 [facility] [address] [id number] [address] [place] [address], [place] [address] 08 Sep, 2013 [facility] [address] [id number] [address] [place] [address], [place] [address] 08 Sep, 2013 [facility] [address] [id number] [address] [place] [address], [place] [address] Feb, [facility] [address] [id number] [address] [place] [phone] Feb, [facility] [address] [id number] [address] [place] [address] Feb, [facility] [address] [id number] [address] [place] [address] Feb, [facility] [address] [id number] [address] [place] [address] Feb, [facility] [address] [id number] [address] [place] [address] Jan, [facility] [address] [id number] [address] [place] [address] Jan, [facility] [address] [facility] [id number] [address] [place] [phone] October, [facility] [address] [id number] [address] [place] [address] October, IMMUNIZATIONS No Known Immunizations SOCIAL HISTORY [...] Hospitalization History chest pain-noncardiac 03/29/18 Hospitalization History [facility] Was given [facility] medicine and was sent home. 09/24/2018
--- OUTSIDE RECORDS SUMMARY | 2019-06-21 12:22 | XMS REPORT ---
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 Role Phone Migration, Doctor Unavailable Unavailable PROBLEMS Type Condition ICD9-CM Code [id number] Code Onset Dates Condition S tatus SNOMED Code Problem Dermatitis L30.9 Active 26844150 Problem Seizure disorder G40.909 Active 128 079186 Problem Cardiomyopathy I42.9 Active 05487 001 Problem Gallbladder polyp K82.4 Active 19 4230671 Problem Fatigue, unspecified type R53.83 Acti ve 20503466 Problem Urge incontinence of urine N39.41 Act viji 71850841 Problem Mixed hyperlipidemia E78.2 Active 666955407 Problem Controlled type 2 diabetes m ellitus without complication, without long- term current use of insulin E11.9 Active 745486984 Problem Pain in left shoulder M25.512 Active 45620478 Problem Thyroid mass E07.9 Active 8611224 03 Problem Breast cancer screening Z12.39 Active 934424193 Problem Encounter for Zostavax administration Z23 Active 292178438 Problem Hemorrhoids, external, thrombosed K64.5 Active 18487408 Problem Early menopause E28.319 Active 6584 6009 Problem Acute bronchitis, unspecified organism J20.9 Active 52182706 Problem Encounter for gynecological examination without abnormal finding Z01.419 Active 776265093 Problem Other chronic pain G89.29 Active 8 5019373 Problem Cardiomegaly I51.7 Active 8443945 Problem Primary osteoarthritis of left shoulder M19.012 Active 66315669 Problem Emotional lability R45.86 Active 1 1848018 Problem Dental caries K02.9 Active 385735 01 Problem Constipation K59.00 Active 2514740 8 Problem Hypomagnesemia E83.42 Active 88063 5004 Problem Allergic rhinitis, unspecified seasonality, unspecifie d trigger J30.9 Active 23613084 Problem Expressive aphasia R47.01 Active 2 63255951 Problem Type 2 diabetes mellitus without complications E11 .9 Active 99594550 Problem Anxiety F41.9 Active 59414331 Problem Gastric reflux K21.9 Active 61241 7003 Problem Visit for screening mammogram Z12.31 Active 722761600 Problem Age-related osteoporosis without current pathological fracture M81.0 Active 15186240 ALLERGIES No Information ENCOUNTERS Encounter Location Date Diagnosis [facility] [address] [facility] [id number] [address] [place] [address] October, [facility] [address] [id number][place] [id number] Sep, [facility] [address] [id number], [place] [id number] Sep, [facility] [address] [address] [id number], [place] [id number] Sep, Allergic rhinitis, unspecified seasonali ty, unspecified trigger J30.9 and Viral upper respiratory tract infection J06.9 [facility] [address] [id number][place] [id number] Aug, [facility] [address] [facility] [id number] [address] [place] [address] Jul, [facility] [address] [id number], [place] [id number] Jul, Type 2 diabetes mellitus without complic ations E11.9 and Left foot pain M79.672 [facility] [address] [address] [id number], [place] [id number] May, Gastric reflux K21.9 and Pruritic dermat itis L29.9 [facility] [address] [id number], [place] [id number] Apr, [facility] [address] [id number], [place] [id number] Mar, Type 2 diabetes mellitus without complic ations E11.9 ; Bronchitis, acute J20.9 and Constipation K59.00 [facility] [address] [id number], [place] [id number] Mar, [facility] [address] [id number], [place] [id number] Mar, [facility] [address] [id number], [place] [id number] Mar, [facility] [address] [id number], [place] [id number] Mar, [facility] [address] [id number], [place] [id number] Mar, [facility] [address] [id number], [place] [id number] Feb, Encounter for immunization Z23 [facility] [address] [id number], [place] [id number] Feb, Gastric reflux K21.9 ; Visit for screeni ng mammogram Z12.31 and Age- related osteoporosis without current pathological fracture M81.0 [facility] [address] [facility] [address] [id number], [place] [id number] Feb, [facility] [address] [id number], [place] [id number] Feb, [facility] [address] [id number], [place] [id number] Aug, [facility] [address] [facility] [address] [id number], [place] 355486874 Jul, Contact dermatitis, unspecified contact dermatitis type, unspecified trigger L25.9 [facility] [address] [id number], [place] [id number] Mar, Type 2 diabetes mellitus without complic ations E11.9 ; Mammogram declined Z53.20 ; Cardiomegaly I51.7 and Encounter for immunization Z23 [facility] [address] [id number], [place] [id number] Mar, [facility] [address] [id number], [place] 707886240 Jan, High risk medication use Z79.899 and Anx iety F41.[address] [facility] [address] [id number] [place] [id number] Jan, [facility] [address] [id number] [place] [id number] Jan, Dental caries K02.[address] [facility] [address] [id number] [place] [address] Jan, [facility] [address] [id number] [place] [address] Nov, Dental caries K02.[address] [facility] [address] [id number] [place] [id number] October, Dental caries K02.[address] [facility] [address] [id number] [place] [address]56[address]3841 Sep, [facility] [address] [id number] [address] Sep, Type 2 diabetes mellitus without complic ations E11.9 and Dental caries K02.[address] [facility] [address] [id number], [place] 366382953 Aug, [facility] [address] [id number], [place] 907567221 Jul, [facility] [address] [id number], [place] 399160184 Jul, [facility] [address] [id number], [place] 193078717 Jun, Dental examination Z01.[address] [facility] [address] [id number], [place] 734836329 Jun, Emotional lability R45.[address] [facility] [address] [id number], [place] [address]18039125 Jun, [facility] [address] [id number], [place] 679132513 Jun, Controlled type 2 diabetes mellitus with out complication, without long-term current use of insulin E11.[address] [facility] [address] [id number] [place] [address] May, [facility] [address] [id number], [place] 426993093 May, Cardiomyopathy I42.9 ; Emotional labilit y R45.86 and Dental caries K02.[address] [facility] [address] [id number], [place] [id number] Apr, [facility] [address] [id number], [place] [id number] Mar, [facility] [address] [id number], [place] [id number] Feb, Type 2 diabetes mellitus without complic ations E11.9 [facility] [place] [address] [id number] [place] [id number] Jan, [facility] [address] [id number], [place] [id number] Dec, Gallbladder polyp K82.4 [facility] [address] [id number], [place] [id number] Nov, [facility] [address] [id number], [place] 878394834 Nov, Primary osteoarthritis of left shoulder M19.012 [facility] [address] [id number] [place] [address] Nov, [facility] [address] [id number], [place] 483707161 Nov, Controlled type 2 diabetes mellitus with out complication, without long-term current use of insulin E11.9 and Pain in left shoulder M25.512 [facility] [address] [id number], [place] 504642332 Nov, Gallbladder polyp K82.[address] [facility] [address] [id number], [place] 257916255 October, Pain in left shoulder M25.512 and Other chronic pain G89.[address] [facility] [address] [id number], [place] [id number] October, [facility] [address] [id number], [place] 711892572 October, [facility] [address] [id number], [place] [id number] October, [facility] [address] [id number], [place] 159515892 Sep, [facility] [address] [facility] [id number] [address] [place] [address] Sep, [facility] [address] [id number], [place] [id number] Sep, Encounter for gynecological examination without abnormal finding Z01.419 ; Breast cancer screening Z12.39 ; Hemorrhoids, external, thrombosed K64.5 and Early menopause E28.319 [facility] [address] [id number], [place] 591857291 Sep, Acute bronchitis, unspecified organism J 20.9 and Cardiomegaly I51.7 [facility] [address] [id number], [place] [id number] Aug, Thyroid mass E07.9 [facility] [address] [id number], [place] [id number] Aug, Type 2 diabetes mellitus without complic ations E11.9 ; Thyroid mass E07.9 and Encounter for Zostavax administration Z23 [facility] [address] [id number], [place] [id number] Aug, Seizure disorder G40.909 ; Hypomagnesemi a E83.42 and Expressive aphasia R47.01 [facility] [address] [facility] [id number] [address] [place] [address] Jul, Urge incontinence of urine N 39.41 [facility] [id number] [place] [id number] Jul, [facility] [address] [id number], [place] 311704555 Jul, Pharyngitis J02.9 ; Urge incontinence of urine N39.41 and Acute cystitis with hematuria N30.01 [facility] [address] [facility] [id number] [place] [address] May, Mixed hyperlipidemia E78.2 [facility] [address] [id number], [place] [id number] May, Seizure disorder G40.909 ; Mixed hyperli pidemia E78.2 and Gallbladder polyp K82.[address] [id number], [place] [id number] May, [facility] [address] [id number], [place] [id number] May, [facility] [address] [id number], [place] 687982294 May, Diabetes type 2, controlled E11.9 and Fa tigue, unspecified type R53.83 [facility] [address] [id number], [place] 021007570 Apr, Cardiomyopathy I42.9 ; Thyroid mass E07. 9 ; Seizure disorder G40.909 and Dermatitis L30.[address] [id number], [place] [id number] Mar, [facility] [address] [id number], [place] [id number] Feb, [facility] [address] [id number], [place] [id number] Feb, [facility] [address] [id number], [place] [id number] Jan, [facility] [address] [id number], [place] [id number] Jan, CAD (coronary artery disease) 414.00 ; H yperlipidemia associated with type 2 diabetes mellitus 250.80 and Diabetes type 2, controlled 250.00 [facility] [address] [id number], [place] [id number] Nov, CVA (cerebral infarction) 434.91 ; Expre ssive aphasia 784.3 ; Solitary nodule of right lobe of thyroid 241.0 ; CAD (coronary artery disease) 414.00 ; Diabetes type 2, controlled 250.00 and Hemorrhoids, external 455.3 [facility] [address] [id number], [place] [id number] October, Chest pain, atypical 786.59 ; Hemorrhoid s 455.6 ; Diabetes type 2, controlled 250.00 and Hyperlipidemia associated with type 2 diabetes mellitus 250.80 [facility] [address] [facility] [address] [id number] [place] [address] [id number] October, [facility] [address] [id number] [place] [address] [id number] October, Chest pain 786.50 ; Abnormal EKG 794.31 and Diabetes type 2, controlled 250.00 [facility] US [address] [place] [address] AVE [id number], [place] [id number] October, Chest pain varies with breathing 786.50 [facility] [address] [id number] [address] [place] [address] Sep, [facility] [address] [id number] [address] [place] [address] Sep, [facility] [address] [place] [id number] [address] [place] [address] Aug, [facility] [address] [id number] [address] [place] [address] Aug, [facility] [address] [id number] [address] [place] [address] Aug, [facility] [address] [place] [id number] [address] [place] [address] Aug, [facility] [address] [place] [id number] [address] [place] [address] Aug, [facility] [address] [id number] [address] [place] [address], [place] [address] Aug, [facility] [address] [id number] [address] [place] [address], [place] [address] Aug, [facility] [address] [id number] [address] [place] [address], [place] [address] Aug, [facility] [address] [id number] [address] [place] [address], [place] [address] Jul, [facility] [address] [id number] [address] [place] [address], [place] [address] Jul, [facility] [address] [id number] [address] [place] [address], [place] [address] Jun, [facility] [address] [id number] [address] [place] [address], [place] [address] Jun, [facility] [address] [id number] [address] [place] [address], [place] [address] Jun, [facility] [address] [id number] [address] [place] [address], [place] [address] Jun, [facility] [address] [id number] [address] [place] [address], [place] [address] Jun, [facility] [address] [id number] [address] [place] [address] Jun, [facility] [address] [id number] [address] [place] [address] Jun, [facility] [address] [id number] [address] [place] [address], [place] [address] Jun, [facility] [address] [id number] [address] [place] [address] Jun, [facility] [place] [address] [id number] [place] [id number] Jun, [facility] [address] [id number] [address] [place] [address], [place] [address] Jun, [facility] [address] [id number] [address] [place] [address], [place] [address] May, [facility] [address] [id number] [address] [place] [address], [place] [address] May, [facility] [address] [id number] [address] [place] [address], [place] [address] May, [facility] [address] [id number] [address] [place] [address], [place] [address] May, [facility] [address] [id number] [address] [place] [address], [place] [address] Apr, [facility] [address] [id number] [address] [place] [address], [place] [address] Apr, [facility] [address] [id number] [address] [place] [address], [place] [address] Mar, [facility] [address] [id number] [address] [place] [address], [place] [address] Mar, [facility] [address] [id number] [address] [place] [address], [place] [address] Mar, [facility] [address] [id number] [address] [place] [address], [place] [address] Mar, [facility] [address] [id number] [address] [place] [address], [place] [address] Mar, [facility] [address] [id number] [address] [place] [address], [place] [address] Mar, [facility] [address] [id number] [address] [place] [address], [place] [address] Mar, [facility] [address] [id number] [address] [place] [address], [place] [address] Mar, [facility] [address] [id number] [address] [place] [address], [place] [address] Feb, [facility] [address] [id number] [address] [place] [address] Feb, [facility] [address] [id number] [address] [place] [address] Feb, [facility] [address] [id number] [address] [place] [address] Feb, [facility] [address] [id number] [address] [place] [address] Feb, [facility] [address] [id number] [address] [place] [address] Feb, [facility] [address] [id number] [address] [place] [address] Feb, [facility] [address] [id number] [address] [place] [address] Feb, [facility] [address] [id number] [address] [place] [address] Feb, [facility] [address] [id number] [address] [place] [address] Feb, [facility] [address] [id number] [address] [place] [address] Feb, [facility] [address] [id number] [address] [place] [address] Jan, [facility] [address] [id number] [address] [place] [address] Jan, [facility] [address] [id number] [address] [place] [address] October, [facility] [address] [id number] [address] [place] [address] October, IMMUNIZATIONS No Known Immunizations SOCIAL HISTORY Never Assessed REASON FOR VISIT EMR-[facility] [place] PLAN OF CARE VITAL SIGNS MEDICATIONS Unknown [...]
--- OUTSIDE RECORDS SUMMARY | 2019-06-21 12:23 | XMS REPORT ---
Author Author Cat CAVANAUGH [facility] Address [address] [place] [address] Care Team Providers Care Desk Editor Name Role Phone INGE CAVANAUGH Unavailable PROBLEMS Type Condition ICD9-CM Code [id number] Code Onset Dates Condition S tatus SNOMED Code Problem Thyroid mass E07.9 Active 1556669 03 Problem Dermatitis L30.9 Active 86596240 Problem Cardiomyopathy I42.9 Active 64888 001 Problem Seizure disorder G40.909 Active 128 045782 Problem Cardiomegaly I51.7 Active 9813944 Problem Fatigue, unspecified type R53.83 Acti ve 59658315 Problem Other chronic pain G89.29 Active 8 6120174 Problem Gallbladder polyp K82.4 Active 19 7483284 Problem Pain in left shoulder M25.512 Active 68716987 Problem Primary osteoarthritis of left shoulder M19.012 Active 06709053 Problem Controlled type 2 diabetes m ellitus without complication, without long- term current use of insulin E11.9 Active 656388224 Problem Age-related osteoporosis without current pathological fracture M81.0 Active 48332474 Problem Gastric reflux K21.9 Active 79149 7003 Problem Expressive aphasia R47.01 Active 2 45651518 Problem Urge incontinence of urine N39.41 Act viji 22872626 Problem Mixed hyperlipidemia E78.2 Active 038127271 Problem Dental caries K02.9 Active 413591 01 Problem Emotional lability R45.86 Active 1 3814220 Problem Visit for screening mammogram Z12.31 Active 229852296 Problem Anxiety F41.9 Active 25846322 Problem Encounter for Zostavax administration Z23 Active 613587631 Problem Hemorrhoids, external, thrombosed K64.5 Active 69363513 Problem Hypomagnesemia E83.42 Active 28069 5004 Problem Type 2 diabetes mellitus without complications E11 .9 Active 73685082 Problem Encounter for gynecological examination without abnormal finding Z01.419 Active 735896641 Problem Acute bronchitis, unspecified organism J20.9 Active 90807065 Problem Early menopause E28.319 Active 6584 6009 Problem Breast cancer screening Z12.39 Active 109457327 ALLERGIES No Information ENCOUNTERS Encounter Location Date Diagnosis [facility] [address] [id number][place] [id number] Mar, [facility] [address] [id number], [place] [address] Feb, Gastric reflux K21.9 ; Visit for screeni ng mammogram Z12.31 and Age- related osteoporosis without current pathological fracture M81.0 [facility] [address] [id number][place] [id number] Feb, Encounter for immunization Z23 [facility] [address] [id number], [place] [id number] Feb, [facility] [address] [id number][place] [id number] Feb, [facility] [address] [id number], [place] [id number] Aug, [facility] [address] [id number], [place] [id number] Jul, Contact dermatitis, unspecified contact dermatitis type, unspecified trigger L25.9 [facility] [address] [id number][place] [id number] Mar, Type 2 diabetes mellitus without complic ations E11.9 ; Mammogram declined Z53.20 ; Cardiomegaly I51.7 and Encounter for immunization Z23 [facility] [address] [id number][place] [id number] Mar, [facility] [address] [id number], [place] [id number] Jan, High risk medication use Z79.899 and Anx iety F41.9 [facility] [address] [id number], [place] [id number] Jan, [facility] [address] [id number] [place] [address] Jan, Dental caries K02.[address] [facility] [address] [id number] [place] [id number] Jan, [facility] [address] [id number] [place] [address] Nov, Dental caries K02.[address] [facility] [address] [id number] [place] [id number] October, Dental caries K02.[address] [facility] [address] [id number] [place] [id number] Sep, [facility] [address] [id number], [place] [id number] Sep, Type 2 diabetes mellitus without complic ations E11.9 and Dental caries K02.[address] [facility] [address] [id number], [place] [id number] Aug, [facility] [address] [id number], [place] [id number] Jul, [facility] [address] [id number], [place] [address] Jul, [facility] [address] [id number], [place] [address] Jun, Dental examination Z01.[address] [facility] [address] [id number], [place] [address] Jun, Emotional lability R45.[address] [facility] [address] [id number], [place] [address] Jun, [facility] [address] [id number], [place] [address] Jun, Controlled type 2 diabetes mellitus with out complication, without long-term current use of insulin E11.[address] [facility] [address] [id number], [place] [id number] May, [facility] [address] [id number], [place] [id number] May, Cardiomyopathy I42.9 ; Emotional labilit y R45.86 and Dental caries K02.[address] [facility] [address] [id number] [place] [id number] Apr, [facility] [address] [id number], [place] [id number] Mar, [facility] [address] [id number], [place] [id number] Feb, Type 2 diabetes mellitus without complic ations E11.9 [facility] [address] [id number] [place] [id number] Jan, [facility] [address] [id number], [place] [address] Dec, Gallbladder polyp K82.4 [facility] [address] [id number], [place] [address] Nov, [facility] [address] [id number], [place] [id number] Nov, Primary osteoarthritis of left shoulder M19.012 [facility] [id number] [place] [address] Nov, [facility] [address] [id number], [place] [id number] Nov, Controlled type 2 diabetes mellitus with out complication, without long-term current use of insulin E11.9 and Pain in left shoulder M25.[address] [facility] [address] [id number], [place] [address] Nov, Gallbladder polyp K82.[address] [facility] [address] [id number], [place] [address] October, Pain in left shoulder M25.512 and Other chronic pain G89.[address] [facility] [address] [id number], [place] [id number] October, [facility] [address] [id number], [place] [address] October, [facility] [address] [id number], [place] [address] October, [facility] [address] [place] [address] AVE [id number], [place] [address] Sep, [facility] [place] [address] [id number] [address] [place] [address] Sep, [facility] [address] [place] [address] AVE [id number], [place] [address] Sep, Encounter for gynecological examination without abnormal finding Z01.419 ; Breast cancer screening Z12.39 ; Hemorrhoids, external, thrombosed K64.5 and Early menopause E28.319 [facility] [address] [id number], [place] [address] Sep, Acute bronchitis, unspecified organism J 20.9 and Cardiomegaly I51.7 [facility] [address] [id number], [place] [address] Aug, Thyroid mass E07.9 [facility] [id number], [place] [address] Aug, Type 2 diabetes mellitus without complic ations E11.9 ; Thyroid mass E07.9 and Encounter for Zostavax administration Z23 [facility] [address] [id number], [place] [address] Aug, Seizure disorder G40.909 ; Hypomagnesemi a E83.42 and Expressive aphasia R47.01 [facility] [place] [address] [facility]NOTE [facility] [id number] [address] [place] [address] Jul, Urge incontinence of urine N 39.41 [facility] [address] [id number], [place] [id number] Jul, [facility] [address] [id number], [place] [address] Jul, Pharyngitis J02.9 ; Urge incontinence of urine N39.41 and Acute cystitis with hematuria N30.01 [facility] [place] [address] [facility]NOTE 3] [id number] [place], [place] [address] May, Mixed hyperlipidemia E78.2 [facility] [address] [id number], [place] [address] May, Seizure disorder G40.909 ; Mixed hyperli pidemia E78.2 and Gallbladder polyp K82.4 [facility] [address] [id number], [place] [address] May, [facility] [address] [id number], [place] [address] May, [facility] [address] [id number], [place] [address] May, Diabetes type 2, controlled E11.9 and Fa tigue, unspecified type R53.83 [facility] [address] [id number], [place] [address] Apr, Cardiomyopathy I42.9 ; Thyroid mass E07. 9 ; Seizure disorder G40.909 and Dermatitis L30.9 [facility] [address] [id number], [place] [id number] Mar, [facility] [address] [id number], [place] [id number] Feb, [facility] [address] [id number], [place] [id number] Feb, [facility] [address] [id number], [place] [id number] Jan, [facility] [id number] [place] [id number] Jan, CAD (coronary artery disease) 414.00 ; H yperlipidemia associated with type 2 diabetes mellitus 250.80 and Diabetes type 2, controlled 250.00 [facility] [id number] [place] [id number] Nov, CVA (cerebral infarction) 434.91 ; Expre ssive aphasia 784.3 ; Solitary nodule of right lobe of thyroid 241.0 ; CAD (coronary artery disease) 414.00 ; Diabetes type 2, controlled 250.00 and Hemorrhoids, external 455.3 [facility] [address] [id number], [place] [id number] October, Chest pain, atypical 786.59 ; Hemorrhoid s 455.6 ; Diabetes type 2, controlled 250.00 and Hyperlipidemia associated with type 2 diabetes mellitus [address] [id number], [place] [id number] October, [facility] [address] [id number], [place] [address] October, Chest pain 786.50 ; Abnormal EKG 794.31 and Diabetes type 2, controlled 250.00 [facility] [address] [id number], [place] [id number] October, Chest pain varies with breathing 786.50 [facility] [place] [address] [id number] [address] [place] [address] Sep, [facility] [place] [address] [facility]NOTE 3[facility] [id number] [address] [place] [address] Sep, [facility] [place] [address] [id number] [address] [place] [address] Aug, [facility] [place] [address] [facility]NOTE 3] [id number] [address] [place] [address] Aug, [facility] [place] [address] [facility]NOTE 3] [id number] [address] [place] [phone] Aug, [facility] [place] [address] [facility]NOTE 3] [id number] [address] [place] [address] Aug, [facility] [place] [address] [facility] 3] [id number] [address] [place] [phone] Aug, [facility] [place] [address] [id number] [address] [place] [phone] Aug, [facility] [address] [id number] [address] [place] [address], [place] [address] Aug, [facility] [address] [id number] [address] [place] [address], [place] [address] Aug, [facility] [address] [id number] [address] [place] [address], [place] [address] Jul, [facility] [address] [id number] [address] [place] [address], [place] [address] Jul, [facility] [address] [id number] [address] [place] [address], [place] [address] Jun, [facility] [address] [id number] [address] [place] [address], [place] [address] Jun, [facility] [address] [id number] [address] [place] [address], [place] [address] Jun, [facility] [address] [id number] [address] [place] [address], [place] [address] Jun, [facility] [address] [id number] [address] [place] [address], [place] [address] Jun, [facility] [address] [id number] [address] [place] [address], [place] [address] Jun, [facility] [address] [id number] [address] [place] [phone] Jun, [facility] [address] [id number] [address] [place] [phone] Jun, [facility] [address] [id number] [address] [place] [phone] Jun, [facility] [place] [address] [id number] [place] [id number] Jun, [facility] [address] [id number] [address] [place] [address], [place] [address] Jun, [facility] [address] [id number] [address] [place] [address], [place] [address] May, [facility] [address] [id number] [address] [place] [address], [place] [address] May, [facility] [address] [id number] [address] [place] [address], [place] [address] May, [facility] [address] [id number] [address] [place] [address], [place] [address] May, [facility] [address] [id number] [address] [place] [address], [place] [address] Apr, [facility] [address] [id number] [address] [place] [address], [place] [address] Apr, [facility] [address] [id number] [address] [place] [address], [place] [address] Mar, [facility] [address] [id number] [address] [place] [address], [place] [address] Mar, [facility] [address] [id number] [address] [place] [address], [place] [address] Mar, [facility] [address] [id number] [address] [place] [address], [place] [address] Mar, [facility] [address] [id number] [address] [place] [address], [place] [address] Mar, [facility] [address] [id number] [address] [place] [address], [place] [address] Mar, [facility] [address] [id number] [address] [place] [address], [place] [address] Mar, [facility] [address] [id number] [address] [place] [address], [place] [address] Mar, [facility] [address] [id number] [address] [place] [address], [place] [address] Feb, [facility] [address] [id number] [address] [place] [address], [place] [address] Feb, [facility] [place] [address] [id number] [address] [place] [phone] Feb, 2013 [facility] [place] [address] [id number] [address] [place] [address] Feb, [facility] [place] [address] [id number] [address] [place] [address] Feb, 2013 [facility] [place] [address] [id number] [address] [place] [address] Feb, 2013 [facility] [place] [address] [id number] [address] [place] [phone] Feb, 2013 [facility] [place] [address] [id number] [address] [place] [address] Feb, 2013 [facility] [place] [address] [id number] [address] [place] [phone] Feb, 2013 [facility] [place] [address] [id number] [address] [place] [address] Feb, 2013 [facility] [place] [address] [id number] [address] [place] [address] Feb, [facility] [place] [address] [id number] [address] [place] [address] Jan, [facility] [place] [address] [id number] [address] [place] [address] Jan, [facility] [place] [address] [id number] [address] [place] [address] October, [facility] [place] [address] [id number] [address] [place] [address] October, IMMUNIZATIONS Vaccine Route Administration Date Status FLULAVAL QUAD 0.5ML (6 MO & UP) 2018 IM Intramuscular Mar 19, 018 Administered SOCIAL HISTORY Never Assessed REASON FOR VISIT Flu shot. christine De Jesus PLAN OF CARE VITAL SIGNS MEDICATIONS Unknown Medications RESULTS No Results PROCEDURES Procedure Date Ordered Result Body Site FLULAVAL QUAD 0.5ML (6 MO AND UP) 2018 Mar 19, 2018 SINGLE IMMUNIZATION ADMIN Mar 19, 2018 INSTRUCTIONS MEDICATIONS ADMINISTERED No Known Medications MEDICAL [...]
--- OUTSIDE RECORDS SUMMARY | 2019-06-21 12:23 | XMS REPORT ---
Author Author Cat CAVANAUGH Organization [facility] [place] Address [address] [place] [address] Care Team Providers Care Violin Tutor Name Role Phone INGE CAVANAUGH Unavailable PROBLEMS Type Condition ICD9-CM Code YVE59-DO Code Onset Dates Condition S tatus SNOMED Code Problem Thyroid mass E07.9 Active 6049502 03 Problem Dermatitis L30.9 Active 45303932 Problem Cardiomyopathy I42.9 Active 34795 001 Problem Seizure disorder G40.909 Active 128 862590 Problem Fatigue, unspecified type R53.83 Acti ve 40895083 Problem Other chronic pain G89.29 Active 8 1476044 Problem Gallbladder polyp K82.4 Active 19 0026887 Problem Pain in left shoulder M25.512 Active 20583095 Problem Mixed hyperlipidemia E78.2 Active 372844559 Problem Controlled type 2 diabetes m ellitus without complication, without long- term current use of insulin E11.9 Active 544035916 Problem Emotional lability R45.86 Active 1 2909154 Problem Primary osteoarthritis of left shoulder M19.012 Active 34112710 Problem Constipation K59.00 Active 0609353 8 Problem Age-related osteoporosis without current pathological fracture M81.0 Active 36228056 Problem Hypomagnesemia E83.42 Active 93335 5004 Problem Expressive aphasia R47.01 Active 2 37407507 Problem Urge incontinence of urine N39.41 Act viji 22636349 Problem Anxiety F41.9 Active 76801505 Problem Dental caries K02.9 Active 569715 01 Problem Gastric reflux K21.9 Active 83263 1673 Problem Visit for screening mammogram Z12.31 Active 747899021 Problem Breast cancer screening Z12.39 Active 545758137 Problem Early menopause E28.319 Active 7124 6009 Problem Type 2 diabetes mellitus without complications E11 .9 Active 36424770 Problem Encounter for Zostavax administration Z23 Active 170335573 Problem Acute bronchitis, unspecified organism J20.9 Active 92675106 Problem Cardiomegaly I51.7 Active 1939371 Problem Hemorrhoids, external, thrombosed K64.5 Active 96755177 Problem Encounter for gynecological examination without abnormal finding Z01.419 Active 272541686 ALLERGIES Substance Reaction Event Type Date Status Fosamax stomach pain Drug Allergy Mar, Active Erythromycin Base hives Drug Allergy Mar, Active ENCOUNTERS Encounter Location Date Diagnosis [facility] [address] [id number] [place] [id number] Mar, Type 2 diabetes mellitus without complic ations E11.9 ; Bronchitis, acute J20.9 and Constipation K59.[address] [facility] [address] [id number] [place] [id number] Mar, [facility] [address] [id number] [place] [id number] Mar, [facility] [address] [id number], [place] [address] Mar, [facility] [address] [id number], [place] [id number] Mar, [facility] [address] [id number] [place] [address] Mar, [facility] [address] [id number] [place] [address] Feb, Encounter for immunization Z23 [facility] [address] [id number][place] [id number] Feb, Gastric reflux K21.9 ; Visit for screeni ng mammogram Z12.31 and Age- related osteoporosis without current pathological fracture M81.[address] [facility] [address] [id number] [place] [address] Feb, [facility] [address] [id number] [place] [id number] Feb, [facility] [address] [id number] [place] [address] Aug, [facility] [address] [id number] [facility] [place] [id number] Jul, Contact dermatitis, unspecified contact dermatitis type, unspecified trigger L25.[address] [facility] [address] [id number] [place] [address] Mar, Type 2 diabetes mellitus without complic ations E11.9 ; Mammogram declined Z53.20 ; Cardiomegaly I51.7 and Encounter for immunization Z23 [facility] [address] [id number] [facility] [place] [address] Mar, [facility] [address] [id number] [place] [id number] Jan, High risk medication use Z79.899 and Anx iety F41.[address] [facility] [address] [id number] [address] Jan, [facility] [address] [id number], [place] [address] Jan, Dental caries K02.[address] [facility] [address] [id number] [id number] Jan, [facility] [address] [id number], [place] [id number] Nov, Dental caries K02.[address] [facility] [address] [id number], [place] [id number] October, Dental caries K02.[address] [facility] [address] [id number] [place] [address] Sep, [facility] [address] [id number] [facility] [id number] Sep, Type 2 diabetes mellitus without complic ations E11.9 and Dental caries K02.[address] [facility] [address] [id number] [facility] [place] [id number] Aug, [facility] [address] [id number] [place] [id number] Jul, [facility] [address] [id number] [place] [id number] Jul, [facility] [address] [id number], [place] [address] Jun, Dental examination Z01.[address] [facility] [address] [id number] [place] [address] Jun, Emotional lability R45.[address] [facility] [address] [id number], [place] [address] Jun, [facility] [address] [id number], [place] [address] Jun, Controlled type 2 diabetes mellitus with out complication, without long-term current use of insulin E11.[address] [facility] [address] [id number], [place] [id number] May, [facility] [address] [id number], [place] [address] May, Cardiomyopathy I42.9 ; Emotional labilit y R45.86 and Dental caries K02.[address] [facility] [address] [id number], [place] [address] Apr, [facility] [address] [id number], [place] [address] Mar, [facility] [address] [id number], [place] [address] Feb, Type 2 diabetes mellitus without complic ations E11.9 [facility] [place] [address] [id number] [place] [id number] Jan, [facility] [address] [id number], [place] [address] Dec, Gallbladder polyp K82.[address] [facility] [address] [id number], [place] [id number] Nov, [facility] [address] [id number], [place] [id number] Nov, Primary osteoarthritis of left shoulder M19.012 [facility] [place] [address] [id number] [place] [address] Nov, [facility] [address] [id number], [place] [address] Nov, Controlled type 2 diabetes mellitus with out complication, without long-term current use of insulin E11.9 and Pain in left shoulder M25.512 [facility] [address] [id number], [place] [id number] Nov, Gallbladder polyp K82.4 [facility] [address] [id number], [place] [address] October, Pain in left shoulder M25.512 and Other chronic pain G89.29 [facility] [address] [id number], [place] [id number] October, [facility] [address] [id number], [place] [id number] October, [facility] [address] [id number], [place] [id number] October, [facility] [address] [id number], [place] [address] Sep, [facility] [address] [facility] [id number] [place] [address] Sep, [facility] [address] [id number], [place] [address] Sep, Encounter for gynecological examination without abnormal finding Z01.419 ; Breast cancer screening Z12.39 ; Hemorrhoids, external, thrombosed K64.5 and Early menopause E28.319 [facility] [address] [id number], [place] [address] Sep, Acute bronchitis, unspecified organism J 20.9 and Cardiomegaly I51.7 [facility] [address] [id number], [place] 1979[address]83 Aug, Thyroid mass E07.9 [facility] [address] [id number], [place] [id number] Aug, Type 2 diabetes mellitus without complic ations E11.9 ; Thyroid mass E07.9 and Encounter for Zostavax administration Z23 [place] [address] [facility] [address] [id number], [place] [address] Aug, Seizure disorder G40.909 ; Hypomagnesemi a E83.42 and Expressive aphasia R47.01 [facility] [address] [facility] [id number] [address] [place] [address] Jul, Urge incontinence of urine N 39.[id number] [place] [id number] Jul, [address] [id number] [place] [id number] Jul, Pharyngitis J02.9 ; Urge incontinence of urine N39.41 and Acute cystitis with hematuria N30.01 [facility] [address] [facility] [id number] [address] [place] [address] May, Mixed hyperlipidemia E78.2 [facility] [id number] [place] [id number] May, Seizure disorder G40.909 ; Mixed hyperli pidemia E78.2 and Gallbladder polyp K82.4 [facility] [place] [place] [address] [place] [address] AVE [id number], [place] [id number] May, [facility] [address] [place] [address] AVE [id number], [place] [id number] May, [facility] US [address] [place] [address] AVE [id number], [place] [id number] May, Diabetes type 2, controlled E11.9 and Fa tigue, unspecified type R53.83 [facility] [address] [facility] [address] [id number], [place] [id number] Apr, Cardiomyopathy I42.9 ; Thyroid mass E07. 9 ; Seizure disorder G40.909 and Dermatitis L30.9 [facility] [address] [id number], [place] [id number] Mar, [facility] [address] [id number], [place] [id number] Feb, [facility] [address] [id number], [place] [id number] Feb, [facility] [place] [address] [place] [address] AVE [id number], [place] [id number] Jan, [facility] [address] [id number], [place] [address] Jan, CAD (coronary artery disease) 414.00 ; H yperlipidemia associated with type 2 diabetes mellitus 250.80 and Diabetes type 2, controlled 250.00 [facility] [address] [id number], [place] [id number] Nov, CVA (cerebral infarction) 434.91 ; Expre ssive aphasia 784.3 ; Solitary nodule of right lobe of thyroid 241.0 ; CAD (coronary artery disease) 414.00 ; Diabetes type 2, controlled 250.00 and Hemorrhoids, external 455.3 [facility] [address] [id number], [place] [id number] October, Chest pain, atypical 786.59 ; Hemorrhoid s 455.6 ; Diabetes type 2, controlled 250.00 and Hyperlipidemia associated with type 2 diabetes mellitus 250.80 [facility] [address] [id number], [place] [id number] October, [facility] [address] [id number], [place] [id number] October, Chest pain 786.50 ; Abnormal EKG 794.31 and Diabetes type 2, controlled 250.00 [facility] [address] [id number], [place] [id number] October, Chest pain varies with breathing 786.50 [facility] [address] [facility] [id number] [address] [place] [address] 14 Sep, 2014 [facility] [address] [id number] [address] [place] [address], [place] [address] 13 Sep, 2014 [facility] [place] [address] [id number] [address] [place] [address], [place] [address] 27 Aug, 2014 [facility] [address] [id number] [address] [place] [address], [place] [address] Aug, [facility] [address] [id number] [address] [place] [address], [place] [address] Aug, [facility] [address] [id number] [address] [place] [address], [place] [address] Aug, [facility] [address] [id number] [address] [place] [address], [place] [address] Aug, [facility] [address] [id number] [address] [place] [address], [place] [address] Aug, [facility] [address] [id number] [address] [place] [address], [place] [address] Aug, [facility] [address] [id number] [address] [place] [address], [place] [address] Aug, [facility] [address] [id number] [address] [place] [address], [place] [address] Jul, [facility] [address] [id number] [address] [place] [address], [place] [address] Jul, [facility] [address] [id number] [address] [place] [address], [place] [address] Jun, [facility] [address] [id number] [address] [place] [address], [place] [address] Jun, [facility] [address] [id number] [address] [place] [address], [place] [address] Jun, [facility] [address] [id number] [address] [place] [address], [place] [address] Jun, [facility] [address] [id number] [address] [place] [address], [place] [address] Jun, [facility] [address] [id number] [address] [place] [address], [place] [address] Jun, [facility] [address] [id number] [address] [place] [address], [place] [address] Jun, [facility] [address] [id number] [address] [place] [address], [place] [address] Jun, [facility] [address] [id number] [address] [place] [address], [place] [address] Jun, [facility] [address] [id number] [place] [id number] Jun, [facility] [address] [id number] [address] [place] [address], [place] [address] Jun, [facility] [address] [id number] [address] [place] [address], [place] [address] May, [facility] [address] [id number] [address] [place] [address], [place] [address] May, [facility] [address] [id number] [address] [place] [address], [place] [address] May, [facility] [address] [id number] [address] [place] [address], [place] [address] May, [facility] [address] [id number] [address] [place] [address], [place] [address] Apr, [facility] [address] [id number] [address] [place] [address], [place] [address] Apr, [facility] [address] [id number] [address] [place] [address], [place] [address] Mar, [facility] [address] [id number] [address] [place] [address], [place] [address] Mar, [facility] [address] [id number] [address] [place] [address], [place] [address] Mar, [facility] [address] [id number] [address] [place] [address], [place] [address] 09 Mar, 2013 [facility] [address] [id number] [address] [place] [address], [place] [address] 07 Mar, 2013 [facility] [address] [id number] [address] [place] [address], [place] [address] 07 Mar, 2013 [facility] [address] [id number] [address] [place] [address], [place] [address] Mar, 2013 [facility] [address] [id number] [address] [place] [address], [place] [address] Mar, 2013 [facility] [address] [id number] [address] [place] [address], [place] [address] 30 Sep, 2013 [facility] [address] [id number] [address] [place] [address], [place] [address] 30 Sep, 2013 [facility] [address] [id number] [address] [place] [address], [place] [address] 19 Sep, 2013 [facility] [address] [id number] [address] [place] [address], [place] [address] 08 Sep, 2013 [facility] [address] [id number] [address] [place] [address], [place] [address] 08 Sep, 2013 [facility] [address] [id number] [address] [place] [address], [place] [address] 08 Sep, 2013 [facility] [address] [id number] [address] [place] [address], [place] [address] 08 Sep, 2013 [facility] [address] [id number] [address] [place] [address], [place] [address] 04 Sep, 2013 [facility] [address] [id number] [address] [place] [address], [place] [address] 04 Sep, 2013 [facility] [address] [id number] [address] [place] [address], [place] [address] 04 Sep, 2013 [facility] [address] [id number] [address] [place] [address], [place] [address] Feb, [facility] [address] [facility] [id number] [address] [place] [address] Jan, [facility] [address] [facility] [id number] [address] [place] [address] Jan, [facility] [address] [facility] [id number] [address] [place] [address] October, [facility] [address] [facility] [id number] [address] [place] [address] October, IMMUNIZATIONS No Known Immunizations SOCIAL HISTORY Never Assessed REASON FOR VISIT Diabetes follow up blood sugars have been elevated at home unable to tell what. Wilman king PLAN OF CARE Activity Details Follow Up 3 Months Reason:DM Pending Test TSH w/ FREE T4 Pending Test LIPID PANEL Pending Test CMP Pending Test CBC VITAL SIGNS Height 66.5 in 2018-04-20 Weight 155.4 lbs 2018-04-20 Temperature 98.3 degrees Fahrenheit 2018-04-20 Heart Rate 78 bpm 2018-04-20 Respiratory Rate 18 2018-04-20 BMI 24.7 kg/m2 2018-04-20 Blood pressure systolic 130 mmHg 2018-04-20 Blood pressure diastolic 80 mmHg 2018-04-20 MEDICATIONS Medication Instructions Dosage Frequency Start Date End Date Duration S tatus Nitroglycerin 0.4 MG Act viji Metformin HCl 1000 MG by oral route 2 times a day 1 tablet 12h 90 days Active Topamax 200 MG Orally Twice a day 1 tablet 12h Active Azithromycin 250 MG Orally Once a day 2 tabs today then 1 tab day 2 -5 24h Mar, Apr, 5 day(s) Active Vitamin D 1000 UNIT Orally Once a day 1 tablet 24h 3 0 day(s) Active Atorvastatin Calcium 40 MG TAKE 1 TABLET BY MOUTH ONCE DAILY 20 Active Coreg 3.125 MG by oral route 2 times a day 1 tablet 12h 90 days Active Famotidine 20 MG TAKE 1 TABLET BY MOUTH 2 TIMES A DAY 90 Active Lipitor 40 mg by oral route Once a day 1 tablet Once a day Orally 24h 90 days Active Isosorbide Mononitrate ER 30 MG Orally Once a day 1/2 tablet 24h 15 Jul, 2016 Active Fish Oil 1000 MG Orally 2 times a day 1 capsule 12h Active Clopidogrel Bisulfate 75 MG Orally Once a day 1 tablet 24h Active Tessalon Perles 100 MG Orally Three times a day 1 capsule as nee ded for cough 8h Mar, Apr, 07 days Active Aspirin 81 mg chew 1 tablet (81 mg) by oral route once daily Feb, Active ProAir HFA 108 (90 Base) MCG/ACT Inhalation every 4 hrs 2 puffs as ne eded 4h Active Colace 100 MG Orally 2 times a day 1 capsule as needed for constipa tion 12h Mar, Jun, 30 day(s) Active Oyster Shell Calcium 500 MG by oral route 2 times a day TAKE 1 TABLET BY MOUTH TWICE DAILY WITH MEALS 12h 90 days Activ e RESULTS Name Result Date Reference Range A1C (IN HOUSE) 2018-04-20 A1C IN HOUSE 6.2 4.3 - 5.6 % Previous A1c 6.0 Lot [id number] Exp date 01/2020 PROCEDURES Procedure Date Ordered Result Body Site GLYCATED HEMOGLOBIN TEST Apr 20, 2018 LAB NOT [facility]ILLED BY [facility] Apr 20, 2018 VENIPUNCT, ROUTINE* Apr 20, 2018 INSTRUCTIONS MEDICATIONS ADMINISTERED No Known Medications [...]
--- OUTSIDE RECORDS SUMMARY | 2019-06-21 12:23 | XMS REPORT ---
Author Author Cat CAVANAUGH Organization [facility] [place] Address [address] [place] [address] Care Team Providers [employer] Cook Head Name Role Phone INGE CAVANAUGH Unavailable PROBLEMS Type Condition ICD9-CM Code [id number] Code Onset Dates Condition S tatus SNOMED Code Problem Thyroid mass E07.9 Active 9744524 03 Problem Dermatitis L30.9 Active 18554837 Problem Cardiomyopathy I42.9 Active 08790 001 Problem Seizure disorder G40.909 Active 128 128637 Problem Cardiomegaly I51.7 Active 6891464 Problem Fatigue, unspecified type R53.83 Acti ve 06962948 Problem Other chronic pain G89.29 Active 8 2168644 Problem Gallbladder polyp K82.4 Active 19 2896958 Problem Pain in left shoulder M25.512 Active 67599072 Problem Primary osteoarthritis of left shoulder M19.012 Active 65817952 Problem Controlled type 2 diabetes m ellitus without complication, without long- term current use of insulin E11.9 Active 312043434 Problem Age-related osteoporosis without current pathological fracture M81.0 Active 06371832 Problem Gastric reflux K21.9 Active 97085 7003 Problem Expressive aphasia R47.01 Active 2 27124963 Problem Urge incontinence of urine N39.41 Act viji 61218116 Problem Mixed hyperlipidemia E78.2 Active 415559643 Problem Dental caries K02.9 Active 771715 01 Problem Emotional lability R45.86 Active 1 8189976 Problem Visit for screening mammogram Z12.31 Active 249978204 Problem Anxiety F41.9 Active 23742108 Problem Encounter for Zostavax administration Z23 Active 588003218 Problem Hemorrhoids, external, thrombosed K64.5 Active 90806203 Problem Hypomagnesemia E83.42 Active 86288 5004 Problem Type 2 diabetes mellitus without complications E11 .9 Active 22441006 Problem Encounter for gynecological examination without abnormal finding Z01.419 Active 245572708 Problem Acute bronchitis, unspecified organism J20.9 Active 81847723 Problem Early menopause E28.319 Active 6584 6009 Problem Breast cancer screening Z12.39 Active 932564755 ALLERGIES No Information ENCOUNTERS Encounter Location Date Diagnosis [facility] [address] [id number] [place] [id number] Mar, [facility] [address] [id number] [place] [address] Mar, [facility] [address] [id number] [place] [address] Mar, [facility] [address] [id number] [place] [address] Mar, [facility] [address] [id number][place] [address] Mar, [facility] [address] [id number][place] [address] Mar, [facility] [address] [id number], [place] [address] Feb, Encounter for immunization Z23 [facility] [address] [id number][place] [address] Feb, Gastric reflux K21.9 ; Visit for screeni ng mammogram Z12.31 and Age- related osteoporosis without current pathological fracture M81.[address] [facility] [address] [id number], [place] [address] Feb, [facility] [address] [id number] [place] [address] Feb, [facility] [address] [id number] [place] [address] Aug, [facility] [address] [id number] [place] [address] Jul, Contact dermatitis, unspecified contact dermatitis type, unspecified trigger L25.9 [facility] [address] [id number], [place] [id number] Mar, Type 2 diabetes mellitus without complic ations E11.9 ; Mammogram declined Z53.20 ; Cardiomegaly I51.7 and Encounter for immunization Z23 [facility] [address] [id number] [place] [address] Mar, [facility] [address] [id number] [place] [address] Jan, High risk medication use Z79.899 and Anx iety F41.[address] [facility] [address] [id number] [place] [id number] Jan, [facility] [address] [id number] [place] [address] Jan, Dental caries K02.[address] [facility] [address] [id number] [place] [address] Jan, [facility] [address] [id number] [place] [address] Nov, Dental caries K02.[address] [facility] [address] [id number] [place] [id number] October, Dental caries K02.[address] [facility] [address] [id number] [place] [address] Sep, [facility] [address] [id number] [place] [address] Sep, Type 2 diabetes mellitus without complic ations E11.9 and Dental caries K02.[address] [facility] [address] [id number] [place] [id number] Aug, [facility] [address] [id number] [place] [id number] Jul, [facility] [address] [id number] [place] [address] Jul, [facility] [address] [id number] [place] [address] Jun, Dental examination Z01.[address] [facility] [address] [id number] [place] [address] Jun, Emotional lability R45.[address] [facility] [address] [id number] [place] [address] Jun, [facility] [address] [id number], [place] [address] Jun, Controlled type 2 diabetes mellitus with out complication, without long-term current use of insulin E11.[address] [facility] [address] [id number], [place] [address] May, [facility] [address] [id number] [place] [address] May, Cardiomyopathy I42.9 ; Emotional labilit y R45.86 and Dental caries K02.[address] [facility] [address] [id number], [place] [id number] Apr, [facility] [address] [id number], [place] [address] Mar, [facility] [address] [id number], [place] [address] Feb, Type 2 diabetes mellitus without complic ations E11.9 [facility] [address] [id number] [place] [address] Jan, [facility] [address] [id number], [place] [address] Dec, Gallbladder polyp K82.[address] [facility] [address] [id number], [place] [address] Nov, [facility] [address] [id number], [place] [address] Nov, Primary osteoarthritis of left shoulder M19.[address] [facility] [address] [id number] [place] [address] Nov, [facility] [address] [id number], [place] [address] Nov, Controlled type 2 diabetes mellitus with out complication, without long-term current use of insulin E11.9 and Pain in left shoulder M25.512 [facility] [address] [id number], [place] [address] Nov, Gallbladder polyp K82.4 [facility] [address] [id number], [place] [address] October, Pain in left shoulder M25.512 and Other chronic pain G89.29 [facility] [address] [id number], [place] [address] October, [facility] [address] [id number], [place] [address] October, [facility] [address] [id number], [place] [address] October, [facility] [address] [id number], [place] [address] Sep, [facility] [address] [facility] [id number] [place] [address] Sep, [facility] [address] [id number], [place] [address] Sep, Encounter for gynecological examination without abnormal finding Z01.419 ; Breast cancer screening Z12.39 ; Hemorrhoids, external, thrombosed K64.5 and Early menopause E28.319 [facility] [address] [id number], [place] [address] Sep, Acute bronchitis, unspecified organism J 20.9 and Cardiomegaly I51.7 [facility] [address] [id number], [place] [address] Aug, Thyroid mass E07.9 [facility] [address] [id number], [place] [address] Aug, Type 2 diabetes mellitus without complic ations E11.9 ; Thyroid mass E07.9 and Encounter for Zostavax administration Z23 [facility] [address] [id number], [place] [address] Aug, Seizure disorder G40.909 ; Hypomagnesemi a E83.42 [address] R47.01 [facility] [address] [facility] [id number] [place] [address] Jul, Urge incontinence of urine N 39.41 [facility] [address] [id number], [place] [address] Jul, [facility] [id number] [place] [id number] Jul, Pharyngitis J02.9 ; Urge incontinence of urine N39.41 and Acute cystitis with hematuria N30.01 [facility] [address] [facility] [id number] [address] [place] [address] May, Mixed hyperlipidemia E78.2 [facility] [id number] [place] [id number] May, Seizure disorder G40.909 ; Mixed hyperli pidemia E78.2 and Gallbladder polyp K82.4 [facility] [id number] [place] [id number] May, [facility] [address] [id number], [place] [id number] May, [facility] [address] [id number], [place] [address]07 May, Diabetes type 2, controlled E11.9 and Fa tigue, unspecified type R53.83 [facility] [address] [id number], [place] [address]88 Apr, Cardiomyopathy I42.9 ; Thyroid mass E07. 9 ; Seizure disorder G40.909 and Dermatitis L30.9 [facility] [address] [id number], [place] [id number] Mar, [facility] [id number] [place] [id number] Feb, [facility] [address] [id number], [place] 949589350 Feb, [facility] [address] [id number], [place] [address] Jan, [facility] [address] [facility] [address] [id number], [place] [id number] Jan, CAD (coronary artery disease) 414.00 ; H yperlipidemia associated with type 2 diabetes mellitus 250.80 and Diabetes type 2, controlled 250.00 [facility] [address] [id number], [place] [address] Nov, CVA (cerebral infarction) 434.91 ; Expre ssive aphasia 784.3 ; Solitary nodule of right lobe of thyroid 241.0 ; CAD (coronary artery disease) 414.00 ; Diabetes type 2, controlled 250.00 and Hemorrhoids, external 455.3 [facility] [address] [id number], [place] 563065370 October, Chest pain, atypical 786.59 ; Hemorrhoid s 455.6 ; Diabetes type 2, controlled 250.00 and Hyperlipidemia associated with type 2 diabetes mellitus 250.80 [facility] [address] [facility] [address] [id number], [place] [address] October, [facility] [address] [facility] [address] [id number], [place] 408[address]752 October, Chest pain 786.50 ; Abnormal EKG 794.31 and Diabetes type 2, controlled 250.00 [facility] [address] [id number], [place] [id number] October, Chest pain varies with breathing 786.50 [facility] [address] [facility] [id number] [address] [place] [address] Sep, [facility] [address] [facility] [id number] [address] [place] [address] Sep, [facility] [address] [facility] [id number] [address] [place] [address] Aug, [facility] [address] [id number] [facility] [place] [address] Aug, [facility] [address] [id number] [address] [place] [address], [place] [address] Aug, [facility] [address] [id number] [address] [place] [address], [place] [address] Aug, [facility] [address] [id number] [address] [place] [address], [place] [address] Aug, [facility] [address] [id number] [address] [place] [address], [place] [address] Aug, [facility] [address] [id number] [address] [place] [address], [place] [address] Aug, [facility] [address] [id number] [address] [place] [address], [place] [address] Aug, [facility] [address] [id number] [address] [place] [address], [place] [address] Jul, [facility] [address] [id number] [address] [place] [address], [place] [address] Jul, [facility] [address] [id number] [address] [place] [address], [place] [address] Jun, [facility] [address] [id number] [address] [place] [address], [place] [address] Jun, [facility] [address] [id number] [address] [place] [address], [place] [address] Jun, [facility] [address] [id number] [address] [place] [address], [place] [address] Jun, [facility] [address] [id number] [address] [place] [address], [place] [address] Jun, [facility] [address] [id number] [address] [place] [address], [place] [address] Jun, [facility] [address] [id number] [address] [place] [address], [place] [address] Jun, [facility] [address] [id number] [address] [place] [address], [place] [address] Jun, [facility] [address] [id number] [address] [place] [address], [place] [address] Jun, [facility] [place] [address] [id number] [place] [id number] Jun, [facility] [address] [id number] [address] [place] [address], [place] [address] Jun, [facility] [address] [id number] [address] [place] [address], [place] [address] May, [facility] [address] [id number] [address] [place] [address], [place] [address] May, [facility] [address] [id number] [address] [place] [address], [place] [address] May, [facility] [address] [id number] [address] [place] [address], [place] [address] May, [facility] [address] [id number] [address] [place] [address], [place] [address] Apr, [facility] [address] [id number] [address] [place] [address], [place] [address] Apr, [facility] [address] [id number] [address] [place] [address], [place] [address] Mar, [facility] [address] [id number] [address] [place] [address] Mar, [facility] [address] [id number] [address] [place] [address] Mar, [facility] [address] [id number] [address] [place] [address], [place] [address] Mar, [facility] [address] [id number] [address] [place] [address] Mar, [facility] [address] [id number] [address] [place] [address], [place] [address] 07 Mar, 2013 [facility] [address] [id number] [address] [place] [address], [place] [address] Mar, 2013 [facility] [address] [id number] [address] [place] [address], [place] [address] Mar, 2013 [facility] [address] [id number] [address] [place] [address], [place] [address] 30 Feb, 2013 [facility] [address] [id number] [address] [place] [address], [place] [address] 30 Sep, 2013 [facility] [address] [id number] [address] [place] [address], [place] [address] 19 Feb, 2013 [facility] [address] [id number] [address] [place] [address], [place] [address] 08 Feb, 2013 [facility] [address] [id number] [address] [place] [address], [place] [address] 08 Feb, 2013 [facility] [address] [id number] [address] [place] [address], [place] [address] 08 Feb, 2013 [facility] [address] [id number] [address] [place] [address], [place] [address] 08 Feb, 2013 [facility] [address] [id number] [address] [place] [address], [place] [address] 04 Feb, 2013 [facility] [address] [id number] [address] [place] [address], [place] [address] 04 Feb, 2013 [facility] [address] [id number] [address] [place] [address], [place] [address] 04 Sep, 2013 [facility] [address] [id number] [address] [place] [address], [place] [address] 04 Feb, 2013 [facility] [address] [id number] [address] [place] [address], [place] [address] Jan, [facility] [address] [id number] [address] [place] [address], [place] [address] Jan, [facility] [address] [facility] [id number] [place] [address] October, [facility] [address] [facility] [id number] [address] [place] [address] October, IMMUNIZATIONS No Known Immunizations SOCIAL HISTORY Never Assessed REASON FOR VISIT pmh update PLAN OF CARE VITAL SIGNS MEDICATIONS Unknown [...]
--- OUTSIDE RECORDS SUMMARY | 2019-06-21 12:23 | XMS REPORT ---
Author Author Cat CAVANAUGH Organization [facility] Address [address] [place] [address] Care Team Providers Care Manager Of Recruiting Name Role Phone INGE CAVANAUGH Unavailable PROBLEMS Type Condition ICD9-CM Code QMG60-QE Code Onset Dates Condition S tatus SNOMED Code Problem Thyroid mass E07.9 Active 7893483 03 Problem Dermatitis L30.9 Active 86699550 Problem Cardiomyopathy I42.9 Active 02131 001 Problem Seizure disorder G40.909 Active 128 224222 Problem Cardiomegaly I51.7 Active 3015891 Problem Fatigue, unspecified type R53.83 Acti ve 85123404 Problem Other chronic pain G89.29 Active 8 9611804 Problem Gallbladder polyp K82.4 Active 19 5206443 Problem Pain in left shoulder M25.512 Active 69987047 Problem Primary osteoarthritis of left shoulder M19.012 Active 17511349 Problem Controlled type 2 diabetes m ellitus without complication, without long- term current use of insulin E11.9 Active 342169041 Problem Age-related osteoporosis without current pathological fracture M81.0 Active 91077581 Problem Gastric reflux K21.9 Active 03887 7003 Problem Expressive aphasia R47.01 Active 2 23632007 Problem Urge incontinence of urine N39.41 Act viji 39202533 Problem Mixed hyperlipidemia E78.2 Active 277849863 Problem Dental caries K02.9 Active 624541 01 Problem Emotional lability R45.86 Active 1 4046342 Problem Visit for screening mammogram Z12.31 Active 843514915 Problem Anxiety F41.9 Active 18219696 Problem Encounter for Zostavax administration Z23 Active 530417329 Problem Hemorrhoids, external, thrombosed K64.5 Active 52549316 Problem Hypomagnesemia E83.42 Active 77485 5004 Problem Type 2 diabetes mellitus without complications E11 .9 Active 05003161 Problem Encounter for gynecological examination without abnormal finding Z01.419 Active 272420423 Problem Acute bronchitis, unspecified organism J20.9 Active 47834393 Problem Early menopause E28.319 Active 6584 6009 Problem Breast cancer screening Z12.39 Active 956927680 ALLERGIES Substance Reaction Event Type Date Status Erythromycin Base hives Drug Allergy Feb, Active ENCOUNTERS Encounter Location Date Diagnosis [employer] [facility] [address] [id number] [place] [id number] Mar, [employer] [facility] [facility] [address] [id number] [place] [address] Feb, Encounter for immunization [facility]23 [facility] [address] [id number] [address] Feb, Gastric reflux K21.9 ; Visit for screeni ng mammogram Z12.31 and Age- related osteoporosis without current pathological fracture M81.0 [facility] [address] [id number] [id number] Feb, [employer] [id number] [id number] Feb, [facility] [address] [id number], [place] [address] Aug, [facility] TechnologiesSEIn[address] [id number], [place] [address] Jul, Contact dermatitis, unspecified contact dermatitis type, unspecified trigger L25.9 [facility] [address] [id number][place] [address] Mar, Type 2 diabetes mellitus without complic ations E11.9 ; Mammogram declined Z53.20 ; Cardiomegaly I51.7 and Encounter for immunization Z23 [facility] [address] [id number][place] [id number] Mar, [facility] [address] [id number], [place] [address] Jan, High risk medication use Z79.899 and Anx iety F41.9 [facility] [address] [id number], [place] [address] Jan, [facility] [address] [id number] [place] [address] Jan, Dental caries K02.[address] [facility] [address] [id number] [place] [id number] Jan, [facility] [address] [id number], [place] [id number] Nov, Dental caries K02.[address] [facility] [address] [id number] [place] [id number] October, Dental caries K02.[address] [facility] [address] [id number], [place] [id number] Sep, [facility] [address] [id number], [place] [id number] Sep, Type 2 diabetes mellitus without complic ations E11.9 and Dental caries K02.[address] [facility] [address] [id number], [place] [id number] Aug, [facility] [address] [id number], [place] [address] Jul, [facility] [address] [id number], [place] [address] Jul, [facility] [address] [id number], [place] [id number] Jun, Dental examination Z01.[address] [facility] [address] [id number], [place] [id number] Jun, Emotional lability R45.[address] [facility] [address] [id number], [place] [address] Jun, [facility] [address] [id number], [place] [address]84[address] Jun, Controlled type 2 diabetes mellitus with out complication, without long-term current use of insulin E11.[address] [facility] [address] [id number], [place] [id number] May, [facility] [address] [id number] [place] [id number] May, Cardiomyopathy I42.9 ; Emotional labilit y R45.86 and Dental caries K02.[address] [facility] [address] [id number], [place] [id number] Apr, [facility] [address] [id number], [place] [id number] Mar, [facility] [address] [id number], [place] [id number] Feb, Type 2 diabetes mellitus without complic ations E11.9 [facility] [address] [id number] [place] [id number] Jan, [facility] [address] [id number], [place] [id number] Dec, Gallbladder polyp K82.4 [facility] [address] [id number], [place] [id number] Nov, [facility] [address] [id number], [place] [address] Nov, Primary osteoarthritis of left shoulder M19.012 [facility] [address] [place], [place] [address] [id number] [place] [address] Nov, [facility] [address] [id number], [place] [id number] Nov, Controlled type 2 diabetes mellitus with out complication, without long-term current use of insulin E11.9 and Pain in left shoulder M25.512 [facility] [address] [id number], [place] [address] Nov, Gallbladder polyp K82.4 [facility] [address] [id number], [place] [address] October, Pain in left shoulder M25.512 and Other chronic pain G89.29 [facility] [address] [id number], [place] [address] October, [facility] [address] [id number], [place] [address] October, [facility] [address] [id number], [place] [address] October, [facility] [id number], [place] [address] Sep, [facility] [address] [id number] [address] [place] [address] Sep, [facility] [address] [id number], [place] [address] Sep, Encounter for gynecological examination without abnormal finding Z01.419 ; Breast cancer screening Z12.39 ; Hemorrhoids, external, thrombosed K64.5 and Early menopause E28.319 [facility] [address] [place] [address] AVE [id number], [place] [address] Sep, Acute bronchitis, unspecified organism J 20.9 and Cardiomegaly [place]51.[place] [address] [place] [address] AVE [id number], [place] [address] Aug, Thyroid mass E07.9 [facility] [place] [address] [place] [address] AVE [id number], [place] [address] Aug, Type 2 diabetes mellitus without complic ations E11.9 ; Thyroid mass E07.9 and Encounter for Zostavax administration Z23 [facility] [address] [id number], [place] [address]49646[address] Aug, Seizure disorder G40.909 ; Hypomagnesemi a E83.42 and Expressive aphasia R47.01 [facility] [address] [facility] [id number] [place] [address] Jul, Urge incontinence of urine N 39.[address] [facility] [address] [id number], [place] [address] Jul, [facility] [address] [id number], [place] [address] Jul, Pharyngitis J02.9 ; Urge incontinence of urine N39.41 and Acute cystitis with hematuria N30.01 [facility] [address] [facility] [address] [id number] 100[place] [address] May, Mixed hyperlipidemia E78.2 [facility] [address] [id number], [place] [address] May, Seizure disorder G40.909 ; Mixed hyperli pidemia E78.2 and Gallbladder polyp K82.4 [facility] [address] [id number], [place] [id number] May, [facility] [address] [id number], [place] [id number] May, [facility] [address] [id number], [place] [address] May, Diabetes type 2, controlled E11.9 and Fa tigue, unspecified type R53.83 [facility] [address] [id number], [place] [id number] Apr, Cardiomyopathy I42.9 ; Thyroid mass E07. 9 ; Seizure disorder G40.909 and Dermatitis L30.9 [facility] [address] [id number], [place] [id number] Mar, [facility] [address] [id number], [place] [id number] Feb, [facility] [address] [id number], [place] [id number] Feb, [facility] [address] [id number], [place] [id number] Jan, [facility] [address] [id number], [place] [id number] Jan, CAD (coronary artery disease) 414.00 ; H yperlipidemia associated with type 2 diabetes mellitus 250.80 and Diabetes type 2, controlled 250.00 [facility] [address] [id number], [place] [id number] Nov, CVA (cerebral infarction) 434.91 ; Expre ssive aphasia 784.3 ; Solitary nodule of right lobe of thyroid 241.0 ; CAD (coronary artery disease) 414.00 ; Diabetes type 2, controlled 250.00 and Hemorrhoids, external 455.[address] [id number], [place] [address] October, Chest pain, atypical 786.59 ; Hemorrhoid s 455.6 ; Diabetes type 2, controlled 250.00 and Hyperlipidemia associated with type 2 diabetes mellitus 250.80 [facility] [id number] [place] [id number] October, [facility] [address] [id number] [place] [id number] October, Chest pain 786.50 ; Abnormal EKG 794.31 and Diabetes type 2, controlled 250.00 [facility] [address] [id number], [place] [id number] October, Chest pain varies with breathing 786.50 [facility] [address] [address] Sep, [facility] [id number] [place] [address] Sep, [facility] [address] [id number] [address] [place] [address] Aug, [facility] [address] [id number] [address] [place] [address] Aug, [facility] [address] [id number] [address] [place] [address] Aug, [facility] [address] [id number] [address] [place] [address] Aug, [facility] [address] [id number] [address] [place] [address] Aug, [facility] [address] [id number] [address] [place] [address], [place] [address] Aug, [facility] [address] [id number] [address] [place] [address], [place] [address] Aug, [facility] [address] [id number] [address] [place] [address], [place] [address] Aug, [facility] [address] [id number] [address] [place] [address], [place] [address] Jul, [facility] [address] [id number] [address] [place] [address], [place] [address] Jul, [facility] [address] [id number] [address] [place] [address], [place] [address] Jun, [facility] [address] [id number] [address] [place] [address], [place] [address] Jun, [facility] [address] [id number] [address] [place] [address], [place] [address] Jun, [facility] [address] [id number] [address] [place] [address], [place] [address] Jun, [facility] [address] [id number] [address] [place] [address], [place] [address] Jun, [facility] [address] [id number] [address] [place] [address], [place] [address] Jun, [facility] [address] [id number] [address] [place] [address], [place] [address] Jun, [facility] [address] [id number] [address] [place] [address], [place] [address] Jun, [facility] [address] [id number] [address] [place] [address], [place] [address] Jun, [facility] [address] [id number] [place] [id number] Jun, [facility] [address] [id number] [address] [place] [address], [place] [address] Jun, [facility] [address] [id number] [address] [place] [address], [place] [address] May, [facility] [address] [id number] [address] [place] [address], [place] [address] May, [facility] [address] [id number] [address] [place] [address], [place] [address] May, [facility] [address] [id number] [address] [place] [address], [place] [address] May, [facility] [address] [id number] [address] [place] [address], [place] [address] Apr, [facility] [address] [id number] [address] [place] [address], [place] [address] Apr, [facility] [address] [id number] [address] [place] [address], [place] [address] Mar, [facility] [address] [id number] [address] [place] [address], [place] [address] Mar, [facility] [address] [id number] [address] [place] [address], [place] [address] Mar, [facility] [address] [id number] [address] [place] [address] Mar, [facility] [address] [id number] [address] [place] [address], [place] [address] Mar, [facility] [address] [id number] [address] [place] [address] Mar, [facility] [address] [id number] [address] [place] [address], [place] [address] Mar, [facility] [address] [id number] [address] [place] [address], [place] [address] Mar, [facility] [address] [id number] [address] [place] [address], [place] [address] Feb, [facility] [address] [id number] [address] [place] [address] Feb, 2013 [facility] [address] [id number] [address] [place] [address] Feb, 2013 [facility] [address] [id number] [address] [place] [address] Feb, 2013 [facility] [address] [id number] [address] [place] [address] Feb, 2013 [facility] [address] [id number] [address] [place] [address] Feb, 2013 [facility] [address] [id number] [address] [place] [address] Feb, 2013 [facility] [address] [id number] [address] [place] [address] Feb, 2013 [facility] [address] [id number] [address] [place] [address] Feb, 2013 [facility] [address] [id number] [address] [place] [address] Feb, 2013 [facility] [address] [id number] [address] [place] [address] Feb, [facility] [address] [id number] [address] [place] [address] Jan, [facility] [address] [id number] [address] [place] [address] Jan, [facility] [address] [id number] [address] [place] [address] October, [facility] [address] [id number] [address] [place] [address] October, IMMUNIZATIONS No Known Immunizations SOCIAL HISTORY Never Assessed REASON FOR VISIT Med refill PLAN OF CARE Activity Details Follow Up 4 Weeks Reason:DM-fast for l ab please Pending Test DEXA Hip and Spine Pending Test Mammogram, Bilateral Screeni ng VITAL SIGNS Height 66.5 in 2018-03-19 Weight 164 lbs 2018-03-19 Temperature 98.2 degrees Fahrenheit 2018-03-19 Heart Rate 74 bpm 2018-03-19 Respiratory Rate 16 2018-03-19 BMI 26.07 kg/m2 2018-03-19 Blood pressure systolic 128 mmHg 2018-03-19 Blood pressure diastolic 76 mmHg 2018-03-19 MEDICATIONS Medication Instructions Dosage Frequency Start Date End Date Duration S tatus ProAir HFA 108 (90 Base) MCG/ACT Inhalation every 4 hrs 2 puffs as ne eded 4h Active Oyster Shell Calcium 500 MG TAKE 1 TABLET BY MOUTH TWICE D AILY WITH MEALS 30 Active Coreg 3.125 MG 1 tablet 2 times a day Orally Active Clopidogrel Bisulfate 75 MG Orally Once a day 1 tablet 24h Active Lipitor 40 mg 1 tablet Once a day Orally Active Aspirin 81 mg chew 1 tablet (81 mg) by oral route once daily Feb, Active Metformin HCl 1000 MG TAKE ONE TABLET BY MOUTH TWICE DAILY W ITH MEALS. 20 Active Fish Oil 1000 MG Orally 2 times a day 1 capsule 12h Active Vitamin D 1000 UNIT Orally Once a day 1 tablet 24h 3 0 day(s) Active Topamax 200 MG Orally Twice a day 1 tablet 12h Active Famotidine 20 MG TAKE 1 TABLET BY MOUTH 2 TIMES A DAY 90 Active Isosorbide Mononitrate ER 30 MG Orally Once a day 1/2 tablet 24h Jul, Active Nitroglycerin 0.4 MG Act viji RESULTS No Results PROCEDURES No Known procedures [...] Medical History 04/09/15 PPV 23 Medical History osteoporosis Surgical History tubal ligation Surgical History [...]
--- OUTSIDE RECORDS SUMMARY | 2019-06-21 12:23 | XMS REPORT ---
Author Author Cat CAVANAUGH [facility] Address [address] [place] [address] Care Team Providers Care Room Cleaner Name Role Phone INGE CAVANAUGH Unavailable PROBLEMS Type Condition ICD9-CM Code UOL29-ST Code Onset Dates Condition S tatus SNOMED Code Problem Thyroid mass E07.9 Active 8885332 03 Problem Dermatitis L30.9 Active 49273042 Problem Cardiomyopathy I42.9 Active 93869 001 Problem Seizure disorder G40.909 Active 128 950919 Problem Cardiomegaly I51.7 Active 1331090 Problem Fatigue, unspecified type R53.83 Acti ve 06397597 Problem Other chronic pain G89.29 Active 8 4513947 Problem Gallbladder polyp K82.4 Active 19 1998222 Problem Pain in left shoulder M25.512 Active 73321167 Problem Primary osteoarthritis of left shoulder M19.012 Active 22006432 Problem Controlled type 2 diabetes m ellitus without complication, without long- term current use of insulin E11.9 Active 404987757 Problem Age-related osteoporosis without current pathological fracture M81.0 Active 72138518 Problem Gastric reflux K21.9 Active 01536 7003 Problem Expressive aphasia R47.01 Active 2 74890227 Problem Urge incontinence of urine N39.41 Act viji 53416219 Problem Mixed hyperlipidemia E78.2 Active 639250392 Problem Dental caries K02.9 Active 084709 01 Problem Emotional lability R45.86 Active 1 1792687 Problem Visit for screening mammogram Z12.31 Active 715260220 Problem Anxiety F41.9 Active 52531735 Problem Encounter for Zostavax administration Z23 Active 826878845 Problem Hemorrhoids, external, thrombosed K64.5 Active 58184921 Problem Hypomagnesemia E83.42 Active 90470 5004 Problem Type 2 diabetes mellitus without complications E11 .9 Active 83095056 Problem Encounter for gynecological examination without abnormal finding Z01.419 Active 553282355 Problem Acute bronchitis, unspecified organism J20.9 Active 49337103 Problem Early menopause E28.319 Active 6584 6009 Problem Breast cancer screening Z12.39 Active 601167196 ALLERGIES Substance Reaction Event Type Date Status Fosamax stomach pain Drug Allergy Mar, Active Erythromycin Base hives Drug Allergy Mar, Active ENCOUNTERS Encounter Location Date Diagnosis [facility] [address] [id number] [place] [id number] Mar, [facility] [address] [id number] [place] [id number] Mar, [facility] [address] [id number] [place] [id number] Mar, [facility] [address] [id number][place] [id number] Mar, [facility] [address] [id number][place] [address] Mar, [facility] [address] [id number][place] [id number] Feb, Encounter for immunization Z23 [facility] [address] [id number], [place] [id number] Feb, Gastric reflux K21.9 ; Visit for screeni ng mammogram Z12.31 and Age- related osteoporosis without current pathological fracture M81.[address] [facility] [address] [id number], [place] [id number] Feb, [facility] [address] [id number] [place] [id number] Feb, [facility] [address] [id number] [place] [id number] Aug, [facility] [address] [id number] [place] [id number] Jul, Contact dermatitis, unspecified contact dermatitis type, unspecified trigger L25.[address] [facility] [address] [id number], [place] [id number] Mar, Type 2 diabetes mellitus without complic ations E11.9 ; Mammogram declined Z53.20 ; Cardiomegaly I51.7 and Encounter for immunization Z23 [facility] [address] [id number] [place] [id number] Mar, [facility] [address] [id number] [place] [id number] Jan, High risk medication use Z79.899 and Anx iety F41.[address] [facility] [address] [id number] [place] [id number] Jan, [facility] [address] [id number] [place] [id number] Jan, Dental caries K02.[address] [facility] [address] [id number] [place] [id number] Jan, [facility] [address] [id number] [place] [id number] Nov, Dental caries K02.[address] [facility] [address] [id number] [place] [id number] October, Dental caries K02.[address] [facility] [address] [id number] [place] [id number] Sep, [facility] [address] [id number] [place] [id number] Sep, Type 2 diabetes mellitus without complic ations E11.9 and Dental caries K02.[address] [facility] [address] [id number] [place] [id number] Aug, [facility] [address] [id number] [place] [id number] Jul, [facility] [address] [id number] [place] [id number] Jul, [facility] [address] [id number] [place] [id number] Jun, Dental examination Z01.[address] [facility] [address] [id number] [place] [address] Jun, Emotional lability R45.[address] [facility] [address] [id number] [place] [address] Jun, [facility] [address] [id number], [place] [address]8818[address] Jun, Controlled type 2 diabetes mellitus with out complication, without long-term current use of insulin E11.[address] [facility] [address] [id number] [place] [id number] May, [facility] [address] [id number] [place] [address] May, Cardiomyopathy I42.9 ; Emotional labilit y R45.86 and Dental caries K02.[address] [facility] [address] [id number], [place] [address] Apr, [facility] [address] [id number], [place] [id number] Mar, [facility] [address] [id number], [place] [id number] Feb, Type 2 diabetes mellitus without complic ations E11.9 [facility] [address] [id number] [place] [address] Jan, [facility] [address] [id number], [place] [address] Dec, Gallbladder polyp K82.[address] [facility] [address] [id number], [place] [address] Nov, [facility] [address] [id number] [place] [address] Nov, Primary osteoarthritis of left shoulder M19.[address] [facility] [address] [id number] [place] [address] Nov, [facility] [address] [id number], [place] [address] Nov, Controlled type 2 diabetes mellitus with out complication, without long-term current use of insulin E11.9 and Pain in left shoulder M25.512 [facility] [address] [id number][place] [id number] Nov, Gallbladder polyp K82.4 [facility] [address] [id number], [place] [address] October, Pain in left shoulder M25.512 and Other chronic pain G89.29 [facility] [address] [id number], [place] [id number] October, [facility] [address] [id number], [place] [address] October, [facility] [address] [id number], [place] [address] October, [facility] [address] [id number], [place] [id number] Sep, [facility] [address] [facility] [id number] [place], [place] [address] Sep, [facility] [address] [id number], [place] [id number] Sep, Encounter for gynecological examination without abnormal finding Z01.419 ; Breast cancer screening Z12.39 ; Hemorrhoids, external, thrombosed K64.5 and Early menopause E28.319 [facility] [address] [id number], [place] [address] Sep, Acute bronchitis, unspecified organism J 20.9 and Cardiomegaly I51.7 [facility] [address] [id number], [place] [address] Aug, Thyroid mass E07.9 [facility] [address] [id number], [place] [address] Aug, Type 2 diabetes mellitus without complic ations E11.9 ; Thyroid mass E07.9 and Encounter for Zostavax administration Z23 [facility] [address] [id number], [place] [address] Aug, Seizure disorder G40.909 ; Hypomagnesemi a E83.42 and Expressive aphasia R47.01 [facility] [address] [facility] [id number] [address] [place] [address] Jul, Urge incontinence of urine N 39.41 [facility] [id number] [place] [id number] Jul, [facility] [id number] [place] [id number] Jul, Pharyngitis J02.9 ; Urge incontinence of urine N39.41 and Acute cystitis with hematuria N30.01 [facility] [address] [facility] [id number] [address] [place] [address] May, Mixed hyperlipidemia E78.2 [facility] [id number] [place] [id number] May, Seizure disorder G40.909 ; Mixed hyperli pidemia E78.2 and Gallbladder polyp K82.4 [facility] [address] [place] [address] [id number] [place] [id number] May, [facility] [address] [id number], [place] [id number] May, [facility] [id number] [place] [id number] May, Diabetes type 2, controlled E11.9 and Fa tigue, unspecified type R53.83 [facility] [address] [facility] [address] [id number], [place] [id number] Apr, Cardiomyopathy I42.9 ; Thyroid mass E07. 9 ; Seizure disorder G40.909 and Dermatitis L30.9 [facility] [address] [id number], [place] [id number] Mar, [facility] [id number] [place] [id number] Feb, [facility] [address] [id number], [place] [id number] Feb, [facility] [address] [id number], [place] [address] Jan, [facility] [address] [facility] [address] [id number], [place] [id number] Jan, CAD (coronary artery disease) 414.00 ; H yperlipidemia associated with type 2 diabetes mellitus 250.80 and Diabetes type 2, controlled 250.00 [facility] [address] [id number], [place] [id number] Nov, CVA (cerebral infarction) 434.91 ; Expre ssive aphasia 784.3 ; Solitary nodule of right lobe of thyroid 241.0 ; CAD (coronary artery disease) 414.00 ; Diabetes type 2, controlled 250.00 and Hemorrhoids, external 455.3 [facility] [address] [place] [address] AVE [id number], [place] [address]64373513 October, Chest pain, atypical 786.59 ; Hemorrhoid s 455.6 ; Diabetes type 2, controlled 250.00 and Hyperlipidemia associated with type 2 diabetes mellitus 250.80 [facility] [address] [facility] [address] [id number], [place] [id number] October, [facility] [address] [facility] [address] [id number], [place] [id number] October, Chest pain 786.50 ; Abnormal EKG 794.31 and Diabetes type 2, controlled 250.00 [facility] [address] [id number], [place] [id number] October, Chest pain varies with breathing 786.50 [facility] [address] [facility] [id number] [address] [place] [phone] Sep, [facility] [address] [facility] [id number] [address] [place] [id number] Sep, [facility] [address] [facility] [id number] [address] [place] [address] Aug, [facility] [address] [id number] [address] [place] [address], [place] [id number] Aug, [facility] [address] [id number] [address] [place] [address], [place] [address] Aug, [facility] [address] [id number] [address] [place] [address], [place] [address] Aug, [facility] [address] [id number] [address] [place] [address], [place] [address] Aug, [facility] [address] [id number] [address] [place] [address], [place] [address] Aug, [facility] [address] [id number] [address] [place] [address], [place] [address] Aug, [facility] [address] [id number] [address] [place] [address], [place] [address] Aug, [facility] [address] [id number] [address] [place] [address], [place] [address] Jul, [facility] [address] [id number] [address] [place] [address], [place] [id number] Jul, [facility] [address] [id number] [address] [place] [address], [place] [address] Jun, [facility] [address] [id number] [address] [place] [address], [place] [address] Jun, [facility] [address] [id number] [address] [place] [address], [place] [address] Jun, [facility] [address] [id number] [address] [place] [address], [place] [address] Jun, [facility] [address] [id number] [address] [place] [address], [place] [address] Jun, [facility] [address] [id number] [address] [place] [address], [place] [address] Jun, [facility] [address] [id number] [address] [place] [address], [place] [address] Jun, [facility] [address] [id number] [address] [place] [address], [place] [address] Jun, [facility] [address] [id number] [address] [place] [address], [place] [address] Jun, [facility] [address] [id number] [place] [id number] Jun, [facility] [address] [id number] [address] [place] [address] Jun, [facility] [address] [id number] [address] [place] [address], [place] [address] May, [facility] [address] [id number] [address] [place] [address], [place] [address] May, [facility] [address] [id number] [address] [place] [address], [place] [address] May, [facility] [address] [id number] [address] [place] [address], [place] [address] May, [facility] [address] [id number] [address] [place] [address] Apr, [facility] [address] [id number] [address] [place] [address], [place] [address] Apr, [facility] [address] [id number] [address] [place] [address] Mar, [facility] [address] [id number] [address] [place] [address] Mar, [facility] [address] [id number] [address] [place] [address] Mar, [facility] [address] [id number] [address] [place] [address] Mar, [facility] [address] [id number] [address] [place] [address], [place] [address] Mar, [facility] [address] [id number] [address] [place] [address], [place] [address] 07 Mar, 2013 [facility] [address] [id number] [address] [place] [address], [place] [address] Mar, 2013 [facility] [address] [id number] [address] [place] [address], [place] [address] Mar, 2013 [facility] [address] [id number] [address] [place] [address], [place] [address] 30 Sep, 2013 [facility] [address] [id number] [address] [place] [address], [place] [address] 30 Sep, 2013 [facility] [address] [id number] [address] [place] [address], [place] [address] 19 Feb, 2013 [facility] [address] [id number] [address] [place] [address], [place] [address] 08 Sep, 2013 [facility] [address] [id number] [address] [place] [address], [place] [address] 08 Feb, 2013 [facility] [address] [id number] [address] [place] [address], [place] [address] 08 Sep, 2013 [facility] [address] [id number] [address] [place] [address], [place] [address] 08 Feb, 2013 [facility] [address] [id number] [address] [place] [address], [place] [address] 04 Sep, 2013 [facility] [address] [id number] [address] [place] [address], [place] [address] 04 Feb, 2013 [facility] [address] [id number] [address] [place] [address], [place] [address] 04 Sep, 2013 [facility] [address] [id number] [address] [place] [address], [place] [address] Feb, 2013 [facility] [address] [id number] [address] [place] [address], [place] [address] Jan, [facility] [address] [id number] [address] [place] [address], [place] [address] Jan, [facility] [address] [facility] [id number] [address] [place] [id number] October, [facility] [address] [facility] [id number] [address] [place] [address] October, IMMUNIZATIONS No Known Immunizations SOCIAL HISTORY Never Assessed REASON FOR VISIT phone call PLAN OF CARE VITAL SIGNS MEDICATIONS Medication Instructions Dosage Frequency Start Date End Date Duration S joanna Arguellesiva 150 MG Orally once monthly 1 tablet Mar, Mar, 1 dose Active RESULTS No Results PROCEDURES No Known procedures [...]
--- OUTSIDE RECORDS SUMMARY | 2019-06-21 12:23 | XMS REPORT ---
Author Author Cat CAVANAUGH Organization [facility] Address [address] [place] [address] Care Team Providers Care Electronic Typesetting Machine Operator Name Role Phone INGE CAVANAUGH Unavailable PROBLEMS Type Condition ICD9-CM Code CUG14-LZ Code Onset Dates Condition S tatus SNOMED Code Problem Thyroid mass E07.9 Active 9307702 03 Problem Dermatitis L30.9 Active 38242379 Problem Cardiomyopathy I42.9 Active 09187 001 Problem Seizure disorder G40.909 Active 128 389215 Problem Cardiomegaly I51.7 Active 8080791 Problem Fatigue, unspecified type R53.83 Acti ve 84740340 Problem Other chronic pain G89.29 Active 8 8780869 Problem Gallbladder polyp K82.4 Active 19 9544770 Problem Pain in left shoulder M25.512 Active 91871561 Problem Primary osteoarthritis of left shoulder M19.012 Active 77006644 Problem Controlled type 2 diabetes m ellitus without complication, without long- term current use of insulin E11.9 Active 711238461 Problem Age-related osteoporosis without current pathological fracture M81.0 Active 25468862 Problem Gastric reflux K21.9 Active 19152 7003 Problem Expressive aphasia R47.01 Active 2 40599843 Problem Urge incontinence of urine N39.41 Act viji 66140082 Problem Mixed hyperlipidemia E78.2 Active 653939228 Problem Dental caries K02.9 Active 957317 01 Problem Emotional lability R45.86 Active 1 7057824 Problem Visit for screening mammogram Z12.31 Active 174129109 Problem Anxiety F41.9 Active 81377845 Problem Encounter for Zostavax administration Z23 Active 251121310 Problem Hemorrhoids, external, thrombosed K64.5 Active 89262373 Problem Hypomagnesemia E83.42 Active 56673 5004 Problem Type 2 diabetes mellitus without complications E11 .9 Active 14660226 Problem Encounter for gynecological examination without abnormal finding Z01.419 Active 407431974 Problem Acute bronchitis, unspecified organism J20.9 Active 39024248 Problem Early menopause E28.319 Active 6584 6009 Problem Breast cancer screening Z12.39 Active 008272639 ALLERGIES No Information ENCOUNTERS Encounter Location Date Diagnosis [facility] [address] [id number] [place] [id number] Mar, [facility] [address] [id number] [place] [address] Feb, Encounter for immunization Z23 [facility] [address] [id number] [place] [address] Feb, Gastric reflux K21.9 ; Visit for screeni ng mammogram Z12.31 and Age- related osteoporosis without current pathological fracture M81.0 [facility] [address] [id number] [place]IGHT[place] [address] Feb, [facility] [address] [id number] [place]IGHT[place] [address] Feb, [facility] [address] [id number] [place] [address] Aug, [facility] [address] [id number] [place]IGHT[place] [address] Jul, Contact dermatitis, unspecified contact dermatitis type, unspecified trigger L25.9 [facility] [address] [place] [address] AVE [id number] [place]IGHT[place] [address] Mar, Type 2 diabetes mellitus without complic ations E11.9 ; Mammogram declined Z53.20 ; Cardiomegaly I51.7 and Encounter for immunization Z23 [facility] [address] [id number] [place]IGHT[place] [address] Mar, [facility] [address] [id number] [place]IGHT[place] [address] Jan, High risk medication use Z79.899 and Anx iety F41.9 [facility] [address] [id number] [place] [address] Jan, [facility] [address] [id number] [place] [address] Jan, Dental caries K02.[address] [facility] [address] [id number] [place] [id number] Jan, [facility] [address] [id number] [place] [address] Nov, Dental caries K02.[address] [facility] [address] [id number] [place] [address] October, Dental caries K02.[address] [facility] [address] [id number] [place] [address] Sep, [facility] [address] [id number] [place]IGHT[place] [address] Sep, Type 2 diabetes mellitus without complic ations E11.9 and Dental caries K02.[address] [facility] [address] [id number] [place]IGHT[place] [address] Aug, [facility] [address] [id number] [place] [address] Jul, [facility] [address] [id number] [place] [address] Jul, [facility] [address] [id number] [place]IGHT[place] [address] Jun, Dental examination Z01.[address] [facility] [address] [id number] [place] [address] Jun, Emotional lability R45.[address] [facility] [address] [id number] [place]IGHT[place] [address] Jun, [facility] [address] [id number] [place] [address] Jun, Controlled type 2 diabetes mellitus with out complication, without long-term current use of insulin E11.[address] [facility] [address] [id number] [place] [address] May, [facility] [address] [id number] [place] [address] May, Cardiomyopathy I42.9 ; Emotional labilit y R45.86 and Dental caries K02.[address] [facility] [address] [id number] [place] [address] Apr, [facility] [address] [id number] [place] [address] Mar, [facility] [address] [id number] [place] [id number] Feb, Type 2 diabetes mellitus without complic ations E11.9 [facility] [place] [address] [id number] [place] [address] Jan, [facility] [address] [id number] [place]IGHT[place] [address] Dec, Gallbladder polyp K82.4 [facility] [address] [id number] [place] [address] Nov, [facility] [address] [id number] [place] [address] Nov, Primary osteoarthritis of left shoulder M19.012 [facility] [id number] [place] [address] Nov, [facility] [address] [id number] [place]IGHT[place] [address] Nov, Controlled type 2 diabetes mellitus with out complication, without long-term current use of insulin E11.9 and Pain in left shoulder M25.[address] [facility] [address] [id number] [place] [address] Nov, Gallbladder polyp K82.[address] [facility] [address] [id number] [place] [address] October, Pain in left shoulder M25.512 and Other chronic pain G89.[address] [facility] [address] [id number] [place] [address] October, [facility] [address] [id number] [place]IGHT[place] [address] October, [facility] [address] [id number] [place] [address] October, [facility] [address] [place] [address] AVE [id number] [place] [address] Sep, [facility] [address] [id number] [address] [place] [address] Sep, [facility] [address] [place] [address] AVE [id number] [place]IGHT[place] [address] Sep, Encounter for gynecological examination without abnormal finding Z01.419 ; Breast cancer screening Z12.39 ; Hemorrhoids, external, thrombosed K64.5 and Early menopause E28.319 [facility] [address] [id number] [place] [address] Sep, Acute bronchitis, unspecified organism J 20.9 and Cardiomegaly I51.7 [facility] [address] [id number] [place] [address] Aug, Thyroid mass E07.9 [facility] [id number] [place] [address] Aug, Type 2 diabetes mellitus without complic ations E11.9 ; Thyroid mass E07.9 and Encounter for Zostavax administration Z23 [facility] [address] [id number] [place] [address] Aug, Seizure disorder G40.909 ; Hypomagnesemi a E83.42 and Expressive aphasia R47.01 [facility] [address] [facility] [id number] [address] [place] [address] Jul, Urge incontinence of urine N 39.41 [facility] [address] [address] [id number] [place] [address] Jul, [facility] [address] [id number] [place] [address] Jul, Pharyngitis J02.9 ; Urge incontinence of urine N39.41 and Acute cystitis with hematuria N30.01 [facility] [address] [facility] [id number] [place] [address] May, Mixed hyperlipidemia E78.2 [facility] [address] [id number] [place]IGHTS[place] [address] May, Seizure disorder G40.909 ; Mixed hyperli pidemia E78.2 and Gallbladder polyp K82.4 [facility] [address] [id number] [place] [address] May, [facility] [address] [id number] [place] [address] May, [facility] [address] [id number] [place] [address]84[address] May, Diabetes type 2, controlled E11.9 and Fa tigue, unspecified type R53.83 [facility] [address] [id number] [place] 355705690 Apr, Cardiomyopathy I42.9 ; Thyroid mass E07. 9 ; Seizure disorder G40.909 and Dermatitis L30.9 [facility] [address] [id number] [place] [address] Mar, [facility] [address] [id number] [place] [address]696[address] Feb, [facility] [address] [id number] [place] [address] Feb, [facility] [address] [id number] [place] [address] Jan, [facility] [id number] [place] [id number] Jan, CAD (coronary artery disease) 414.00 ; H yperlipidemia associated with type 2 diabetes mellitus 250.80 and Diabetes type 2, controlled 250.00 [facility] [id number] [place] [id number] Nov, CVA (cerebral infarction) 434.91 ; Expre ssive aphasia 784.3 ; Solitary nodule of right lobe of thyroid 241.0 ; CAD (coronary artery disease) 414.00 ; Diabetes type 2, controlled 250.00 and Hemorrhoids, external 455.3 [facility] [address] [id number] [place] [address] October, Chest pain, atypical 786.59 ; Hemorrhoid s 455.6 ; Diabetes type 2, controlled 250.00 and Hyperlipidemia associated with type 2 diabetes mellitus [address] [id number] [place] 157[address] October, [facility] [address] [id number] [place] 62[address]240[address] October, Chest pain 786.50 ; Abnormal EKG 794.31 and Diabetes type 2, controlled 250.00 [facility] [address] [id number] [place] [id number] October, Chest pain varies with breathing 786.50 [facility] [address] [id number] [address] [place] [address] Sep, [facility] [address] [facility] [id number] [address] [place] [address] Sep, [facility] [address] [id number] [address] [place] [address] Aug, [facility] [address] [facility] [id number] [address] [place] [address] Aug, [facility] [address] [facility] [id number] [address] [place] [address] Aug, [facility] [address] [facility] [id number] [address] [place] [address] Aug, [facility] [address] [facility] [id number] [address] [place] [phone] Aug, [facility] [address] [id number] [address] [place] [address] Aug, [facility] [address] [id number] [address] [place] [address], [place] [address] Aug, [facility] [address] [id number] [address] [place] [address], [place] [address] Aug, [facility] [address] [id number] [address] [place] [address], [place] [address] Jul, [facility] [address] [id number] [address] [place] [address], [place] [address] Jul, [facility] [address] [id number] [address] [place] [address], [place] [address] Jun, [facility] [address] [id number] [address] [place] [address], [place] [address] Jun, [facility] [address] [id number] [address] [place] [address], [place] [address] Jun, [facility] [address] [id number] [address] [place] [address], [place] [address] Jun, [facility] [address] [id number] [address] [place] [address], [place] [address] Jun, [facility] [address] [id number] [address] [place] [address], [place] [address] Jun, [facility] [address] [id number] [address] [place] [address] Jun, [facility] [address] [id number] [address] [place] [address] Jun, [facility] [address] [id number] [address] [place] [address] Jun, [facility] [place] [address] [id number] [place] [id number] Jun, [facility] [address] [id number] [address] [place] [address], [place] [address] Jun, [facility] [address] [id number] [address] [place] [address], [place] [address] May, [facility] [address] [id number] [address] [place] [address], [place] [address] May, [facility] [address] [id number] [address] [place] [address], [place] [address] May, [facility] [address] [id number] [address] [place] [address], [place] [address] May, [facility] [address] [id number] [address] [place] [address], [place] [address] Apr, [facility] [address] [id number] [address] [place] [address], [place] [address] Apr, [facility] [address] [id number] [address] [place] [address], [place] [address] Mar, [facility] [address] [id number] [address] [place] [address], [place] [address] Mar, [facility] [address] [id number] [address] [place] [address], [place] [address] Mar, [facility] [address] [id number] [address] [place] [address], [place] [address] Mar, [facility] [address] [id number] [address] [place] [address], [place] [address] Mar, [facility] [address] [id number] [address] [place] [address], [place] [address] Mar, [facility] [address] [id number] [address] [place] [address], [place] [address] Mar, [facility] [address] [id number] [address] [place] [address], [place] [address] Mar, [facility] [address] [id number] [address] [place] [address], [place] [address] Feb, [facility] [address] [id number] [address] [place] [address], [place] [address] Feb, [facility] [address] [id number] [address] [place] [address] Feb, [facility] [address] [id number] [address] [place] [address] Feb, [facility] [address] [id number] [address] [place] [address] Feb, [facility] [address] [id number] [address] [place] [address] Feb, [facility] [address] [id number] [address] [place] [address] Feb, [facility] [address] [id number] [address] [place] [address] Feb, [facility] [address] [id number] [address] [place] [address] Feb, [facility] [address] [id number] [address] [place] [address] Feb, [facility] [address] [id number] [address] [place] [address] Feb, [facility] [address] [id number] [address] [place] [address] Jan, [facility] [address] [id number] [address] [place] [address] Jan, [facility] [address] [id number] [address] [place] [address] October, [facility] [address] [id number] [address] [place] [address] October, IMMUNIZATIONS No Known Immunizations SOCIAL HISTORY Never Assessed REASON FOR VISIT Requests return call PLAN OF CARE VITAL SIGNS MEDICATIONS Unknown Medications RESULTS No Results PROCEDURES No Known procedures INSTRUCTIONS MEDICATIONS ADMINISTERED No Known Medications MEDICAL (GENERAL) HISTORY Type Description Date Medical History Diabetes mellitus without me ntion of complication, type II or unspecified type, not stated as uncontrolled Medical History hyperlipidemia Medical History chronic constipation Medical History atrophic vaginitis Medical History left frontal cva 5-15-15 Medical History CAD Medical History right thyroid [...]
--- OUTSIDE RECORDS SUMMARY | 2019-06-21 12:24 | XMS REPORT ---
Author Author Cat CAVANAUGH Organization [facility] Address [address] [place] [address] Care Team Providers Care Corrections Counselor Name Role Phone INGE CAVANAUGH Unavailable PROBLEMS Type Condition ICD9-CM Code LFR73-GD Code Onset Dates Condition S tatus SNOMED Code Assessment Cardiomyopathy I42.9 13 May, 2016 Active 8 2876969 Problem Postmenopausal atrophic vaginitis 627.3 Active 43204969 Problem CAD (coronary artery disease) 414.00 Active 16085193 Problem CVA (cerebral infarction) 434.91 Acti ve 884385785 Problem Hemorrhoids, external, thrombosed K64.5 Active 39269908 Problem Dermatitis L30.9 Active 08166117 Problem Breast cancer screening Z12.39 Active 073336578 Problem Seizure disorder G40.909 Active 128 169313 Problem Encounter for gynecological examination without abnormal finding Z01.419 Active 308779840 Problem Acute bronchitis, unspecified organism J20.9 Active 85619654 Problem Cardiomegaly I51.7 Active 6782266 Problem Emotional lability R45.86 Active 1 5000940 Problem Dental caries K02.9 Active 823634 01 Problem Fatigue, unspecified type R53.83 Acti ve 87718522 Problem Cardiomyopathy I42.9 Active 96954 001 Problem Thyroid mass E07.9 Active 8631833 03 Problem Pain in left shoulder M25.512 Active 79436145 Problem Other chronic pain G89.29 Active 8 0277739 Problem Primary osteoarthritis of left shoulder M19.012 Active 46075773 Problem Controlled type 2 diabetes m ellitus without complication, without long- term current use of insulin E11.9 Active 327691662 Problem Urge incontinence of urine N39.41 Act viji 71172132 Problem Expressive aphasia R47.01 Active 2 03311050 Problem Gallbladder polyp K82.4 Active 19 5931750 Problem Mixed hyperlipidemia E78.2 Active 989392315 Problem Type 2 diabetes mellitus without complications E11 .9 Active 94366532 Problem Early menopause E28.319 Active 6584 6009 Problem Hypomagnesemia E83.42 Active 03283 5006 Problem Encounter for Zostavax administration Z23 Active 959419984 ALLERGIES Substance Reaction Event Type Date Status Erythromycin Base hives Drug Allergy May, Active SOCIAL HISTORY No smoking Hx information available PLAN OF CARE VITAL SIGNS Height 66.5 in 2016-06-02 Weight 151.1 lbs 2016-06-02 Heart Rate 84 bpm 2016-06-02 Respiratory Rate 18 2016-06-02 BMI 24.02 kg/m2 2016-06-02 Blood pressure systolic 110 mmHg 2016-06-02 Blood pressure diastolic 70 mmHg 2016-06-02 MEDICATIONS Medication Instructions Dosage Frequency Start Date End Date Duration S tatus ProAir HFA 108 (90 Base) MCG/ACT Inhalation every 4 hrs 2 puffs as ne eded 4h Active Clopidogrel Bisulfate 75 MG Orally Once a day 1 tablet 24h Active Lipitor 40 mg Orally Once a day 1 tablet 24h Active Topamax 200 MG Orally Twice a day 1 tablet 12h Active Fluoxetine HCl 20 mg Orally Once a day for depression, take at bedtime 1 capsule in the morning May, Active Metformin HCl 1000 MG Orally Twice a day 1 tablet with a meal 12h Active Nitroglycerin 0.4 MG Act viji Pepcid 20 MG 1 tablet am and pm 2 times a day Orally Active Isosorbide Mononitrate CR 30 MG Orally Once a day 1 tablet 24h Active Amoxicillin 500 MG Orally every 8 hrs 1 tablet 8h Active Fish Oil 1000 MG Orally 2 times a day 1 capsule 12h Active Coreg 6.25 MG Orally 2 times a day 1/2 tab 12h Active Naproxen 250 MG Orally Twice a day 1 tablet for pain 12h 24 October, 6 Active Calcium 500 MG Orally Twice a day 1 tablet with meals 12h Active Aspirin 81 mg chew 1 tablet (81 mg) by oral route once daily Feb, Active RESULTS No Results PROCEDURES Procedure Date Ordered Related Diagnosis Body Site Office Visit, Est Pt., Level 4 Jun 02, 2016 IMMUNIZATIONS No Known Immunizations
--- OUTSIDE RECORDS SUMMARY | 2019-06-21 12:24 | XMS REPORT ---
Author Author Cat CAVANAUGH Organization [employer] Address Unknown Phone Unavailable Care Team Providers Care Printing Bindery Assistant Name Role Phone INGE CAVANAUGH CP Unavailable Allergies No Known Allergies Problems Problem Type Condition Code Onset Dates Condition Statu s Problem CVA (cerebral infarction) 434.91 Ac tive Problem Seizure disorder G40.909 Active Problem Dermatitis L30.9 Active Problem Mixed hyperlipidemia E78.2 Active Problem Gallbladder polyp K82.4 Active Problem Urge incontinence of urine N39.41 A ctive Problem Cardiomyopathy I42.9 Active Problem Thyroid mass E07.9 Active Problem Diabetes type 2, controlled E11.9 Active Problem Fatigue, unspecified type R53.83 Ac tive Problem Unspecified constipation 564.00 Act viji Problem Postmenopausal atrophic vaginitis 627.3 Active Problem Hyperlipidemia associated with type 2 diabetes mellitu s 250.80 Active Assessment Urge incontinence of urine N39.41 A ctive Problem CAD (coronary artery disease) 414.00 Active Medications No Known Medications Results No Known Results Summary Purpose [employer] Submission
--- OUTSIDE RECORDS SUMMARY | 2019-06-21 12:24 | XMS REPORT ---
Author Author Cat CAVANAUGH Organization [facility] Address [address] [place] [address] Care Team Providers Care Special Education Director Name Role Phone INGE CAVANAUGH Unavailable PROBLEMS Type Condition ICD9-CM Code URC80-SE Code Onset Dates Condition S tatus SNOMED Code Problem Thyroid mass E07.9 Active 2379939 03 Problem Dermatitis L30.9 Active 20644203 Problem Cardiomyopathy I42.9 Active 68680 001 Problem Seizure disorder G40.909 Active 128 415171 Problem Cardiomegaly I51.7 Active 5787972 Problem Fatigue, unspecified type R53.83 Acti ve 99490287 Problem Other chronic pain G89.29 Active 8 5939075 Problem Gallbladder polyp K82.4 Active 19 0182471 Problem Pain in left shoulder M25.512 Active 31875441 Problem Primary osteoarthritis of left shoulder M19.012 Active 88788464 Problem Controlled type 2 diabetes m ellitus without complication, without long- term current use of insulin E11.9 Active 668689129 Problem Age-related osteoporosis without current pathological fracture M81.0 Active 97365402 Problem Gastric reflux K21.9 Active 24069 7003 Problem Expressive aphasia R47.01 Active 2 40874807 Problem Urge incontinence of urine N39.41 Act viji 17230126 Problem Mixed hyperlipidemia E78.2 Active 102635235 Problem Dental caries K02.9 Active 981121 01 Problem Emotional lability R45.86 Active 1 6222612 Problem Visit for screening mammogram Z12.31 Active 726166584 Problem Anxiety F41.9 Active 83926489 Problem Encounter for Zostavax administration Z23 Active 561715022 Problem Hemorrhoids, external, thrombosed K64.5 Active 21304282 Problem Hypomagnesemia E83.42 Active 94470 5004 Problem Type 2 diabetes mellitus without complications E11 .9 Active 67798068 Problem Encounter for gynecological examination without abnormal finding Z01.419 Active 702731554 Problem Acute bronchitis, unspecified organism J20.9 Active 07542175 Problem Early menopause E28.319 Active 6584 6009 Problem Breast cancer screening Z12.39 Active 244728134 ALLERGIES No Information ENCOUNTERS Encounter Location Date Diagnosis [facility] [address] [id number], [place] [id number] Mar, [facility] [address] [id number], [place] [id number] Feb, Gastric reflux K21.9 ; Visit for screeni ng mammogram Z12.31 and Age- related osteoporosis without current pathological fracture M81.0 [facility] [address] [id number], [place] [id number] Feb, [facility] [address] [id number], [place] [id number] Feb, [facility] [address] [id number], [place] [id number] Aug, [facility] [facility] [address] [id number], [place] [id number] Jul, Contact dermatitis, unspecified contact dermatitis type, unspecified trigger L25.9 [facility] [address] [id number], [place] [id number] Mar, Type 2 diabetes mellitus without complic ations E11.9 ; Mammogram declined Z53.20 ; Cardiomegaly I51.7 and Encounter for immunization Z23 [facility] [address] [id number], [place] [id number] Mar, [facility] [address] [id number], [place] [address] Jan, High risk medication use Z79.899 and Anx iety F41.9 [address] [facility] [address] [id number], [place] [id number] Jan, [facility] [address] [id number], [place] [id number] Jan, Dental caries K02.[address] [facility] [address] [id number] [place] [address] Jan, [facility] [address] [id number] [place] [address] Nov, Dental caries K02.[address] [facility] [address] [id number] [place] [id number] October, Dental caries K02.[address] [facility] [address] [id number] [place] [id number] Sep, [facility] [address] [id number] [place] [id number] Sep, Type 2 diabetes mellitus without complic ations E11.9 and Dental caries K02.[address] [facility] [address] [id number] [place] [id number] Aug, [facility] [address] [id number], [place] [id number] Jul, [facility] [address] [id number], [place] [address] Jul, [facility] [address] [id number], [place] [id number] Jun, Dental examination Z01.[address] [facility] [address] [id number], [place] [address] Jun, Emotional lability R45.[address] [facility] [address] [id number], [place] [id number] Jun, [facility] [address] [id number], [place] [address] Jun, Controlled type 2 diabetes mellitus with out complication, without long-term current use of insulin E11.[address] [facility] [address] [id number] [place] [address] May, [facility] [address] [id number], [place] [id number] May, Cardiomyopathy I42.9 ; Emotional labilit y R45.86 and Dental caries K02.[address] [facility] [address] [id number] [place] [address] Apr, [facility] [address] [id number] [place] [id number] Mar, [facility] [address] [id number] [place] [address] Feb, Type 2 diabetes mellitus without complic ations E11.9 [facility] [place] [address] [id number] [place] [id number] Jan, [facility] [address] [id number] [place] [id number] Dec, Gallbladder polyp K82.[address] [facility] [address] [id number], [place] [address] Nov, [facility] [address] [id number], [place] [address] Nov, Primary osteoarthritis of left shoulder M19.012 [facility] [address] [id number] [place] [address] Nov, [facility] [address] [id number], [place] [address] Nov, Controlled type 2 diabetes mellitus with out complication, without long-term current use of insulin E11.9 and Pain in left shoulder M25.[address] [facility] [address] [id number], [place] [address] Nov, Gallbladder polyp K82.[address] [facility] [address] [id number], [place] [address] October, Pain in left shoulder M25.512 and Other chronic pain G89.[address] [facility] [address] [id number] [place] [address] October, [facility] [address] [id number], [place] [address] October, [facility] [address] [id number], [place] [address] October, [facility] [address] [id number], [place] [address] Sep, [facility], [place] [address] [facility] [id number] [address] [place] [address] Sep, [address] [id number], [place] [address] Sep, Encounter for gynecological examination without abnormal finding Z01.419 ; Breast cancer screening Z12.39 ; Hemorrhoids, external, thrombosed K64.5 and Early menopause E28.[id number] [place] [id number] Sep, Acute bronchitis, unspecified organism J 20.9 and Cardiomegaly I51.[address] [id number], [place] [address] Aug, Thyroid mass E07.[address] [id number], [place] [address] Aug, Type 2 diabetes mellitus without complic ations E11.9 ; Thyroid mass E07.9 and Encounter for Zostavax administration Z23 [address] [id number], [place] [address] Aug, Seizure disorder G40.909 ; Hypomagnesemi a E83.42 and Expressive aphasia R47.01 [facility], [place] [address] [facility] [id number] [address] [place] [address] Jul, Urge incontinence of urine N 39.[address] [id number], [place] [address] Jul, [address] [id number], [place] [address] Jul, Pharyngitis J02.9 ; Urge incontinence of urine N39.41 and Acute cystitis with hematuria N30.01 [facility], [place] [address] [facility] [id number] [address] [place] [address] May, Mixed hyperlipidemia E78.2 [facility] [address] [id number], [place] [address] May, Seizure disorder G40.909 ; Mixed hyperli pidemia E78.2 and Gallbladder polyp K82.4 [facility] [address] [id number], [place] [id number] May, [facility] [address] [id number], [place] [id number] May, [facility] [address] [facility] [id number], [place] [id number] May, Diabetes type 2, controlled E11.9 and Fa tigue, unspecified type R53.83 [facility] [place] [address] [place] [address] AVE [id number], [place] [id number] Apr, Cardiomyopathy I42.9 ; Thyroid mass E07. 9 ; Seizure disorder G40.909 and Dermatitis L30.9 [facility] [address] [id number], [place] [id number] Mar, [facility] [address] [id number], [place] [id number] Feb, [facility] [address] [id number], [place] [id number] Feb, [facility] [address] [id number], [place] [address] Jan, [facility] [address] [id number], [place] [address] Jan, CAD (coronary artery disease) 414.00 ; H yperlipidemia associated with type 2 diabetes mellitus 250.80 and Diabetes type 2, controlled 250.00 [facility] [address] [id number], [place] [address] Nov, CVA (cerebral infarction) 434.91 ; Expre ssive aphasia 784.3 ; Solitary nodule of right lobe of thyroid 241.0 ; CAD (coronary artery disease) 414.00 ; Diabetes type 2, controlled 250.00 and Hemorrhoids, external 455.[address] [facility] [address] [id number], [place] [address] October, Chest pain, atypical 786.59 ; Hemorrhoid s 455.6 ; Diabetes type 2, controlled 250.00 and Hyperlipidemia associated with type 2 diabetes mellitus 250.[address] [facility] [address] [id number], [place] [id number] October, [facility] [address] [id number], [place] [id number] October, Chest pain 786.50 ; Abnormal EKG 794.31 and Diabetes type 2, controlled 250.[address] [facility] [address] [id number], [place] [address]188[address] October, Chest pain varies with breathing 786.50 [facility], [place] [address] [facility] [id number] [address] [place] [address] Sep, [facility], [place] [address] [facility] [id number] [address] [place] [address] Sep, [facility], [place] [address] [facility] [id number] [address] [place] [address] Aug, [facility], [place] [address] [facility] [id number] [address] [place] [address] Aug, [facility], [place] [address] [id number] [address] [place] [address] Aug, [facility], [place] [address] [id number] [address] [place] [address] Aug, [facility], [place] [address] [facility] [id number] [address] [place] [address] Aug, [facility], [place] [address] [facility] [id number] [address] [place] [address] Aug, [facility], [place] [address] [facility] [id number] [address] [place] [address] Aug, [facility] [address] [id number] [address] [place] [address], [place] [address] Aug, [facility] [address] [id number] [address] [place] [address], [place] [address] Jul, [facility] [address] [id number] [address] [place] [address], [place] [address] Jul, [facility] [address] [id number] [address] [place] [address], [place] [address] Jun, [facility] [address] [id number] [address] [place] [address], [place] [address] Jun, [facility] [address] [id number] [address] [place] [address], [place] [address] Jun, [facility] [address] [id number] [address] [place] [address], [place] [address] Jun, [facility] [address] [id number] [address] [place] [address], [place] [address] Jun, [facility] [address] [id number] [address] [place] [address], [place] [address] Jun, [facility] [address] [id number] [address] [place] [address], [place] [address] Jun, [facility] [address] [id number] [address] [place] [address], [place] [address] Jun, [facility] [address] [id number] [address] [place] [address] Jun, [facility] [address] [id number] [place] [id number] Jun, [facility] [address] [id number] [address] [place] [address], [place] [address] Jun, [facility] [address] [id number] [address] [place] [address], [place] [address] May, [facility] [address] [id number] [address] [place] [address], [place] [address] May, [facility] [address] [id number] [address] [place] [address], [place] [address] May, [facility] [address] [id number] [address] [place] [address], [place] [address] May, [facility] [address] [id number] [address] [place] [address], [place] [address] Apr, [facility] [address] [id number] [address] [place] [address], [place] [address] Apr, [facility] [address] [id number] [address] [place] [address], [place] [address] Mar, [facility] [address] [id number] [address] [place] [address], [place] [address] Mar, [facility] [address] [id number] [address] [place] [address], [place] [address] Mar, [facility] [address] [id number] [address] [place] [address], [place] [address] Mar, [facility] [address] [id number] [address] [place] [address], [place] [address] Mar, [facility] [address] [id number] [address] [place] [address], [place] [address] Mar, [facility] [address] [id number] [address] [place] [address], [place] [address] Mar, [facility] [address] [id number] [address] [place] [address], [place] [address] Mar, [facility] [address] [id number] [address] [place] [address], [place] [address] Feb, [facility] [address] [id number] [address] [place] [address], [place] [address] 30 Feb, 2014 [facility] [address] [id number] [address] [place] [address], [place] [address] 19 Feb, 2014 [facility] [address] [id number] [address] [place] [address] Feb, [facility] [place] [address] [id number] [address] [place] [address] Feb, [facility] [place] [address] [id number] [address] [place] [address] Feb, [facility] [place] [address] [id number] [address] [place] [address] Feb, [facility] [place] [address] [id number] [address] [place] [address] Feb, [facility] [place] [address] [id number] [address] [place] [address] Feb, [facility] [place] [address] [id number] [address] [place] [address] Feb, [facility] [place] [address] [id number] [address] [place] [address] Feb, [facility] [place] [address] [id number] [address] [place] [address] Jan, [facility] [place] [address] [id number] [address] [place] [address] Jan, [facility] [place] [address] [id number] [address] [place] [address] October, [facility] [place] [address] [id number] [address] [place] [address] October, IMMUNIZATIONS No Known Immunizations SOCIAL HISTORY Never Assessed REASON FOR VISIT med refill PLAN OF CARE VITAL SIGNS MEDICATIONS Medication Instructions Dosage Frequency Start Date End Date Duration S tatus Coreg 3.125 MG 1 tablet 2 times a day Orally Active RESULTS No Results PROCEDURES No Known procedures INSTRUCTIONS MEDICATIONS ADMINISTERED No Known Medications MEDICAL (GENERAL) HISTORY Type Description Date Medical History Diabetes mellitus without me ntion of complication, type II or unspecified type, not stated as uncontrolled Medical History hyperlipidemia Medical History chronic constipation Medical History atrophic vaginitis Medical History left frontal cva 1515 Medical History CAD Medical History right thyroid [...]
--- OUTSIDE RECORDS SUMMARY | 2019-06-21 12:24 | XMS REPORT ---
Author Cat Jewell Organization [employer] Address Unknown Phone Unavailable Care Team Providers Care Desktop Support Specialist Name Role Phone BENJAMIN LANGE CP Unavailable Allergies No Known Allergies Problems Problem Type Condition ICD-9 Code Onset Dates Condition Statu s Problem CAD (coronary artery disease) 414.00 Active Problem Diabetes type 2, controlled 250.00 Active Problem CVA (cerebral infarction) 434.91 Ac tive Problem Unspecified constipation 564.00 Act viji Problem Hyperlipidemia associated with type 2 diabetes mellitu s 250.80 Active Problem Postmenopausal atrophic vaginitis 627.3 Active Medications No Known Medications Results No Known Results Summary Purpose [employer] Submission
--- OUTSIDE RECORDS SUMMARY | 2019-06-21 12:24 | XMS REPORT ---
Author Author Cat CAVANAUGH Organization [employer] Address Unknown Phone Unavailable Care Team Providers Care Sand Bobber Name Role Phone INGE CAVANAUGH CP Unavailable Allergies No Known Allergies Problems Problem Type Condition Code Onset Dates Condition Statu s Assessment Gallbladder polyp K82.4 Active Problem Encounter for Zostavax administration Z23 Active Problem Postmenopausal atrophic vaginitis 627.3 Active Problem Type 2 diabetes mellitus without complications E11.9 Active Problem CAD (coronary artery disease) 414.00 Active Problem Early menopause E28.319 Active Problem Breast cancer screening Z12.39 Acti ve Problem Hemorrhoids, external, thrombosed K64.5 Active Problem Controlled type 2 diabetes m ellitus without complication, without long- term current use of insulin E11.9 Active Problem Pain in left shoulder M25.512 Active Problem Seizure disorder G40.909 Active Problem Dermatitis L30.9 Active Problem Primary osteoarthritis of left shoulder M19.012 Active Problem CVA (cerebral infarction) 434.91 Ac tive Problem Cardiomegaly I51.7 Active Problem Encounter for gynecological examination without abnormal finding Z01.419 Active Problem Other chronic pain G89.29 Active Problem Acute bronchitis, unspecified organism J20.9 Active Problem Fatigue, unspecified type R53.83 Ac tive Problem Gallbladder polyp K82.4 Active Problem Thyroid mass E07.9 Active Problem Cardiomyopathy I42.9 Active Problem Expressive aphasia R47.01 Active Problem Hypomagnesemia E83.42 Active Problem Mixed hyperlipidemia E78.2 Active Problem Urge incontinence of urine N39.41 A ctive Medications No Known Medications Results No Known Results Summary Purpose [employer] Submission
--- OUTSIDE RECORDS SUMMARY | 2019-06-21 12:24 | XMS REPORT ---
Author Author Cat CASTORENA Organization [facility] Address Unknown Phone Unavailable Care Team Providers Care Cotton Buyer Name Role Phone DAJA CASTORENA Unavailable Unavailable PROBLEMS Type Condition ICD9-CM Code QEX06-TY Code Onset Dates Condition S tatus SNOMED Code Problem Postmenopausal atrophic vaginitis 627.3 Active 92409259 Problem CVA (cerebral infarction) 434.91 Acti ve 345869308 Problem CAD (coronary artery disease) 414.00 Active 03364681 Problem Thyroid mass E07.9 Active 0804721 03 Problem Hemorrhoids, external, thrombosed K64.5 Active 97395552 Problem Dermatitis L30.9 Active 97606875 Problem Encounter for gynecological examination without abnormal finding Z01.419 Active 389661876 Problem Cardiomyopathy I42.9 Active 21465 001 Problem Acute bronchitis, unspecified organism J20.9 Active 21396885 Problem Other chronic pain G89.29 Active 8 0357184 Problem Cardiomegaly I51.7 Active 0237376 Problem Anxiety F41.9 Active 99288444 Problem Dental caries K02.9 Active 779806 01 Problem Gallbladder polyp K82.4 Active 19 2713770 Problem Fatigue, unspecified type R53.83 Acti ve 71890604 Problem Seizure disorder G40.909 Active 128 772886 Problem Controlled type 2 diabetes m ellitus without complication, without long- term current use of insulin E11.9 Active 870031318 Problem Pain in left shoulder M25.512 Active 96326420 Problem Emotional lability R45.86 Active 1 2983844 Problem Primary osteoarthritis of left shoulder M19.012 Active 03295837 Problem Expressive aphasia R47.01 Active 2 82008703 Problem Hypomagnesemia E83.42 Active 87382 5004 Problem Mixed hyperlipidemia E78.2 Active 576026267 Problem Urge incontinence of urine N39.41 Act viji 02962806 Problem Breast cancer screening Z12.39 Active 163776536 Problem Early menopause E28.319 Active 1712 6009 Problem Type 2 diabetes mellitus without complications E11 .9 Active 43850263 Problem Encounter for Zostavax administration Z23 Active 394802171 ALLERGIES No Known Allergies SOCIAL HISTORY No smoking Hx information available PLAN OF CARE Activity Details Follow Up 3 Months, when seen by PCP Grabiel priest: VITAL SIGNS MEDICATIONS No Known Medications RESULTS No Results PROCEDURES Procedure Date Ordered Related Diagnosis Body Site Psychotherapy, patient &/family, 30 minutes, established patient Jul 07, 2016 IMMUNIZATIONS No Known Immunizations
--- OUTSIDE RECORDS SUMMARY | 2019-06-21 12:24 | XMS REPORT ---
Author Author Cat CAVANAUGH [facility] [employer] Address Unknown Phone Unavailable Care Team Providers Care Child Health Associate Name Role Phone INGE CAVANAUGH CP Unavailable Allergies, Adverse Reactions, Alerts Substance Reaction Event Type Erythromycin Base hives Drug Allergy Problems Problem Type Condition Code Onset Dates Condition Statu s Problem Unspecified constipation 564.00 Act viji Problem Hyperlipidemia associated with type 2 diabetes mellitu s 250.80 Active Problem Postmenopausal atrophic vaginitis 627.3 Active Problem Thyroid mass E07.9 Active Problem Seizure disorder G40.909 Active Problem Cardiomyopathy I42.9 Active Problem CAD (coronary artery disease) 414.00 Active Problem Diabetes type 2, controlled 250.00 Active Problem Dermatitis L30.9 Active Problem CVA (cerebral infarction) 434.91 Ac tive Assessment Dermatitis L30.9 Active Assessment Seizure disorder G40.909 Active Assessment Thyroid mass E07.9 Active Assessment Cardiomyopathy I42.9 Active Medications Medication Code System Code Instructions Start Date End Date Status Dosage MiraLax [facility] [address]-49 17 gm/dose Orally Once a day November 27, 2014 May 26, 2015 as directed Coreg [facility] [address]-83 6.25 MG Orally 2 times a day Feb 22, 2015 1 tablet Aspirin [facility] [address]-93 81 mg Feb 22, 2014 chew 1 tablet (81 mg) by oral route once daily Topamax [facility] [address]-17 25 MG Orally 1 t ab daily for 7 days, then 2 times a day Apr 25, 2015 May 25, 2015 1 tablet Lipitor [facility] [address]-09 80 MG Orally Once a day 1 tablet Nitroglycerin [facility] [address]-07 0.4 MG Sublingual not defined Metformin HCl [facility] [address]-15 1000 MG Orally Twice a day 1 tablet with a meal Procedures Procedure Coding System Code Date Office Visit, Est Pt., Level 4 CPT-4 67786 N 2014 MEASURE BLOOD OXYGEN LEVEL CPT-4 09855 Apr Vital Signs Date/Time: Apr 25, 2015 Temperature 98.6 F Weight 170.4 lbs Height 66.5 in Oximetry 97 % Blood Pressure Diastolic 74 mmHg Blood Pressure Systolic 116 mmHg Cardiac Monitoring Heart Rate 80 bpm BMI 27.09 Index Results No Known Results Summary Purpose [employer] Submission
--- OUTSIDE RECORDS SUMMARY | 2019-06-21 12:24 | XMS REPORT ---
Author Author Cat CAVANAUGH [facility] Address [address] [place] [address] Care Team Providers Care Director Chemistry Name Role Phone INGE CAVANAUGH Unavailable PROBLEMS Type Condition ICD9-CM Code TTH70-RT Code Onset Dates Condition S tatus SNOMED Code Problem Postmenopausal atrophic vaginitis 627.3 Active 83124661 Problem CVA (cerebral infarction) 434.91 Acti ve 530146933 Problem CAD (coronary artery disease) 414.00 Active 37894430 Problem Thyroid mass E07.9 Active 4389422 03 Problem Hemorrhoids, external, thrombosed K64.5 Active 96584565 Problem Dermatitis L30.9 Active 84292900 Problem Encounter for gynecological examination without abnormal finding Z01.419 Active 582043333 Problem Cardiomyopathy I42.9 Active 41212 001 Problem Acute bronchitis, unspecified organism J20.9 Active 91542353 Problem Other chronic pain G89.29 Active 8 3430418 Problem Cardiomegaly I51.7 Active 4641178 Problem Anxiety F41.9 Active 59487368 Problem Dental caries K02.9 Active 883170 01 Problem Gallbladder polyp K82.4 Active 19 0159168 Problem Fatigue, unspecified type R53.83 Acti ve 15060850 Problem Seizure disorder G40.909 Active 128 549190 Problem Controlled type 2 diabetes m ellitus without complication, without long- term current use of insulin E11.9 Active 866489307 Problem Pain in left shoulder M25.512 Active 79791129 Problem Emotional lability R45.86 Active 1 5884782 Problem Primary osteoarthritis of left shoulder M19.012 Active 00365465 Problem Expressive aphasia R47.01 Active 2 74297238 Problem Hypomagnesemia E83.42 Active 36472 5004 Problem Mixed hyperlipidemia E78.2 Active 371625490 Problem Urge incontinence of urine N39.41 Act viji 49908419 Problem Breast cancer screening Z12.39 Active 096318422 Problem Early menopause E28.319 Active 6584 6009 Problem Type 2 diabetes mellitus without complications E11 .9 Active 20582661 Problem Encounter for Zostavax administration Z23 Active 474482711 ALLERGIES No Information ENCOUNTERS Encounter Location Date Diagnosis [facility] [address] [id number] [place] [id number] Aug, [facility] [address] [id number] [id number] Jul, Contact dermatitis, unspecified contact dermatitis type, unspecified trigger L25.[address] [facility] [address] [id number][place] [id number] Mar, Type 2 diabetes mellitus without complic ations E11.9 ; Mammogram declined Z53.20 ; Cardiomegaly I51.7 and Encounter for immunization Z23 [facility] [address] [id number][place] [id number] Mar, [facility] [address] [id number][place] [id number] Jan, High risk medication use Z79.899 and Anx iety F41.9 [facility] [address] [id number][place] [id number] Jan, [facility] [address] [id number], [place] [id number] Jan, Dental caries K02.9 [facility] [address] [id number][place] [id number] Jan, [facility] [address] [id number][place] [address] Nov, Dental caries K02.[address] [facility] [address] [id number][place] [address] October, Dental caries K02.[address] [facility] [address] [id number], [place] [id number] Sep, [facility] [address] [id number], [place] [address] Sep, Type 2 diabetes mellitus without complic ations E11.9 and Dental caries K02.[address] [facility] [address] [id number], [place] [id number] Aug, [facility] [address] [id number], [place] [id number] Jul, [facility] [address] [id number][place] [address] Jul, [facility] [address] [id number][place] [id number] Jun, Dental examination Z01.[address] [facility] [address] [id number], [place] [id number] Jun, Emotional lability R45.86 [facility] [address] [id number], [place] [id number] Jun, [facility] [address] [id number], [place] [id number] Jun, Controlled type 2 diabetes mellitus with out complication, without long-term current use of insulin E11.[address] [facility] [address] [id number], [place] [id number] May, [facility] [address] [id number], [place] [address] May, Cardiomyopathy I42.9 ; Emotional labilit y R45.86 and Dental caries K02.[address] [facility] [address] [id number], [place] [address] Apr, [facility] [address] [id number], [place] [id number] Mar, [facility] [address] [id number], [place] [id number] Feb, Type 2 diabetes mellitus without complic ations E11.9 [facility] [address] [id number] Rosi LOBO S [id number] Jan, [facility] [address] [id number], [place] [id number] Dec, Gallbladder polyp K82.4 [facility] [address] [id number], [place] [id number] Nov, [facility] [address] [id number], [place] [address] Nov, Primary osteoarthritis of left shoulder M19.012 [facility] [address] [id number] [place] [address] Nov, [facility] [address] [id number][place] [id number] Nov, Controlled type 2 diabetes mellitus with out complication, without long-term current use of insulin E11.9 and Pain in left shoulder M25.512 [facility] [address] [id number], [place] [id number] Nov, Gallbladder polyp K82.4 [facility] [address] [id number], [place] [id number] October, Pain in left shoulder M25.512 and Other chronic pain G89.29 [facility] [address] [id number], [place] [id number] October, [facility] [address] [id number], [place] [id number] October, [facility] [address] [id number], [place] [id number] October, [facility] [address] [id number], [place] [id number] Sep[facility] [address] [facility] [id number] [place], [place] [address] Sep, [facility] [address] [id number], [place] [id number] Sep, Encounter for gynecological examination without abnormal finding Z01.419 ; Breast cancer screening Z12.39 ; Hemorrhoids, external, thrombosed K64.5 and Early menopause E28.319 [facility] [address] [id number], [place] [id number] Sep, Acute bronchitis, unspecified organism J 20.9 and Cardiomegaly I51.[address] [facility] [address] [id number], [place] [id number] Aug, Thyroid mass E07.[address] [id number] [place] [id number] Aug, Type 2 diabetes mellitus without complic ations E11.9 ; Thyroid mass E07.9 and Encounter for Zostavax administration Z23 [id number] [place] [id number] Aug, Seizure disorder G40.909 ; Hypomagnesemi a E83.42 and Expressive aphasia R47.01 [facility] [address] [place] [address] Jul, Urge incontinence of urine N 39.[address] [id number], [place] [id number] Jul, [facility] [id number] [place] [id number] Jul, Pharyngitis J02.9 ; Urge incontinence of urine N39.41 and Acute cystitis with hematuria N30.01 [facility] [address] [place] [id number] [address] [place] [address] May, Mixed hyperlipidemia E78.2 [facility] [place] [address] [place] [address] AVE [id number], [place] [address] May, Seizure disorder G40.909 ; Mixed hyperli pidemia E78.2 and Gallbladder polyp K82.4 [facility] [address] [id number], [place] [id number] May, [facility] [id number] [place] [id number] May, [facility] [address] [id number], [place] [id number] May, Diabetes type 2, controlled E11.9 and Fa tigue, unspecified type R53.83 [facility] [address] [id number], [place] [id number] Apr, Cardiomyopathy I42.9 ; Thyroid mass E07. 9 ; Seizure disorder G40.909 and Dermatitis L30.9 [facility] [address] [id number], [place] [id number] Mar, [facility] [address] [employer] [address] [id number], [place] [id number] Feb, [facility] [employer] [facility] [address] [id number], [place] [id number] Feb, [facility] [address] [place] [address] AVE [id number], [place] [id number] Jan, [facility] [employer] [facility] [address] [id number], [place] [id number] Jan, CAD (coronary artery disease) 414.00 ; H yperlipidemia associated with type 2 diabetes mellitus 250.80 and Diabetes type 2, controlled 250.00 [facility] [employer] [facility] [address] [id number], [place] [id number] Nov, CVA (cerebral infarction) 434.91 ; Expre ssive aphasia 784.3 ; Solitary nodule of right lobe of thyroid 241.0 ; CAD (coronary artery disease) 414.00 ; Diabetes type 2, controlled 250.00 and Hemorrhoids, external 455.3 [facility] [address] [id number], [place] [address] October, Chest pain, atypical 786.59 ; Hemorrhoid s 455.6 ; Diabetes type 2, controlled 250.00 and Hyperlipidemia associated with type 2 diabetes mellitus 250.80 [facility] [employer] [facility] [address] [id number], [place] [id number] October, [facility] [employer] [facility] [address] [id number], [place] [id number] October, Chest pain 786.50 ; Abnormal EKG 794.31 and Diabetes type 2, controlled 250.[address] [facility] US [address] [place] [address] [id number] [place] [address] [id number] October, Chest pain varies with breathing 786.50 [facility] [address] [id number] [address] [place] [address] Sep, [facility] [address] [id number] [address] [place] [address] Sep, [facility] [address] [id number] [address] [place] [address] Aug, [facility] [address] [id number] [address] [place] [address] Aug, [facility] [address] [id number] [address] [place] [address] Aug, [facility] [address] [id number] [address] [place] [address] Aug, [facility] [address] [id number] [address] [place] [id number] Aug, [facility] [address] [id number] [address] [place] [address] Aug, [facility] [address] [id number] [address] [place] [address] Aug, [facility] [address] [id number] [address] [place] [address] Aug, [facility] [address] [id number] [address] [place] [address] Jul, [facility] [address] [id number] [address] [place] [address] Jul, [facility] [address] [id number] [address] [place] [id number] Jun, [facility] [address] [id number] [address] [place] [address] [place] [address] Jun, [facility] [address] [id number] [address] [place] [address], [place] [address] Jun, [facility] [address] [id number] [address] [place] [address], [place] [address] Jun, [facility] [address] [id number] [address] [place] [address], [place] [address] Jun, [facility] [address] [id number] [address] [place] [address], [place] [address] Jun, [facility] [address] [id number] [address] [place] [address], [place] [address] Jun, [facility] [address] [id number] [address] [place] [address], [place] [address] Jun, [facility] [address] [id number] [address] [place] [address], [place] [address] Jun, [facility] [address] [id number] [place] [id number] Jun, [facility] [address] [id number] [address] [place] [address], [place] [address] Jun, [facility] [address] [id number] [address] [place] [address], [place] [address] May, [facility] [address] [id number] [address] [place] [address], [place] [address] May, [facility] [address] [id number] [address] [place] [address], [place] [address] May, [facility] [address] [id number] [address] [place] [address], [place] [address] May, [facility] [address] [id number] [address] [place] [address], [place] [address] Apr, [facility] [address] [id number] [address] [place] [address], [place] [address] Apr, [facility] [address] [id number] [address] [place] [address], [place] [address] Mar, 2013 [facility] [address] [id number] [address] [place] [address], [place] [address] Mar, 2013 [facility] [address] [id number] [address] [place] [address], [place] [address] Mar, 2013 [facility] [address] [id number] [address] [place] [address], [place] [address] Mar, 2013 [facility] [address] [id number] [address] [place] [address], [place] [address] Mar, 2013 [facility] [address] [id number] [address] [place] [address], [place] [address] Mar, 2013 [facility] [address] [id number] [address] [place] [address], [place] [address] Mar, 2013 [facility] [address] [id number] [address] [place] [address], [place] [address] Mar, 2013 [facility] [address] [id number] [address] [place] [address], [place] [address] 30 Sep, 2013 [facility] [address] [id number] [address] [place] [address], [place] [address] 30 Sep, 2013 [facility] [address] [id number] [address] [place] [address], [place] [address] 19 Sep, 2013 [facility] [address] [id number] [address] [place] [address], [place] [address] 08 Sep, 2013 [facility] [address] [id number] [address] [place] [address], [place] [address] 08 Sep, 2013 [facility] [address] [id number] [address] [place] [address], [place] [address] 08 Sep, 2013 [facility] [address] [id number] [address] [place] [address], [place] [address] 08 Sep, 2013 [facility] [address] [id number] [address] [place] [address], [place] [address] Feb, [facility] [address] [id number] [address] [place] [address] Feb, [facility] [address] [id number] [address] [place] [address] Feb, [facility] [address] [id number] [address] [place] [address] Feb, [facility] [address] [id number] [address] [place] [address] Jan, [facility] [address] [id number] [address] [place] [address] Jan, [facility] [address] [id number] [address] [place] [address] October, [facility] [address] [facility] [id number] [address] [place] [address] October, IMMUNIZATIONS No Known Immunizations SOCIAL HISTORY Never Assessed REASON FOR VISIT US results PLAN OF CARE VITAL SIGNS MEDICATIONS [...]
--- OUTSIDE RECORDS SUMMARY | 2019-06-21 12:24 | XMS REPORT ---
Author Author Cat CAVANAUGH Organization [employer] Address Unknown Phone Unavailable Care Team Providers Care Social Media Assistant Name Role Phone INGE CAVANAUGH CP Unavailable Allergies No Known Allergies Problems Problem Type Condition Code Onset Dates Condition Statu s Problem Expressive aphasia R47.01 Active Problem Encounter for Zostavax administration Z23 Active Problem Hypomagnesemia E83.42 Active Problem Cardiomegaly I51.7 Active Problem Hyperlipidemia associated with type 2 diabetes mellitu s 250.80 Active Problem Encounter for gynecological examination without abnormal finding Z01.419 Active Problem Postmenopausal atrophic vaginitis 627.3 Active Problem Unspecified constipation 564.00 Act viji Problem Acute bronchitis, unspecified organism J20.9 Active Problem Early menopause E28.319 Active Problem Type 2 diabetes mellitus without complications E11.9 Active Problem Breast cancer screening Z12.39 Acti ve Problem Hemorrhoids, external, thrombosed K64.5 Active Problem Dermatitis L30.9 Active Problem Seizure disorder G40.909 Active Problem CAD (coronary artery disease) 414.00 Active Problem CVA (cerebral infarction) 434.91 Ac tive Problem Fatigue, unspecified type R53.83 Ac tive Problem Gallbladder polyp K82.4 Active Problem Thyroid mass E07.9 Active Problem Mixed hyperlipidemia E78.2 Active Problem Cardiomyopathy I42.9 Active Problem Urge incontinence of urine N39.41 A ctive Medications Medication Code System Code Instructions Start Date End Date Status Dosage Lipitor [facility] [address]-36 40 mg Orally Once a day 1 tablet Results No Known Results Summary Purpose [employer] Submission
--- OUTSIDE RECORDS SUMMARY | 2019-06-21 12:24 | XMS REPORT ---
Author Author Cat CAVANAUGH [facility] [employer] Address Unknown Phone Unavailable Care Team Providers Care Wastewater Treatment Supervisor Name Role Phone INGE CAVANAUGH CP Unavailable Allergies, Adverse Reactions, Alerts Substance Reaction Event Type Erythromycin Base hives Drug Allergy Problems Problem Type Condition Code Onset Dates Condition Statu s Problem Hyperlipidemia associated with type 2 diabetes mellitu s 250.80 Active Problem CVA (cerebral infarction) 434.91 Ac tive Problem CAD (coronary artery disease) 414.00 Active Problem Diabetes type 2, controlled E11.9 Active Problem Fatigue, unspecified type R53.83 Ac tive Problem Gallbladder polyp K82.4 Active Problem Seizure disorder G40.909 Active Problem Dermatitis L30.9 Active Problem Cardiomyopathy I42.9 Active Problem Thyroid mass E07.9 Active Assessment Mixed hyperlipidemia E78.2 Active Assessment Seizure disorder G40.909 Active Problem Unspecified constipation 564.00 Act viji Assessment Gallbladder polyp K82.4 Active Problem Postmenopausal atrophic vaginitis 627.3 Active Medications Medication Code System Code Instructions Start Date End Date Status Dosage Coreg [facility] [address]-12 6.25 MG Orally 2 times a day Feb 22, 2015 1 tablet Pepcid [facility] [address]-41 20 MG Orally 2 times a day October 24, 2014 1 tablet am and pm Aspirin [facility] [address]-59 81 mg Feb 22, 2014 chew 1 tablet (81 mg) by oral route once daily Topamax [facility] [address]-03 100 MG Orally Twice a day 1 tablet Metformin HCl [facility] [address]-49 1000 MG Orally Twice a day 1 tablet with a meal Carvedilol [facility] 42678472485 6.25 MG TAKE ON E TABLET BY MOUTH TWICE DAILY Nitroglycerin [facility] [address]-34 0.4 MG Sublingual not defined Lipitor [facility] [address]-42 80 MG Orally Once a day 1 tablet Procedures Procedure Coding System Code Date COMPREHEN METABOLIC PANEL CPT-4 16972 May VENIPUNCT, ROUTINE* CPT-4 72447 Jun 11, 2015 LIPID PANEL CPT-4 80475 Jun 11, 2015 Office Visit, Est Pt., Level 3 CPT-4 77890 D 2014 Vital Signs Date/Time: Jun 11, 2015 Temperature 97.2 F Weight 163.5 lbs Height 66.5 in BMI 25.99 Index Blood Pressure Diastolic 70 mmHg Blood Pressure Systolic 104 mmHg Cardiac Monitoring Heart Rate 70 bpm Results Name Result Date Reference Range Unit Abnormali ty Flag ROUTINE VENIPUNCTURE Summary Purpose [employer] Submission
--- OUTSIDE RECORDS SUMMARY | 2019-06-21 12:24 | XMS REPORT ---
Author Author Cat CAVANAUGH [facility] [employer] Address Unknown Phone Unavailable Care Team Providers Care Customer Care Consultant Name Role Phone INGE CAVANAUGH CP Unavailable Allergies, Adverse Reactions, Alerts Substance Reaction Event Type Erythromycin Base hives Drug Allergy Problems Problem Type Condition Code Onset Dates Condition Statu s Problem Postmenopausal atrophic vaginitis 627.3 Active Problem CAD (coronary artery disease) 414.00 Active Problem Hyperlipidemia associated with type 2 diabetes mellitu s 250.80 Active Problem Fatigue, unspecified type R53.83 Ac tive Problem Cardiomyopathy I42.9 Active Problem Diabetes type 2, controlled E11.9 Active Problem Dermatitis L30.9 Active Problem CVA (cerebral infarction) 434.91 Ac tive Problem Thyroid mass E07.9 Active Problem Seizure disorder G40.909 Active Assessment Fatigue, unspecified type R53.83 Ac tive Assessment Diabetes type 2, controlled E11.9 Active Problem Unspecified constipation 564.00 Act viji Medications Medication Code System Code Instructions Start Date End Date Status Dosage Coreg [facility] [address]-38 6.25 MG Orally 2 times a day Feb 22, 2015 1 tablet Pepcid [facility] [address]-36 20 MG Orally 2 times a day October 24, 2014 1 tablet am and pm Aspirin [facility] [address]-90 81 mg Feb 22, 2014 chew 1 tablet (81 mg) by oral route once daily Metformin HCl [facility] [address]-13 1000 MG Orally Twice a day 1 tablet with a meal Topamax [facility] [address]-75 25 MG Orally 1 t ab daily for 7 days, then 2 times a day Apr 25, 2015 May 25, 2015 1 tablet Nitroglycerin [facility] [address]-66 0.4 MG Sublingual not defined MiraLax [facility] [address]-67 17 gm/dose Orally Once a day November 27, 2014 May 26, 2015 as directed Glimepiride [facility] [address]-72 4 MG Orally Once a day 1 tablet with breakfast or the first main meal of the day Lipitor [facility] [address]-60 80 MG Orally Once a day 1 tablet Procedures Procedure Coding System Code Date Office Visit, Est Pt., Level 3 CPT-4 92263 D 2014 GLYCATED HEMOGLOBIN TEST CPT-4 13700 May 22, 2015 Vital Signs Date/Time: May 22, 2015 Temperature 98.4 F Weight 163.2 lbs Height 66.5 in BMI 25.94 Index Blood Pressure Diastolic 76 mmHg Blood Pressure Systolic 100 mmHg Cardiac Monitoring Heart Rate 90 bpm Results No Known Results Summary Purpose [employer] Submission
--- OUTSIDE RECORDS SUMMARY | 2019-06-21 12:24 | XMS REPORT ---
Author Author Cat CAVANAUGH Organization [employer] Address Unknown Phone Unavailable Care Team Providers Care Onion Topper Name Role Phone INGE CAVANAUGH CP Unavailable [...]
--- OUTSIDE RECORDS SUMMARY | 2019-06-21 12:24 | XMS REPORT ---
Author Author Cat CAVANAUGH Organization [facility] Address [address] [place] [address] Care Team Providers Care Energy Professional Name Role Phone INGE CAVANAUGH Unavailable PROBLEMS Type Condition ICD9-CM Code VZS26-RC Code Onset Dates Condition S tatus SNOMED Code Problem Postmenopausal atrophic vaginitis 627.3 Active 05017444 Problem CVA (cerebral infarction) 434.91 Acti ve 059715461 Problem CAD (coronary artery disease) 414.00 Active 69874268 Problem Thyroid mass E07.9 Active 1365535 03 Problem Hemorrhoids, external, thrombosed K64.5 Active 93781480 Problem Dermatitis L30.9 Active 65347803 Problem Encounter for gynecological examination without abnormal finding Z01.419 Active 227241444 Problem Cardiomyopathy I42.9 Active 02845 001 Problem Acute bronchitis, unspecified organism J20.9 Active 88891932 Problem Other chronic pain G89.29 Active 8 0409196 Problem Cardiomegaly I51.7 Active 0776034 Problem Anxiety F41.9 Active 90097959 Problem Dental caries K02.9 Active 383606 01 Problem Gallbladder polyp K82.4 Active 19 7495282 Problem Fatigue, unspecified type R53.83 Acti ve 71093902 Problem Seizure disorder G40.909 Active 128 411905 Problem Controlled type 2 diabetes m ellitus without complication, without long- term current use of insulin E11.9 Active 194844703 Problem Pain in left shoulder M25.512 Active 26536592 Problem Emotional lability R45.86 Active 1 1933137 Problem Primary osteoarthritis of left shoulder M19.012 Active 82731748 Problem Expressive aphasia R47.01 Active 2 46566977 Problem Hypomagnesemia E83.42 Active 54621 5004 Problem Mixed hyperlipidemia E78.2 Active 999270270 Problem Urge incontinence of urine N39.41 Act viji 81555848 Problem Breast cancer screening Z12.39 Active 489532838 Problem Early menopause E28.319 Active 6584 6009 Problem Type 2 diabetes mellitus without complications E11 .9 Active 15615475 Problem Encounter for Zostavax administration Z23 Active 657854652 ALLERGIES No Information SOCIAL HISTORY Never Assessed PLAN OF CARE VITAL SIGNS MEDICATIONS Medication Instructions Dosage Frequency Start Date End Date Duration S joanna Plavix 75 MG Orally Once a day 1 tablet 24h Jul, Active Isosorbide Mononitrate CR 30 MG Orally Once a day 1/2 tablet 24h Jul, Active RESULTS No Results PROCEDURES No Known procedures IMMUNIZATIONS No Known Immunizations MEDICAL (GENERAL) HISTORY Type Description Date Medical [...]
--- OUTSIDE RECORDS SUMMARY | 2019-06-21 12:24 | XMS REPORT ---
Author Author Cat CAVANAUGH Organization [facility] Address [address] [place] [address] Care Team Providers Care Heating And Refrigeration Inspector Name Role Phone INGE CAVANAUGH Unavailable PROBLEMS Type Condition ICD9-CM Code HAT19-IK Code Onset Dates Condition S tatus SNOMED Code Assessment Type 2 diabetes mellitus without complications E11.9 20 Feb, 2016 Active 993602142 Problem Postmenopausal atrophic vaginitis 627.3 Active 79927379 Problem Type 2 diabetes mellitus without complications E11 .9 Active 44461649 Problem CAD (coronary artery disease) 414.00 Active 85467529 Problem Early menopause E28.319 Active 6584 6009 Problem CVA (cerebral infarction) 434.91 Acti ve 903184603 Problem Hemorrhoids, external, thrombosed K64.5 Active 49978111 Problem Encounter for gynecological examination without abnormal finding Z01.419 Active 469315202 Problem Breast cancer screening Z12.39 Active 978266104 Problem Primary osteoarthritis of left shoulder M19.012 Active 39757621 Problem Controlled type 2 diabetes m ellitus without complication, without long- term current use of insulin E11.9 Active 149672261 Problem Thyroid mass E07.9 Active 5590054 03 Problem Seizure disorder G40.909 Active 128 450433 Problem Dermatitis L30.9 Active 27042300 Problem Acute bronchitis, unspecified organism J20.9 Active 63944541 Problem Cardiomegaly I51.7 Active 6596540 Problem Pain in left shoulder M25.512 Active 37010188 Problem Other chronic pain G89.29 Active 8 1610989 Problem Gallbladder polyp K82.4 Active 19 2316799 Problem Mixed hyperlipidemia E78.2 Active 292448677 Problem Cardiomyopathy I42.9 Active 05279 001 Problem Fatigue, unspecified type R53.83 Acti ve 28126370 Problem Hypomagnesemia E83.42 Active 45781 5004 Problem Encounter for Zostavax administration Z23 Active 365778205 Problem Urge incontinence of urine N39.41 Act viji 59605699 Problem Expressive aphasia R47.01 Active 2 60484863 ALLERGIES Substance Reaction Event Type Date Status Erythromycin Base hives Drug Allergy Feb, Active SOCIAL HISTORY No smoking Hx information available PLAN OF CARE VITAL SIGNS Height 66.5 in 2016-03-10 Weight 152.0 lbs 2016-03-10 Heart Rate 71 bpm 2016-03-10 Respiratory Rate 16 2016-03-10 BMI 24.16 kg/m2 2016-03-10 Blood pressure systolic 108 mmHg 2016-03-10 Blood pressure diastolic 66 mmHg 2016-03-10 MEDICATIONS Medication Instructions Dosage Frequency Start Date End Date Duration S tatus Aspirin 81 mg chew 1 tablet (81 mg) by oral route once daily Feb, Active Metformin HCl 1000 MG Orally Twice a day 1 tablet with a meal 12h 90 days Active Topamax 150 Orally Twice a day 1 1/2 tablet 12h Active Lipitor 40 mg Orally Once a day 1 tablet 24h Active Fish Oil 1000 MG Orally 2 times a day 1 capsule 12h Active ProAir HFA 108 (90 Base) MCG/ACT Inhalation every 4 hrs 2 puffs as ne eded 4h Active Naproxen 250 MG Orally Twice a day 1 tablet for pain 12h 24 October, 6 Active Nitroglycerin 0.4 MG Act viji Pepcid 20 MG 1 tablet am and pm 2 times a day Orally Active Coreg 6.25 MG Orally 2 times a day 1 tablet 12h Active RESULTS Name Result Date Reference Range A1C (IN HOUSE) 2016-03-10 A1C IN HOUSE 6.1 4.3 - 5.6 % Previous A1c 5.8 Lot [id number] Exp date 12/2017 PROCEDURES Procedure Date Ordered Related Diagnosis Body Site GLYCATED HEMOGLOBIN TEST Mar 10, 2016 Office Visit, Est Pt., Level 3 Mar 10, 2016 IMMUNIZATIONS No Known Immunizations
--- OUTSIDE RECORDS SUMMARY | 2019-06-21 12:24 | XMS REPORT ---
Author Author Cat CAVANAUGH Organization [employer] Address Unknown Phone Unavailable Care Team Providers Care Travel Services Professional Name Role Phone INGE CAVANAUGH CP Unavailable [...] Start Date End Date Status Dosage Coreg [facility] [id number] 6.25 MG Orally Feb 22, 2015 as directed Results No Known Results Summary Purpose [employer] Submission
--- OUTSIDE RECORDS SUMMARY | 2019-06-21 12:24 | XMS REPORT ---
Author Author Cat CAVANAUGH Organization [facility] Address [address] [place] [address] Care Team Providers Care Exerciser Horse Name Role Phone INGE CAVANAUGH Unavailable PROBLEMS Type Condition ICD9-CM Code RGQ39-OH Code Onset Dates Condition S tatus SNOMED Code Problem Postmenopausal atrophic vaginitis 627.3 Active 02251667 Problem CVA (cerebral infarction) 434.91 Acti ve 032464101 Problem CAD (coronary artery disease) 414.00 Active 30429214 Problem Thyroid mass E07.9 Active 5429804 03 Problem Hemorrhoids, external, thrombosed K64.5 Active 40547960 Problem Dermatitis L30.9 Active 16796929 Problem Encounter for gynecological examination without abnormal finding Z01.419 Active 642683256 Problem Cardiomyopathy I42.9 Active 97692 001 Problem Acute bronchitis, unspecified organism J20.9 Active 70742745 Problem Other chronic pain G89.29 Active 8 0250062 Problem Cardiomegaly I51.7 Active 2643914 Problem Anxiety F41.9 Active 98244552 Problem Dental caries K02.9 Active 575974 01 Problem Gallbladder polyp K82.4 Active 19 8887168 Problem Fatigue, unspecified type R53.83 Acti ve 57710186 Problem Seizure disorder G40.909 Active 128 099210 Problem Controlled type 2 diabetes m ellitus without complication, without long- term current use of insulin E11.9 Active 515402709 Problem Pain in left shoulder M25.512 Active 11564615 Problem Emotional lability R45.86 Active 1 4772711 Problem Primary osteoarthritis of left shoulder M19.012 Active 05584989 Problem Expressive aphasia R47.01 Active 2 16558544 Problem Hypomagnesemia E83.42 Active 35347 5004 Problem Mixed hyperlipidemia E78.2 Active 063314250 Problem Urge incontinence of urine N39.41 Act vjii 31025721 Problem Breast cancer screening Z12.39 Active 540374541 Problem Early menopause E28.319 Active 6584 6009 Problem Type 2 diabetes mellitus without complications E11 .9 Active 63799336 Problem Encounter for Zostavax administration Z23 Active 612975394 ALLERGIES Substance Reaction Event Type Date Status Erythromycin Base hives Drug Allergy Jan, Active ENCOUNTERS Encounter Location Date Diagnosis [facility] [address] [id number] [place] [id number] Aug, [facility] [address] [id number][place] [id number] Jul, Contact dermatitis, unspecified contact dermatitis type, unspecified trigger L25.9 [facility] [address] [id number][place] [id number] Mar, Type 2 diabetes mellitus without complic ations E11.9 ; Mammogram declined Z53.20 ; Cardiomegaly I51.7 and Encounter for immunization Z23 [facility] [address] [id number][place] [id number] Mar, [facility] [address] [id number][place] [id number] Jan, High risk medication use Z79.899 and Anx iety F41.9 [facility] [address] [id number][place] [id number] Jan, [facility] [address] [id number][place] [id number] Jan, Dental caries K02.[address] [facility] [address] [id number][place] [id number] Jan, [facility] [address] [id number], [place] [address] Nov, Dental caries K02.[address] [facility] [address] [id number][place] [address] October, Dental caries K02.[address] [facility] [address] [id number], [place] [id number] Sep, [facility] [address] [id number] [place] [id number] Sep, Type 2 diabetes mellitus without complic ations E11.9 and Dental caries K02.[address] [facility] [address] [id number] [place] [id number] Aug, [facility] [address] [id number] [place] [id number] Jul, [facility] [address] [id number] [place] [id number] Jul, [facility] [address] [id number] [place] [id number] Jun, Dental examination Z01.[address] [facility] [address] [id number][place] [id number] Jun, Emotional lability R45.[address] [facility] [address] [id number], [place] [id number] Jun, [facility] [address] [id number][place] [id number] Jun, Controlled type 2 diabetes mellitus with out complication, without long-term current use of insulin E11.[address] [facility] [address] [id number][place] [address] May, [facility] [address] [id number], [place] [id number] May, Cardiomyopathy I42.9 ; Emotional labilit y R45.86 and Dental caries K02.[address] [facility] [address] [id number][place] [id number] Apr, [facility] [address] [id number] [place] [id number] Mar, [facility] [address] [id number] [place] [id number] Feb, Type 2 diabetes mellitus without complic ations E11.9 [facility] [place] [address] [id number] [place] [id number] Jan, [facility] [address] [id number][place] [id number] Dec, Gallbladder polyp K82.[address] [facility] [address] [id number] [place] [id number] Nov, [facility] [address] [id number], [place] [id number] Nov, Primary osteoarthritis of left shoulder M19.012 [facility] [address] [id number] [place] [address] Nov, [facility] [address] [id number][place] [id number] Nov, Controlled type 2 diabetes mellitus with out complication, without long-term current use of insulin E11.9 and Pain in left shoulder M25.[address] [facility] [address] [id number], [place] [address] Nov, Gallbladder polyp K82.4 [facility] [address] [id number][place] [address] October, Pain in left shoulder M25.512 and Other chronic pain G89.29 [facility] [address] [id number], [place] [id number] October, [facility] [address] [id number], [place] [id number] October, [facility] [address] [id number], [place] [id number] October, [facility] [address] [id number], [place] [id number] Sep, [facility] [address] [facility] [id number] 100KS [place] [address] Sep, [facility] [address] [id number], [place] [id number] Sep, Encounter for gynecological examination without abnormal finding Z01.419 ; Breast cancer screening Z12.39 ; Hemorrhoids, external, thrombosed K64.5 and Early menopause E28.319 [facility] [address] [id number], [place] [id number] Sep, Acute bronchitis, unspecified organism J 20.9 and Cardiomegaly I51.7 [facility] [address] [id number], [place] [id number] Aug, Thyroid mass E07.[id number] [place] [id number] Aug, Type 2 diabetes mellitus without complic ations E11.9 ; Thyroid mass E07.9 and Encounter for Zostavax administration Z23 [address] [place] [id number] Aug, Seizure disorder G40.909 ; Hypomagnesemi a E83.42 and Expressive aphasia R47.01 [facility] [address] [place] [address] Jul, Urge incontinence of urine N 39.[address] [id number] [place] [id number] Jul, [facility] [address] [id number] [place] [id number] Jul, Pharyngitis J02.9 ; Urge incontinence of urine N39.41 and Acute cystitis with hematuria N30.01 [facility] [address] [place] [address] May, Mixed hyperlipidemia E78.2 [facility] [address] [id number][place] [id number] May, Seizure disorder G40.909 ; Mixed hyperli pidemia E78.2 and Gallbladder polyp K82.4 [facility] [address] [id number] [place] [id number] May, [facility] [address] [id number] [place] [id number] May, [facility] [address] [id number], [place] [id number] May, Diabetes type 2, controlled E11.9 and Fa tigue, unspecified type R53.83 [facility] [address] [id number], [place] [id number] Apr, Cardiomyopathy I42.9 ; Thyroid mass E07. 9 ; Seizure disorder G40.909 and Dermatitis L30.9 [facility] [address] [id number], [place] [id number] Mar, [facility] [address] [id number], [place] [id number] Feb, [facility] [address] [place] [address] AVE [id number], [place] [id number] Feb, [facility] [address] [place] [address] AVE [id number], [place] [id number] Jan, [facility] [address] [place] [address] AVE [id number], [place] [id number] Jan, CAD (coronary artery disease) 414.00 ; H yperlipidemia associated with type 2 diabetes mellitus 250.80 and Diabetes type 2, controlled 250.00 [facility] [facility] A[address] [id number], [place] [id number] Nov, CVA (cerebral infarction) 434.91 ; Expre ssive aphasia 784.3 ; Solitary nodule of right lobe of thyroid 241.0 ; CAD (coronary artery disease) 414.00 ; Diabetes type 2, controlled 250.00 and Hemorrhoids, external 455.3 [facility] [address] [id number], [place] [id number] October, Chest pain, atypical 786.59 ; Hemorrhoid s 455.6 ; Diabetes type 2, controlled 250.00 and Hyperlipidemia associated with type 2 diabetes mellitus 250.80 [facility] [address] [id number], [place] [id number] October, [facility] [address] [id number], [place] [id number] October, Chest pain 786.50 ; Abnormal EKG 794.31 and Diabetes type 2, controlled 250.[address] [facility] [address] [id number], [place] [id number] October, Chest pain varies with breathing 786.50 [facility] [address] [id number] [address] [place] [address] Sep, [facility] [address] [id number] [address] [place] [address] Sep, [facility] [address] [id number] [address] [place] [phone] Aug, [facility] [address] [id number] [address] [place] [address] Aug, [facility] [address] [id number] [address] [place] [address] Aug, [facility] [address] [id number] [address] [place] [phone] Aug, [facility] [address] [id number] [address] [place] [phone] Aug, [facility] [address] [id number] [address] [place] [address] Aug, [facility] [address] [id number] [address] [place] [phone] Aug, [facility] [address] [id number] [address] [place] [phone] Aug, [facility] [address] [id number] [address] [place] [id number] Jul, [facility] [address] [id number] [address] [place] [address] Jul, [facility] [address] [id number] [address] [place] [address] Jun, [facility] [address] [id number] [address] [place] [address], [place] [address] Jun, [facility] [address] [id number] [address] [place] [address], [place] [address] Jun, [facility] [address] [id number] [address] [place] [address], [place] [address] Jun, [facility] [address] [id number] [address] [place] [address], [place] [address] Jun, [facility] [address] [id number] [address] [place] [address], [place] [address] Jun, [facility] [address] [id number] [address] [place] [address], [place] [address] Jun, [facility] [address] [id number] [address] [place] [address], [place] [address] Jun, [facility] [address] [id number] [address] [place] [address], [place] [address] Jun, [facility] [address] [id number] [place] [id number] Jun, [facility] [address] [id number] [address] [place] [address], [place] [address] Jun, [facility] [address] [id number] [address] [place] [address], [place] [address] May, [facility] [address] [id number] [address] [place] [address], [place] [address] May, [facility] [address] [id number] [address] [place] [address], [place] [address] May, [facility] [address] [id number] [address] [place] [address], [place] [address] May, [facility] [address] [id number] [address] [place] [address], [place] [address] Apr, [facility] [address] [id number] [address] [place] [address], [place] [address] Apr, [facility] [address] [id number] [address] [place] [address], [place] [address] Mar, 2013 [facility] [address] [id number] [address] [place] [address], [place] [address] Mar, [facility] [address] [id number] [address] [place] [address], [place] [address] Mar, [facility] [address] [id number] [address] [place] [address], [place] [address] Mar, [facility] [address] [id number] [address] [place] [address], [place] [address] Mar, [facility] [address] [id number] [address] [place] [address], [place] [address] Mar, [facility] [address] [id number] [address] [place] [address], [place] [address] Mar, [facility] [address] [id number] [address] [place] [address], [place] [address] Mar, [facility] [address] [id number] [address] [place] [address], [place] [address] 30 Feb, 2013 [facility] [address] [id number] [address] [place] [address], [place] [address] 30 Sep, 2013 [facility] [address] [id number] [address] [place] [phone] 19 Sep, 2013 [facility] [address] [id number] [address] [place] [address] 08 Sep, 2013 [facility] [address] [id number] [address] [place] [address], [place] [address] 08 Sep, 2013 [facility] [address] [id number] [address] [place] [address] 08 Sep, 2013 [facility] [address] [id number] [address] [place] [address] 08 Sep, 2013 [facility] [address] [id number] [address] [place] [phone] Feb, [facility] [address] [id number] [address] [place] [address] Feb, [facility] [address] [id number] [address] [place] [address] Feb, [facility] [address] [id number] [address] [place] [address] Feb, [facility] [address] [id number] [address] [place] [address] Jan, [facility] [address] [id number] [address] [place] [address] Jan, [facility] [address] [id number] [address] [place] [address] October, [facility] [address] [id number] [address] [place] [address] October, IMMUNIZATIONS No Known Immunizations SOCIAL HISTORY Never Assessed REASON FOR VISIT Anxiety- ayaka king PLAN OF CARE Activity Details Follow Up 2 Months Reason:DM VITAL SIGNS Height 66.5 in 2017-02-18 Weight 161.6 lbs 2017-02-18 Temperature 98.7 degrees Fahrenheit 2017-02-18 Heart Rate 80 bpm 2017-02-18 Respiratory Rate 16 2017-02-18 BMI 25.69 kg/m2 2017-02-18 Blood pressure systolic 128 mmHg 2017-02-18 Blood pressure diastolic 80 mmHg 2017-02-18 MEDICATIONS Medication Instructions Dosage Frequency Start Date End Date Duration S tatus Topamax 200 MG Orally Twice a day 1 tablet 12h Active Coreg 6.25 MG Orally 2 times a day 1/2 tablet 12h 90 Active Pepcid 20 MG 1 tablet am and pm 2 times a day Orally Active Fluoxetine HCl 20 mg Orally Once a day for depression, take at bedtime 1 capsule in the morning May, Active Isosorbide Mononitrate ER 30 MG Orally Once a day 1/2 tablet 24h 15 Jul, 2016 Active Metformin HCl 1000 MG Orally Twice a day 1 tablet with a meal 12h Active BusPIRone HCl 15 mg Orally Twice a day 1 tablet as needed for anxie ty 12h Jan, Active Aspirin 81 mg chew 1 tablet (81 mg) by oral route once daily Feb, Active Plavix 75 MG Orally Once a day 1 tablet 24h 15 Jul, 2016 Active Naproxen 250 MG Orally Twice a day 1 tablet for pain, take with fod 12h October, Active ProAir HFA 108 (90 Base) MCG/ACT Inhalation every 4 hrs 2 puffs as ne eded 4h Active Nitroglycerin 0.4 MG Act viji Fish Oil 1000 MG Orally 2 times a day 1 capsule 12h Active Lipitor 40 mg Orally Once a day 1 tablet 24h Active Famotidine 20 mg Orally 2 times a day 1 tablet 12h Active RESULTS No Results PROCEDURES No Known [...]
--- OUTSIDE RECORDS SUMMARY | 2019-06-21 12:24 | XMS REPORT ---
Author Author Cat CAVANAUGH Organization [employer] Address Unknown Phone Unavailable Care Team Providers Care Bareback Rider Name Role Phone INGE CAVANAUGH CP Unavailable Allergies No Known Allergies Problems Problem Type Condition Code Onset Dates Condition Statu s Problem Encounter for Zostavax administration Z23 Active [...] Instructions Start Date End Date Status Dosage Metformin HCl [facility] [address]-89 1000 MG Orally Twice a day 1 tablet with a meal Results No Known Results Summary Purpose eClinicalWorks Submission
--- OUTSIDE RECORDS SUMMARY | 2019-06-21 12:25 | XMS REPORT ---
Author Author Cat CASTORENA Organization [facility] Address Unknown Phone Unavailable Care Team Providers Care Community Associate Name Role Phone DAJA CASTORENA Unavailable Unavailable PROBLEMS Type Condition ICD9-CM Code [id number] Code Onset Dates Condition S tatus SNOMED Code Problem Postmenopausal atrophic vaginitis 627.3 Active 29781764 Problem CAD (coronary artery disease) 414.00 Active 12351112 Problem CVA (cerebral infarction) 434.91 Acti ve 848407881 Problem Hemorrhoids, external, thrombosed K64.5 Active 59142409 Problem Dermatitis L30.9 Active 77956230 Problem Breast cancer screening Z12.39 Active 378430342 Problem Seizure disorder G40.909 Active 128 267336 Problem Encounter for gynecological examination without abnormal finding Z01.419 Active 648605824 Problem Acute bronchitis, unspecified organism J20.9 Active 28653566 Problem Cardiomegaly I51.7 Active 9298416 Problem Emotional lability R45.86 Active 1 0180608 Problem Dental caries K02.9 Active 811783 01 Problem Fatigue, unspecified type R53.83 Acti ve 87635209 Problem Cardiomyopathy I42.9 Active 19199 001 Problem Thyroid mass E07.9 Active 1151554 03 Problem Pain in left shoulder M25.512 Active 26124446 Problem Other chronic pain G89.29 Active 8 4848444 Problem Primary osteoarthritis of left shoulder M19.012 Active 14628268 Problem Controlled type 2 diabetes m ellitus without complication, without long- term current use of insulin E11.9 Active 026170206 Problem Urge incontinence of urine N39.41 Act viji 98248973 Problem Expressive aphasia R47.01 Active 2 99513988 Problem Gallbladder polyp K82.4 Active 19 2235877 Problem Mixed hyperlipidemia E78.2 Active 177254419 Problem Type 2 diabetes mellitus without complications E11 .9 Active 30626150 Problem Early menopause E28.319 Active 6584 6009 Problem Hypomagnesemia E83.42 Active 37766 5004 Problem Encounter for Zostavax administration Z23 Active 487104503 ALLERGIES Unknown Allergies SOCIAL HISTORY No smoking Hx information available PLAN OF CARE VITAL SIGNS MEDICATIONS Unknown Medications RESULTS No Results PROCEDURES No Known procedures IMMUNIZATIONS No Known Immunizations
--- OUTSIDE RECORDS SUMMARY | 2019-06-21 12:25 | XMS REPORT ---
Author Author Cat CAVANAUGH Organization [employer] Address Unknown Phone Unavailable Care Team Providers Care Can Cutter Name Role Phone INGE CAVANAUGH CP Unavailable [...] Start Date End Date Status Dosage Coreg [facility] [address]-56 6.25 MG Orally 2 times a day Feb 22, 2015 1 tablet Results No Known Results Summary Purpose eClinicalWorks Submission
--- OUTSIDE RECORDS SUMMARY | 2019-06-21 12:25 | XMS REPORT ---
Author Author Cat CABRERA Organization [facility] Address [address] [place] [address] Care Team Providers Care Security Strategist Name Role Phone ANIL CABRERAARDO Unavailable PROBLEMS Type Condition ICD9-CM Code [id number] Code Onset Dates Condition S tatus SNOMED Code Problem Postmenopausal atrophic vaginitis 627.3 Active 60465644 Problem CVA (cerebral infarction) 434.91 Acti ve 322348181 Problem CAD (coronary artery disease) 414.00 Active 24472527 Problem Thyroid mass E07.9 Active 1384798 03 Problem Hemorrhoids, external, thrombosed K64.5 Active 42699474 Problem Dermatitis L30.9 Active 15164741 Problem Encounter for gynecological examination without abnormal finding Z01.419 Active 031939122 Problem Cardiomyopathy I42.9 Active 50796 001 Problem Acute bronchitis, unspecified organism J20.9 Active 10971239 Problem Other chronic pain G89.29 Active 8 6985643 Problem Cardiomegaly I51.7 Active 1232557 Problem Anxiety F41.9 Active 63656045 Problem Dental caries K02.9 Active 845012 01 Problem Gallbladder polyp K82.4 Active 19 5726497 Problem Fatigue, unspecified type R53.83 Acti ve 52825371 Problem Seizure disorder G40.909 Active 128 786432 Problem Controlled type 2 diabetes m ellitus without complication, without long- term current use of insulin E11.9 Active 588929176 Problem Pain in left shoulder M25.512 Active 32328941 Problem Emotional lability R45.86 Active 1 1701683 Problem Primary osteoarthritis of left shoulder M19.012 Active 68002867 Problem Expressive aphasia R47.01 Active 2 03448108 Problem Hypomagnesemia E83.42 Active 37858 5004 Problem Mixed hyperlipidemia E78.2 Active 387914944 Problem Urge incontinence of urine N39.41 Act viji 91068005 Problem Breast cancer screening Z12.39 Active 627681337 Problem Early menopause E28.319 Active 6584 6009 Problem Type 2 diabetes mellitus without complications E11 .9 Active 95887439 Problem Encounter for Zostavax administration Z23 Active 695579906 ALLERGIES Substance Reaction Event Type Date Status Erythromycin Base hives Drug Allergy Nov, Active ENCOUNTERS Encounter Location Date Diagnosis [facility] [address] [id number] [place] [id number] Aug, [facility] [address] [id number] [place] [id number] Jul, Contact dermatitis, unspecified contact dermatitis type, unspecified trigger L25.9 [facility] [address] [id number] [place] [id number] Mar, Type 2 diabetes mellitus without complic ations E11.9 ; Mammogram declined Z53.20 ; Cardiomegaly I51.7 and Encounter for immunization Z23 [facility] [address] [id number] [place] [id number] Mar, [facility] [address] [id number] [place] [id number] Jan, High risk medication use Z79.899 and Anx iety F41.[address] [facility] [address] [id number] [place] [id number] Jan, [facility] [address] [id number] [place] [id number] Jan, Dental caries K02.[address] [facility] [address] [id number] [place] [address] Jan, [facility] [address] [id number] [place] [id number] Nov, Dental caries K02.[address] [facility] [address] [id number] [place] [id number] October, Dental caries K02.[address] [facility] [address] [id number] [place] [id number] Sep, [facility] [address] [id number] [place] [id number] Sep, Type 2 diabetes mellitus without complic ations E11.9 and Dental caries K02.[address] [facility] [address] [id number] [place] [id number] Aug, [facility] [address] [id number] [place] [id number] Jul, [facility] [address] [id number] [place] [address] Jul, [facility] [address] [id number] [place] [id number] Jun, Dental examination Z01.[address] [facility] [address] [id number] [place] [id number] Jun, Emotional lability R45.[address] [facility] [address] [id number] [place] [address] Jun, [facility] [address] [id number] [place] [id number] Jun, Controlled type 2 diabetes mellitus with out complication, without long-term current use of insulin E11.[address] [facility] [address] [id number] [place] [address] May, [facility] [address] [id number] [place] [id number] May, Cardiomyopathy I42.9 ; Emotional labilit y R45.86 and Dental caries K02.[address] [facility] [address] [id number] [place] [address] Apr, [facility] [address] [id number] [place] [id number] Mar, [facility] [address] [id number] [place] [id number] Feb, Type 2 diabetes mellitus without complic ations E11.9 [facility] [address] [id number] [place] [id number] Jan, [facility] [address] [id number] [place] [id number] Dec, Gallbladder polyp K82.[address] [facility] [address] [id number] [place] [id number] Nov, [facility] [address] [id number] [place] [id number] Nov, Primary osteoarthritis of left shoulder M19.012 [facility] [address] [id number] [place] [address] Nov, [facility] [address] [id number] [place] [address] Nov, Controlled type 2 diabetes mellitus with out complication, without long-term current use of insulin E11.9 and Pain in left shoulder M25.[address] [facility] [address] [id number] [place] [address] Nov, Gallbladder polyp K82.[address] [facility] [address] [id number] [place] [address] October, Pain in left shoulder M25.512 and Other chronic pain G89.[address] [facility] [address] [id number] [place] [address] October, [facility] [address] [id number] [place] [address] October, [facility] [address] [id number] [place] [id number] October, [facility] [address] [id number] [place] [id number] Sep, [facility] [address] [facility] [id number] 100KS [place] [address] Sep, [facility] [address] [id number] [place] [id number] Sep, Encounter for gynecological examination without abnormal finding Z01.419 ; Breast cancer screening Z12.39 ; Hemorrhoids, external, thrombosed K64.5 and Early menopause E28.[address] [id number] [place] [id number] Sep, Acute bronchitis, unspecified organism J 20.9 and Cardiomegaly I51.[id number] [place] [id number] Aug, Thyroid mass E07.[id number] [place] [id number] Aug, Type 2 diabetes mellitus without complic ations E11.9 ; Thyroid mass E07.9 and Encounter for Zostavax administration Z23 [address] [id number] [place] [id number] Aug, Seizure disorder G40.909 ; Hypomagnesemi a E83.42 and Expressive aphasia R47.01 [facility] [id number] [place] [address] Jul, Urge incontinence of urine N 39.[address] [id number] [place] [id number] Jul, [address] [id number] [place] [id number] Jul, Pharyngitis J02.9 ; Urge incontinence of urine N39.41 and Acute cystitis with hematuria N30.01 [facility] [address] [place] [id number] [address] [place] [address] May, Mixed hyperlipidemia E78.[address] [id number] [place] [id number] May, Seizure disorder G40.909 ; Mixed hyperli pidemia E78.2 and Gallbladder polyp K82.[address] [id number] [place] [id number] May, [address] [id number] [place] [id number] May, [facility] [address] [id number] [place] [id number] May, Diabetes type 2, controlled E11.9 and Fa tigue, unspecified type R53.83 [facility] [address] [id number] [place] [id number] Apr, Cardiomyopathy I42.9 ; Thyroid mass E07. 9 ; Seizure disorder G40.909 and Dermatitis L30.9 [facility] [address] [id number] [place] [id number] Mar, [facility] [address] [id number] [place] [id number] Feb, [facility] [address] [id number] [place] [id number] Feb, [facility] [address] [id number] [place] [id number] Jan, [facility] [address] [id number] [place] [id number] Jan, CAD (coronary artery disease) 414.00 ; H yperlipidemia associated with type 2 diabetes mellitus 250.80 and Diabetes type 2, controlled 250.00 [facility] [address] [id number] [place] [id number] Nov, CVA (cerebral infarction) 434.91 ; Expre ssive aphasia 784.3 ; Solitary nodule of right lobe of thyroid 241.0 ; CAD (coronary artery disease) 414.00 ; Diabetes type 2, controlled 250.00 and Hemorrhoids, external 455.3 [facility] [address] [id number] [place] [id number] October, Chest pain, atypical 786.59 ; Hemorrhoid s 455.6 ; Diabetes type 2, controlled 250.00 and Hyperlipidemia associated with type 2 diabetes mellitus 250.80 [facility] [address] [id number] [place] [id number] October, [facility] [address] [id number] [place] [id number] October, Chest pain 786.50 ; Abnormal EKG 794.31 and Diabetes type 2, controlled 250.[address] [address] [id number] [place] [id number] October, Chest pain varies with breathing 786.50 [facility] [address] [id number] [address] [place] [address] Sep, [facility] [address] [id number] [address] [place] [address] Sep, [facility] [address] [id number] [address] [place] [address] Aug, [facility] [address] [id number] [address] [place] [id number] Aug, [facility] [address] [id number] [address] [place] [phone] Aug, [facility] [address] [id number] [address] [place] [address] Aug, [facility] [address] [id number] [address] [place] [address] Aug, [facility] [address] [id number] [address] [place] [address] Aug, [facility] [address] [id number] [address] [place] [id number] Aug, [facility] [address] [id number] [address] [place] [address] Aug, [facility] [address] [id number] [address] [place] [phone] Jul, [facility] [address] [id number] [address] [place] [phone] Jul, [facility] [address] [id number] [address] [place] [phone] Jun, [facility] [address] [id number] [address] [place] [address], [place] [address] Jun, [facility] [address] [id number] [address] [place] [address], [place] [address] Jun, [facility] [address] [id number] [address] [place] [address], [place] [address] Jun, [facility] [address] [id number] [address] [place] [address], [place] [address] Jun, [facility] [address] [id number] [address] [place] [address], [place] [address] Jun, [facility] [address] [id number] [address] [place] [address], [place] [address] Jun, [facility] [address] [id number] [address] [place] [address], [place] [address] Jun, [facility] [address] [id number] [address] [place] [address], [place] [address] Jun, [facility] [place] [address] [id number] [place] [id number] Jun, [facility] [address] [id number] [address] [place] [address], [place] [address] Jun, [facility] [address] [id number] [address] [place] [address], [place] [address] May, [facility] [address] [id number] [address] [place] [address], [place] [address] May, [facility] [address] [id number] [address] [place] [address], [place] [address] May, [facility] [address] [id number] [address] [place] [address], [place] [address] May, [facility] [address] [id number] [address] [place] [address], [place] [address] Apr, [facility] [address] [id number] [place] [address] Apr, [facility] [address] [id number] [address] [place] [address], [place] [address] Mar, 2013 [facility] [address] [id number] [address] [place] [address], [place] [address] Mar, [facility] [address] [id number] [address] [place] [address], [place] [address] Mar, 2013 [facility] [address] [id number] [address] [place] [address] Mar, 2013 [facility] [address] [id number] [address] [place] [address], [place] [address] Mar, [facility] [address] [id number] [address] [place] [address] Mar, 2013 [facility] [address] [id number] [address] [place] [address], [place] [address] Mar, [facility] [address] [id number] [address] [place] [address] Mar, [facility] [address] [id number] [address] [place] [address] 30 Feb, 2013 [facility] [address] [id number] [address] [place] [address], [place] [address] 30 Sep, 2013 [facility] [address] [id number] [address] [place] [address] 19 Sep, 2013 [facility] [address] [id number] [address] [place] [address] 08 Sep, 2013 [facility] [address] [id number] [address] [place] [address], [place] [address] 08 Sep, 2013 [facility] [address] [id number] [address] [place] [address], [place] [address] 08 Sep, 2013 [facility] [address] [id number] [address] [place] [address] 08 Sep, 2013 [facility] [address] [id number] [address] [place] [address] Feb, [facility] [address] [id number] [address] [place] [address] Feb, [facility] [address] [id number] [address] [place] [address] Feb, [facility] [address] [id number] [address] [place] [phone] Feb, [facility] [address] [id number] [address] [place] [address] Jan, [facility] [address] [id number] [address] [place] [address] Jan, [facility] [address] [id number] [address] [place] [address] October, [facility] [address] [id number] [address] [place] [phone] October, IMMUNIZATIONS No Known Immunizations SOCIAL HISTORY Never Assessed REASON FOR VISIT multi te PLAN OF CARE Activity Details Follow Up prn Reason:multi te VITAL SIGNS Height 66.5 in 2016-12-14 Blood pressure systolic 142 mmHg 2016-12-14 Blood pressure diastolic 78 mmHg 2016-12-14 MEDICATIONS Medication Instructions Dosage Frequency Start Date End Date Duration S tatus Fish Oil 1000 MG Orally 2 times a day 1 capsule 12h Active Fluoxetine HCl 20 mg Orally Once a day for depression, take at bedtime 1 capsule in the morning May, Active Nitroglycerin 0.4 MG Act viji Aspirin 81 mg chew 1 tablet (81 mg) by oral route once daily Feb, Active Topamax 200 MG Orally Twice a day 1 tablet 12h Active Metformin HCl 1000 MG Orally Twice a day 1 tablet with a meal 12h Active Isosorbide Mononitrate ER 30 MG Orally Once a day 1/2 tablet 24h Jul, Active Pepcid 20 MG 1 tablet am and pm 2 times a day Orally Active Naproxen 250 MG Orally Twice a day 1 tablet for pain, take with fod 12h October, Active Lipitor 40 mg Orally Once a day 1 tablet 24h Active Plavix 75 MG Orally Once a day 1 tablet 24h 15 Jul, 2016 Active ProAir HFA 108 (90 Base) MCG/ACT Inhalation every 4 hrs 2 puffs as ne eded 4h Active Coreg 6.25 MG Orally 2 times a day 1/2 tablet 12h 90 Active Famotidine 20 MG TAKE 1 TABLET BY MOUTH TWICE DAILY MORNING AND EVENING 30 Active RESULTS No Results PROCEDURES Procedure Date Ordered Result Body Site EXTRAC ERUPTED TOOTH/EXPOSED ROOT December 14, 2016 INSTRUCTIONS MEDICATIONS ADMINISTERED No Known Medications MEDICAL [...]
--- OUTSIDE RECORDS SUMMARY | 2019-06-21 12:25 | XMS REPORT ---
Author Cat Jewell [facility] eClinicalWorks Address Unknown Phone Unavailable Care Team Providers Care Lead Case Manager Name Role Phone BENJAMIN LANGE CP Unavailable Allergies, Adverse Reactions, Alerts Substance Reaction Event Type Erythromycin Base hives Drug Allergy Problems Problem Type Condition ICD-9 Code Onset Dates Condition Statu s Assessment Hyperlipidemia associated with type 2 diabetes mellitu s 250.80 Active Assessment Diabetes type 2, controlled 250.00 Active Problem CAD (coronary artery disease) 414.00 Active Problem Diabetes type 2, controlled 250.00 Active Problem CVA (cerebral infarction) 434.91 Ac tive Problem Unspecified constipation 564.00 Act viji Assessment CAD (coronary artery disease) 414.00 Active Problem Hyperlipidemia associated with type 2 diabetes mellitu s 250.80 Active Problem Postmenopausal atrophic vaginitis 627.3 Active Medications Medication Code System Code Instructions Start Date End Date Status Dosage Lipitor [facility] [address]-56 80 MG Orally Once a day 1 tablet Nitroglycerin [facility] [address]-11 0.4 MG Sublingual not defined Aspirin [facility] [address]-15 81 mg Feb 22, 2014 chew 1 tablet (81 mg) by oral route once daily Metformin HCl [facility] [address]-66 1000 MG Orally Twice a day 1 tablet with a meal MiraLax [facility] [address]-78 17 gm/dose Orally Once a day November 27, 2014 May 26, 2015 as directed Glimepiride [facility] [address]-34 4 MG Orally Once a day 1 tablet with breakfast or the first main meal of the day Carvedilol [facility] [address]-04 3.125 MG Orally 2 times a day TAKE ONE TABLET BY MOUTH TWICE DAILY. Procedures Procedure Coding System Code Date Office Visit, Est Pt., Level 4 CPT-4 97754 A 2014 GLYCATED HEMOGLOBIN TEST CPT-4 14251 Feb 07, 2015 Vital Signs Date/Time: Feb 07, 2015 Temperature 99.1 F Weight 172.6 lbs Height 66.5 in BMI 27.44 Index Blood Pressure Diastolic 72 mmHg Blood Pressure Systolic 118 mmHg Cardiac Monitoring Heart Rate 83 bpm Results Name Result Date Reference Range Unit Abnormali ty Flag A1C (IN HOUSE) Summary Purpose eClinicalWorks Submission
--- OUTSIDE RECORDS SUMMARY | 2019-06-21 12:25 | XMS REPORT ---
Author Author Cat CAVANAUGH Organization [employer] Address Unknown Phone Unavailable Care Team Providers Care General Merchandise Salesperson Name Role Phone INGE CAVANAUGH CP Unavailable [...] Instructions Start Date End Date Status Dosage Calcium [facility] [address]-17 500 MG Orally Twice a day October 22, 2015 1 tablet with meals Results No Known Results Summary Purpose [employer]ClinicalWorks Submission
--- OUTSIDE RECORDS SUMMARY | 2019-06-21 12:25 | XMS REPORT ---
Author Author Cat CAVANAUGH Organization [facility] Address [address] [place] [address] Care Team Providers Care Entry Level Mechanical Engineer Name Role Phone INGE CAVANAUGH Unavailable PROBLEMS Type Condition ICD9-CM Code [id number] Code Onset Dates Condition S tatus SNOMED Code Problem Postmenopausal atrophic vaginitis 627.3 Active 05968022 Problem CVA (cerebral infarction) 434.91 Acti ve 632916653 Problem CAD (coronary artery disease) 414.00 Active 41785380 Problem Thyroid mass E07.9 Active 5011659 03 Problem Hemorrhoids, external, thrombosed K64.5 Active 91151979 Problem Dermatitis L30.9 Active 65909659 Problem Encounter for gynecological examination without abnormal finding Z01.419 Active 897181134 Problem Cardiomyopathy I42.9 Active 12868 001 Problem Acute bronchitis, unspecified organism J20.9 Active 32710400 Problem Other chronic pain G89.29 Active 8 5023480 Problem Cardiomegaly I51.7 Active 0275543 Problem Anxiety F41.9 Active 06334119 Problem Dental caries K02.9 Active 164429 01 Problem Gallbladder polyp K82.4 Active 19 7389018 Problem Fatigue, unspecified type R53.83 Acti ve 60783026 Problem Seizure disorder G40.909 Active 128 643232 Problem Controlled type 2 diabetes m ellitus without complication, without long- term current use of insulin E11.9 Active 991743764 Problem Pain in left shoulder M25.512 Active 04686696 Problem Emotional lability R45.86 Active 1 2463076 Problem Primary osteoarthritis of left shoulder M19.012 Active 99567229 Problem Expressive aphasia R47.01 Active 2 27495286 Problem Hypomagnesemia E83.42 Active 08124 5004 Problem Mixed hyperlipidemia E78.2 Active 036515326 Problem Urge incontinence of urine N39.41 Act viji 73080743 Problem Breast cancer screening Z12.39 Active 335035429 Problem Early menopause E28.319 Active 6584 6009 Problem Type 2 diabetes mellitus without complications E11 .9 Active 95195774 Problem Encounter for Zostavax administration Z23 Active 758065777 ALLERGIES Substance Reaction Event Type Date Status Erythromycin Base hives Drug Allergy Jun, Active SOCIAL HISTORY No smoking Hx information available PLAN OF CARE Activity Details Follow Up 3 Months Reason:DM VITAL SIGNS Height 66.5 in 2016-07-07 Weight 152.6 lbs 2016-07-07 Temperature 98.8 degrees Fahrenheit 2016-07-07 Heart Rate 76 bpm 2016-07-07 Respiratory Rate 16 2016-07-07 BMI 24.26 kg/m2 2016-07-07 Blood pressure systolic 102 mmHg 2016-07-07 Blood pressure diastolic 76 mmHg 2016-07-07 MEDICATIONS Medication Instructions Dosage Frequency Start Date End Date Duration S tatus Nitroglycerin 0.4 MG Act viji Aspirin 81 mg chew 1 tablet (81 mg) by oral route once daily Feb, Active Naproxen 250 MG Orally Twice a day 1 tablet for pain, take with fod 12h October, Active Metformin HCl 1000 MG Orally Twice a day 1 tablet with a meal 12h Active Fluoxetine HCl 20 mg Orally Once a day for depression, take at bedtime 1 capsule in the morning May, Active Lipitor 40 mg Orally Once a day 1 tablet 24h Active ProAir HFA 108 (90 Base) MCG/ACT Inhalation every 4 hrs 2 puffs as ne eded 4h Active Coreg 6.25 MG Orally 2 times a day 1/2 tab 12h Active Fish Oil 1000 MG Orally 2 times a day 1 capsule 12h Active Pepcid 20 MG 1 tablet am and pm 2 times a day Orally Active Topamax 200 MG Orally Twice a day 1 tablet 12h Active RESULTS Name Result Date Reference Range A1C (IN HOUSE) 2016-07-07 A1C IN HOUSE 6.3 4.3 - 5.6 % Previous A1c 6.1 Lot [id number] Exp date 03/2018 PROCEDURES Procedure Date Ordered Related Diagnosis Body Site GLYCATED HEMOGLOBIN TEST Jul 07, 2016 Office Visit, Est Pt., Level 3 Jul 07, 2016 IMMUNIZATIONS No Known Immunizations
--- OUTSIDE RECORDS SUMMARY | 2019-06-21 12:25 | XMS REPORT ---
Author Author Cat CAVANAUGH [facility] eClinical[employer] Address Unknown Phone Unavailable Care Team Providers Care Car Racer Name Role Phone INGE CAVANAUGH CP Unavailable Allergies No Known Allergies Problems Problem Type Condition Code Onset Dates Condition Statu s Problem CAD (coronary artery disease) 414.00 Active Problem Dermatitis L30.9 Active Problem CVA (cerebral infarction) 434.91 Ac tive Problem Gallbladder polyp K82.4 Active Problem Diabetes type 2, controlled E11.9 Active Problem Mixed hyperlipidemia E78.2 Active Problem Thyroid mass E07.9 Active Problem Seizure disorder G40.909 Active Problem Fatigue, unspecified type R53.83 Ac tive Problem Cardiomyopathy I42.9 Active Assessment Mixed hyperlipidemia E78.2 Active Problem Unspecified constipation 564.00 Act viji Problem Postmenopausal atrophic vaginitis 627.3 Active Problem Hyperlipidemia associated with type 2 diabetes mellitu s 250.80 Active Medications Medication Code System Code Instructions Start Date End Date Status Dosage Topamax [facility] [address]-33 100 MG Orally Twice a day 1 tablet Pepcid [facility] [place] [address]-08 20 MG Orally 2 times a day October 24, 2014 1 tablet am and pm Nitroglycerin [facility] [address]-02 0.4 MG Sublingual not defined Aspirin [facility] [place] [address]-33 81 mg Feb 22, 2014 chew 1 tablet (81 mg) by oral route once daily Metformin HCl [facility] [address]-52 1000 MG Orally Twice a day 1 tablet with a meal Carvedilol [facility] 07461824024 6.25 MG TAKE ON E TABLET BY MOUTH TWICE DAILY Coreg [facility] [address]-66 6.25 MG Orally Feb 22, 2015 as directed Glimepiride [facility] [address]-11 4 MG Orally Once a day 1 tablet with breakfast or the first main meal of the day Coreg [facility] [address]-03 6.25 MG Orally 2 times a day Feb 22, 2015 1 tablet Fish Oil [facility] [address]-49 1000 MG Orally 2 times a day 1 capsule Lipitor [facility] [address]-99 80 MG Orally Once a day 1 tablet Results No Known Results Summary Purpose eClinicalWorks Submission
--- OUTSIDE RECORDS SUMMARY | 2019-06-21 12:25 | XMS REPORT ---
Author Author Cat CASTORENA Organization [facility] Address Unknown Phone Unavailable Care Team Providers Care Financial Recruiter Name Role Phone DAJA CASTORENA Unavailable Unavailable PROBLEMS Type Condition ICD9-CM Code [id number] Code Onset Dates Condition S tatus SNOMED Code Problem Postmenopausal atrophic vaginitis 627.3 Active 10358820 Problem CVA (cerebral infarction) 434.91 Acti ve 131196449 Problem CAD (coronary artery disease) 414.00 Active 99040692 Problem Thyroid mass E07.9 Active 5454082 03 Problem Hemorrhoids, external, thrombosed K64.5 Active 38369021 Problem Dermatitis L30.9 Active 84705237 Problem Encounter for gynecological examination without abnormal finding Z01.419 Active 170104533 Problem Cardiomyopathy I42.9 Active 80102 001 Problem Acute bronchitis, unspecified organism J20.9 Active 99435680 Problem Other chronic pain G89.29 Active 8 7072706 Problem Cardiomegaly I51.7 Active 2277195 Problem Anxiety F41.9 Active 25925384 Problem Dental caries K02.9 Active 131619 01 Problem Gallbladder polyp K82.4 Active 19 6143880 Problem Fatigue, unspecified type R53.83 Acti ve 93782879 Problem Seizure disorder G40.909 Active 128 448035 Problem Controlled type 2 diabetes m ellitus without complication, without long- term current use of insulin E11.9 Active 037391354 Problem Pain in left shoulder M25.512 Active 34865568 Problem Emotional lability R45.86 Active 1 7105139 Problem Primary osteoarthritis of left shoulder M19.012 Active 20999157 Problem Expressive aphasia R47.01 Active 2 12328501 Problem Hypomagnesemia E83.42 Active 40788 5004 Problem Mixed hyperlipidemia E78.2 Active 069171134 Problem Urge incontinence of urine N39.41 Act viji 80382170 Problem Breast cancer screening Z12.39 Active 587897145 Problem Early menopause E28.319 Active 5644 6009 Problem Type 2 diabetes mellitus without complications E11 .9 Active 19318162 Problem Encounter for Zostavax administration Z23 Active 799190274 ALLERGIES No Known Allergies SOCIAL HISTORY No smoking Hx information available PLAN OF CARE VITAL SIGNS MEDICATIONS No Known Medications RESULTS No Results PROCEDURES No Known procedures IMMUNIZATIONS No Known Immunizations
--- OUTSIDE RECORDS SUMMARY | 2019-06-21 12:25 | XMS REPORT ---
Author Author Cat CAVANAUGH Organization [facility] Address [address] [place] [address] Care Team Providers Care Technology Services Manager Name Role Phone INGE CAVANAUGH Unavailable PROBLEMS Type Condition ICD9-CM Code [id number] Code Onset Dates Condition S tatus SNOMED Code Problem Postmenopausal atrophic vaginitis 627.3 Active 23258958 Problem CVA (cerebral infarction) 434.91 Acti ve 421413625 Problem CAD (coronary artery disease) 414.00 Active 45187461 Problem Thyroid mass E07.9 Active 2417636 03 Problem Hemorrhoids, external, thrombosed K64.5 Active 12525484 Problem Dermatitis L30.9 Active 76304416 Problem Encounter for gynecological examination without abnormal finding Z01.419 Active 502118417 Problem Cardiomyopathy I42.9 Active 97064 001 Problem Acute bronchitis, unspecified organism J20.9 Active 20197653 Problem Other chronic pain G89.29 Active 8 7029015 Problem Cardiomegaly I51.7 Active 4055620 Problem Anxiety F41.9 Active 53507518 Problem Dental caries K02.9 Active 945194 01 Problem Gallbladder polyp K82.4 Active 19 1577012 Problem Fatigue, unspecified type R53.83 Acti ve 06174884 Problem Seizure disorder G40.909 Active 128 596933 Problem Controlled type 2 diabetes m ellitus without complication, without long- term current use of insulin E11.9 Active 227255463 Problem Pain in left shoulder M25.512 Active 81293345 Problem Emotional lability R45.86 Active 1 1375058 Problem Primary osteoarthritis of left shoulder M19.012 Active 43885138 Problem Expressive aphasia R47.01 Active 2 09123290 Problem Hypomagnesemia E83.42 Active 29607 5004 Problem Mixed hyperlipidemia E78.2 Active 336504043 Problem Urge incontinence of urine N39.41 Act viji 50729413 Problem Breast cancer screening Z12.39 Active 899199749 Problem Early menopause E28.319 Active 6584 6009 Problem Type 2 diabetes mellitus without complications E11 .9 Active 97174007 Problem Encounter for Zostavax administration Z23 Active 980433601 ALLERGIES No Information SOCIAL HISTORY Never Assessed PLAN OF CARE VITAL SIGNS MEDICATIONS Unknown [...]
--- OUTSIDE RECORDS SUMMARY | 2019-06-21 12:25 | XMS REPORT ---
Author Author Cat CAVANAUGH Organization [facility] Address [address] [place] [address] Care Team Providers Care Youth Specialist Name Role Phone INGE CAVANAUGH Unavailable PROBLEMS Type Condition ICD9-CM Code [id number] Code Onset Dates Condition S tatus SNOMED Code Problem Postmenopausal atrophic vaginitis 627.3 Active 48596473 Problem CVA (cerebral infarction) 434.91 Acti ve 037159512 Problem CAD (coronary artery disease) 414.00 Active 31420889 Problem Thyroid mass E07.9 Active 3636843 03 Problem Hemorrhoids, external, thrombosed K64.5 Active 19477635 Problem Dermatitis L30.9 Active 97215246 Problem Encounter for gynecological examination without abnormal finding Z01.419 Active 746622322 Problem Cardiomyopathy I42.9 Active 34140 001 Problem Acute bronchitis, unspecified organism J20.9 Active 75156544 Problem Other chronic pain G89.29 Active 8 5391481 Problem Cardiomegaly I51.7 Active 6610001 Problem Anxiety F41.9 Active 68381944 Problem Dental caries K02.9 Active 443128 01 Problem Gallbladder polyp K82.4 Active 19 8515550 Problem Fatigue, unspecified type R53.83 Acti ve 54797756 Problem Seizure disorder G40.909 Active 128 107978 Problem Controlled type 2 diabetes m ellitus without complication, without long- term current use of insulin E11.9 Active 945577595 Problem Pain in left shoulder M25.512 Active 99807213 Problem Emotional lability R45.86 Active 1 1339675 Problem Primary osteoarthritis of left shoulder M19.012 Active 01880618 Problem Expressive aphasia R47.01 Active 2 16887862 Problem Hypomagnesemia E83.42 Active 12800 5004 Problem Mixed hyperlipidemia E78.2 Active 232340176 Problem Urge incontinence of urine N39.41 Act viji 58338643 Problem Breast cancer screening Z12.39 Active 791214354 Problem Early menopause E28.319 Active 6584 6009 Problem Type 2 diabetes mellitus without complications E11 .9 Active 60114219 Problem Encounter for Zostavax administration Z23 Active 112025445 ALLERGIES No Information SOCIAL HISTORY Never Assessed PLAN OF CARE VITAL SIGNS MEDICATIONS Medication Instructions Dosage Frequency Start Date End Date Duration S joanna Coreg 6.25 MG Orally 2 times a day 1/2 tablet 12h 90 days Active RESULTS No Results PROCEDURES No Known [...]
--- OUTSIDE RECORDS SUMMARY | 2019-06-21 12:25 | XMS REPORT ---
Author Author Cta CABRERA Organization [facility] Address [address] [place] [address] Care Team Providers Care Plan Consultant Name Role Phone RICKANILRHONDA Unavailable PROBLEMS Type Condition ICD9-CM Code [id number] Code Onset Dates Condition S tatus SNOMED Code Problem Postmenopausal atrophic vaginitis 627.3 Active 14717974 Problem CVA (cerebral infarction) 434.91 Acti ve 660591471 Problem CAD (coronary artery disease) 414.00 Active 08009325 Problem Thyroid mass E07.9 Active 0051404 03 Problem Hemorrhoids, external, thrombosed K64.5 Active 69518131 Problem Dermatitis L30.9 Active 27974462 Problem Encounter for gynecological examination without abnormal finding Z01.419 Active 393231948 Problem Cardiomyopathy I42.9 Active 67944 001 Problem Acute bronchitis, unspecified organism J20.9 Active 25630713 Problem Other chronic pain G89.29 Active 8 4798681 Problem Cardiomegaly I51.7 Active 3691508 Problem Anxiety F41.9 Active 10274261 Problem Dental caries K02.9 Active 529295 01 Problem Gallbladder polyp K82.4 Active 19 4663695 Problem Fatigue, unspecified type R53.83 Acti ve 67001638 Problem Seizure disorder G40.909 Active 128 302440 Problem Controlled type 2 diabetes m ellitus without complication, without long- term current use of insulin E11.9 Active 484110012 Problem Pain in left shoulder M25.512 Active 22363857 Problem Emotional lability R45.86 Active 1 6880331 Problem Primary osteoarthritis of left shoulder M19.012 Active 45442472 Problem Expressive aphasia R47.01 Active 2 36139231 Problem Hypomagnesemia E83.42 Active 97986 5004 Problem Mixed hyperlipidemia E78.2 Active 204682435 Problem Urge incontinence of urine N39.41 Act viji 86635645 Problem Breast cancer screening Z12.39 Active 858900251 Problem Early menopause E28.319 Active 6584 6009 Problem Type 2 diabetes mellitus without complications E11 .9 Active 02564347 Problem Encounter for Zostavax administration Z23 Active 729292513 ALLERGIES Substance Reaction Event Type Date Status Erythromycin Base hives Drug Allergy Jun, Active SOCIAL HISTORY No smoking Hx information available PLAN OF CARE Activity Details Follow Up prn Reason:multi te's after med clearance VITAL SIGNS Blood pressure systolic 117 mmHg 2016-07-20 Blood pressure diastolic 74 mmHg 2016-07-20 MEDICATIONS Medication Instructions Dosage Frequency Start Date End Date Duration S tatus Naproxen 250 MG Orally Twice a day 1 tablet for pain, take with fod 12h October, Active Fluoxetine HCl 20 mg Orally Once a day for depression, take at bedtime 1 capsule in the morning May, Active Metformin HCl 1000 MG Orally Twice a day 1 tablet with a meal 12h Active ProAir HFA 108 (90 Base) MCG/ACT Inhalation every 4 hrs 2 puffs as ne eded 4h Active Coreg 6.25 MG Orally 2 times a day 1/ tab 12h Active Topamax 200 MG Orally Twice a day 1 tablet 12h Active Fish Oil 1000 MG Orally 2 times a day 1 capsule 12h Active Nitroglycerin 0.4 MG Act viji Lipitor 40 mg Orally Once a day 1 tablet 24h Active Aspirin 81 mg chew 1 tablet (81 mg) by oral route once daily Feb, Active Pepcid 20 MG 1 tablet am and pm 2 times a day Orally Active RESULTS No Results PROCEDURES Procedure Date Ordered Related Diagnosis Body Site LTD ORAL EVALUATION - PROBLEM FOCUS Jul 20, 2016 INTRAORL-PERIAPICAL 1 FILM [id number] Jul 20, 2016 BITEWINGS - FOUR FILMS Jul 20, 2016 INTRAORL-PERIAPICAL EA ADD FILM Jul 20, 2016 PANORAMIC FILM SEE ALSO CODE [id number] Jul 20, 2016 INTRAORL-PERIAPICAL EA ADD FILM Jul 20, 2016 INTRAORL-PERIAPICAL EA ADD FILM Jul 20, 2016 INTRAORL-PERIAPICAL EA ADD FILM Jul 20, 2016 INTRAORL-PERIAPICAL EA ADD FILM Jul 20, 2016 IMMUNIZATIONS No Known Immunizations
--- OUTSIDE RECORDS SUMMARY | 2019-06-21 12:25 | XMS REPORT ---
Author Author Cat CAVANAUGH Organization [employer] Address Unknown Phone Unavailable Care Team Providers Care Trim Line Worker Name Role Phone INGE CAVANAUGH CP Unavailable [...]
--- OUTSIDE RECORDS SUMMARY | 2019-06-21 12:25 | XMS REPORT ---
Author Author Cat CAVANAUGH Organization [employer] Address Unknown Phone Unavailable Care Team Providers Care E Learning Designer Name Role Phone INGE CAVANAUGH CP Unavailable [...] Start Date End Date Status Dosage Coreg [facility] [address]-04 6.25 MG Orally 2 times a day Feb 22, 2015 1 tablet Results No Known Results Summary Purpose eClinicalWorks Submission
--- OUTSIDE RECORDS SUMMARY | 2019-06-21 12:25 | XMS REPORT ---
Author Author Cat CABRERA Organization [facility] Address [address] [place] [address] Care Team Providers Care Insole Bottom Filler Name Role Phone ANIL CABRERAARDO Unavailable PROBLEMS Type Condition ICD9-CM Code [id number] Code Onset Dates Condition S tatus SNOMED Code Problem Postmenopausal atrophic vaginitis 627.3 Active 61332541 Problem CVA (cerebral infarction) 434.91 Acti ve 555478443 Problem CAD (coronary artery disease) 414.00 Active 41671652 Problem Thyroid mass E07.9 Active 1911240 03 Problem Hemorrhoids, external, thrombosed K64.5 Active 20351562 Problem Dermatitis L30.9 Active 05015058 Problem Encounter for gynecological examination without abnormal finding Z01.419 Active 038520149 Problem Cardiomyopathy I42.9 Active 20254 001 Problem Acute bronchitis, unspecified organism J20.9 Active 63819298 Problem Other chronic pain G89.29 Active 8 3878214 Problem Cardiomegaly I51.7 Active 4276030 Problem Anxiety F41.9 Active 02737777 Problem Dental caries K02.9 Active 597868 01 Problem Gallbladder polyp K82.4 Active 19 7618251 Problem Fatigue, unspecified type R53.83 Acti ve 00755541 Problem Seizure disorder G40.909 Active 128 339781 Problem Controlled type 2 diabetes m ellitus without complication, without long- term current use of insulin E11.9 Active 504634983 Problem Pain in left shoulder M25.512 Active 50620860 Problem Emotional lability R45.86 Active 1 4850502 Problem Primary osteoarthritis of left shoulder M19.012 Active 69049191 Problem Expressive aphasia R47.01 Active 2 16898025 Problem Hypomagnesemia E83.42 Active 83601 5004 Problem Mixed hyperlipidemia E78.2 Active 141748213 Problem Urge incontinence of urine N39.41 Act viji 38739002 Problem Breast cancer screening Z12.39 Active 359010268 Problem Early menopause E28.319 Active 6584 6009 Problem Type 2 diabetes mellitus without complications E11 .9 Active 28908663 Problem Encounter for Zostavax administration Z23 Active 342430459 ALLERGIES Substance Reaction Event Type Date Status Erythromycin Base hives Drug Allergy Jan, Active ENCOUNTERS Encounter Location Date Diagnosis [facility] [address] [id number] [id number] Aug, [facility] [address] [id number][place] [id number] Jul, Contact dermatitis, unspecified contact dermatitis type, unspecified trigger L25.9 [facility] [address] [id number] [id number] Mar, Type 2 diabetes mellitus without complic ations E11.9 ; Mammogram declined Z53.20 ; Cardiomegaly I51.7 and Encounter for immunization Z23 [facility] [address] [id number][place] [id number] Mar, [facility] [address] [id number][place] [id number] Jan, High risk medication use Z79.899 and Anx iety F41.[address] [facility] [address] [id number][place] [id number] Jan, [facility] [address] [id number], [place] [address] Jan, Dental caries K02.[address] [facility] [address] [id number][place] [id number] Jan, [facility] [address] [id number][place] [address] Nov, Dental caries K02.[address] [facility] [address] [id number], [place] [address] October, Dental caries K02.[address] [facility] [address] [id number], [place] [address] Sep, [facility] [address] [id number] [place] [id number] Sep, Type 2 diabetes mellitus without complic ations E11.9 and Dental caries K02.[address] [facility] [address] [id number] [place] [id number] Aug, [facility] [address] [id number], [place] [id number] Jul, [facility] [address] [id number], [place] [address] Jul, [facility] [address] [id number], [place] [id number] Jun, Dental examination Z01.[address] [facility] [address] [id number], [place] [id number] Jun, Emotional lability R45.[address] [facility] [address] [id number][place] [address] Jun, [facility] [address] [id number], [place] [id number] Jun, Controlled type 2 diabetes mellitus with out complication, without long-term current use of insulin E11.[address] [facility] [address] [id number], [place] [id number] May, [facility] [address] [id number], [place] [id number] May, Cardiomyopathy I42.9 ; Emotional labilit y R45.86 and Dental caries K02.[address] [facility] [address] [id number], [place] [address] Apr, [facility] [address] [id number], [place] [id number] Mar, [facility] [address] [id number], [place] [id number] Feb, Type 2 diabetes mellitus without complic ations E11.9 [facility] [address] [id number] [place] [id number] Jan, [facility] [address] [id number][place] [id number] Dec, Gallbladder polyp K82.[address] [facility] [address] [id number] [place] [address] Nov, [facility] [address] [id number], [place] [address]38[address]171 Nov, Primary osteoarthritis of left shoulder M19.012 [facility] [address] [id number] [place] [address] Nov, [facility] [address] [id number], [place] [id number] Nov, Controlled type 2 diabetes mellitus with out complication, without long-term current use of insulin E11.9 and Pain in left shoulder M25.[address] [facility] [address] [id number], [place] [address] Nov, Gallbladder polyp K82.[address] [facility] [address] [id number], [place] [address] October, Pain in left shoulder M25.512 and Other chronic pain G89.[address] [facility] [address] [id number], [place] [address] October, [facility] [address] [id number], [place] [address] October, [facility] [address] [id number], [place] [address] October, [facility] [address] [id number], [place] [id number] Sep, [facility] [address] [facility] [id number] [address] [place] [address] Sep, [facility] [address] [id number], [place] [address] Sep, Encounter for gynecological examination without abnormal finding Z01.419 ; Breast cancer screening Z12.39 ; Hemorrhoids, external, thrombosed K64.5 and Early menopause E28.[address] [id number], [place] [address] Sep, Acute bronchitis, unspecified organism J 20.9 and Cardiomegaly I51.[id number] [place] [id number] Aug, Thyroid mass E07.[address] [id number] [place] [id number] Aug, Type 2 diabetes mellitus without complic ations E11.9 ; Thyroid mass E07.9 and Encounter for Zostavax administration Z23 [address] [id number] [place] [id number] Aug, Seizure disorder G40.909 ; Hypomagnesemi a E83.42 and Expressive aphasia R47.01 [facility] [address] [place] [address] Jul, Urge incontinence of urine N 39.[address] [id number] [place] [id number] Jul, [address] [id number] [place] [id number] Jul, Pharyngitis J02.9 ; Urge incontinence of urine N39.41 and Acute cystitis with hematuria N30.01 [facility] [address] [place] [id number] [address] [place] [address] May, Mixed hyperlipidemia E78.[address] [id number] [place] [id number] May, Seizure disorder G40.909 ; Mixed hyperli pidemia E78.2 and Gallbladder polyp K82.[address] [id number] [place] [id number] May, [id number] [place] [id number] May, [facility] [address] [id number], [place] [id number] May, Diabetes type 2, controlled E11.9 and Fa tigue, unspecified type R53.83 [facility] [address] [id number], [place] [address] Apr, Cardiomyopathy I42.9 ; Thyroid mass E07. 9 ; Seizure disorder G40.909 and Dermatitis L30.9 [facility] [address] [id number], [place] 24812[address]88 Mar, [facility] [address] [id number], [place] [id number] Feb, [facility] [address] [id number], [place] [id number] Feb, [facility] [address] [id number], [place] [id number] Jan, [facility] [address] [id number], [place] [id number] Jan, CAD (coronary artery disease) 414.00 ; H yperlipidemia associated with type 2 diabetes mellitus 250.80 and Diabetes type 2, controlled 250.00 [facility] [address] [id number], [place] [id number] Nov, CVA (cerebral infarction) 434.91 ; Expre ssive aphasia 784.3 ; Solitary nodule of right lobe of thyroid 241.0 ; CAD (coronary artery disease) 414.00 ; Diabetes type 2, controlled 250.00 and Hemorrhoids, external 455.3 [facility] [address] [id number], [place] 194811083 October, Chest pain, atypical 786.59 ; Hemorrhoid s 455.6 ; Diabetes type 2, controlled 250.00 and Hyperlipidemia associated with type 2 diabetes mellitus 250.80 [facility] [address] [id number], [place] [id number] October, [facility] [address] [id number], [place] [id number] October, Chest pain 786.50 ; Abnormal EKG 794.31 and Diabetes type 2, controlled 250.[address] [address] [id number], [place] 127[address] October, Chest pain varies with breathing 786.50 [facility] [address] [id number] [address] [place] [address] Sep, [facility] [address] [id number] [address] [place] [address] Sep, [facility] [address] [id number] [address] [place] [address] Aug, [facility] [address] [id number] [address] [place] [address] Aug, [facility] [address] [id number] [address] [place] [address] Aug, [facility] [address] [id number] [address] [place] [address] Aug, [facility] [address] [id number] [address] [place] [address] Aug, [facility] [address] [id number] [address] [place] [address] Aug, [facility] [address] [id number] [address] [place] [address] Aug, [facility] [address] [id number] [address] [place] [address] Aug, [facility] [address] [id number] [address] [place] [address] Jul, [facility] [address] [id number] [address] [place] [address] Jul, [facility] [address] [id number] [address] [place] [address] Jun, [facility] [address] [id number] [address] [place] [address], [place] [address] Jun, [facility] [address] [id number] [address] [place] [address], [place] [address] Jun, [facility] [address] [id number] [address] [place] [address], [place] [address] Jun, [facility] [address] [id number] [address] [place] [address], [place] [address] Jun, [facility] [address] [id number] [address] [place] [address], [place] [address] Jun, [facility] [address] [id number] [address] [place] [address], [place] [address] Jun, [facility] [address] [id number] [address] [place] [address], [place] [address] Jun, [facility] [address] [id number] [address] [place] [address], [place] [address] Jun, [facility] [address] [id number] [place] [id number] Jun, [facility] [address] [id number] [address] [place] [address], [place] [address] Jun, [facility] [address] [id number] [address] [place] [address], [place] [address] May, [facility] [address] [id number] [address] [place] [address], [place] [address] May, [facility] [address] [id number] [address] [place] [address], [place] [address] May, [facility] [address] [id number] [address] [place] [address], [place] [address] May, [facility] [address] [id number] [address] [place] [address], [place] [address] Apr, [facility] [address] [id number] [place] [address] Apr, [facility] [address] [id number] [address] [place] [address], [place] [address] Mar, 2013 [facility] [address] [id number] [address] [place] [address], [place] [address] Mar, [facility] [address] [id number] [address] [place] [address], [place] [address] Mar, 2013 [facility] [address] [id number] [address] [place] [address] Mar, 2013 [facility] [address] [id number] [address] [place] [address], [place] [address] Mar, [facility] [address] [id number] [address] [place] [address] Mar, 2013 [facility] [address] [id number] [address] [place] [address], [place] [address] Mar, [facility] [address] [id number] [address] [place] [address] Mar, [facility] [address] [id number] [address] [place] [address] 30 Feb, 2013 [facility] [address] [id number] [address] [place] [address], [place] [address] 30 Sep, 2013 [facility] [address] [id number] [address] [place] [address] 19 Sep, 2013 [facility] [address] [id number] [address] [place] [address] 08 Sep, 2013 [facility] [address] [id number] [address] [place] [address], [place] [address] 08 Sep, 2013 [facility] [address] [id number] [address] [place] [address], [place] [address] 08 Sep, 2013 [facility] [address] [id number] [address] [place] [address] 08 Sep, 2013 [facility] [address] [id number] [address] [place] [address] Feb, [facility] [address] [id number] [address] [place] [address] Feb, [facility] [address] [id number] [address] [place] [address] Feb, [facility] [address] [id number] [address] [place] [address] Feb, [facility] [address] [id number] [address] [place] [address] Jan, [facility] [address] [id number] [address] [place] [address] Jan, [facility] [address] [id number] [address] [place] [address] October, [facility] [address] [facility] [id number] [address] [place] [address] October, IMMUNIZATIONS No Known Immunizations SOCIAL HISTORY Never Assessed REASON FOR VISIT multi te PLAN OF CARE Activity Details Follow Up prn Reason:refer VITAL SIGNS Blood pressure systolic 136 mmHg 2017-02-01 Blood pressure diastolic 80 mmHg 2017-02-01 MEDICATIONS Medication Instructions Dosage Frequency Start Date End Date Duration S tatus ProAir HFA 108 (90 Base) MCG/ACT Inhalation every 4 hrs 2 puffs as ne eded 4h Active Isosorbide Mononitrate ER 30 MG Orally Once a day 1/2 tablet 24h Jul, Active Topamax 200 MG Orally Twice a day 1 tablet 12h Active Fluoxetine HCl 20 mg Orally Once a day for depression, take at bedtime 1 capsule in the morning May, Active Plavix 75 MG Orally Once a day 1 tablet 24h Jul, Active Metformin HCl 1000 MG Orally Twice a day 1 tablet with a meal 12h Active Oyster Shell Calcium 500 MG TAKE 1 TABLET BY MOUTH TWICE D AILY WITH MEALS 30 Active Lipitor 40 mg Orally Once a day 1 tablet 24h Active Famotidine 20 MG TAKE 1 TABLET BY MOUTH TWICE DAILY MORNING AND EVENING 30 Active Naproxen 250 MG Orally Twice a day 1 tablet for pain, take with fod 12h October, Active Aspirin 81 mg chew 1 tablet (81 mg) by oral route once daily Feb, Active Nitroglycerin 0.4 MG Act viji Pepcid 20 MG 1 tablet am and pm 2 times a day Orally Active Coreg 6.25 MG Orally 2 times a day 1/2 tablet 12h 90 Active Fish Oil 1000 MG Orally 2 times a day 1 capsule 12h Active RESULTS No Results PROCEDURES Procedure Date Ordered Result Body Site Dental no charge Feb 01, 2017 INSTRUCTIONS MEDICATIONS ADMINISTERED No Known Medications MEDICAL [...]
--- OUTSIDE RECORDS SUMMARY | 2019-06-21 12:25 | XMS REPORT ---
Author Author Cat CAVANAUGH Organization [employer] Address Unknown Phone Unavailable Care Team Providers Care Epidemiology Internship Name Role Phone INGE CAVANAUGH CP Unavailable Allergies No Known Allergies Problems Problem Type Condition Code Onset Dates Condition Statu s Problem Postmenopausal atrophic vaginitis 627.3 Active Problem CAD (coronary artery disease) 414.00 Active Problem Hyperlipidemia associated with type 2 diabetes mellitu s 250.80 Active Problem Unspecified constipation 564.00 Act viji Problem Fatigue, unspecified type R53.83 Ac tive Problem Cardiomyopathy I42.9 Active Problem Diabetes type 2, controlled E11.9 Active Problem Dermatitis L30.9 Active Problem CVA (cerebral infarction) 434.91 Ac tive Problem Thyroid mass E07.9 Active Problem Seizure disorder G40.909 Active Medications Medication Code System Code Instructions Start Date End Date Status Dosage Topamax [facility] [address]-43 100 MG Orally Twice a day 1 tablet Results No Known Results Summary Purpose [employer] Submission
--- OUTSIDE RECORDS SUMMARY | 2019-06-21 12:26 | XMS REPORT ---
Author Author Cat CAVANAUGH Organization [employer] Address Unknown Phone Unavailable Care Team Providers Care Cp Bleacher Operator Name Role Phone INGE CAVANAUGH CP Unavailable [...] Active Problem Seizure disorder G40.909 Active Medications No Known Medications Results No Known Results Summary Purpose [employer] Submission
--- OUTSIDE RECORDS SUMMARY | 2019-06-21 12:26 | XMS REPORT ---
Author Cat Starks [facility] [employer] Address Unknown Phone Unavailable Care Team Providers Care Senior Technical Editor Name Role Phone INGE CAVANAUGH CP Unavailable Allergies, Adverse Reactions, Alerts Substance Reaction Event Type Erythromycin Base hives Drug Allergy Problems Problem Type Condition Code Onset Dates Condition Statu s Assessment Early menopause E28.319 Active Assessment Hemorrhoids, external, thrombosed K64.5 Active Problem Mixed hyperlipidemia E78.2 Active Assessment Breast cancer screening Z12.39 Acti ve Problem Urge incontinence of urine N39.41 A ctive Assessment Encounter for gynecological examination without abnormal finding Z01.419 Active Problem Expressive aphasia R47.01 Active Problem Encounter for Zostavax administration Z23 Active Problem Hypomagnesemia E83.42 Active Problem Cardiomegaly I51.7 Active Problem Encounter for gynecological examination without abnormal finding Z01.419 Active Problem Hyperlipidemia associated with type 2 diabetes mellitu s 250.80 Active Problem Postmenopausal atrophic vaginitis 627.3 Active Problem Acute bronchitis, unspecified organism J20.9 Active Problem Unspecified constipation 564.00 Act viji Problem Early menopause E28.319 Active Problem Type [...] mass E07.9 Active Problem Cardiomyopathy I42.9 Active Medications Medication Code System Code Instructions Start Date End Date Status Dosage Tessalon Perles [facility] [address]-80 100 MG Orally Three times a day 1 capsule as needed Glimepiride [facility] [address]-78 4 MG Orally Once a day 1 tablet with breakfast or the first main meal of the day Topamax [facility] [address]-86 150 Orally Twice a day 1 1/2 tablet Metformin HCl [facility] [address]-80 1000 MG Orally Twice a day 1 tablet with a meal Augmentin [facility] [address]-20 875-125 MG Orally every 12 hrs 1 tablet Coreg [facility] [address]-93 6.25 MG Orally 2 times a day Feb 22, 2015 1 tablet Aspirin [facility] [address]-49 81 mg Feb 22, 2014 chew 1 tablet (81 mg) by oral route once daily Tessalon Perles [facility] [address]-56 100 MG Orally Three time s a day September 25, 2015 1 capsule as needed for cough Lipitor [facility] [address]-72 40 MG Orally Once a day 1 tablet Fish Oil [facility] [address]-64 1000 MG Orally 2 times a day 1 capsule Nitroglycerin [facility] [address]-20 0.4 MG Sublingual not defined ProAir HFA [facility] [address]-50 108 (90 Base) MCG/ACT Inhalation every 4 hrs 2 puffs as needed Pepcid [facility] [address]-43 20 MG Orally 2 times a day October 24, 2014 1 tablet am and pm Procedures Procedure Coding System Code Date Preventive Care Est Pt. Age 40-64 CPT-4 14401 October 08, 2015 SPECIMEN HANDLING CPT-4 16241 October 08, 2015 Vital Signs Date/Time: October 08, 2015 Temperature 98.2 F Weight 152.4 lbs Height 66.5 in BMI 24.23 Index Blood Pressure Diastolic 78 mmHg Blood Pressure Systolic 112 mmHg Cardiac Monitoring Heart Rate 84 bpm Results No Known Results Summary Purpose [employer] Submission
--- OUTSIDE RECORDS SUMMARY | 2019-06-21 12:26 | XMS REPORT | Continuity of Care Document ---
Author Organization Unknown Address Unknown Phone Unavailable Allergies Active Description Code Type Severity Reaction Onset Reported/Identified Relationship to Patient Clinical Status Yes Erythromycin Base Drug Allergy N/A N/A 01/29/2014 Yes erythromycin base [id number] Drug Allergy Unknown RASH 11/05/2014 Yes ZPACK ZPACK Unknown N/A 11/05/2014 Medications There is no data. Problems Date Dx Coded Attending Type Code Diagnosis Diagnosed By 12/27/2007 KEVYN BRANNON APRN 250.02 DIABETES II UNCONTROLLED 12/27/2007 KEVYN BRANNON APRN N 272.1 HYPERTRIGLYCERIDEMIA 12/27/2007 GAUTHIER DO DAVID K 250.02 DIABETES II UNCONTROLLED 12/27/2007 ABRAHAN BURGER DAVID K 272.1 HYPERTRIGLYCERIDEMIA 12/27/2007 GAUTHIER DO, DAVID K 250.02 DIABETES II UNCONTROLLED 12/27/2007 GAUTHIER DO, DAVID K 272.1 HYPERTRIGLYCERIDEMIA 12/27/2007 EATON FORD INGE L 250.02 DIABETES II UNCONTROLLED 12/27/2007 EATON FORD INGE L 27 2.1 HYPERTRIGLYCERIDEMIA 12/27/2007 GAUTHIER DO, DAVID K 250.02 DIABETES II UNCONTROLLED 12/27/2007 GAUTHIER DO, DAVID K 272.1 HYPERTRIGLYCERIDEMIA 12/27/2007 AMILCAR PLATFORM ENGINEER, CRISTINA A 250.02 DIABETES II UNCONTROLLED 12/27/2007 AMILCAR PLATFORM ENGINEER, CRISTINA A 27 2.1 HYPERTRIGLYCERIDEMIA 12/27/2007 GAUTHIER DO, DAVID K 250.02 DIABETES II UNCONTROLLED 12/27/2007 GAUTHIER DO, DAVID K 272.1 HYPERTRIGLYCERIDEMIA 12/27/2007 GAUTHIER DO, DAVID K 250.02 DIABETES II UNCONTROLLED 12/27/2007 GAUTHIER , DAVID K 272.1 HYPERTRIGLYCERIDEMIA 12/30/2007 KEVYN BRANNON APRN N 272.0 HYPERCHOLESTEROLEMIA PURE 12/30/2007 KEVYN BRANNON APRN N 272.4 HYPERLIPIDEMIA UNSPECIFIED 12/30/2007 ABRAHAN BURGER DAVID K 272.0 HYPERCHOLESTEROLEMIA PURE 12/30/2007 GAUTHIER DO, DAVID K 272.4 HYPERLIPIDEMIA UNSPECIFIED 12/30/2007 GAUTHIER DO, DAVID K 272.0 HYPERCHOLESTEROLEMIA PURE 12/30/2007 GAUTHIER DO, DAVID K 272.4 HYPERLIPIDEMIA UNSPECIFIED 12/30/2007 EATON PLATFORM ENGINEER, INGE L 27 2.0 HYPERCHOLESTEROLEMIA PURE 12/30/2007 EATON PLATFORM ENGINEER, INGE L 27 2.4 HYPERLIPIDEMIA UNSPECIFIED 12/30/2007 GAUTHIER DO, DAVID K 272.0 HYPERCHOLESTEROLEMIA PURE 12/30/2007 GAUTHIER DO, DAVID K 272.4 HYPERLIPIDEMIA UNSPECIFIED 12/30/2007 AMILCAR PLATFORM ENGINEER, CRISTINA A 27 2.0 HYPERCHOLESTEROLEMIA PURE 12/30/2007 AMILCAR PLATFORM ENGINEER, CRISTINA A 27 2.4 HYPERLIPIDEMIA UNSPECIFIED 12/30/2007 GAUTHIER DO, DAVID K 272.0 HYPERCHOLESTEROLEMIA PURE 12/30/2007 GAUTHIER DO, DAVID K 272.4 HYPERLIPIDEMIA UNSPECIFIED 12/30/2007 GAUTHIER DO, DAVID K 272.0 HYPERCHOLESTEROLEMIA PURE 12/30/2007 GAUTHIER DO, DAVID K 272.4 HYPERLIPIDEMIA UNSPECIFIED 01/29/2014 GAUTHIER DO, DAVID K 112.1 CANDIDIASIS OF VULVA AND VAGINA 01/29/2014 GAUTHIER DO, DAVID K 698.9 UNSPECIFIED PRURITIC DISORDER 01/29/2014 GAUTHIER DO, DAVID K 112.1 CANDIDIASIS OF VULVA AND VAGINA 01/29/2014 GAUTHIER DO, DAVID K 698.9 UNSPECIFIED PRURITIC DISORDER 01/29/2014 EATON PLATFORM ENGINEER, INGE L 11 2.1 CANDIDIASIS OF VULVA AND VAGINA 01/29/2014 EATON PLATFORM ENGINEER, INGE L 69 8.9 UNSPECIFIED PRURITIC DISORDER 01/29/2014 GAUTHIER DO, DAVID K 112.1 CANDIDIASIS OF VULVA AND VAGINA 01/29/2014 GAUTHIER DO, DAVID K 698.9 UNSPECIFIED PRURITIC DISORDER 01/29/2014 AMILCAR PLATFORM ENGINEER, CRISTINA A 11 2.1 CANDIDIASIS OF VULVA AND VAGINA 01/29/2014 AMILCAR PLATFORM ENGINEER, CRISTINA A 69 8.9 UNSPECIFIED PRURITIC DISORDER 01/29/2014 GAUTHIER DO, DAVID K 112.1 CANDIDIASIS OF VULVA AND VAGINA 01/29/2014 GAUTHIER DO, DAVID K 698.9 UNSPECIFIED PRURITIC DISORDER 01/29/2014 GAUTHIER DO, DAVID K 112.1 CANDIDIASIS OF V[place]VA AND VAGINA 01/29/2014 GAUTHIER DO, DAVID K 698.9 UNSPECIFIED PRURITIC DISORDER 03/20/2014 INGE CAVANAUGH APRN Rosales 564.00 CONSTIPATION 03/20/2014 GAUTHIER DO, DAVID K 564.00 CONSTIPATION 03/20/2014 AMILCARCRISTINA KEEN APRN A 564.00 CONSTIPATION 03/20/2014 GAUTHIER DO, DAVID K 564.00 CONSTIPATION 03/20/2014 GAUTHIER DO, DAVID K 564.00 CONSTIPATION 05/24/2014 GAUTHIER DO DAVID K V04.81 FLU SHOT 05/24/2014 CRISTINA FITZGERALD APRN A V04.81 FLU SHOT 05/24/2014 GAUTHIER DO, DAVID K V04.81 FLU SHOT 05/24/2014 GAUTHIER DO, DAVID K V04.81 FLU SHOT 07/11/2014 CRISTINA FITZGERALD APRN A 62 7.3 POSTMENOPAUSAL ATROPHIC VAGINITIS 07/11/2014 CRISTINA FITZGERALD APRN A V72.31 EXTRUSION DIE TEMPLATE MAKER EXAM, ROUTINE 07/11/2014 CRISTINA FITZGERALD APRN V73.81 HPV SCREENING 07/11/2014 CRISTINA FITZGERALD APRN A V76.10 BREAST CANCER SCREENING 07/11/2014 CRISTINA FITZGERALD APRN A V7 6.2 CERVICAL CANCER SCREENING (PAP SMEAR) 07/11/2014 CRISTINA FITZGERALD APRN V76.51 COLON CANCER SCREENING 07/11/2014 ANA GAUTHIER DOA K 627.3 POSTMENOPAUSAL ATROPHIC VAGINITIS 07/11/2014 ANA GAUTHIER DOA K V72.31 EXTRUSION DIE TEMPLATE MAKER EXAM, ROUTINE 07/11/2014 ANA GAUTHIER DOA K V73.81 HPV SCREENING 07/11/2014 GAUTHIER DO DAVID K V76.10 BREAST CANCER SCREENING 07/11/2014 GAUTHIER DO DAVID K V76.2 CERVICAL CANCER SCREENING (PAP SMEAR) 07/11/2014 GAUTHIER DO DAVID K V76.51 COLON CANCER SCREENING 07/11/2014 GAUTHIER DO DAVID K 627.3 POSTMENOPAUSAL ATROPHIC VAGINITIS 07/11/2014 GAUTHIER DO DAVID K V72.31 EXTRUSION DIE TEMPLATE MAKER EXAM, ROUTINE 07/11/2014 GAUTHIER DO DAVID K V73.81 HPV SCREENING 07/11/2014 GAUTHIER DO DAVID K V76.10 BREAST CANCER SCREENING 07/11/2014 DAVID GAUTHIER DO Rosi V76.2 CERVICAL CANCER SCREENING (PAP SMEAR) 07/11/2014 DAVID GAUTHIER DO Rosi V76.51 COLON CANCER SCREENING 08/02/2014 DAVID GAUTHIER DO 682.6 CELLULITIS AND ABSCESS OF LEG EXCEPT FOOT 08/02/2014 DAVID GAUTHIER DO K 682.6 CELLULITIS AND ABSCESS OF LEG EXCEPT FOOT 09/06/2014 DAVID GAUTHIER DO K 250.00 DIABETES II CONTROLLED (UNCOMPLICATED) 11/05/2014 CRISTINA FITZGERALD PLATFORM ENGINEER Ot 611.72 11/05/2014 INGE CAVANAUGH L STEVEDORE DOCK Ot 429.3 11/05/2014 EATINGE WHITAKER L STEVEDORE DOCK Ot 786.50 11/05/2014 CRISTINA FITZGERALD PLATFORM ENGINEER Ot 611.72 11/05/2014 EATONINGE L STEVEDORE DOCK Ot 429.3 11/05/2014 EATONINGE L STEVEDORE DOCK Ot 786.50 01/28/2015 CRISTINA FITZGERALD PLATFORM ENGINEER Ot 611.72 01/28/2015 EATINGE WHITAKER L STEVEDORE DOCK Ot 429.3 01/28/2015 EATONINGE L STEVEDORE DOCK Ot 786.50 01/28/2015 ROBERT MENSAH, MING Bustos Ot 250.00 01/28/2015 ROBERT MENSAH, MING Bustos Ot 272.4 01/28/2015 ROBERT MENSAH, MING Bustos Ot 278.00 01/28/2015 ROBERT MENSAH, MING G Ot 414.01 01/28/2015 ROBERT MENSAH, MING G Ot 416.8 01/28/2015 ROBERT MENSAH, MING G Ot 443.9 01/28/2015 ROBERT MENSAH, MING G Ot 530.81 01/28/2015 ROBERT MENSAH, MING G Ot 786.09 01/28/2015 ROBERT MENSAH, MING G Ot V58.69 01/28/2015 ROBERT MENSAH, MING G Ot V85.32 01/28/2015 ROBERT MENSAH, MING G Ot 250.00 01/28/2015 ROBERT MENSAH, MING G Ot 272.4 01/28/2015 ROBERT MENSAH, MING G Ot 278.00 01/28/2015 ROBERT MNESAH, MING G Ot 414.01 01/28/2015 ROBERT MENSAH, MING Bustos Ot 416.8 01/28/2015 ROBERT MENSAH, MING Bustos Ot 443.9 01/28/2015 ROBERT MENSAH, MING Bustos Ot 530.81 01/28/2015 ROBERT MENSAH, MING Bustos Ot 786.09 01/28/2015 ROBERT MENSAH, MING Bustos Ot V58.69 01/28/2015 ROBERT MENSAH, MING Bustos Ot V85.32 02/11/2015 ROBERT MENSAH, MING Bustos Ot 250.00 02/11/2015 MING JONES MD Ot 272.4 02/11/2015 ROBERT MENSAH, MING Bustos Ot 278.00 02/11/2015 ROBERT MENSAH, MING Bustos Ot 414.01 02/11/2015 ROBERT MENSAH, MING Bustos Ot 416.8 02/11/2015 ROBERT MENSAH, MING Bustos Ot 443.9 02/11/2015 ROBERT MENSAH, MING Bustos Ot 530.81 02/11/2015 ROBERT MENSAH, MING Bustos Ot 786.09 02/11/2015 ROBERT MENSAH, MING Bustos Ot V58.69 02/11/2015 ROBERT MENSAH, MING Bustos Ot V85.32 07/27/2017 INGE CAVANAUGH STEVEDORE DOCK Ot 429.3 CARDIOMEGALY 07/27/2017 INGE CAVANAUGH STEVEDORE DOCK Ot 786.50 CHEST PAIN NOS 11/02/2018 CRISTINA FITZGERALD A PLATFORM ENGINEER Ot 611.72 LUMP OR MASS IN BREAST 11/02/2018 MING JONES MD Ot 250.00 DIAB NAIN WO COMPL, TYPE II OR UNSPEC TY 11/02/2018 MING JONES MD Ot 272.4 HYPERLIPIDEMIA NEC/NOS 11/02/2018 MING JONES MD Ot 278.00 OBESITY, NOS 11/02/2018 MING JONES MD Ot 414.01 CORONARY ATHEROSCLEROSIS OF [place] CORON 11/02/2018 MING JONES MD Ot 416.8 CHR PULMON HEART DIS NEC 11/02/2018 MING JONES MD Ot 443.9 PERIPH VASCULAR DIS NOS 11/02/2018 MING JONES MD Ot 530.81 ESOPHAGEAL REFLUX 11/02/2018 MING JONES MD Ot 786.09 RESPIRATORY ABNORM NEC 11/02/2018 MING JONES MD, Ot V58.69 OTH MED,LT,CURRENT USE 11/02/2018 MING JONES MD Ot V85.32 BODY MASS INDEX 32.0-32.9, ADULT 11/03/2018 KATRINA DOBSON MD Ot Z01.818 ENCOUNTER FOR OTHER PREPROCEDURAL EXAMIN 11/03/2018 KATRINA DOBSON MD Ot Z01.818 ENCOUNTER FOR OTHER PREPROCEDURAL EXAMIN 11/03/2018 KATRINA DOBSON MD Ot Z01.818 ENCOUNTER FOR OTHER PREPROCEDURAL EXAMIN 11/04/2018 CRISTINA FITZGERALD APRN Ot 611.72 LUMP OR MASS IN BREAST 11/04/2018 MING JONES MD Ot 250.00 DIAB NAIN WO COMPL, TYPE II OR UNSPEC TY 11/04/2018 MING JONES MD Ot 272.4 HYPERLIPIDEMIA NEC/NOS 11/04/2018 MING JONES MD Ot 278.00 OBESITY, NOS 11/04/2018 MING JONES MD Ot 414.01 CORONARY ATHEROSCLEROSIS OF [place] CORON 11/04/2018 MING JONES MD Ot 416.8 CHR PULMON HEART DIS NEC 11/04/2018 MING JONES MD Ot 443.9 PERIPH VASCULAR DIS NOS 11/04/2018 MING JONES MD Ot 530.81 ESOPHAGEAL REFLUX 11/04/2018 MING JONES MD Ot 786.09 RESPIRATORY ABNORM NEC 11/04/2018 MING JONES MD Ot V58.69 OTH MED,LT,CURRENT USE 11/04/2018 MING JONES MD Ot V85.32 BODY MASS INDEX 32.0-32.9, ADULT 11/09/2018 KATRINA DOBSON MD Ot E03 .9 HYPOTHYROIDISM, UNSPECIFIED 11/09/2018 KATRINA DOBSON MD Ot E11.36 TYPE 2 DIABETES MELLITUS WITH DIABETIC C 11/09/2018 KATRINA DOBSON MD Ot F32 .9 MAJOR DEPRESSIVE DISORDER, SINGLE EPISOD 11/09/2018 KATRINA DOBSON MD Ot H25.12 AGE-RELATED NUCLEAR CATARACT, LEFT EYE 11/09/2018 KATRINA DOBSON MD Ot I10 ESSENTIAL (PRIMARY) HYPERTENSION 11/09/2018 KATRINA DOBSON MD Ot I25.10 ATHSCL HEART DISEASE OF [place] CORONARY 11/09/2018 KATRINA DOBSON MD Ot R56 .9 UNSPECIFIED CONVULSIONS 11/09/2018 KATRINA DOBSON MD, Ot Z79.82 [facility] (CURRENT) USE OF ASPIRIN 11/09/2018 KATRINA DOBSON MD Ot Z79.84 MARBLE POLISHER (CURRENT) USE OF ORAL HYPOGLYC 11/09/2018 KATRINA DOBSON MD Ot Z79.899 OTHER [facility] (CURRENT) DRUG THERAPY 11/09/2018 KATRINA DOBSON MD, Ot Z86.73 PRSNL HX OF TIA (TIA), AND CEREB INFRC W 12/09/2018 KATRINA DOBSON MD Ot E03 .9 HYPOTHYROIDISM, UNSPECIFIED 12/09/2018 KATRINA DOBSON MD Ot E11 .9 TYPE 2 DIABETES MELLITUS WITHOUT COMPLIC 12/09/2018 KATRINA DOBSON MD Ot E78.00 PURE HYPERCHOLESTEROLEMIA, UNSPECIFIED 12/09/2018 KATRINA DOBSON MD Ot F32 .9 MAJOR DEPRESSIVE DISORDER, SINGLE EPISOD 12/09/2018 KATRINA DOBSON MD Ot H26.492 OTHER SECONDARY CATARACT, LEFT EYE 12/09/2018 KATRINA DOBSON MD Ot I25 .2 OLD MYOCARDIAL INFARCTION 12/09/2018 KATRINA DOBSON MD Ot I51 .9 HEART DISEASE, UNSPECIFIED 12/09/2018 KATRINA DOBSON MD Ot R56 .9 UNSPECIFIED CONVULSIONS 12/09/2018 KATRINA DOBSON MD, Ot Z79.82 [facility] (CURRENT) USE OF ASPIRIN 12/09/2018 KATRINA DOBSON MD Ot Z79.84 MARBLE POLISHER (CURRENT) USE OF ORAL HYPOGLYC 12/09/2018 KATRINA DOBSON MD Ot Z79.899 OTHER [facility] (CURRENT) DRUG THERAPY 12/09/2018 KATRINA DOBSON MD Ot Z86.73 PRSNL HX OF TIA (TIA), AND CEREB INFRC W 12/09/2018 KATRINA DOBSON MD, Ot Z95 .1 PRESENCE OF AORTOCORONARY BYPASS GRAFT 04/20/2019 KATRINA DOBSON MD, Ot Z01.818 ENCOUNTER FOR OTHER PREPROCEDURAL EXAMIN 04/26/2019 KATRINA DOBSON MD, Ot Z01.818 ENCOUNTER FOR OTHER PREPROCEDURAL EXAMIN 05/25/2019 KATRINA DOBSON MD, Ot Z01.818 ENCOUNTER FOR OTHER PREPROCEDURAL EXAMIN 05/30/2019 KATRINA DOBSON MD, Ot E11.36 TYPE 2 DIABETES MELLITUS WITH DIABETIC C 05/30/2019 KATRINA DOBSON MD, Ot H25.11 AGE-RELATED NUCLEAR CATARACT, RIGHT EYE 05/30/2019 KATRINA DOBSON MD, Ot I25.10 ATHSCL HEART DISEASE OF [place] CORONARY 05/30/2019 KATRINA DOBSON MD, Ot Z79.82 MARBLE POLISHER (CURRENT) USE OF ASPIRIN 05/30/2019 KATRINA DOBSON MD, Ot Z79.84 [facility] (CURRENT) USE OF ORAL HYPOGLYC 05/30/2019 KATRINA DOBSON MD, Ot Z79.899 OTHER [facility] (CURRENT) DRUG THERAPY 05/30/2019 KATRINA DOBSON MD, Ot Z82.49 FAMILY HX OF I[place]HE[place] HEART DIS AND OTH DI 05/30/2019 KATRINA DOBSON MD, Ot Z86.73 PRSNL HX OF TIA (TIA), AND CEREB INFRC W 05/30/2019 KATRINA DOBSON MD, Ot Z88 .1 ALLERGY STATUS TO OTHER ANTIBIOTIC AGENT Procedures Code Description [place] [address] A1C (IN-HOUSE) 02/22/2014 35465 MICR O ALBUMIN-IN HOUSE 02/22/2014 43072 ROUT INE VENIPUNCTURE 02/22/2014 26096 CMP 02/22/2014 70366 LIPI D PANEL 02/22/2014 ANIBAL THY ROID ANALYZER 02/22/2014 93750 A1C (IN-HOUSE) 05/24/2014 Results Test Result Range MICROALBUMIN/CREATININE RATIO, URINE - 1 10:21 CREATININE, RANDOM URINE 31 mg/dL 20-32 0 MICROALBUMIN 0.2 mg/dL See Note: MICROALBUMIN/CREATININE RATIO, RANDOM URINE 6 mcg/ mg creat <30 CBC - 04/20/18 07:53 WHITE BLOOD CELL COUNT 8.2 Thousand/uL 3 .8-10.8 RED BLOOD CELL COUNT 4.61 Million/uL 3.8 0-5.10 HEMOGLOBIN 12.9 g/dL 11.7-15.5 HEMATOCRIT 40.4 % 35.0-45.0 MCV 87.6 fL 80.0-100.0 MCH 28.0 pg 27.0-33.0 MCHC 31.9 g/dL 32.0-36.0 RDW 12.3 % 11.0-15.0 PLATELET COUNT 348 Thousand/uL 140-400 MPV 10.3 fL 7.5-12.5 ABSOLUTE NEUTROPHILS 4010 cells/uL 1500- 7800 ABSOLUTE LYMPHOCYTES 3460 cells/uL 850-3 900 ABSOLUTE MONOCYTES 467 cells/uL 200-950 ABSOLUTE EOSINOPHILS 221 cells/uL 15-500 ABSOLUTE BASOPHILS 41 cells/uL 0-200 NEUTROPHILS 48.9 % NRG LYMPHOCYTES 42.2 % NRG MONOCYTES 5.7 % NRG EOSINOPHILS 2.7 % NRG BASOPHILS 0.5 % NRG Capillary blood glucose measurement by g lucometer (mass/volume) - 05/26/19 09:36 Capillary blood glucose measurement by glucometer (mas s/volume) 147 mg/dL 70-110 LIPID PANEL - 06/08/19 08:49 CHOLESTEROL, TOTAL 118 mg/dL <200 HDL CHOLESTEROL 42 mg/dL >50 TRIGLYCERIDES 83 mg/dL <150 LDL-CHOLESTEROL 59 mg/dL (calc) NRG CHOL/HDLC RATIO 2.8 (calc) <5.0 NON HDL CHOLESTEROL 76 mg/dL (calc) <130 CMP - 06/08/19 08:49 GLUCOSE 156 mg/dL 65-99 UREA NITROGEN (BUN) 19 mg/dL 7-25 CREATININE 0.73 mg/dL 0.50-1.05 eGFR NON-AFR. MOZAMBICAN 90 mL/min/1.73m2 > OR = 60 eGFR 104 mL/min/1.73m2 > OR = 60 BUN/CREATININE RATIO NOT APPLICABLE (calc) 6-22 SODIUM 140 mmol/L 135-146 POTASSIUM 4.2 mmol/L 3.5-5.3 CHLORIDE 106 mmol/L 98-110 CARBON DIOXIDE 25 mmol/L 20-32 CALCIUM 10.2 mg/dL 8.6-10.4 PROTEIN, TOTAL 7.2 g/dL 6.1-8.1 ALBUMIN 4.6 g/dL 3.6-5.1 GLOBULIN 2.6 g/dL (calc) 1.9-3.7 ALBUMIN/GLOBULIN RATIO 1.8 (calc) 1.0-2. 5 BILIRUBIN, TOTAL 0.3 mg/dL 0.2-1.2 ALKALINE PHOSPHATASE 58 U/L 33-130 AST 14 U/L 10-35 ALT 16 U/L 6-29 CBC - 06/08/19 08:49 WHITE BLOOD CELL COUNT 4.8 Thousand/uL 3 .8-10.8 RED BLOOD CELL COUNT 4.47 Million/uL 3.8 0-5.10 HEMOGLOBIN 11.8 g/dL 11.7-15.5 HEMATOCRIT 38.4 % 35.0-45.0 MCV 85.9 fL 80.0-100.0 MCH 26.4 pg 27.0-33.0 MCHC 30.7 g/dL 32.0-36.0 RDW 13.2 % 11.0-15.0 PLATELET COUNT 281 Thousand/uL 140-400 MPV 10.4 fL 7.5-12.5 ABSOLUTE NEUTROPHILS 1762 cells/uL 1500- 7800 ABSOLUTE LYMPHOCYTES 2731 cells/uL 850-3 900 ABSOLUTE MONOCYTES 221 cells/uL 200-950 ABSOLUTE EOSINOPHILS 58 cells/uL 15-500 ABSOLUTE BASOPHILS 29 cells/uL 0-200 NEUTROPHILS 36.7 % NRG LYMPHOCYTES 56.9 % NRG MONOCYTES 4.6 % NRG EOSINOPHILS 1.2 % NRG BASOPHILS 0.6 % NRG TSH - 06/08/19 08:49 TSH 1.72 mIU/L 0.40-4.50 Encounters ACCT No. Visit Date/Time Discharge Status Pt. Type Provider Facility Loc./Unit Complaint [id number] 09/06/2014 07:22:00 09/06/2014 23:59: 59 [facility] Outpatient DAVID GAUTHIER DO [id number] 08/02/2014 15:43:00 08/02/2014 23:59: 59 [facility] Outpatient DAVID GAUTHIER DO [id number] 07/11/2014 10:49:00 07/11/2014 23:59: 59 [facility] Outpatient CRISTINA FITZGERALD APRN [id number] 05/24/2014 09:50:00 05/24/2014 23:59: 59 CLS Outpatient DAVID GAUTHIER DO [id number] 03/20/2014 18:14:00 03/20/2014 23:59: 59 CLS Outpatient INGE CAVANAUGH APRN [id number] 02/22/2014 08:26:00 02/22/2014 23:59: 59 CLS Outpatient DAVID GAUTHIER DO [id number] 01/29/2014 08:06:00 01/29/2014 23:59: 59 CLS Outpatient DAVID GAUTHIER DO [id number] 12/30/2007 08:23:00 12/30/2007 23:59:5 9 CLS Outpatient KEVYN BRANNON APRN [id number] 05/26/2019 09:19:00 10:45:00 DIS Outpatient KATRINA DOBSON MD [facility] CATARACT RIGHT EYE [id number] 05/24/2019 05:52:00 09:31:00 DIS Outpatient KATRINA DOBSON MD [facility] PREOP CATARACT RIGHT EYE [id number] 04/21/2019 13:15:00 23:59:59 CLS Preadmit KATRINA DOBSON MD [facility] CATARACT RIGHT EYE [id number] 04/20/2019 09:12:00 09:24:00 DIS Outpatient KATRINA DOBSON MD [facility] PREOP CATARACT RIGHT EYE [id number] 12/09/2018 09:24:00 10:30:00 DIS Out[facility] [id number] 12/08/2018 05:37:00 23:59:59 CLS Outpatient KATRINA DOBSON MD [facility] PREOP YAG [id number] 11/04/2018 06:27:00 08:45:00 DIS Outpatient KATRINA DOBSNO MD [facility] CATARACT LEFT EYE [id number] 11/02/2018 05:32:00 09:55:00 DIS Outpatient KATRINA DOBSON MD [facility] PREOP CATARACT LEFT EYE [id number] 11/05/2014 07:20:00 015 23:59:59 CLS Outpatient ROBERT MENSAH, MING Bustos [facility] CATH CHEST PAIN,SHORTNESS OF BREATH [id number] 10/25/2014 11:48:00 23:59:59 CLS Outpatient INGE CAVANAUGH STEVEDORE DOCK [facility] RAD [id number] 09/17/2014 10:41:00 015 23:59:59 CLS Outpatient CRISTINA FITZGERALD APRN [facility] RAD RT BREAST NODULE [id number] 06/08/2019 08:40:00 06/08/2019 23:59:5 9 CLS Outpatient INGE CAVANAUGH APRN [facility] [id number] 06/08/2019 08:40:00 Document Registration [id number] 04/20/2018 07:40:00 Document Registration [id number] 04/15/2017 10:00:00 Document Registration
--- OUTSIDE RECORDS SUMMARY | 2019-06-21 12:26 | XMS REPORT ---
Author Author Cat CAVANAUGH Organization [employer] Address Unknown Phone Unavailable Care Team Providers Care Line Service Person Name Role Phone INGE CAVANAUGH CP Unavailable [...]
== END 2019-05-26 10:45 | disposition home or self-care (01) ==
LOC: SDC 09:19
PROVIDERS: ATTEND Specialist
DX: E11.36 Type 2 diabetes mellitus with diabetic cataract (principal); H25.11 Age-related nuclear cataract, right eye; I25.10 Atherosclerotic heart disease of native coronary artery without angina pectoris; Z86.73 Personal history of transient ischemic attack (TIA), and cerebral infarction without residual deficits; Z88.1 Allergy status to other antibiotic agents; Z79.82 Long term (current) use of aspirin; Z79.84 Long term (current) use of oral hypoglycemic drugs; Z79.899 Other long term (current) drug therapy; Z82.49 Family history of ischemic heart disease and other diseases of the circulatory system
CPT/HCPCS: 82962